=== PATIENT | male | born 1940 | race Caucasian/White ===

== ENCOUNTER 2018-07-02 09:31 | Day surgery (SDC) | payer OTHER ==
[2018-07-01 13:33] VITALS: BMI 25.0
[2018-07-02] MEDS: TROPICAMIDE 1% OPHTH SOLN 15 ML BOTTLE ONE ×3 (10:35→10:45)
[2018-07-02] MEDS: CIPROFLOXACIN 0.3% EYE DROPS 5 ML BOTTLE ONE ×3 (10:35→10:45)
[2018-07-02] MEDS: PHENYLEPHRINE 2.5% OPHTH SOLN 15 ML BOTTLE ONE ×3 (10:35→10:45)
[2018-07-02] MEDS: CYCLOPENTOLATE 2% OPHTH SOLN 2 ML BOTTLE ONE ×3 (10:35→10:45)
[2018-07-02] MEDS ORDERED: MIDAZOLAM HCL 2 MG/2 ML SINGLE DOSE VIAL ONE (10:49)
[2018-07-02] MEDS ORDERED: BSS (NA/CA/MG/K) BALANCED SALT SOLUTION OPHTH SOLN 15 ML BOTTLE ONE (10:58)
[2018-07-02 13:58] VITALS: BP 118/65; PULSE 66; TEMP 97.9
--- NOTE | 2018-07-03 07:33 | OP ---
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 ANESTHESIA: MAC PROCEDURE: The patient was brought to the operating room and placed under monitored anesthesia care by Anesthesia. A drop of Tetracaine was then placed over the right eye. The patient was then prepped and draped in the usual sterile manner. A speculum was then placed over the right eye. The eye was then well irrigated with copious amounts of BSS (balanced salt solution). The operating microscope was then moved into position. A paracentesis was performed using a 15 degree blade. At this point 0.5 mL of 1% preservative-free lidocaine was injected into the anterior chamber. Amvisc plus was then injected into the anterior chamber. A clear corneal incision was then formed using a 2.2 mm keratome. A cyclodialysis spatula was then used to break the posterior synechia. Two [place]en iris hooks were then used to stretch the iris. More Amvisc plus was then injected into the anterior chamber. A capsulorrhexis was then performed in a continuous circular fashion beginning with a cystotome and completed with an Utratas forceps. Hydrodissection was then performed using BSS on a cannula. The phaco probe was then introduced through the corneal wound and the cataract was removed using the phaco chop technique. Approximately 3 seconds of absolute phaco time was used. The remaining cortex was then removed using irrigation and aspiration with an I/A probe. The capsule was then filled with regular Amvisc and the capsule was noted to be intact. A previously selected foldable posterior chamber intraocular lens was then injected into the capsule through the corneal wound using a lens injector. It was then dialed into position using a Sinskey hook. The Amvisc was then removed using irrigation and aspiration. Miostat was then injected through the paracentesis to constrict the pupil. The paracentesis and corneal wound were then hydrated and noted to be water tight. A drop of Maxitrol was then placed over the eye. T he speculum was removed and clear shield was taped over the eye. The patient tolerated the procedure well and there were no surgical complications. The patient was asked to follow up in my office the next day. ABDULKADIR GARCIA M.D. [id number]
== END 2018-07-02 16:00 | disposition home or self-care (01) ==
LOC: FASU 09:31
PROVIDERS: ATTEND Ophthalmology
PROC: 08RJ3JZ Replacement of Right Lens with Synthetic Substitute, Percutaneous Approach (ICD-10-PCS; principal; 2018-07-02 11:21)
DX: H26.8 Other specified cataract (principal)

== ENCOUNTER 2018-12-15 11:33 | Emergency (ER) | payer BC, OTHER ==
[2018-12-15 11:37] VITALS: TEMP 98.2; BMI 22.7
[2018-12-15 12:24] LABS: EPI CELLS 1.3 /HPF (0-5/HPF); HYALINE CASTS 2 /lpf (0-8); PH,URINE 5.5 (5.0-8.0); URINE APPEARANCE CLOUDY; URINE BACTERIA 38.5 /hpf (NEGATIVE); URINE BILIRUBIN NEGATIVE (NEGATIVE); URINE COLOR DK YELLOW; URINE GLUCOSE (UA) NEGATIVE (NEGATIVE); URINE KETONE NEGATIVE (NEGATIVE); URINE LEUK ESTERASE 2+ (NEGATIVE); URINE NITRITE NEGATIVE (NEGATIVE); URINE PROTEIN 2+ (NEGATIVE); URINE RBC 269 /hpf (0-4); URINE WBC 207 /hpf (0-5)
[2018-12-15 13:03] LABS: BASO % 0.5 % (0-2.0); EOS % 2.6 % (0-4.5); HEMATOCRIT 34.7 % (35.4-49); HEMOGLOBIN 11.5 GM/dL (11.7-16.9); LYMPH % 12.4 % (8-40); MCH 29.9 pg (25.7-33.7); MCHC 33.1 g/dl (32.0-35.9); MEAN CELL VOLUME 90.3 fl (80-96); MEAN PLT VOLUME 7.5 fl (7.5-11.1); MONO % 7.5 % (3.8-10.2); PLATELET COUNT 191 K/MM3 (134-434); RBC 3.84 M/mm3 (4.00-5.60); RDW 15.7 % (11.9-15.9)
[2018-12-15 13:29] LABS: ALBUMIN 2.9 g/dl (3.4-5.0); BILIRUBIN,TOTAL 0.6 mg/dL (0.2-1); BLOOD UREA NITROGEN 12.6 mg/dL (7-18); CALCIUM 8.4 mg/dL (8.5-10.1); TOT PROT 5.9 g/dl (6.4-8.2)
--- NOTE | 2018-12-15 13:34 | PDOC ---
History of Present Illness - General Chief Complaint: Urinary Problem Stated Complaint: DIFF URINATING Time Seen by Provider: 12/15/18 11:56 - History of Present Illness Initial Comments: Mr. Dos Santos is a 78 y/o male with PMH significant for COPD on home O2 (2L) presenting today with back pain and pain on urination. Reports that this has been going on for the past couple of months. He was diagnosed with a UTI back in May and treated with antibiotics. Denies hematuria. Denies bloody or purulent penile discharge. Denies fever, denies chills. SocHx: not sexually active, no hx of STIs Past History - Past Medical History Allergies/Adverse Reactions: Allergies Allergy/AdvReac Type Severity Reaction Status Date / Time No Known Drug Allergies Allergy Unknown Verified 12/15/18 11:34 Home Medications: Ambulatory Orders Albuterol 2.5/Ipratropium 0.5 [Duoneb -] 1 neb NEB Q4H PRN #0 vial 03/09/12 Amlodipine Besylate [Norvasc -] 10 mg PO DAILY #0 tablet 03/09/12 Salmeterol/Fluticasone [Advair 250Mcg/50Mcg -] 1 inh IH BID #0 inh 03/09/12 Enalapril Maleate [Vasotec] 20 mg PO DAILY 07/01/18 Methadone [Dolophine -] 110 mg PO DAILY 07/01/18 Tamsulosin HCl [Flomax] 0.4 mg PO DAILY 07/01/18 Sulfamethoxazole/Trimethoprim [Bactrim Ds Tablet] 1 each PO BID 10 Days #20 tablet 12/15/18 Anemia: No Asthma: No Cancer: No Cardiac Disorders: Yes (angioplasty 1997) CVA: No COPD: Yes (diagnosed 2009) CHF: No Dementia: No Diabetes: No Dialysis: No GI Disorders: No Disorders: Yes (BPH) HTN: Yes Hypercholesterolemia: No Kidney Stones: No Liver Disease: No Seizures: No Thyroid Disease: No - Surgical History Abdominal Surgery: Yes (RIGHT INQUINAL HERNIA REPAIR 25 YRS AGO) Appendectomy: No Cardiac Surgery: Yes (ANGIOPLASTY 1997) Cholecystectomy: No Lung Surgery: No Neurologic Surgery: No Orthopedic Surgery: No - Immunization History Immunization Up to Date: Yes - Psycho Social/Smoking Cessation Hx Smoking Status: Yes Smoking History: Current every day smoker Years of Tobacco Use: 20 Have you smoked in the past 12 months: Yes Number of Cigarettes Smoked Daily: 20 Information on smoking cessation initiated: No 'Breaking Loose' booklet given: 03/01/12 Hx Alcohol Use: No Drug/Substance Use Hx: No Substance Use Type: Alcohol, Heroin, Prescribed Hx Substance Use Treatment: Yes Review of Systems - Review of Systems Comments:: GENERAL/CONSTITUTIONAL: No fever or chills. No weakness._ HEAD, EYES, EARS, NOSE AND THROAT: No change in vision. No change in hearing. No sore throat._ CARDIOVASCULAR: No chest pain or shortness of breath_ RESPIRATORY: Denies cough, hemoptysis_ GASTROINTESTINAL: No nausea, vomiting, diarrhea or constipation._ GENITOURINARY: Reports dysuria. MUSCULOSKELETAL: No joint or muscle swelling or pain. Reports bilateral back pain. SKIN: No rash_ NEUROLOGIC: No headache, vertigo, loss of consciousness, or change in strength/ sensation._ ENDOCRINE: No increased thirst. No abnormal weight change_ HEMATOLOGIC/LYMPHATIC: No anemia, easy bleeding, or history of blood clots._ ALLERGIC/IMMUNOLOGIC: No hives or skin allergy._ *Physical Exam - Vital Signs Last Vital Signs Temp Pulse Resp BP Pulse Ox 98.2 F 78 18 98/60 92 L 12/15/18 11:34 12/15/18 11:34 12/15/18 11:34 12/15/18 11:34 12/15/18 11:34 - Physical Exam Comments: GENERAL: Awake, alert, and oriented to person/place/time, in no acute distress_ HEAD: No signs of trauma, normocephalic, atraumatic _ EYES: PERRLA, EOMI, sclera anicteric, conjunctiva clear_ ENT: Hearing grossly normal, nares patent, oropharynx clear without exudates. No uvular deviation. Moist mucosa_ NECK: Normal ROM, supple, no lymphadenopathy, JVD, or masses_ LUNGS: No distress, speaks in full sentences, clear to auscultation bilaterally _ HEART: Regular rate and rhythm, normal S1 and S2, no murmurs appreciated, peripheral pulses normal and equal bilaterally._ ABDOMEN: Soft, nontender, normoactive bowel sounds. No guarding, no rebound. No masses_ BACK: Mild TTP mid back bilaterally. : No rashes, lesions, ulcers on external inspection. No penile discharge or bleeding appreciated. No erythema or scrotal skin changes. EXTREMITIES: Normal inspection, Normal range of motion, no edema. No clubbing or cyanosis_ NEUROLOGICAL: Cranial nerves II through XII grossly intact. Normal speech, no focal sensorimotor deficits _ SKIN: Warm, Dry, normal turgor, no rashes or lesions noted_ ED Treatment Course - LABORATORY CBC & Chemistry Diagram: 12/15/18 12:50 12/15/18 12:50 - ADDITIONAL ORDERS Additional order review: Laboratory Results 12/15/18 12/15/18 12:50 12:00 Sodium 140 Potassium 4.0 Chloride 106 Carbon Dioxide 30 Anion Gap 4 L BUN 12.6 Creatinine 1.0 Est GFR (CKD-EPI)AfAm 82.60 Est GFR (CKD-EPI)NonAf 71.27 Random Glucose 85 Calcium 8.4 L Total Bilirubin 0.6 AST 13 L ALT 11 L Alkaline Phosphatase 58 Total Protein 5.9 L Albumin 2.9 L Urine Color Dk yellow Urine Appearance Cloudy Urine pH 5.5 Ur Specific Mcdermitt 1.021 Urine Protein 2+ H Urine Glucose (UA) Negative Urine Ketones Negative Urine Blood 3+ H Urine Nitrite Negative Urine Bilirubin Negative Urine Urobilinogen 1.0 Ur Leukocyte Esterase 2+ H Urine WBC (Auto) 207 Urine RBC (Auto) 269 Urine Casts (Auto) 2 U Epithel Cells (Auto) 1.3 Urine Bacteria (Auto) 38.5 12/15/18 12:50 RBC 3.84 L MCV 90.3 MCHC 33.1 RDW 15.7 MPV 7.5 Neutrophils % 77.0 Lymphocytes % 12.4 Monocytes % 7.5 D Eosinophils % 2.6 Basophils % 0.5 Medical Decision Making - Medical Decision Making 78M presenting with dysuria and mid back pain on both sides for the past two months. DDx includes UTI vs musculoskeletal back pain vs less likely pyelo given bilateral in nature. -UA, UC -CBC, CMP 12/15/18 1500 Labs reviewed. WBC elevated. UA shows possible signs of UTI. Plan to d/c home, f/u PCP and urology, Bactrim BID 10 days for UTI. Discharge - Discharge Information Problems reviewed: Yes Clinical Impression/Diagnosis: Dysuria Condition: Stable Disposition: HOME - Admission No - Additional Discharge Information Prescriptions: Sulfamethoxazole/Trimethoprim [Bactrim Ds Tablet] 1 each PO BID 10 Days #20 tablet - Follow up/Referral Referrals: Cam Moran MD [Staff Physician] - Haris Stinson MD [Staff Physician] - - Patient Discharge Instructions Additional Instructions: Please take Bactrim (antibiotic) 1 tab twice per day for 10 days. Please make a follow up appointment with a primary care physician (referral to Dr. Moran included here) and with a urologist (Dr. Stinson). If you experience any new, worsening, or concerning symptoms, including severe back pain, repeated falls, head injury, blood in the urine, or any other concerns, please return to the emergency department. - Post Discharge Activity
--- NOTE | 2018-12-15 14:08 | PDOC ---
Documentation entered by Jet Coleman SCRIBE, acting as scribe for José Miguel Cruz MD. José Miguel Cruz MD: This documentation has been prepared by the Jared basilio Daniel, SCRIBE, under my direction and personally reviewed by me in its entirety. I confirm that the documentation accurately reflects all work, treatment, procedures, and medical decision making performed by me. Attending Attestation - Resident Resident Name: Evelio Pelletier - ED Attending Attestation I have performed the following: I have examined & evaluated the patient, The case was reviewed & discussed with the resident, I agree w/resident's findings & plan, Exceptions are as noted - HPI HPI: 12/15/18 12:18 The patient is a 78 year old male with a past medical history of COPD (2 liters home O2) here today for evaluation of back pain and dysuria. The patient reports that he has had bilateral back pain and burning with urination for the past 2 months. He notes having a similar episode in May this year and reports that he was diagnosed with a UTI and that it was resolved with antibiotics. He denies any testicular pain, penile discharge, or foul smelling urine. Patient denies headache, lightheadedness. Denies fever, chills. Denies chest pain, shortness of breath. Denies nausea, vomiting, diarrhea, abdominal pain. Allergies: NKDA - Physicial Exam PE: 12/15/18 14:06 GENERAL: The patient is awake, alert, and fully oriented, Nontoxic - in no acute distress. HEAD: Normocephalic, atraumatic. EYES: extraocular movements intact, sclera anicteric, conjunctiva clear. ENT: Normal voice, Moist mucous membranes. NECK: Normal range of motion, supple LUNGS: Breath sounds equal, clear to auscultation bilaterally. No wheezes, no rhonchi, no rales. HEART: Regular rate and rhythm, normal S1 and S2 without murmur, rub or gallop. ABDOMEN: Soft, nontender, No guarding, no rebound. Mild tenderness to bilateral flank EXTREMITIES: Normal range of motion, no edema. NEUROLOGICAL: No facial assymetry, Normal speech, PSYCH: Normal mood, normal affect. SKIN: Warm, Dry, normal turgor, - Medical Decision Making 12/15/18 12:16 78y M hx of copd, presents with dysuria and b/l atraumatic back pain for the past 2 months. pt notes hte pain is chronic and moderate. suzette esany fever/ chills, n/v, abd pain, cp, sob, foul smelling urine. Patient is not sexually active pts sat here is 92, but this is baseline for him as he is off O2 here (o2 dependnt at home) geovanni btin UA to r/o uti no clinical signs suggestive of pyelonephronosis beside back pain 12/15/18 14:06 ua is dirty will treat for uti, but as he has back pain, will treat for pyelo geovanni stephany dorado fu with urology a thi is th 2nd UTI he has had in the past year returnprecautions were discussed
[2018-12-15 14:22] VITALS: BP 97/58; PULSE 77
== END 2018-12-15 14:25 | disposition home or self-care (01) ==
LOC: JER 11:33
DX: N39.0 Urinary tract infection, site not specified (principal); J44.9 Chronic obstructive pulmonary disease, unspecified; Z99.81 Dependence on supplemental oxygen; F17.210 Nicotine dependence, cigarettes, uncomplicated; I10 Essential (primary) hypertension; N40.0 Benign prostatic hyperplasia without lower urinary tract symptoms; Z98.61 Coronary angioplasty status
CPT/HCPCS: 36415; 80053; 81003; 85025; 87086; 99282-25

== ENCOUNTER 2018-12-18 09:04 | Inpatient (IN) | payer BC, OTHER ==
[2018-12-18] MEDS ORDERED: ALBUTEROL SO4 2.5/IPRATROPIUM 0.5 INH SOL 3 ML VIAL.NEB. NEB ONE ×2 (10:09→10:51)
--- NOTE | 2018-12-18 10:16 | PDOC ---
History of Present Illness - General Chief Complaint: Urinary Problem Stated Complaint: URINARY PROBLEMS Time Seen by Provider: 12/18/18 10:03 - History of Present Illness Initial Comments: 12/18/18 10:11 78 yo M PMH COPD on home O2 (2L), notably seen 4 days ago, diagnosed with UTI, dc'd home on Bactrim, presenting with dysuria. Reports that he has been taking the Bactrim as prescribed but continues to have burning with urination. Further complains of incomplete voiding and SOB, similar to his prior COPD exacerbations. Specifically denies CP, N/V, fevers/chills, constipation/ diarrhea. Past History - Past Medical History Allergies/Adverse Reactions: Allergies Allergy/AdvReac Type Severity Reaction Status Date / Time No Known Drug Allergies Allergy Unknown Verified 12/18/18 09:24 Home Medications: Ambulatory Orders Albuterol 2.5/Ipratropium 0.5 [Duoneb -] 1 neb NEB Q4H PRN #0 vial 03/09/12 Amlodipine Besylate [Norvasc -] 10 mg PO DAILY #0 tablet 03/09/12 Salmeterol/Fluticasone [Advair 250Mcg/50Mcg -] 1 inh IH BID #0 inh 03/09/12 Enalapril Maleate [Vasotec] 20 mg PO DAILY 07/01/18 Methadone [Dolophine -] 110 mg PO DAILY 07/01/18 Tamsulosin HCl [Flomax] 0.4 mg PO DAILY 07/01/18 Sulfamethoxazole/Trimethoprim [Bactrim Ds Tablet] 1 each PO BID 10 Days #20 tablet 12/15/18 Anemia: No Asthma: No Cancer: No Cardiac Disorders: Yes (angioplasty 1997) CVA: No COPD: Yes (diagnosed 2009) CHF: No Dementia: No Diabetes: No Dialysis: No GI Disorders: No Disorders: Yes (BPH) HTN: Yes Hypercholesterolemia: No Kidney Stones: No Liver Disease: No Seizures: No Thyroid Disease: No - Surgical History Abdominal Surgery: Yes (RIGHT INQUINAL HERNIA REPAIR 25 YRS AGO) Appendectomy: No Cardiac Surgery: Yes (ANGIOPLASTY 1997) Cholecystectomy: No Lung Surgery: No Neurologic Surgery: No Orthopedic Surgery: No - Immunization History Immunization Up to Date: Yes - Psycho Social/Smoking Cessation Hx Smoking Status: Yes Smoking History: Never smoked Years of Tobacco Use: 20 Have you smoked in the past 12 months: Yes Number of Cigarettes Smoked Daily: 20 'Breaking Loose' booklet given: 03/01/12 Hx Alcohol Use: No Drug/Substance Use Hx: No Substance Use Type: Alcohol, Heroin, Prescribed Hx Substance Use Treatment: Yes Review of Systems - Review of Systems Able to Perform ROS?: Yes Constitutional: No: Chills, Diaphoresis, Fever HEENTM: No: Recent change in vision, Double Vision, Tinnitus, Hearing Loss, Mouth Pain, Difficulty Swallowing Respiratory: Yes: Shortness of Breath. No: Cough, Orthopnea Cardiac (ROS): No: Chest Pain, Edema, Irregular Heart Rate, Lightheadedness, Palpitations, Syncope, Chest Tightness ABD/GI: No: Constipated, Diarrhea, Nausea, Vomiting : Yes: Burning, Dysuria, Other (incomplete voiding). No: Discharge, Frequency , Flank Pain Musculoskeletal: No: Back Pain, Muscle Pain Neurological: No: Headache, Numbness, Tingling, Weakness *Physical Exam - Vital Signs Last Vital Signs Temp Pulse Resp BP Pulse Ox 98.6 F 88 16 100/65 95 12/18/18 09:21 12/18/18 09:21 12/18/18 09:21 12/18/18 09:21 12/18/18 09:21 - Physical Exam Comments: 12/18/18 10:13 Gen: well-developed, well-nourished, NAD Neuro: AAOX4, CN II-XII intact, FTN intact, EOMI, PERRLA, 5/5 strength, SILT HEENT: atraumatic, normocephalic, dry mucous membranes Neck: trachea midline, supple CV: regular rate, regular rhythm, no murmurs, rubs, or gallops Pulm: diffuse b/l expiratory wheezing Abd: soft, non-distended, non-tender MSK: full ROM, intact pulses Extr: no edema, no deformities Skin: warm, dry ED Treatment Course - LABORATORY CBC & Chemistry Diagram: 12/18/18 10:15 12/18/18 10:15 - RADIOLOGY Radiology Studies Ordered: Category Date Time Status CXRPORT [CHEST X-RAY PORTABLE*] [RAD] Stat Radiology 12/18/18 10:11 Ordered Medical Decision Making - Medical Decision Making 12/18/18 10:14 Concern for UTI vs incomplete voiding vs COPD exacerbation. - CBC, CMP - EKG, trop - CXR port - UA/UC - sating 93% on RA, put patient back on home 2L - Duoneb X2 - reassess 12/18/18 10:41 POCUS 29 ccs. Patient states confusion about his medications, does not have primary care doctor. Appears that he would benefit from psych social worker. Called, they will come down. 12/18/18 10:57 CXR without acute pathology. 12/18/18 11:45 Cr 1.4 from 1. 12/18/18 14:[address] abd/pelvis, dry, admit for hematuria and LUCIE. 12/18/18 15:27 CT abdomen/pelvis: Irregular edge liver is suggesting cirrhosis. Increased density in the lateral wall of the fundus of the gallbladder which could represent sludge , underlying mass not excluded. Correlate with ultrasound imaging. There is mild dilatation of the extrahepatic bile ducts which could be age-related. No distal CBD stones identified. Ampullary lesion not excluded. Consider MRCP as clinically warranted. Low-density lesion in the spleen indeterminate. Dilatation of the right collecting system and ureter up to the level of the sacral promontory with a hyperdense lesion is noted. Findings could represent a mass or blood. Sludge is another possibility. Correlate with retrograde urogram. Hyperdensity on the dependent portion of the bladder which could represent sludge or blood. Correlate with ultrasound imaging. Diverticulosis with no evidence to suggest diverticulitis. Infrarenal abdominal aortic aneurysm as discussed above. Paraumbilical ventral hernia with no stranding. Will admit. Discharge - Discharge Information Problems reviewed: Yes Clinical Impression/Diagnosis: Dysuria, SOB (shortness of breath) - Follow up/Referral - Patient Discharge Instructions - Post Discharge Activity
--- NOTE | 2018-12-18 10:21 | PDOC ---
Attending Attestation - Resident Resident Name: Jann Celeste - ED Attending Attestation I have performed the following: I have examined & evaluated the patient, The case was reviewed & discussed with the resident, I agree w/resident's findings & plan, Exceptions are as noted - HPI HPI: 12/18/18 10:19 Mr. fam is a 78 yo M PMH COPD on home O2 (2L) presenting to the emergency department with a complaint of persistent dysuria, suprapubic tenderness. Patient was seen in the emergency department 4 days ago and was diagnosed with UTI He was d/bea on Bactrim (urine cultures negative) Patient presents today reporting persistent dysuria, inability to void Secondarily, patient reports SOB, similar to his prior COPD exacerbations. Specifically denies CP, N/V, fevers/chills, constipation/diarrhea. - Physicial Exam PE: 12/18/18 10:20 GENERAL: The patient is in no acute distress. ENT: Ears normal, nares patent, oropharynx clear without exudates. Moist mucous membranes. NECK: Normal range of motion, supple LUNGS: Breath sounds equal, clear to auscultation bilaterally. No wheezes, and no crackles. HEART:Regular rate and rhythm, normal S1 and S2 without murmur, rub or gallop. ABDOMEN: Soft, nontender, no suprapubic distention, abdominal wall hernia which is reducible/soft : circumcised penis, no lesions, no drainage EXTREMITIES: Normal range of motion, no edema. NEUROLOGICAL: Cranial nerves II through XII grossly intact. Normal speech. No focal neurological deficits. SKIN: Warm, Dry, normal turgor, no rashes or lesions noted. 12/18/18 10:42 12/18/18 10:57 - Medical Decision Making 12/18/18 10:41 EKG: Normal sinus rhythm, rate of 69 bpm, axis is normal, intervals are normal-MA: 148 ms, QRS: 88 ms, QTC [address] elevation or depression, T waves upright 12/18/18 10:54 Bedside ultrasound performed patient's bladder Patient's urinary bladder is not distended We will not need to be straight cath 12/18/18 10:56 rate manager will see this patient 12/18/18 11:00 12/18/18 12:12 Laboratory Tests 12/15/18 12/15/1819 12:50 12:50 10:15 WBC Hgb 11.5 L Hct 34.7 L BUN 12.6 Creatinine 1.0 Creatine Kinase 63 Troponin I < 0.02 12/18/18 12/18/18 10:15 10:15 WBC 10.0 Hgb 11.1 L Hct 33.7 L BUN 14.2 Creatinine 1.4 H Creatine Kinase Troponin I CT demonstrates 2 cm calcification in the right ureter with hydro As well as blood in the bladder Pt will be admitted
[2018-12-18 11:01] LABS: ALBUMIN 3.2 g/dl (3.4-5.0); BILIRUBIN,TOTAL 0.4 mg/dL (0.2-1); BLOOD UREA NITROGEN 14.2 mg/dL (7-18); CALCIUM 9.1 mg/dL (8.5-10.1); CREATININE 1.4 mg/dL (0.55-1.3); POTASSIUM 4.5 mmol/L (3.5-5.1); TOT PROT 6.2 g/dl (6.4-8.2)
--- NOTE | 2018-12-18 11:59 | EKG ---
Test Reason : Blood Pressure : / mmHG Vent. Rate : 069 BPM Atrial Rate : 069 BPM P-R Int : 148 ms QRS Dur : 088 ms QT Int : 434 ms P-R-T Axes : 077 021 069 degrees QTc Int : 465 ms NORMAL SINUS RHYTHM SEPTAL INFARCT (CITED ON OR BEFORE 05-MAR-2012) ABNORMAL ECG WHEN COMPARED WITH ECG OF 05-MAR-2012 19:58, NO SIGNIFICANT CHANGE WAS FOUND Confirmed by PER SHIPLEY, MICHELLE ([id number]) on 12/18/2018 11:59:22 AM Referred By: Confirmed By:MICHELLE ALBARADO MD
[2018-12-18 12:01] LABS: BASO % 0.6 % (0-2.0); EOS % 1.5 % (0-4.5); HEMATOCRIT 33.7 % (35.4-49); HEMOGLOBIN 11.1 GM/dL (11.7-16.9); LYMPH % 8.3 % (8-40); MCH 29.5 pg (25.7-33.7); MCHC 33.1 g/dl (32.0-35.9); MEAN CELL VOLUME 89.3 fl (80-96); MEAN PLT VOLUME 7.9 fl (7.5-11.1); MONO % 4.4 % (3.8-10.2); NEUT % 85.2 % (42.8-82.8); PLATELET COUNT 209 K/MM3 (134-434); RBC 3.77 M/mm3 (4.00-5.60); RDW 15.5 % (11.9-15.9)
[2018-12-18 13:08] LABS: EPI CELLS 1.7 /HPF (0-5/HPF); HYALINE CASTS 23 /lpf (0-8); PH,URINE 5.5 (5.0-8.0); URINE APPEARANCE TURBID; URINE BACTERIA 16.8 /hpf (NEGATIVE); URINE BILIRUBIN 1+ (NEGATIVE); URINE COLOR DK YELLOW; URINE GLUCOSE (UA) NEGATIVE (NEGATIVE); URINE KETONE NEGATIVE (NEGATIVE); URINE LEUK ESTERASE 2+ (NEGATIVE); URINE NITRITE NEGATIVE (NEGATIVE); URINE PROTEIN 2+ (NEGATIVE); URINE WBC 167 /hpf (0-5)
[2018-12-18 13:51] LABS: YEAST NO YEAST SEEN (NEGATIVE)
--- NOTE | 2018-12-18 16:36 | HP ---
Admitting History and Physical - Admission Chief Complaint: hematuria and left flank pain History of Present Illness: 78 yo M PMH COPD on home O2 (2L), notably seen 4 days ago, diagnosed with UTI, dc'd home on Bactrim. Presented today with dysuria, hematuria & feeling of incomplete voiding. Mild RING. Denies CP, N/V, fevers/chills. States he has not seen his PCP in years and should be taking "several medications" but only consistently takes his methadone. [facility] ([facility]) Subst Abuse Treatment Program Unit [facility] is a Substance Abuse Rehab Services History Source: Patient - Past Medical History Cardiovascular: Yes: HTN Pulmonary: Yes: COPD, Other (home O2) Renal/: Yes: BPH, Hematuria, UTI - Past Surgical History Past Surgical History: Yes: Hernia Repair (RIH repair 25 yrs ago) Additional Past Surgical History: Angioplasty 1997 - Smoking History Smoking history: Never smoked Have you smoked in the past 12 months: Yes Aproximately how many cigarettes per day: 20 - Alcohol/Substance Use Hx Alcohol Use: No History of Substance Use: reports: Heroin - Social History Usual Living Arrangement: Yes: Alone ADL: Independent History of Recent Travel: No Home Medications - Allergies Allergies/Adverse Reactions: Allergies Allergy/AdvReac Type Severity Reaction Status Date / Time No Known Drug Allergies Allergy Unknown Verified 12/18/18 09:24 - Home Medications Home Medications: Ambulatory Orders Albuterol 2.5/Ipratropium 0.5 [Duoneb -] 1 neb NEB Q4H PRN #0 vial 03/09/12 Amlodipine Besylate [Norvasc -] 10 mg PO DAILY #0 tablet 03/09/12 Salmeterol/Fluticasone [Advair 250Mcg/50Mcg -] 1 inh IH BID #0 inh 03/09/12 Enalapril Maleate [Vasotec] 20 mg PO DAILY 07/01/18 Methadone [Dolophine -] 110 mg PO DAILY 07/01/18 Tamsulosin HCl [Flomax] 0.4 mg PO DAILY 07/01/18 Sulfamethoxazole/Trimethoprim [Bactrim Ds Tablet] 1 each PO BID 10 Days #20 tablet 12/15/18 Family Medical History Family History: Denies Review of Systems - Review of Systems Constitutional: reports: No Symptoms Eyes: reports: No Symptoms HENT: reports: No Symptoms Neck: reports: No Symptoms Cardiovascular: reports: Shortness of Breath Respiratory: reports: SOB on Exertion, Other (2L home O2) Gastrointestinal: reports: Nausea, Vomiting (non bloody) Genitourinary: reports: Burning, Dysuria, Flank Pain (left) Musculoskeletal: reports: Back Pain Integumentary: reports: No Symptoms Neurological: reports: No Symptoms Endocrine: reports: No Symptoms Hematology/Lymphatic: reports: No Symptoms Psychiatric: reports: No Symptoms Physical Examination Vital Signs: Vital Signs Temperature 98.6 F 12/18/18 09:21 Pulse Rate 72 12/18/18 15:54 Respiratory Rate 19 12/18/18 15:54 Blood Pressure 140/62 12/18/18 15:54 O2 Sat by Pulse Oximetry (%) 94 L 12/18/18 15:54 Constitutional: Yes: No Distress, Calm, Poor Hygeine, Thin Eyes: Yes: WNL, Conjunctiva Clear, EOM Intact HENT: Yes: WNL, Atraumatic, Normocephalic Neck: Yes: WNL, Supple, Trachea Midline Cardiovascular: Yes: WNL, Regular Rate and Rhythm Respiratory: Yes: Wheezes (scattered wheeking BL) Gastrointestinal: Yes: WNL, Normal Bowel Sounds ...Rectal Exam: Yes: Deferred Renal/: Yes: CVA Tenderness - Left Breast(s): Yes: WNL Musculoskeletal: Yes: Back Pain Extremities: Yes: WNL Edema: No Peripheral Pulses WNL: Yes Peripheral Pulses: Left Radial: 2+, Right Radial: 2+, Left Doralis Pedis: 2+, Right Dorsalis Pedis: 2+, Left Femoral: 2+, Right Femoral: 2+ Integumentary: Yes: WNL Neurological: Yes: WNL, Alert, Oriented ...Motor Strength: WNL Psychiatric: Yes: WNL Labs: CBC, BMP 12/18/18 10:15 12/18/18 10:15 Imaging - Results Cat Scan: Report Reviewed (CT abdomen/pelvis: Irregular edge liver is suggesting cirrhosis. Increased density in the lateral wall of the fundus of the gallbladder which could represent sludge , underlying mass not excluded. Correlate with ultrasound imaging. There is mild dilatation of the extrahepatic bile ducts which could be age-related. No distal CBD stones identified. Ampullary lesion not excluded. Consider MRCP as clinically warranted. Low- density lesion in the spleen indeterminate. Dilatation of the right collecting system and ureter up to the level of the sacral promontory with a hyperdense lesion is noted. Findings could represent a mass or blood. Sludge is another possibility. Correlate with retrograde urogram. Hyperdensity on the dependent portion of the bladder which could represent sludge or blood. Correlate with ultrasound imaging. Diverticulosis with no evidence to suggest diverticulitis. Infrarenal abdominal aortic aneurysm as discussed above. Paraumbilical ventral hernia with no stranding.) Problem List - Problems (1) HTN (hypertension) Assessment/Plan: previously on amlodopine and enalpril-has not consistency taken Cr 1.5-baseline <1.0 will hold enalapril and restart amlodopine Code(s): I10 - ESSENTIAL (PRIMARY) HYPERTENSION (2) Methadone maintenance therapy patient Assessment/Plan: attempted to call [facility] ([facility]) Subst Abuse Treatment Program Unit I is a Substance Abuse Rehab Services with no response will order one x dose of methadone and verify maintenance dose in morning (pt dose have card but no dose is stated on card) Code(s): F11.20 - OPIOID DEPENDENCE, UNCOMPLICATED (3) Prophylactic measure Assessment/Plan: FEN IVF @ 100cc/hr low sodium diet NPO after MN for potential intervention in am monitor electrolytes DVT heparin sq Dispo admit to med surg floor full code discharge planning to home-will have SW see in morning Code(s): Z29.9 - ENCOUNTER FOR PROPHYLACTIC MEASURES, UNSPECIFIED (4) Hematuria Assessment/Plan: hematuria since yesterdal bladder scan to assess PVR conitnue IVF Dr Jameson to see patient renal/abd US pending c/w IVF start ceftriaxone pending Ucx Code(s): R31.9 - HEMATURIA, UNSPECIFIED (5) Dysuria Code(s): R30.0 - DYSURIA (6) SOB (shortness of breath) Assessment/Plan: duonebs q6h prn supplemental O2 to maintain SPO2 >90 Code(s): R06.02 - SHORTNESS OF BREATH (7) Cirrhosis Assessment/Plan: seen on CT will send hepatatis serologies avoid hepatoxic agents abd US pending Code(s): K74.60 - UNSPECIFIED CIRRHOSIS OF LIVER Visit type - Emergency Visit Emergency Visit: Yes ED Registration Date: 12/18/18 Care time: The patient presented to the Emergency Department on the above date and was hospitalized for further evaluation of their emergent condition. - New Patient This patient is new to me today: Yes Date on this admission: 12/18/18 - Critical Care Critical Care patient: No
[2018-12-18] MEDS ORDERED: ALBUTEROL SO4 2.5/IPRATROPIUM 0.5 INH SOL 3 ML VIAL.NEB. NEB PRN ×2 (16:44→17:35)
[2018-12-18] MEDS ORDERED: CEFTRIAXONE 0 GM/0 ML BAG ONE (18:58)
[2018-12-18] MEDS: CEFTRIAXONE 1 GM in DEXTROSE 5%-WATER - 50 ML IVPB SCH (18:59)
[2018-12-18] MEDS: SODIUM CHLORIDE 1,000 ML IV SCH (18:59)
[2018-12-18] MEDS ORDERED: CEFTRIAXONE 1 GM/50 ML BAG ONE (19:06)
--- NOTE | 2018-12-18 20:44 | CONS ---
DATE OF CONSULTATION: 12/18/2018 REASON FOR CONSULTATION: Hematuria, abnormal CT, and dysuria. Patient is a 78-year-old who presented earlier this week to the emergency room with dysuria, was also reported to have intermittent hematuria, although at the time he was seen, there was no hematuria. A urine culture was sent out at that time, and the patient was given antibiotics and discharged from the emergency room, but came back in today with the hematuria and reporting that the dysuria had not resolved. Patient is an extremely poor historian, but does note that he has had on-and-off hematuria for approximately 4-5 months at least. He has also had difficulty voiding, and the dysuria developed over the course of the past few weeks. It has gotten progressively worse. Significantly, the urine culture sent off earlier this week from the emergency room did not show an infection. PHYSICAL EXAMINATION: General: The patient was wearing nasal O2, not in any obvious pain, but uncomfortable. Abdomen: There was no acute tenderness elicited nor was any flank pain elicited. The bladder was not palpably distended. Patient's CT revealed marked dilatation of the right renal pelvis with cortical thinning and dilatation of the proximal ureter. It appears that the patient might have a stone chronically lodged in the ureter as the findings seem to be quite chronic with the cortex significantly thinned out. I did not see any images of the bladder. His urine culture at this point is pending. Patient should have urine cytology sent and will require a cystoscopy, right retrograde, possible ureteroscopy, which will be scheduled sometime next week. MD SIA LIMON/[id number]
[2018-12-18] MEDS: BUDESONIDE/FORMETEROL FUMARATE 80/4.5 mcg INHALER IH SCH (23:09)
[2018-12-19] MEDS ORDERED: METHADONE HCL 10 MG TABLET PO SCH (06:00)
[2018-12-19 08:15] LABS: BASO % 0.8 % (0-2.0); HEMATOCRIT 32.9 % (35.4-49); HEMOGLOBIN 11.1 GM/dL (11.7-16.9); LYMPH % 13.4 % (8-40); MCH 30.2 pg (25.7-33.7); MCHC 33.7 g/dl (32.0-35.9); MEAN CELL VOLUME 89.6 fl (80-96); MEAN PLT VOLUME 7.2 fl (7.5-11.1); MONO % 5.9 % (3.8-10.2); NEUT % 76.9 % (42.8-82.8); PLATELET COUNT 185 K/MM3 (134-434); RBC 3.67 M/mm3 (4.00-5.60); RDW 15.6 % (11.9-15.9); WHITE BLOOD COUNT 8.4 K/mm3 (4.0-10.0)
[2018-12-19 08:20] LABS: INR 1.13 (0.83-1.09); PROTHROMBIN TIME (PATIENT) 13.3 SEC (9.7-13.0)
--- NOTE | 2018-12-19 08:21 | PN ---
Progress Note, Physician Chief Complaint: Still complaining of dysuria, no further hematuria - Current Medication List Current Medications: Active Medications Albuterol/Ipratropium (Duoneb -) 1 amp NEB Q6H PRN PRN Reason: SHORTNESS OF BREATH Albuterol/Ipratropium (Duoneb -) 1 amp NEB Q4H PRN PRN Reason: ASTHMA Amlodipine Besylate (Norvasc -) 10 mg PO DAILY [facility] Budesonide/Formoterol Fumarate (Symbicort 80/4.5mcg -) 2 puff IH BID [facility] Last Admin: 12/18/18 23:09 Dose: 2 pfu Sodium Chloride (Normal Saline -) 1,000 mls @ 100 mls/hr IV ASDIR [facility] Last Admin: 12/18/18 18:59 Dose: 100 mls/hr Ceftriaxone Sodium 1 gm/ (Dextrose) 50 mls @ 100 mls/hr IVPB DAILY [facility]; Protocol Last Admin: 12/18/18 18:59 Dose: 100 mls/hr Methadone HCl (Dolophine -) 100 mg PO DAILY@0600 [facility] Stop: 12/19/18 06:01 Tamsulosin HCl (Flomax -) 0.4 mg PO DAILY@0830 [facility] - Objective Vital Signs: Vital Signs Temperature 98.3 F 12/19/18 06:00 Pulse Rate 71 12/19/18 06:00 Respiratory Rate 20 12/19/18 06:00 Blood Pressure 146/76 12/19/18 06:00 O2 Sat by Pulse Oximetry (%) 100 12/18/18 21:00 Additional Findings/Remarks: Constitutional: Yes: No Distress, Calm, Poor Hygeine, Thin Eyes: Yes: WNL, Conjunctiva Clear, EOM Intact HENT: Yes: WNL, Atraumatic, Normocephalic Neck: Yes: WNL, Supple, Trachea Midline Cardiovascular: Yes: WNL, Regular Rate and Rhythm Respiratory: Yes: Wheezes (scattered wheeking BL) Gastrointestinal: Yes: WNL, Normal Bowel Sounds ...Rectal Exam: Yes: Deferred Renal/: Yes: CVA Tenderness - Left Breast(s): Yes: WNL Musculoskeletal: Yes: Back Pain Extremities: Yes: WNL Edema: No Peripheral Pulses WNL: Yes Peripheral Pulses: Left Radial: 2+, Right Radial: 2+, Left Doralis Pedis: 2+, Right Dorsalis Pedis: 2+, Left Femoral: 2+, Right Femoral: 2+ Integumentary: Yes: WNL Neurological: Yes: WNL, Alert, Oriented ...Motor Strength: WNL Psychiatric: Yes: WNL Labs: INR, PTT INR 1.13 (0.83-1.09) H 12/19/18 07:35 - ....Imaging Ultrasound: Report Reviewed (Hepatic cirrhosis.No-specefic echogenic focus along GB fundus.) Problem List - Problems (1) HTN (hypertension) Assessment/Plan: previously on amlodopine and enalpril-has not consistency taken Cr 1.5-baseline <1.0 will hold enalapril and restart amlodopine Code(s): I10 - ESSENTIAL (PRIMARY) HYPERTENSION (2) Methadone maintenance therapy patient Assessment/Plan: dose verified [facility] ([facility]) Subst Abuse Treatment Program Unit I is a Substance Abuse Rehab Services with no response c/w 100mg qd Code(s): F11.20 - OPIOID DEPENDENCE, UNCOMPLICATED (3) Prophylactic measure Assessment/Plan: FEN IVF @ 100cc/hr low sodium diet with supplements monitor electrolytes DVT heparin sq Dispo admit to med surg floor full code discharge planning to home-will have SW see in morning Code(s): Z29.9 - ENCOUNTER FOR PROPHYLACTIC MEASURES, UNSPECIFIED (4) Hematuria Assessment/Plan: hematuria resolved bladder scan to assess PVR c/w IVF Dr Jameson saw overnight and plan for cystoscopy and possible lipotriapsy c/w ceftriaxone pending Ucx Code(s): R31.9 - HEMATURIA, UNSPECIFIED (5) Dysuria Assessment/Plan: plan for cyctoscopy with Dr Jameson on sat prydirium 100mg TID x 2 days c/w abx Code(s): R30.0 - DYSURIA (6) SOB (shortness of breath) Assessment/Plan: duonebs q6h prn supplemental O2 to maintain SPO2 >90 Code(s): R06.02 - SHORTNESS OF BREATH (7) Cirrhosis Assessment/Plan: seen on CT hepatatis serologies pending AST/ALT nml avoid hepatoxic agents abd US to be repeat in 2 weeks as outpatient Code(s): K74.60 - UNSPECIFIED CIRRHOSIS OF LIVER (8) Abnormal gallbladder ultrasound Assessment/Plan: Non-specefic echogenic focus along GB fundus. Correlation with 2 week f/u of US recommended if remains then surgical consultation is recommended Code(s): R93.2 - ABNORMAL FINDINGS ON DX IMAGING OF LIVER AND BILIARY TRACT (9) Malnutrition of moderate degree Assessment/Plan: BMI 21 temporal wasting and loss of muscle mass nutrition supplement MVI/thiamine/folate Code(s): E44.0 - MODERATE PROTEIN-CALORIE MALNUTRITION Visit type - Emergency Visit Emergency Visit: Yes ED Registration Date: 12/18/18 Care time: The patient presented to the Emergency Department on the above date and was hospitalized for further evaluation of their emergent condition. - New Patient This patient is new to me today: No - Critical Care Critical Care patient: No - Discharge Referral Referred to [facility] Med P.C.: No
[2018-12-19 08:34] LABS: BILIRUBIN,TOTAL 0.5 mg/dL (0.2-1); BLOOD UREA NITROGEN 12.3 mg/dL (7-18); CALCIUM 8.8 mg/dL (8.5-10.1); CREATININE 1.3 mg/dL (0.55-1.3); MAGNESIUM 2.1 mg/dL (1.8-2.4); PHOSPHOROUS 3.7 mg/dL (2.5-4.9); POTASSIUM 4.7 mmol/L (3.5-5.1)
[2018-12-19] MEDS ORDERED: PATIENT'S OWN MEDICATION (NON-FORMULARY) (Enalapril Maleate [Vasotec] 20 MG) PO SCH (10:00)
[2018-12-19] MEDS ORDERED: METHADONE HCL 40 MG DISPERSABLE TABLET ONE (10:41)
[2018-12-19] MEDS ORDERED: METHADONE HCL 10 MG TABLET ONE (10:41)
[2018-12-19] MEDS ORDERED: cefTRIAXone SODIUM 1 GM VIAL ONE (10:42)
[2018-12-19] MEDS ORDERED: DEXTROSE 5%-WATER - 50 ML IVPB ONE (10:42)
[2018-12-19] MEDS: CEFTRIAXONE 1 GM in DEXTROSE 5%-WATER - 50 ML IVPB SCH (10:44)
[2018-12-19] MEDS: amLODIPine BESYLATE 10 MG TABLET (FP) PO SCH (10:44)
[2018-12-19] MEDS: METHADONE 80 MG, METHADONE 20 MG PO SCH (10:44)
[2018-12-19] MEDS: TAMSULOSIN HCL 0.4 MG CAP PO SCH (10:44)
[2018-12-19] MEDS: BUDESONIDE/FORMETEROL FUMARATE 80/4.5 mcg INHALER IH SCH ×2 (12:28→21:00)
[2018-12-19] MEDS: SODIUM CHLORIDE 1,000 ML IV SCH ×2 (16:51→19:13)
[2018-12-19] MEDS ORDERED: PHENAZOPYRIDINE HCL 100 MG TABLET (FP) PO ONE (20:37)
[2018-12-19] MEDS ORDERED: PT OWN MED DRAWER 7, Y5N ONE (20:50)
[2018-12-19] MEDS: PHENAZOPYRIDINE HCL 100 MG TABLET (FP) PO SCH (21:01)
[2018-12-20] MEDS ORDERED: METHADONE HCL 10 MG TABLET ONE (05:40)
[2018-12-20] MEDS ORDERED: METHADONE HCL 40 MG DISPERSABLE TABLET ONE (05:40)
[2018-12-20] MEDS ORDERED: PT OWN MED DRAWER 7, Y5N ONE ×3 (05:41→21:04)
[2018-12-20] MEDS: METHADONE 80 MG, METHADONE 20 MG PO SCH (06:09)
[2018-12-20] MEDS: PHENAZOPYRIDINE HCL 100 MG TABLET (FP) PO SCH ×3 (06:13→21:18)
[2018-12-20] MEDS: SODIUM CHLORIDE 1,000 ML IV SCH ×2 (06:16→14:13)
--- NOTE | 2018-12-20 08:18 | PN ---
Progress Note, Physician Chief Complaint: dysuria less today with start of phenazopydirine, no further hematuria - Current Medication List Current Medications: Active Medications Albuterol/Ipratropium (Duoneb -) 1 amp NEB Q6H PRN PRN Reason: SHORTNESS OF BREATH Albuterol/Ipratropium (Duoneb -) 1 amp NEB Q4H PRN PRN Reason: ASTHMA Amlodipine Besylate (Norvasc -) 10 mg PO DAILY [facility] Last Admin: 12/19/18 10:44 Dose: 10 mg Budesonide/Formoterol Fumarate (Symbicort 80/4.5mcg -) 2 puff IH BID [facility] Last Admin: 12/19/18 21:00 Dose: 2 puff Folic Acid (Folic Acid -) 1 mg PO DAILY [facility] Sodium Chloride (Normal Saline -) 1,000 mls @ 100 mls/hr IV ASDIR [facility] Last Admin: 12/20/18 06:16 Dose: 100 mls/hr Ceftriaxone Sodium 1 gm/ (Dextrose) 50 mls @ 100 mls/hr IVPB DAILY [facility]; Protocol Last Admin: 12/19/18 10:44 Dose: 100 mls/hr Methadone HCl 80 mg/ Methadone (HCl 20 mg) 100 mg PO DAILY@0600 [facility] Last Admin: 12/20/18 06:09 Dose: 100 mg Multivitamins/Minerals/Vitamin C (Tab-A-Vit -) 1 tab PO DAILY [facility] Phenazopyridine HCl (Pyridium -) 100 mg PO TID [facility] Stop: 12/21/18 21:59 Last Admin: 12/20/18 06:13 Dose: 100 mg Tamsulosin HCl (Flomax -) 0.4 mg PO DAILY@0830 [facility] Last Admin: 12/19/18 10:44 Dose: 0.4 mg Thiamine HCl (Vitamin B1 -) 100 mg PO DAILY [facility] - Objective Vital Signs: Vital Signs Temperature 99.0 F 12/20/18 06:00 Pulse Rate 76 12/20/18 06:00 Respiratory Rate 18 12/20/18 06:00 Blood Pressure 137/71 12/20/18 06:00 O2 Sat by Pulse Oximetry (%) 96 12/19/18 21:00 Additional Findings/Remarks: Constitutional: Yes: No Distress, Calm, Poor Hygeine, Thin Eyes: Yes: WNL, Conjunctiva Clear, EOM Intact HENT: Yes: WNL, Atraumatic, Normocephalic Neck: Yes: WNL, Supple, Trachea Midline Cardiovascular: Yes: WNL, Regular Rate and Rhythm Respiratory: Yes: clear Gastrointestinal: Yes: WNL, Normal Bowel Sounds ...Rectal Exam: Yes: Deferred Renal/: Yes: CVA Tenderness - Left Breast(s): Yes: WNL Musculoskeletal: Yes: Back Pain Extremities: Yes: WNL Edema: No Peripheral Pulses WNL: Yes Peripheral Pulses: Left Radial: 2+, Right Radial: 2+, Left Doralis Pedis: 2+, Right Dorsalis Pedis: 2+, Left Femoral: 2+, Right Femoral: 2+ Integumentary: Yes: WNL Neurological: Yes: WNL, Alert, Oriented ...Motor Strength: WNL Psychiatric: Yes: WNL Labs: CBC, BMP 12/19/18 07:35 12/19/18 07:35 INR, PTT INR 1.13 (0.83-1.09) H 12/19/18 07:35 Problem List - Problems (1) HTN (hypertension) Assessment/Plan: previously on amlodopine and enalpril-has not consistency taken Cr 1.5-baseline <1.0 will hold enalapril-given recurrent issues if BP is wwell controlled on amlodipine will stop enalapril on DC c/w amlodopine Code(s): I10 - ESSENTIAL (PRIMARY) HYPERTENSION (2) Methadone maintenance therapy patient Assessment/Plan: dose verified [facility] ([facility]) Subst Abuse Treatment Program Unit I is a Substance Abuse Rehab Services with no response c/w 100mg qd Code(s): F11.20 - OPIOID DEPENDENCE, UNCOMPLICATED (3) Prophylactic measure Assessment/Plan: FEN Ican decreased IVF to 42cc/hr low sodium diet with supplements monitor electrolytes DVT heparin sq Dispo mainatinon med surg floor full code discharge planning to home-after procedure with Dr Jameson Code(s): Z29.9 - ENCOUNTER FOR PROPHYLACTIC MEASURES, UNSPECIFIED (4) Hematuria Assessment/Plan: hematuria resolved bladder scan to assess PVR c/w IVF Dr Jameson saw overnight and plan for cystoscopy and possible lipotriapsy urine for cytology pending c/w ceftriaxone pending Ucx Code(s): R31.9 - HEMATURIA, UNSPECIFIED (5) Dysuria Assessment/Plan: plan for cyctoscopy with Dr Jameson on sat prydirium 200mg TID x 2 days c/w abx Code(s): R30.0 - DYSURIA (6) SOB (shortness of breath) Assessment/Plan: resolved duonebs q6h prn supplemental O2 to maintain SPO2 >90 Code(s): R06.02 - SHORTNESS OF BREATH (7) Cirrhosis Assessment/Plan: seen on CT hepatatis serologies pending AST/ALT nml avoid hepatoxic agents abd US to be repeat in 2 weeks as outpatient Code(s): K74.60 - UNSPECIFIED CIRRHOSIS OF LIVER (8) Abnormal gallbladder ultrasound Assessment/Plan: Non-specefic echogenic focus along GB fundus. Correlation with 2 week f/u of US recommended if remains then surgical consultation is recommended Code(s): R93.2 - ABNORMAL FINDINGS ON DX IMAGING OF LIVER AND BILIARY TRACT (9) Malnutrition of moderate degree Assessment/Plan: BMI 21 temporal wasting and loss of muscle mass nutrition supplement MVI/thiamine/folate Code(s): E44.0 - MODERATE PROTEIN-CALORIE MALNUTRITION Visit type - Emergency Visit Emergency Visit: Yes ED Registration Date: 12/18/18 Care time: The patient presented to the Emergency Department on the above date and was hospitalized for further evaluation of their emergent condition. - New Patient This patient is new to me today: No - Critical Care Critical Care patient: No - Discharge Referral Referred to [facility] Med P.C.: No
[2018-12-20] MEDS: TAMSULOSIN HCL 0.4 MG CAP PO SCH ×2 (08:28→20:09)
[2018-12-20 08:44] LABS: BASO % 0.5 % (0-2.0); EOS % 4.2 % (0-4.5); HEMATOCRIT 32.2 % (35.4-49); HEMOGLOBIN 10.8 GM/dL (11.7-16.9); LYMPH % 15.1 % (8-40); MCH 30.2 pg (25.7-33.7); MCHC 33.6 g/dl (32.0-35.9); MEAN CELL VOLUME 89.9 fl (80-96); MEAN PLT VOLUME 7.3 fl (7.5-11.1); MONO % 7.7 % (3.8-10.2); NEUT % 72.5 % (42.8-82.8); PLATELET COUNT 191 K/MM3 (134-434); RBC 3.58 M/mm3 (4.00-5.60); RDW 15.3 % (11.9-15.9); WHITE BLOOD COUNT 8.5 K/mm3 (4.0-10.0)
[2018-12-20] MEDS ORDERED: cefTRIAXone SODIUM 1 GM VIAL ONE (09:01)
[2018-12-20] MEDS ORDERED: DEXTROSE 5%-WATER - 50 ML IVPB ONE (09:01)
[2018-12-20 09:10] LABS: BILIRUBIN,TOTAL 0.4 mg/dL (0.2-1); BLOOD UREA NITROGEN 10.5 mg/dL (7-18); CALCIUM 8.5 mg/dL (8.5-10.1); CREATININE 1.1 mg/dL (0.55-1.3)
[2018-12-20] MEDS: CEFTRIAXONE 1 GM in DEXTROSE 5%-WATER - 50 ML IVPB SCH (09:11)
[2018-12-20] MEDS: MULTIVITAMINS (DAILY MVI) TABLET (FP) PO SCH (10:36)
[2018-12-20] MEDS: BUDESONIDE/FORMETEROL FUMARATE 80/4.5 mcg INHALER IH SCH ×2 (10:36→21:18)
[2018-12-20] MEDS: amLODIPine BESYLATE 10 MG TABLET (FP) PO SCH (10:36)
[2018-12-20] MEDS: FOLIC ACID 1 MG TABLET (FP) PO SCH (10:36)
[2018-12-20] MEDS: THIAMINE HCL 100 MG TABLET (FP) PO SCH (10:36)
[2018-12-20 12:20] VITALS: BMI 21.7
[2018-12-21] MEDS ORDERED: METHADONE HCL 40 MG DISPERSABLE TABLET ONE (06:05)
[2018-12-21] MEDS ORDERED: METHADONE HCL 10 MG TABLET ONE (06:06)
[2018-12-21] MEDS: METHADONE 80 MG, METHADONE 20 MG PO SCH (06:14)
[2018-12-21] MEDS: PHENAZOPYRIDINE HCL 100 MG TABLET (FP) PO SCH ×2 (06:15→13:50)
--- NOTE | 2018-12-21 07:40 | PN ---
Progress Note, Physician Chief Complaint: dysuria persists, no further hematuria. Awaiting further testing History of Present Illness: 78 yo M PMH COPD on home O2 (2L), notably seen 4 days ago, diagnosed with UTI, dc'd home on Bactrim. Presented today with dysuria, hematuria & feeling of incomplete voiding. Mild RING. Denies CP, N/V, fevers/chills. States he has not seen his PCP in years and should be taking "several medications" but only consistently takes his methadone. [facility] ([facility]) Subst Abuse Treatment Program Unit I is a Substance Abuse Rehab Services - Current Medication List Current Medications: Active Medications Acetaminophen (Ofirmev Injection -) 1,000 mg IVPB Q6H PRN PRN Reason: PAIN LEVEL 6-10 Albuterol/Ipratropium (Duoneb -) 1 amp NEB Q6H PRN PRN Reason: SHORTNESS OF BREATH Amlodipine Besylate (Norvasc -) 10 mg PO DAILY [facility] Last Admin: 12/20/18 10:36 Dose: 10 mg Budesonide/Formoterol Fumarate (Symbicort 80/4.5mcg -) 2 puff IH BID [facility] Last Admin: 12/20/18 21:18 Dose: 2 puff Folic Acid (Folic Acid -) 1 mg PO DAILY [facility] Last Admin: 12/20/18 10:36 Dose: 1 mg Ceftriaxone Sodium 1 gm/ (Dextrose) 50 mls @ 100 mls/hr IVPB DAILY [facility]; Protocol Last Admin: 12/20/18 09:11 Dose: 100 mls/hr Sodium Chloride (Normal Saline -) 1,000 mls @ 42 mls/hr IV ASDIR [facility] Last Admin: 12/20/18 14:13 Dose: 42 mls/hr Methadone HCl 80 mg/ Methadone (HCl 20 mg) 100 mg PO DAILY@0600 [facility] Last Admin: 12/21/18 06:14 Dose: 100 mg Multivitamins/Minerals/Vitamin C (Tab-A-Vit -) 1 tab PO DAILY [facility] Last Admin: 12/20/18 10:36 Dose: 1 tab Phenazopyridine HCl (Pyridium -) 200 mg PO TID [facility] Stop: 12/21/18 21:59 Last Admin: 12/21/18 06:15 Dose: 200 mg Tamsulosin HCl (Flomax -) 0.4 mg PO Q12H [facility] Last Admin: 12/20/18 20:09 Dose: 0.4 mg Thiamine HCl (Vitamin B1 -) 100 mg PO DAILY [facility] Last Admin: 12/20/18 10:36 Dose: 100 mg - Objective Vital Signs: Vital Signs Temperature 98.2 F 12/21/18 02:00 Pulse Rate 79 12/21/18 02:00 Respiratory Rate 20 12/21/18 02:00 Blood Pressure 129/65 12/21/18 02:00 O2 Sat by Pulse Oximetry (%) 95 12/20/18 21:00 Additional Findings/Remarks: Constitutional: Yes: No Distress, Calm, Poor Hygeine, Thin Eyes: Yes: WNL, Conjunctiva Clear, EOM Intact HENT: Yes: WNL, Atraumatic, Normocephalic Neck: Yes: WNL, Supple, Trachea Midline Cardiovascular: Yes: WNL, Regular Rate and Rhythm Respiratory: Yes: clear Gastrointestinal: Yes: WNL, Normal Bowel Sounds ...Rectal Exam: Yes: Deferred Renal/: Yes: CVA Tenderness - Left Breast(s): Yes: WNL Musculoskeletal: Yes: Back Pain Extremities: Yes: WNL Edema: No Peripheral Pulses WNL: Yes Peripheral Pulses: Left Radial: 2+, Right Radial: 2+, Left Doralis Pedis: 2+, Right Dorsalis Pedis: 2+, Left Femoral: 2+, Right Femoral: 2+ Integumentary: Yes: WNL Neurological: Yes: WNL, Alert, Oriented ...Motor Strength: WNL Psychiatric: Yes: WNL Labs: CBC, BMP 12/20/18 07:55 12/20/18 07:55 INR, PTT INR 1.13 (0.83-1.09) H 12/19/18 07:35 Problem List - Problems (1) HTN (hypertension) Assessment/Plan: previously on amlodopine and enalpril-has not consistency taken Cr 1.1-baseline <1.0 cont to hold enalapril-given recurrent issues if BP is wwell controlled on amlodipine will stop enalapril on DC c/w amlodopine, BP well controlled Code(s): I10 - ESSENTIAL (PRIMARY) HYPERTENSION (2) Methadone maintenance therapy patient Assessment/Plan: dose verified [facility] ([facility]) Subst Abuse Treatment Program Unit I is a Substance Abuse Rehab Services with no response c/w 100mg qd Code(s): F11.20 - OPIOID DEPENDENCE, UNCOMPLICATED (3) Prophylactic measure Assessment/Plan: FEN IVF decreased IVF to 42cc/hr low sodium diet with supplements monitor electrolytes DVT heparin sq Dispo maintain as in patient full code discharge planning to home-after procedure with Dr Jameson Code(s): Z29.9 - ENCOUNTER FOR PROPHYLACTIC MEASURES, UNSPECIFIED (4) Hematuria Assessment/Plan: hematuria resolved bladder scan to assess PVR c/w IVF Dr Jameson following and plan for cystoscopy and possible lipotriapsy urine for cytology pending c/w ceftriaxone, UCx negative, will continue with upcomming procedure Code(s): R31.9 - HEMATURIA, UNSPECIFIED (5) Dysuria Assessment/Plan: plan for cyctoscopy with Dr Jameson on sat prydirium 200mg TID x 2 days c/w abx Code(s): R30.0 - DYSURIA (6) SOB (shortness of breath) Assessment/Plan: resolved duonebs q6h prn supplemental O2 to maintain SPO2 >90 Code(s): R06.02 - SHORTNESS OF BREATH (7) Cirrhosis Assessment/Plan: seen on CT hepatatis serologies pending AST/ALT nml avoid hepatoxic agents abd US to be repeat in 2 weeks as outpatient Code(s): K74.60 - UNSPECIFIED CIRRHOSIS OF LIVER (8) Abnormal gallbladder ultrasound Assessment/Plan: Non-specefic echogenic focus along GB fundus. Correlation with 2 week f/u of US recommended if remains then surgical consultation is recommended Code(s): R93.2 - ABNORMAL FINDINGS ON DX IMAGING OF LIVER AND BILIARY TRACT (9) Malnutrition of moderate degree Assessment/Plan: BMI 21 temporal wasting and loss of muscle mass nutrition supplement MVI/thiamine/folate Code(s): E44.0 - MODERATE PROTEIN-CALORIE MALNUTRITION Visit type - Emergency Visit Emergency Visit: Yes ED Registration Date: 12/18/18 Care time: The patient presented to the Emergency Department on the above date and was hospitalized for further evaluation of their emergent condition. - New Patient This patient is new to me today: No - Critical Care Critical Care patient: No - Discharge Referral Referred to [facility] Med P.C.: No
[2018-12-21 07:57] LABS: BASO % 0.6 % (0-2.0); EOS % 4.3 % (0-4.5); HEMATOCRIT 32.3 % (35.4-49); HEMOGLOBIN 10.9 GM/dL (11.7-16.9); LYMPH % 15.2 % (8-40); MCH 30.1 pg (25.7-33.7); MCHC 33.8 g/dl (32.0-35.9); MEAN CELL VOLUME 89.1 fl (80-96); MEAN PLT VOLUME 7.3 fl (7.5-11.1); MONO % 6.3 % (3.8-10.2); NEUT % 73.6 % (42.8-82.8); PLATELET COUNT 203 K/MM3 (134-434); RBC 3.63 M/mm3 (4.00-5.60); RDW 15.6 % (11.9-15.9); WHITE BLOOD COUNT 9.7 K/mm3 (4.0-10.0)
[2018-12-21 08:29] LABS: ALBUMIN 3.1 g/dl (3.4-5.0); BILIRUBIN,TOTAL 0.6 mg/dL (0.2-1); BLOOD UREA NITROGEN 11.2 mg/dL (7-18); CALCIUM 8.8 mg/dL (8.5-10.1); CREATININE 1.1 mg/dL (0.55-1.3); POTASSIUM 4.8 mmol/L (3.5-5.1); TOT PROT 6.2 g/dl (6.4-8.2)
[2018-12-21] MEDS: TAMSULOSIN HCL 0.4 MG CAP PO SCH ×2 (09:02→21:13)
[2018-12-21] MEDS ORDERED: cefTRIAXone SODIUM 1 GM VIAL ONE (09:21)
[2018-12-21] MEDS ORDERED: DEXTROSE 5%-WATER - 50 ML IVPB ONE (09:21)
[2018-12-21] MEDS: CEFTRIAXONE 1 GM in DEXTROSE 5%-WATER - 50 ML IVPB SCH (09:32)
[2018-12-21] MEDS: amLODIPine BESYLATE 10 MG TABLET (FP) PO SCH (09:32)
[2018-12-21] MEDS: FOLIC ACID 1 MG TABLET (FP) PO SCH (09:33)
[2018-12-21] MEDS: THIAMINE HCL 100 MG TABLET (FP) PO SCH (09:34)
[2018-12-21] MEDS: BUDESONIDE/FORMETEROL FUMARATE 80/4.5 mcg INHALER IH SCH ×2 (09:34→21:13)
[2018-12-21] MEDS: MULTIVITAMINS (DAILY MVI) TABLET (FP) PO SCH (09:34)
[2018-12-21] MEDS: SODIUM CHLORIDE 1,000 ML IV SCH (13:49)
--- NOTE | 2018-12-21 15:46 | PN ---
Progress Note (short form) - Note Progress Note: Patient with slight improvement in dysyria but still has blood in urine I spoke to him about plans for ureteroscopy which likely will require a ureteral stent afterwards. I wanted to make sure he will come in to remove which in fact he agreed to I will try to move case from Saturday to Saturday if possible and let you know.
[2018-12-21] MEDS ORDERED: PT OWN MED DRAWER 7, Y5N ONE (19:35)
[2018-12-21] MEDS ORDERED: PHENAZOPYRIDINE HCL 100 MG TABLET (FP) PO ONE (21:27)
[2018-12-22] MEDS ORDERED: METHADONE HCL 40 MG DISPERSABLE TABLET ONE ×2 (06:02→08:48)
[2018-12-22] MEDS ORDERED: METHADONE HCL 10 MG TABLET ONE ×2 (06:03→08:49)
[2018-12-22] MEDS ORDERED: PT OWN MED DRAWER 7, Y5N ONE (06:43)
--- NOTE | 2018-12-22 07:43 | PN ---
Progress Note, Physician Chief Complaint: dysuria persists. Cyctospocy planned for tmrw @ 3pm with Dr Stinson History of Present Illness: 78 yo M PMH COPD on home O2 (2L), notably seen 4 days ago, diagnosed with UTI, dc'd home on Bactrim. Presented today with dysuria, hematuria & feeling of incomplete voiding. Mild RING. Denies CP, N/V, fevers/chills. States he has not seen his PCP in years and should be taking "several medications" but only consistently takes his methadone. [facility] ([facility]) Subst Abuse Treatment Program Unit I is a Substance Abuse Rehab Services - Current Medication List Current Medications: Active Medications Acetaminophen (Ofirmev Injection -) 1,000 mg IVPB Q6H PRN PRN Reason: PAIN LEVEL 6-10 Albuterol/Ipratropium (Duoneb -) 1 amp NEB Q6H PRN PRN Reason: SHORTNESS OF BREATH Amlodipine Besylate (Norvasc -) 10 mg PO DAILY [facility] Last Admin: 12/21/18 09:32 Dose: 10 mg Budesonide/Formoterol Fumarate (Symbicort 80/4.5mcg -) 2 puff IH BID [facility] Last Admin: 12/21/18 21:13 Dose: 2 puff Folic Acid (Folic Acid -) 1 mg PO DAILY [facility] Last Admin: 12/21/18 09:33 Dose: 1 mg Ceftriaxone Sodium 1 gm/ (Dextrose) 50 mls @ 100 mls/hr IVPB DAILY [facility]; Protocol Last Admin: 12/21/18 09:32 Dose: 100 mls/hr Sodium Chloride (Normal Saline -) 1,000 mls @ 42 mls/hr IV ASDIR GILBERTO Last Admin: 12/21/18 13:49 Dose: 42 mls/hr Methadone HCl 80 mg/ Methadone (HCl 20 mg) 100 mg PO DAILY@0600 [facility] Last Admin: 12/21/18 06:14 Dose: 100 mg Multivitamins/Minerals/Vitamin C (Tab-A-Vit -) 1 tab PO DAILY [facility] Last Admin: 12/21/18 09:34 Dose: 1 tab Tamsulosin HCl (Flomax -) 0.4 mg PO Q12H [facility] Last Admin: 12/21/18 21:13 Dose: 0.4 mg Thiamine HCl (Vitamin B1 -) 100 mg PO DAILY GILBERTO Last Admin: 12/21/18 09:34 Dose: 100 mg - Objective Vital Signs: Vital Signs Temperature 98.3 F 12/22/18 06:00 Pulse Rate 75 12/22/18 06:00 Respiratory Rate 20 12/22/18 06:00 Blood Pressure 140/77 12/22/18 06:00 O2 Sat by Pulse Oximetry (%) 92 L 12/21/18 21:00 Additional Findings/Remarks: Constitutional: Yes: No Distress, Calm, Poor Hygeine, Thin Eyes: Yes: WNL, Conjunctiva Clear, EOM Intact HENT: Yes: WNL, Atraumatic, Normocephalic Neck: Yes: WNL, Supple, Trachea Midline Cardiovascular: Yes: WNL, Regular Rate and Rhythm Respiratory: Yes: clear Gastrointestinal: Yes: WNL, Normal Bowel Sounds ...Rectal Exam: Yes: Deferred Renal/: Yes: CVA Tenderness - Left Breast(s): Yes: WNL Musculoskeletal: Yes: Back Pain Extremities: Yes: WNL Edema: No Peripheral Pulses WNL: Yes Peripheral Pulses: Left Radial: 2+, Right Radial: 2+, Left Doralis Pedis: 2+, Right Dorsalis Pedis: 2+, Left Femoral: 2+, Right Femoral: 2+ Integumentary: Yes: WNL Neurological: Yes: WNL, Alert, Oriented ...Motor Strength: WNL Psychiatric: Yes: WNL Labs: CBC, BMP 12/21/18 07:28 12/21/18 07:28 INR, PTT INR 1.13 (0.83-1.09) H 12/19/18 07:35 Problem List - Problems (1) HTN (hypertension) Assessment/Plan: previously on amlodopine and enalpril-has not consistency taken Cr 1.1-baseline <1.0 cont to hold enalapril-given recurrent issues if BP is well controlled on amlodipine will consider stopping enalapril on DC c/w amlodopine, BP well controlled Code(s): I10 - ESSENTIAL (PRIMARY) HYPERTENSION (2) Methadone maintenance therapy patient Assessment/Plan: dose verified [facility] ([facility]) Subst Abuse Treatment Program Unit I is a Substance Abuse Rehab Services with no response c/w 100mg qd Code(s): F11.20 - OPIOID DEPENDENCE, UNCOMPLICATED (3) Prophylactic measure Assessment/Plan: FEN IVF stopped . low sodium diet with supplements monitor electrolytes DVT heparin sq Dispo maintain as in patient full code discharge planning to home-after procedure with Dr Jameson Code(s): Z29.9 - ENCOUNTER FOR PROPHYLACTIC MEASURES, UNSPECIFIED (4) Hematuria Assessment/Plan: hematuria resolved bladder scan to assess PVR c/w IVF Dr Jameson following and plan for cystoscopy and possible lipotriapsy on . Plan to return 1 week for removal of stent urine for cytology pending c/w ceftriaxone, UCx negative, will continue with upcomming procedure Code(s): R31.9 - HEMATURIA, UNSPECIFIED (5) Dysuria Assessment/Plan: plan for cyctoscopy with Dr Jameson on sat prydirium 200mg TID x 2 days c/w abx Code(s): R30.0 - DYSURIA (6) SOB (shortness of breath) Assessment/Plan: resolved duonebs q6h prn supplemental O2 to maintain SPO2 >90 Code(s): R06.02 - SHORTNESS OF BREATH (7) Cirrhosis Assessment/Plan: seen on CT hepatatis serologies pending AST/ALT nml avoid hepatoxic agents abd US to be repeat in 2 weeks as outpatient Code(s): K74.60 - UNSPECIFIED CIRRHOSIS OF LIVER (8) Abnormal gallbladder ultrasound Assessment/Plan: Non-specific echogenic focus along GB fundus. Correlation with 2 week f/u of US recommended-can have US when he comes in to have sent taken out-will speak with Dr Jameson if remains then surgical consultation is recommended as outpatient Code(s): R93.2 - ABNORMAL FINDINGS ON DX IMAGING OF LIVER AND BILIARY TRACT (9) Malnutrition of moderate degree Assessment/Plan: BMI 21 temporal wasting and loss of muscle mass nutrition supplement MVI/thiamine/folate Code(s): E44.0 - MODERATE PROTEIN-CALORIE MALNUTRITION Visit type - Emergency Visit Emergency Visit: Yes ED Registration Date: 12/18/18 Care time: The patient presented to the Emergency Department on the above date and was hospitalized for further evaluation of their emergent condition. - New Patient This patient is new to me today: No - Critical Care Critical Care patient: No - Discharge Referral Referred to [facility] Med P.C.: No
[2018-12-22 08:11] LABS: BASO % 0.6 % (0-2.0); EOS % 4.9 % (0-4.5); HEMATOCRIT 31.1 % (35.4-49); HEMOGLOBIN 10.5 GM/dL (11.7-16.9); LYMPH % 16.3 % (8-40); MCH 30.1 pg (25.7-33.7); MCHC 33.6 g/dl (32.0-35.9); MEAN CELL VOLUME 89.6 fl (80-96); MEAN PLT VOLUME 7.5 fl (7.5-11.1); MONO % 6.7 % (3.8-10.2); NEUT % 71.5 % (42.8-82.8); PLATELET COUNT 190 K/MM3 (134-434); RBC 3.47 M/mm3 (4.00-5.60); RDW 15.6 % (11.9-15.9); WHITE BLOOD COUNT 8.2 K/mm3 (4.0-10.0)
[2018-12-22 08:31] LABS: BILIRUBIN,TOTAL 0.6 mg/dL (0.2-1); BLOOD UREA NITROGEN 13.3 mg/dL (7-18); CALCIUM 8.7 mg/dL (8.5-10.1); POTASSIUM 4.4 mmol/L (3.5-5.1); TOT PROT 5.9 g/dl (6.4-8.2)
[2018-12-22] MEDS: METHADONE 80 MG, METHADONE 20 MG PO SCH (09:17)
[2018-12-22] MEDS: TAMSULOSIN HCL 0.4 MG CAP PO SCH ×2 (09:18→22:17)
[2018-12-22] MEDS ORDERED: DEXTROSE 5%-WATER - 50 ML IVPB ONE (10:20)
[2018-12-22] MEDS ORDERED: cefTRIAXone SODIUM 1 GM VIAL ONE (10:20)
[2018-12-22] MEDS: THIAMINE HCL 100 MG TABLET (FP) PO SCH (10:55)
[2018-12-22] MEDS: MULTIVITAMINS (DAILY MVI) TABLET (FP) PO SCH (10:55)
[2018-12-22] MEDS: FOLIC ACID 1 MG TABLET (FP) PO SCH (10:55)
[2018-12-22] MEDS: amLODIPine BESYLATE 10 MG TABLET (FP) PO SCH (10:55)
[2018-12-22] MEDS: CEFTRIAXONE 1 GM in DEXTROSE 5%-WATER - 50 ML IVPB SCH (10:56)
[2018-12-22] MEDS: BUDESONIDE/FORMETEROL FUMARATE 80/4.5 mcg INHALER IH SCH ×2 (11:22→22:17)
[2018-12-22] MEDS: SODIUM CHLORIDE 1,000 ML IV SCH (21:41)
[2018-12-23] MEDS ORDERED: METHADONE HCL 10 MG TABLET ONE (05:55)
[2018-12-23] MEDS ORDERED: METHADONE HCL 40 MG DISPERSABLE TABLET ONE (05:55)
[2018-12-23] MEDS: METHADONE 80 MG, METHADONE 20 MG PO SCH (05:59)
[2018-12-23] MEDS: TAMSULOSIN HCL 0.4 MG CAP PO SCH ×2 (08:45→21:45)
[2018-12-23 08:53] LABS: BASO % 0.7 % (0-2.0); EOS % 4.7 % (0-4.5); HEMATOCRIT 31.4 % (35.4-49); HEMOGLOBIN 10.4 GM/dL (11.7-16.9); LYMPH % 15.7 % (8-40); MCH 29.9 pg (25.7-33.7); MCHC 33.1 g/dl (32.0-35.9); MEAN CELL VOLUME 90.5 fl (80-96); MEAN PLT VOLUME 7.6 fl (7.5-11.1); MONO % 7.6 % (3.8-10.2); NEUT % 71.3 % (42.8-82.8); PLATELET COUNT 221 K/MM3 (134-434); RBC 3.47 M/mm3 (4.00-5.60); WHITE BLOOD COUNT 9.7 K/mm3 (4.0-10.0)
[2018-12-23] MEDS ORDERED: DEXTROSE 5%-WATER - 50 ML IVPB ONE (08:53)
[2018-12-23] MEDS ORDERED: cefTRIAXone SODIUM 1 GM VIAL ONE (08:53)
[2018-12-23 09:24] LABS: ALBUMIN 2.9 g/dl (3.4-5.0); BILIRUBIN,TOTAL 0.4 mg/dL (0.2-1); CALCIUM 9.1 mg/dL (8.5-10.1); MAGNESIUM 2.2 mg/dL (1.8-2.4); POTASSIUM 4.9 mmol/L (3.5-5.1); TOT PROT 5.8 g/dl (6.4-8.2)
[2018-12-23] MEDS: CEFTRIAXONE 1 GM in DEXTROSE 5%-WATER - 50 ML IVPB SCH (10:03)
[2018-12-23] MEDS: amLODIPine BESYLATE 10 MG TABLET (FP) PO SCH (10:04)
[2018-12-23] MEDS: FOLIC ACID 1 MG TABLET (FP) PO SCH (10:04)
[2018-12-23] MEDS: MULTIVITAMINS (DAILY MVI) TABLET (FP) PO SCH (10:05)
--- NOTE | 2018-12-23 10:29 | PN ---
Physical Exam: SUBJECTIVE: Patient seen and examined at the bedside. denies any discomfort OBJECTIVE: for cystoscopy today Vital Signs Period Temp Pulse Resp BP Sys/Flor Pulse Ox Last 24 Hr 98.8 F-99.1 F 73-103 18-20 100-140/60-72 96 GENERAL: The patient is awake, alert, and fully oriented, in no acute distress. HEAD: Normal with no signs of trauma. EYES: PERRL, extraocular movements intact, sclera anicteric, conjunctiva clear. No ptosis. ENT: Ears normal, nares patent, oropharynx clear without exudates, moist mucous membranes. NECK: Trachea midline, full range of motion, supple. LUNGS: Breath sounds equal, clear to auscultation bilaterally HEART: Regular rate and rhythm ABDOMEN: Soft, nontender, nondistended EXTREMITIES: no edema. NEUROLOGICAL: Normal speech, gait not observed. PSYCH: Normal mood, normal affect. SKIN: Warm, dry, normal turgor, no rashes or lesions noted Laboratory Results - last 24 hr 12/23/18 12/23/18 07:55 07:55 WBC 9.7 RBC 3.47 L Hgb 10.4 L Hct 31.4 L MCV 90.5 MCH 29.9 MCHC 33.1 RDW 16.0 H Plt Count 221 MPV 7.6 Absolute Neuts (auto) 6.9 Neutrophils % 71.3 Lymphocytes % 15.7 Monocytes % 7.6 Eosinophils % 4.7 H Basophils % 0.7 Nucleated RBC % 0 Sodium 135 L Potassium 4.9 Chloride 100 Carbon Dioxide 30 Anion Gap 5 L BUN 18.0 Creatinine 1.0 Est GFR (CKD-EPI)AfAm 82.60 Est GFR (CKD-EPI)NonAf 71.27 Random Glucose 73 L Calcium 9.1 Magnesium 2.2 Total Bilirubin 0.4 AST 17 ALT 10 L Alkaline Phosphatase 65 Total Protein 5.8 L Albumin 2.9 L Active Medications Generic Name Dose Route Start Last Admin Trade Name Freq PRN Reason Stop Dose Admin Acetaminophen 1,000 mg 12/20/18 17:13 Ofirmev Injection - IVPB Q6H PRN PAIN LEVEL 6-10 Albuterol/Ipratropium 1 amp 12/18/18 16:44 Duoneb - NEB Q6H PRN SHORTNESS OF BREATH Amlodipine Besylate 10 mg 12/19/18 10:00 12/23/18 10:04 Norvasc - PO 10 mg DAILY GILBERTO Administration Budesonide/Formoterol Fumarate 2 puff 12/18/18 22:00 12/22/18 22:17 Symbicort 80/4.5mcg - IH 2 puff BID GILBERTO Administration Folic Acid 1 mg 12/20/18 10:00 12/23/18 10:04 Folic Acid - PO 1 mg DAILY GILBERTO Administration Ceftriaxone Sodium 1 gm/ 50 mls @ 100 mls/hr 12/18/18 18:30 12/23/18 10:03 Dextrose IVPB 100 mls/hr DAILY GILBERTO Administration Protocol Sodium Chloride 1,000 mls @ 42 mls/hr 12/20/18 13:56 12/22/18 21:41 Normal Saline - IV Not Given ASDIR GILBERTO Methadone HCl 80 mg/ Methadone 100 mg 12/19/18 08:30 12/23/18 05:59 HCl 20 mg PO 100 mg DAILY@0600 GILBERTO Administration Multivitamins/Minerals/Vitamin C 1 tab 12/20/18 10:00 12/23/18 10:05 Tab-A-Vit - PO 1 tab DAILY GILBERTO Administration Tamsulosin HCl 0.4 mg 12/20/18 20:30 12/23/18 08:45 Flomax - PO 0.4 mg Q12H GILBERTO Administration Thiamine HCl 100 mg 12/20/18 10:00 12/22/18 10:55 Vitamin B1 - PO 100 mg DAILY GILBERTO Administration ASSESSMENT/PLAN: Problem List - Problems (1) Abnormal gallbladder ultrasound Assessment/Plan: Non-specefic echogenic focus along GB fundus. Correlation with 2 week f/u of US recommended if remains then surgical consultation is recommended Code(s): R93.2 - ABNORMAL FINDINGS ON DX IMAGING OF LIVER AND BILIARY TRACT (2) Cirrhosis Assessment/Plan: seen on CT hepatatis serologies pending AST/ALT nml avoid hepatoxic agents abd US to be repeat in 2 weeks as outpatient Code(s): K74.60 - UNSPECIFIED CIRRHOSIS OF LIVER (3) Dysuria Assessment/Plan: for cystoscopy today Code(s): R30.0 - DYSURIA (4) HTN (hypertension) Assessment/Plan: previously on amlodopine and enalpril-has not consistency taken Cr 1.1-baseline <1.0 cont to hold enalapril-given recurrent issues if BP is wwell controlled on amlodipine will stop enalapril on DC c/w amlodopine, BP well controlled Code(s): I10 - ESSENTIAL (PRIMARY) HYPERTENSION (5) Hematuria Assessment/Plan: for cystoscopy today hematuria resolved bladder scan to assess PVR c/w IVF Dr Jameson following and plan for cystoscopy and possible lipotriapsy on Tues. Plan to return 1 week for removal of stent urine for cytology pending c/w ceftriaxone, UCx negative, will continue with upcomming procedure Code(s): R31.9 - HEMATURIA, UNSPECIFIED (6) Malnutrition of moderate degree Assessment/Plan: dietary consult Code(s): E44.0 - MODERATE PROTEIN-CALORIE MALNUTRITION (7) Methadone maintenance therapy patient Assessment/Plan: dose verified [facility] ([facility]) Subst Abuse Treatment Program Unit I is a Substance Abuse Rehab Services with no response c/w 100mg qd Code(s): F11.20 - OPIOID DEPENDENCE, UNCOMPLICATED (8) Prophylactic measure Assessment/Plan: FEN IVF decreased IVF to 42cc/hr low sodium diet with supplements monitor electrolytes DVT heparin sq Dispo maintain as in patient full code discharge planning to home-after procedure with Dr Jameson Code(s): Z29.9 - ENCOUNTER FOR PROPHYLACTIC MEASURES, UNSPECIFIED Visit type - Emergency Visit Emergency Visit: Yes ED Registration Date: 12/18/18 Care time: The patient presented to the Emergency Department on the above date and was hospitalized for further evaluation of their emergent condition. - New Patient This patient is new to me today: Yes Date on this admission: 12/23/18 - Critical Care Critical Care patient: No - Discharge Referral Referred to [facility] Med P.C.: No
[2018-12-23] MEDS: THIAMINE HCL 100 MG TABLET (FP) PO SCH (10:58)
[2018-12-23] MEDS: BUDESONIDE/FORMETEROL FUMARATE 80/4.5 mcg INHALER IH SCH ×2 (10:58→21:45)
[2018-12-23] MEDS ORDERED: PROPOFOL 20 ML ONE ×2 (14:23→17:06)
[2018-12-23] MEDS ORDERED: MIDAZOLAM HCL 2 MG/2 ML SINGLE DOSE VIAL ONE ×2 (14:24→15:29)
[2018-12-23] MEDS ORDERED: ceFAZolin SODIUM 1 GM VIAL IVPB ONE (15:44)
[2018-12-23] MEDS ORDERED: DEXAMETHASONE SOD PHOSPHATE 4 MG/1 ML VIAL ONE (16:00)
[2018-12-23] MEDS ORDERED: IOHEXOL 300 MG/ML INFUS..BTL IV ONE (16:00)
[2018-12-23] MEDS ORDERED: SUCCINYLCHOLINE CHLORIDE 200 MG/10 ML SYRINGE ONE (16:00)
[2018-12-23] MEDS ORDERED: ceFAZolin SODIUM 1 GM VIAL ONE ×2 (16:00)
[2018-12-23] MEDS ORDERED: ONDANSETRON 4 MG/2 ML VIAL IVPUSH PRN (18:06)
[2018-12-23] MEDS ORDERED: ACETAMINOPHEN 1000 MG/100 ML VIAL (NON FORMULARY) IVPB ONE ×2 (18:06→19:35)
--- NOTE | 2018-12-23 18:17 | OP ---
Operative Note - Note: Pre-Operative Diagnosis: Hematuria/Right Hydronephrosis Operation: Cysto/TURBT/Right Retrograde and Ureteroscopy Findings: Extensive tumor involving entire floor of bladder and extending on to RLW Ureteroscopy revealed narrowing but no lesions or masses in ureter Post-Operative Diagnosis: Same as Pre-op (Solitario) Surgeon: Haris Stinson Anesthesia: General Specimens Removed: Bladder Mass Estimated Blood Loss (mls): 100 Drains & Tubes with Location: 22 fr jacobson Operative Report Dictated: Yes
--- NOTE | 2018-12-23 18:54 | OP ---
DATE OF OPERATION: 12/23/2018 PREOPERATIVE DIAGNOSIS: Hematuria, right hydronephrosis. POSTOPERATIVE DIAGNOSIS: Right hydronephrosis and bladder cancer. SURGEON: Haris Stinson M.D. ANESTHESIA: General. DESCRIPTION OF PROCEDURE: Patient was brought to the operating room. After a timeout was performed, he was carefully placed in lithotomy, prepped and draped in the usual sterile fashion. SCDs were placed on his lower extremities. The Ancef was administered. A 23 Jamaican cystoscope was passed under vision and immediately upon entering the bladder neck area a large tumor was noted to be present occluding the entire bladder neck, sitting on the floor of the bladder, extending up on over to the right lateral wall. Attempt to find the right orifice was unsuccessful due to the presence of this tumor. The scope was then removed, and the bipolar resectoscope passed, and a tumor then resected down to what appeared to be fibers. While the upper part of the tumor was papillary, the base on the tumor was solid and multiple areas of the floor extending over to the right lateral wall were present. It was not a single tumor. Once hemostasis was obtained, the resectoscope was removed. The cystoscope was reintroduced, and it was possible at this point to identify the right orifice which was intubated with the Sensor wire. Sensor wire was passed under fluoroscopy. A retrograde was subsequently performed and did not show the extensive dilatation seen on the CT. A dual-lumen catheter was placed over the Sensor wire. A 2nd wire was then inserted, and the rigid ureteroscope was then brought into the field and then passed over the 2nd wire. Ureteroscopy was performed through the proximal portion of the right ureter and the other UPJ. Up to this point, although the lower ureter in the region of the sacral promontory was noted to be narrow, there were no lesions noted to be present, no stones noted to be present. The ureteroscope was then carefully removed, and given that there was no biopsy done and that the kidney was already noted to be quite thinned out in terms of its cortex, no stent was left. A 2nd wire was therefore removed as well, and a 22 Juan inserted and left to straight drainage. Estimated blood loss for the procedure approximately 100 mL. There were no complications. Specimens of the tumor were sent to pathology. Patient left the OR awake and in stable satisfactory condition. MD SIA LIMON/[id number]
[2018-12-23 19:08] LABS: HEMATOCRIT 32.8 % (35.4-49); HEMOGLOBIN 10.8 GM/dL (11.7-16.9); MCH 29.7 pg (25.7-33.7); MCHC 32.9 g/dl (32.0-35.9); MEAN CELL VOLUME 90.3 fl (80-96); MEAN PLT VOLUME 7.4 fl (7.5-11.1); PLATELET COUNT 215 K/MM3 (134-434); RBC 3.63 M/mm3 (4.00-5.60); RDW 15.9 % (11.9-15.9); WHITE BLOOD COUNT 9.6 K/mm3 (4.0-10.0)
[2018-12-23] MEDS ORDERED: ACETAMINOPHEN INJECTION 100 ML IVPB ONE (19:31)
[2018-12-23 19:36] LABS: ALBUMIN 3.1 g/dl (3.4-5.0); ALK PHOS 66 U/L (45-117); ANION GAP 3 MMOL/L (8-16); BILIRUBIN,TOTAL 0.3 mg/dL (0.2-1); BLOOD UREA NITROGEN 16.6 mg/dL (7-18); CHLORIDE 100 mmol/L (98-107); CO2 31 mmol/L (21-32); CREATININE 1.1 mg/dL (0.55-1.3); GLUCOSE,RANDOM 91 mg/dL (74-106); POTASSIUM 4.7 mmol/L (3.5-5.1); SGOT/AST 16 U/L (15-37); SGPT/ALT 11 U/L (13-61); SODIUM 135 mmol/L (136-145); TOT PROT 6.1 g/dl (6.4-8.2)
[2018-12-23] MEDS: ACETAMINOPHEN 1000 MG/100 ML VIAL (NON FORMULARY) IVPB PRN (22:11)
[2018-12-23] MEDS: LACTATED RINGERS SOLUTION 1,000 ML IV SCH (22:11)
[2018-12-23] MEDS: SODIUM CHLORIDE 1,000 ML IV SCH (22:12)
[2018-12-24] MEDS ORDERED: traMADol HCL 50 MG TABLET PO ONE (02:24)
[2018-12-24] MEDS ORDERED: METHADONE HCL 40 MG DISPERSABLE TABLET ONE (05:16)
[2018-12-24] MEDS ORDERED: METHADONE HCL 10 MG TABLET ONE (05:17)
[2018-12-24] MEDS: METHADONE 80 MG, METHADONE 20 MG PO SCH (06:26)
[2018-12-24 07:13] LABS: BASO % 0.1 % (0-2.0); HEMATOCRIT 31.5 % (35.4-49); HEMOGLOBIN 10.5 GM/dL (11.7-16.9); MCH 29.8 pg (25.7-33.7); MCHC 33.3 g/dl (32.0-35.9); MEAN CELL VOLUME 89.6 fl (80-96); MEAN PLT VOLUME 7.4 fl (7.5-11.1); NEUT % 86.9 % (42.8-82.8); PLATELET COUNT 235 K/MM3 (134-434); RBC 3.51 M/mm3 (4.00-5.60); RDW 15.3 % (11.9-15.9); WHITE BLOOD COUNT 7.7 K/mm3 (4.0-10.0)
[2018-12-24 07:38] LABS: ALBUMIN 2.9 g/dl (3.4-5.0); BILIRUBIN,TOTAL 0.4 mg/dL (0.2-1); BLOOD UREA NITROGEN 17.2 mg/dL (7-18); CALCIUM 8.9 mg/dL (8.5-10.1); TOT PROT 6.1 g/dl (6.4-8.2)
[2018-12-24] MEDS ORDERED: cefTRIAXone SODIUM 1 GM VIAL ONE (09:01)
[2018-12-24] MEDS ORDERED: DEXTROSE 5%-WATER - 50 ML IVPB ONE (09:02)
[2018-12-24] MEDS: CEFTRIAXONE 1 GM in DEXTROSE 5%-WATER - 50 ML IVPB SCH (09:05)
[2018-12-24] MEDS: THIAMINE HCL 100 MG TABLET (FP) PO SCH (09:06)
[2018-12-24] MEDS: amLODIPine BESYLATE 10 MG TABLET (FP) PO SCH (09:06)
[2018-12-24] MEDS: MULTIVITAMINS (DAILY MVI) TABLET (FP) PO SCH (09:06)
[2018-12-24] MEDS: FOLIC ACID 1 MG TABLET (FP) PO SCH (09:06)
[2018-12-24] MEDS: TAMSULOSIN HCL 0.4 MG CAP PO SCH ×2 (09:06→21:51)
[2018-12-24] MEDS: BUDESONIDE/FORMETEROL FUMARATE 80/4.5 mcg INHALER IH SCH ×2 (09:09→21:50)
[2018-12-24] MEDS ORDERED: LIDOCAINE HCL 2% JELLY (5 ML/TUBE) TP PRN (10:14)
--- NOTE | 2018-12-24 11:09 | PN ---
Physical Exam: SUBJECTIVE: Patient seen and examined, refusing to go home with leg bag. OBJECTIVE: oxycodone 5mg x 1 for pain 11/20 informed of bladder cancer by urologist, he will follow up outpatient. 78 yo M PMH COPD on home O2 (2L). Presents to the ED with dysuria, hematuria & feeling of incomplete voiding. Mild RING. Denies CP, N/V, fevers/chills. States he has not seen his PCP in years and should be taking "several medications" but only consistently takes his methadone. patient is s/p cystoscopy and found to have bladder cancer. his urine is bloody currently post procedure. will monitor hmg/hct and d/c tomorrow if stable. he will need a pcp referral post hospital stay. Vital Signs Period Temp Pulse Resp BP Sys/Flor Pulse Ox Last 24 Hr 97.6 F-98.2 F 69-86 10-20 96-139/53-91 88-96 GENERAL: The patient is awake, alert, and fully oriented, in no acute distress. HEAD: Normal with no signs of trauma. EYES: PERRL, extraocular movements intact, sclera anicteric, conjunctiva clear. No ptosis. ENT: Ears normal, nares patent, oropharynx clear without exudates, moist mucous membranes. NECK: Trachea midline, full range of motion, supple. LUNGS: Breath sounds equal, clear to auscultation bilaterally HEART: Regular rate and rhythm ABDOMEN: Soft, nontender, nondistended EXTREMITIES: no edema. NEUROLOGICAL: Normal speech, gait not observed. PSYCH: Normal mood, normal affect. SKIN: Warm, dry, normal turgor, no rashes or lesions noted Laboratory Results - last 24 hr 12/19/18 12/23/18 12/23/18 07:35 18:30 18:30 WBC 9.6 RBC 3.63 L Hgb 10.8 L Hct 32.8 L MCV 90.3 MCH 29.7 MCHC 32.9 RDW 15.9 Plt Count 215 MPV 7.4 L Absolute Neuts (auto) Neutrophils % Lymphocytes % Monocytes % Eosinophils % Basophils % Nucleated RBC % Sodium 135 L Potassium 4.7 Chloride 100 Carbon Dioxide 31 Anion Gap 3 L BUN 16.6 Creatinine 1.1 Est GFR (CKD-EPI)AfAm 73.61 Est GFR (CKD-EPI)NonAf 63.51 Random Glucose 91 Calcium 9.0 Magnesium Total Bilirubin 0.3 AST 16 ALT 11 L Alkaline Phosphatase 66 Creatine Kinase 58 Troponin I < 0.02 Total Protein 6.1 L Albumin 3.1 L Hep C Ab Diagnostic >11.0 H HCV RNA PCR w/Genot Rflx Hcv not detected Liver Fibrosis Interp 12/24/18 12/24/18 05:30 05:30 WBC 7.7 RBC 3.51 L Hgb 10.5 L Hct 31.5 L MCV 89.6 MCH 29.8 MCHC 33.3 RDW 15.3 Plt Count 235 MPV 7.4 L Absolute Neuts (auto) 6.7 Neutrophils % 86.9 H D Lymphocytes % 10.0 D Monocytes % 3.0 L Eosinophils % 0.0 D Basophils % 0.1 Nucleated RBC % 0 Sodium 132 L Potassium 5.0 Chloride 97 L Carbon Dioxide 30 Anion Gap 4 L BUN 17.2 Creatinine 1.0 Est GFR (CKD-EPI)AfAm 82.60 Est GFR (CKD-EPI)NonAf 71.27 Random Glucose 142 H Calcium 8.9 Magnesium 2.0 Total Bilirubin 0.4 AST 16 ALT 9 L Alkaline Phosphatase 65 Creatine Kinase Troponin I Total Protein 6.1 L Albumin 2.9 L Hep C Ab Diagnostic HCV RNA PCR w/Genot Rflx Liver Fibrosis Interp Active Medications Generic Name Dose Route Start Last Admin Trade Name Freflavio PRN Reason Stop Dose Admin Acetaminophen 1,000 mg 12/20/18 17:13 12/23/18 22:11 Ofirmev Injection - IVPB 1,000 mg Q6H PRN Administration PAIN LEVEL 6-10 Albuterol/Ipratropium 1 amp 12/18/18 16:44 Duoneb - NEB Q6H PRN SHORTNESS OF BREATH Amlodipine Besylate 10 mg 12/19/18 10:00 12/24/18 09:06 Norvasc - PO 10 mg DAILY GILBERTO Administration Budesonide/Formoterol Fumarate 2 puff 12/18/18 22:00 12/24/18 09:09 Symbicort 80/4.5mcg - IH 2 puff BID GILBERTO Administration Fentanyl 25 mcg 12/23/18 18:06 Sublimaze Injection - IVPUSH [id number] PRN PAIN-PACU ORDER X 4 DOSES ONLY Folic Acid 1 mg 12/20/18 10:00 12/24/18 09:06 Folic Acid - PO 1 mg DAILY GILBERTO Administration Ceftriaxone Sodium 1 gm/ 50 mls @ 100 mls/hr 12/18/18 18:30 12/24/18 09:05 Dextrose IVPB 100 mls/hr DAILY GILBERTO Administration Protocol Sodium Chloride 1,000 mls @ 42 mls/hr 12/20/18 13:56 12/23/18 22:12 Normal Saline - IV Not Given ASDIR GILBERTO Lactated Ringer's 1,000 mls @ 75 mls/hr 12/23/18 18:15 12/23/18 22:11 Lactated Ringers Solution IV 75 mls/hr ASDIR GILBERTO Administration Lidocaine HCl 1 applic 12/24/18 10:14 Xylocaine 2% Jelly TP PRN PRN PAIN Methadone HCl 80 mg/ Methadone 100 mg 12/19/18 08:30 12/24/18 06:26 HCl 20 mg PO 100 mg DAILY@0600 GILBERTO Administration Multivitamins/Minerals/Vitamin C 1 tab 12/20/18 10:00 12/24/18 09:06 Tab-A-Vit - PO 1 tab DAILY GILBERTO Administration Ondansetron HCl 4 mg 12/23/18 18:06 Zofran Injection IVPUSH Q6H PRN NAUSEA AND/OR VOMITING Tamsulosin HCl 0.4 mg 12/20/18 20:30 12/24/18 09:06 Flomax - PO 0.4 mg Q12H GILBERTO Administration Thiamine HCl 100 mg 12/20/18 10:00 12/24/18 09:06 Vitamin B1 - PO 100 mg DAILY GILBERTO Administration ASSESSMENT/PLAN: Problem List - Problems (1) Bladder malignancy Assessment/Plan: Extensive tumor involving entire floor of bladder and extending on to RLW Ureteroscopy revealed narrowing but no lesions or masses in ureter patient to follow up with urologist as outpt to discuss treatment options. Code(s): C67.9 - MALIGNANT NEOPLASM OF BLADDER, UNSPECIFIED (2) Abnormal gallbladder ultrasound Assessment/Plan: Non-specefic echogenic focus along GB fundus. Correlation with 2 week f/u of US recommended if remains then surgical consultation is recommended Code(s): R93.2 - ABNORMAL FINDINGS ON DX IMAGING OF LIVER AND BILIARY TRACT (3) Cirrhosis Assessment/Plan: seen on CT hepatatis serologies pending AST/ALT nml avoid hepatoxic agents abd US to be repeat in 2 weeks as outpatient Code(s): K74.60 - UNSPECIFIED CIRRHOSIS OF LIVER (4) Dysuria Assessment/Plan: s/p cystoscopy, see above Code(s): R30.0 - DYSURIA (5) HTN (hypertension) Assessment/Plan: previously on amlodopine and enalpril-has not consistency taken Cr 1.1-baseline <1.0 cont to hold enalapril-given recurrent issues if BP is wwell controlled on amlodipine will stop enalapril on DC c/w amlodopine, BP well controlled Code(s): I10 - ESSENTIAL (PRIMARY) HYPERTENSION (6) Hematuria Assessment/Plan: see above Code(s): R31.9 - HEMATURIA, UNSPECIFIED (7) Malnutrition of moderate degree Assessment/Plan: dietary consult Code(s): E44.0 - MODERATE PROTEIN-CALORIE MALNUTRITION (8) Methadone maintenance therapy patient Assessment/Plan: dose verified [facility] ([facility]) Subst Abuse Treatment Program Unit I is a Substance Abuse Rehab Services with no response c/w 100mg qd Code(s): F11.20 - OPIOID DEPENDENCE, UNCOMPLICATED (9) Prophylactic measure Assessment/Plan: FEN IVF decreased IVF to 42cc/hr low sodium diet with supplements monitor electrolytes DVT heparin sq Dispo maintain as in patient full code discharge planning to home-after procedure with Dr Jameson Code(s): Z29.9 - ENCOUNTER FOR PROPHYLACTIC MEASURES, UNSPECIFIED Visit type - Emergency Visit Emergency Visit: Yes ED Registration Date: 12/18/18 Care time: The patient presented to the Emergency Department on the above date and was hospitalized for further evaluation of their emergent condition. - New Patient This patient is new to me today: No - Critical Care Critical Care patient: No - Discharge Referral Referred to [facility] Med P.C[facility] No
[2018-12-24] MEDS ORDERED: oxyCODONE HCL 5 MG TABLET PO ONE (11:12)
[2018-12-24 13:23] LABS: BASO % 0.4 % (0-2.0); EOS % 0.4 % (0-4.5); HEMATOCRIT 31.4 % (35.4-49); HEMOGLOBIN 10.3 GM/dL (11.7-16.9); LYMPH % 11.6 % (8-40); MCH 29.7 pg (25.7-33.7); MCHC 32.7 g/dl (32.0-35.9); MEAN CELL VOLUME 90.7 fl (80-96); MEAN PLT VOLUME 7.4 fl (7.5-11.1); MONO % 5.2 % (3.8-10.2); NEUT % 82.4 % (42.8-82.8); PLATELET COUNT 234 K/MM3 (134-434); RBC 3.46 M/mm3 (4.00-5.60); RDW 15.5 % (11.9-15.9)
--- NOTE | 2018-12-24 14:22 | EKG ---
Test Reason : Blood Pressure : / mmHG Vent. Rate : 073 BPM Atrial Rate : 073 BPM P-R Int : 160 ms QRS Dur : 096 ms QT Int : 432 ms P-R-T Axes : 049 -08 065 degrees QTc Int : 475 ms NORMAL SINUS RHYTHM CANNOT RULE OUT ANTERIOR INFARCT (CITED ON OR BEFORE 05-MAR-2012) ABNORMAL ECG WHEN COMPARED WITH ECG OF 18-DEC-2018 10:26, QUESTIONABLE CHANGE IN INITIAL FORCES OF SEPTAL LEADS Confirmed by JENNIFER HAY MD ([id number]) on 12/24/2018 2:22:27 PM Referred By: Confirmed By:JENNIFER HAY MD
--- NOTE | 2018-12-24 14:29 | PN ---
Progress Note (short form) - Note Progress Note: Events noted Patient resting Jacobson draining moderately bloody urine, as expected Abdomen soft Complaing of bladder spasms. If patient is medically stable he can be discharged with jacobson to leg bag I will see him next Saturday 12/30 at 845 to remove jacobson and further discuss treatment. I informed him of his bladder cancer
[2018-12-24] MEDS: LACTATED RINGERS SOLUTION 1,000 ML IV SCH (18:00)
[2018-12-24] MEDS: ACETAMINOPHEN 1000 MG/100 ML VIAL (NON FORMULARY) IVPB PRN (18:14)
[2018-12-24] MEDS ORDERED: PT OWN MED DRAWER 7, Y5N ONE (21:55)
[2018-12-25] MEDS ORDERED: METHADONE HCL 10 MG TABLET ONE (05:18)
[2018-12-25] MEDS ORDERED: METHADONE HCL 40 MG DISPERSABLE TABLET ONE (05:18)
[2018-12-25] MEDS: METHADONE 80 MG, METHADONE 20 MG PO SCH (06:20)
[2018-12-25 06:58] LABS: BASO % 0.7 % (0-2.0); EOS % 4.1 % (0-4.5); HEMATOCRIT 29.7 % (35.4-49); HEMOGLOBIN 9.8 GM/dL (11.7-16.9); LYMPH % 24.1 % (8-40); MCH 29.7 pg (25.7-33.7); MEAN PLT VOLUME 7.6 fl (7.5-11.1); MONO % 8.5 % (3.8-10.2); NEUT % 62.6 % (42.8-82.8); PLATELET COUNT 209 K/MM3 (134-434); RDW 15.7 % (11.9-15.9); WHITE BLOOD COUNT 5.9 K/mm3 (4.0-10.0)
[2018-12-25 07:50] LABS: ALBUMIN 2.8 g/dl (3.4-5.0); BILIRUBIN,TOTAL 0.3 mg/dL (0.2-1); BLOOD UREA NITROGEN 20.1 mg/dL (7-18); CALCIUM 8.5 mg/dL (8.5-10.1); CREATININE 0.9 mg/dL (0.55-1.3); POTASSIUM 4.1 mmol/L (3.5-5.1); TOT PROT 5.6 g/dl (6.4-8.2)
[2018-12-25] MEDS ORDERED: DEXTROSE 5%-WATER - 50 ML IVPB ONE (09:52)
[2018-12-25] MEDS ORDERED: cefTRIAXone SODIUM 1 GM VIAL ONE (09:52)
[2018-12-25] MEDS: FOLIC ACID 1 MG TABLET (FP) PO SCH (10:49)
[2018-12-25] MEDS: CEFTRIAXONE 1 GM in DEXTROSE 5%-WATER - 50 ML IVPB SCH (10:49)
[2018-12-25] MEDS: MULTIVITAMINS (DAILY MVI) TABLET (FP) PO SCH (10:49)
[2018-12-25] MEDS: TAMSULOSIN HCL 0.4 MG CAP PO SCH ×2 (10:49→20:04)
[2018-12-25] MEDS: THIAMINE HCL 100 MG TABLET (FP) PO SCH (10:49)
[2018-12-25] MEDS: amLODIPine BESYLATE 10 MG TABLET (FP) PO SCH (10:49)
[2018-12-25] MEDS: BUDESONIDE/FORMETEROL FUMARATE 80/4.5 mcg INHALER IH SCH ×2 (10:50→21:48)
[2018-12-25] MEDS ORDERED: oxyCODONE HCL 5 MG TABLET PO ONE (14:09)
--- NOTE | 2018-12-25 14:53 | DS ---
Physical Exam: SUBJECTIVE: Patient seen and examined at the bedside. he allowed me to call his step son and inform him of discharge and diagnosis. 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 son asked me not to inform patient he is leaving today until arrives because patient will get very anxious. OBJECTIVE: oxycodone 5mg x 1 for pain 10/10 informed of bladder cancer by urologist, he will follow up outpatient and has a standing appointment to start treatment for bladder cancer with the urologist. 78 yo M PMH COPD on home O2 (2L). Presents to the ED with dysuria, hematuria & feeling of incomplete voiding. Mild RING. Denies CP, N/V, fevers/chills. States he has not seen his PCP in years and should be taking "several medications" but only consistently takes his methadone. patient is s/p cystoscopy and found to have bladder cancer. hmg/hct stable and will be discharged home with VNS services to help manage jacobson. 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 His urine is mostly yellow with small areas of pink tinged urine. He has no primary care doctor: therefore, made appt for him to see one as follows: you have a follow up appointment with Dr. Gaviria - new primary care - arrive 15 minutes before appointment, BRING picture ID and all your medications (bottles) date/time: Saturday, December 29. @ 1pm. location: [address] [place] [address], 1st floor bring: your insurance card and discharge paper work Vital Signs Period Temp Pulse Resp BP Sys/Flor Pulse Ox Last 24 Hr 98 F-98.3 F 70-92 18-20 110-140/57-76 88-92 PHYSICAL EXAM GENERAL: The patient is awake, alert, and fully oriented, in no acute distress. HEAD: Normal with no signs of trauma. EYES: PERRL, extraocular movements intact, sclera anicteric, conjunctiva clear. ENT: Ears normal, nares patent, oropharynx clear without exudates, moist mucous membranes. NECK: Trachea midline, full range of motion, supple. LUNGS: Breath sounds equal, clear to auscultation bilaterally, no wheezes, no crackles, no accessory muscle use. HEART: Regular rate and rhythm, S1, S2 without murmur, rub or gallop. ABDOMEN: Soft, nontender, nondistended, normoactive bowel sounds, no guarding, no rebound, no hepatosplenomegaly, no masses. EXTREMITIES: 2+ pulses, warm, well-perfused, no edema. NEUROLOGICAL: Cranial nerves II through XII grossly intact. Normal speech, gait not observed. PSYCH: Normal mood, normal affect. SKIN: Warm, dry, normal turgor, no rashes or lesions noted. LABS Laboratory Results - last 24 hr 12/25/18 12/25/18 05:15 05:15 WBC 5.9 RBC 3.30 L Hgb 9.8 L Hct 29.7 L MCV 90.0 MCH 29.7 MCHC 33.0 RDW 15.7 Plt Count 209 MPV 7.6 Absolute Neuts (auto) 3.7 Neutrophils % 62.6 D Lymphocytes % 24.1 D Monocytes % 8.5 Eosinophils % 4.1 D Basophils % 0.7 Nucleated RBC % 0 Sodium 136 Potassium 4.1 Chloride 100 Carbon Dioxide 31 Anion Gap 5 L BUN 20.1 H Creatinine 0.9 Est GFR (CKD-EPI)AfAm 93.82 Est GFR (CKD-EPI)NonAf 80.95 Random Glucose 90 Calcium 8.5 Magnesium 2.0 Total Bilirubin 0.3 AST 14 L ALT 9 L Alkaline Phosphatase 73 Total Protein 5.6 L Albumin 2.8 L HOSPITAL COURSE: Date of Admission:12/18/18 Date of Discharge: 12/25/18 Minutes to complete discharge: 60 Discharge Summary Problems reviewed: Yes Reason For Visit: ACUTE KIDNEY INJURY, HEMATURIA Current Active Problems Abnormal gallbladder ultrasound (Acute) Bladder malignancy (Acute) Cirrhosis (Acute) Dysuria (Acute) HTN (hypertension) (Acute) Hematuria (Acute) Malnutrition of moderate degree (Acute) Methadone maintenance therapy patient (Acute) Prophylactic measure (Acute) SOB (shortness of breath) (Acute) Condition: Improved - Instructions Diet, Activity, Other Instructions: Mr. Tangsco: You had a cystoscopy done during your hospital stay and will be sent home with a leg jacobson bag. Please be aware that you should NOT remove the jacobson until you are seen by the urologist. You have a bladder tumor and you will need treatment options with the urologist. Your appointment with the urologist is: Please follow up with Dr Carballo on Saturday 12/30 at at 8:45AM [phone] We will be sending you home with a visiting nurse to help manage your jacobson. Please do not pull on the jacobson. You urine may remain pink tinged, but if you have difficulty urinating or have blood clots, please seek immediate medical attention. ALSO WE MADE AN APPOINTMENT FOR YOU TO SEE A NEW PRIMARY CARE DOCTOR. you have a follow up appointment with Dr. Gaviria - new primary care - arrive 15 minutes before appointment, BRING picture ID and all your medications (bottles) date/time: Saturday, December 29. @ 1pm. location: [address] [place] [address], 1st floor bring: your insurance card and discharge paper work IT IS IMPORTANT THAT YOU KEEP BOTH APPOINTMENTS. FURTHER, YOU HAD A Non- specefic echogenic focus ON THE GALLBLADDER. HAVE THE ULTRASOUND REPEATED IN 2 WEEKS. THIS CAN BE COORDINATED WITH YOUR NEW PCP. For hypertension, we have stopped your enalapril and started you on amlodopine 10mg ONCE per day for blood pressure control. Thank you. Referrals: Cam Moran MD [Staff Physician] - (you have a follow up appointment with Dr. Gaviria date/time: Saturday, December 29. @ 1pm. location: [address] [place] [address], 1st floor bring: your insurance card and discharge paper work) Haris Stinson MD [Staff Physician] - (Please follow up with Dr Carballo on Saturday 12/30 at at 845AM [phone]) Disposition: VNS/HOME HEALTH CARE - Home Medications Comprehensive Discharge Medication List: Ambulatory Orders Albuterol 2.5/Ipratropium 0.5 [Duoneb -] 1 neb NEB Q4H PRN #0 vial 03/09/12 Amlodipine Besylate [Norvasc -] 10 mg PO DAILY #0 tablet 03/09/12 Salmeterol/Fluticasone [Advair 250Mcg/50Mcg -] 1 inh IH BID #0 inh 03/09/12 Methadone [Dolophine -] 110 mg PO DAILY 07/01/18 Tamsulosin HCl [Flomax] 0.4 mg PO DAILY 07/01/18 Albuterol 2.5/Ipratropium 0.5 [Duoneb -] 1 amp NEB Q6H PRN amp 12/25/18 Amlodipine Besylate [Norvasc -] 10 mg PO DAILY #90 tablet 12/25/18 Folic Acid - 1 mg PO DAILY tablet 12/25/18 Problem List - Problems (1) Bladder malignancy Assessment/Plan: Extensive tumor involving entire floor of bladder and extending on to RLW Ureteroscopy revealed narrowing but no lesions or masses in ureter patient to follow up with urologist as outpt to discuss treatment options and has an appointment next week (see discharge instructions) Also will need repeat blood work to monitor hmg/hct and a new PCP has been assigned to him. Code(s): C67.9 - MALIGNANT NEOPLASM OF BLADDER, UNSPECIFIED (2) Abnormal gallbladder ultrasound Assessment/Plan: Non-specefic echogenic focus along GB fundus. Correlation with 2 week f/u of US recommended Code(s): R93.2 - ABNORMAL FINDINGS ON DX IMAGING OF LIVER AND BILIARY TRACT (3) Cirrhosis Assessment/Plan: AST/ALT nml avoid hepatoxic agents abd US to be repeat in 2 weeks as outpatient Code(s): K74.60 - UNSPECIFIED CIRRHOSIS OF LIVER (4) Dysuria Assessment/Plan: s/p cystoscopy, see above Code(s): R30.0 - DYSURIA (5) HTN (hypertension) Assessment/Plan: previously on amlodopine and enalpril-has not consistency taken Cr 1.1-baseline <1.0 cont to hold enalapril-given recurrent issues if BP is well controlled on amlodipine will stop enalapril on DC c/w amlodopine, BP well controlled Code(s): I10 - ESSENTIAL (PRIMARY) HYPERTENSION (6) Hematuria Assessment/Plan: see above Code(s): R31.9 - HEMATURIA, UNSPECIFIED (7) Malnutrition of moderate degree Assessment/Plan: dietary consult Code(s): E44.0 - MODERATE PROTEIN-CALORIE MALNUTRITION (8) Methadone maintenance therapy patient Assessment/Plan: c/w 100mg qd Code(s): 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
[2018-12-25] MEDS: LACTATED RINGERS SOLUTION 1,000 ML IV SCH (15:13)
[2018-12-25] MEDS: ACETAMINOPHEN 1000 MG/100 ML VIAL (NON FORMULARY) IVPB PRN (15:13)
--- NOTE | 2018-12-25 17:16 | PATH ---
Surgical Pathology Report Patient Name: CORIN KEATING [facility]. Rec. 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 TUMOR INVADES INTO MUSCULARIS PROPRIA. This case was discussed with Dr. Stinson on December 25, 2018. Electronically Signed Miah Paulson M.D. Gross Description Received in formalin labeled "bladder mass," is a 6.5 x 5.0 x 0.5 cm aggregate of almeida soft tissue fragments admixed with blood clot. The formalin is filtered and the specimen is entirely submitted in 14 cassettes. /12/24/2018 saudi12/24/2018
--- NOTE | 2018-12-25 17:22 | PATH ---
Cytology Non-Gynecological Report Patient Name: CORIN KEATING Med. Rec. #: [id number] /Age/Gender: 1940 (Age: 78) / M Account: [id number] Location: 4 W TELEMETRY U Taken: 12/22/2018 Received: 12/22/2018 Reported: 12/25/2018 Physicians: Marcie Bianchi MD Specimen(s) Received URINE Clinical History Bladder mass Final Diagnosis URINE FOR CYTOLOGY: SATISFACTORY FOR EVALUATION. POSITIVE FOR MALIGNANT CELLS. HIGH GRADE UROTHELIAL CARCINOMA. ATYPICAL UROTHELIAL CELLS WITH COARSE CHROMATIN, HYPERCHROMASIA, INCREASED NUCLEUS TO CYTOPLASMIC RATIO, DISPERSED SINGLE CELLS AND RARE CLUSTERS. NUMEROUS RED BLOOD CELLS AND NEUTROPHILS PRESENT. DEGENERATIVE CHANGES PRESENT. Comment: See concurrent material ([id number]). Electronically Signed Nicole Huntley M.D. Gross Description Approximately 15 cc of yellow fluid received fresh. Two cytofunnels prepared and Pap stained. One cell block prepared.
[2018-12-26 01:08] LABS: HEP B CORE AB, TOT Positive (Negative)
[2018-12-26] MEDS ORDERED: METHADONE HCL 40 MG DISPERSABLE TABLET ONE (05:40)
[2018-12-26] MEDS ORDERED: METHADONE HCL 10 MG TABLET ONE (05:41)
[2018-12-26] MEDS: METHADONE 80 MG, METHADONE 20 MG PO SCH (05:46)
[2018-12-26] MEDS: TAMSULOSIN HCL 0.4 MG CAP PO SCH (08:08)
[2018-12-26] MEDS ORDERED: cefTRIAXone SODIUM 1 GM VIAL ONE (09:14)
[2018-12-26] MEDS ORDERED: DEXTROSE 5%-WATER - 50 ML IVPB ONE (09:14)
[2018-12-26] MEDS: MULTIVITAMINS (DAILY MVI) TABLET (FP) PO SCH (09:18)
[2018-12-26] MEDS: FOLIC ACID 1 MG TABLET (FP) PO SCH (09:18)
[2018-12-26] MEDS: amLODIPine BESYLATE 10 MG TABLET (FP) PO SCH (09:18)
[2018-12-26] MEDS: CEFTRIAXONE 1 GM in DEXTROSE 5%-WATER - 50 ML IVPB SCH (09:18)
[2018-12-26] MEDS: BUDESONIDE/FORMETEROL FUMARATE 80/4.5 mcg INHALER IH SCH (09:19)
[2018-12-26] MEDS: THIAMINE HCL 100 MG TABLET (FP) PO SCH (09:19)
--- NOTE | 2018-12-26 09:47 | HOSP ---
Subjective - Review of Symptoms Other Systems: denies any malaise, wants to stay in the hospital appears anxious about discharge Physical Examination Vital Signs: Vital Signs Temperature 98.8 F 12/26/18 05:43 Pulse Rate 79 12/26/18 05:43 Respiratory Rate 20 12/26/18 05:43 Blood Pressure 134/77 12/26/18 05:43 O2 Sat by Pulse Oximetry (%) 90 L 12/26/18 09:30 Constitutional: Yes: Anxious Eyes: Yes: WNL HENT: Yes: Atraumatic Neck: Yes: Supple Cardiovascular: Yes: Regular Rate and Rhythm Respiratory: Yes: On Nasal O2 Gastrointestinal: Yes: Normal Bowel Sounds, Soft ...Rectal Exam: Yes: Deferred Labs: CBC, BMP 12/25/18 05:15 12/25/18 05:15 Hospitalist Encounter Assessment: patient for discharge home today, reassured reviewed with him importance of outpatient follow up with new PCP and urologist patient verbalized understanding SW set up for patient for continued teaching on jacobson leg bag.
[2018-12-26 10:07] VITALS: BP 122/64; PULSE 93; TEMP 98.7
== END 2018-12-26 12:30 | disposition home health service (06) | DRG 669 ==
LOC: JER 09:04 → JERBED 13:58 → J5S 20:01 → JSAMEDAYSX 12-23 19:14 → J4W 12-23 20:26
PROVIDERS: ADMIT Hospitalist; ATTEND Nurse Practitioner Family
PROC: 0TBC8ZZ Excision of Bladder Neck, Via Natural or Artificial Opening Endoscopic (ICD-10-PCS; principal; 2018-12-23 14:30)
DX: C67.9 Malignant neoplasm of bladder, unspecified (principal); N13.6 Pyonephrosis; E44.0 Moderate protein-calorie malnutrition; F11.20 Opioid dependence, uncomplicated; J44.9 Chronic obstructive pulmonary disease, unspecified; I10 Essential (primary) hypertension; R93.2 Abnormal findings on diagnostic imaging of liver and biliary tract; R30.0 Dysuria; K74.60 Unspecified cirrhosis of liver; N40.0 Benign prostatic hyperplasia without lower urinary tract symptoms; R06.02 Shortness of breath; Z99.81 Dependence on supplemental oxygen; Z68.22 Body mass index [BMI] 22.0-22.9, adult
CPT/HCPCS: 36415; 71045-TC-FY; 74176-TC; 76000-TC-FY; 76700-TC; 80053; 81003; 82150; 82550; 83690; 83735; 84100; 84153; 84484; 85025; 85027; 85610; 86704; 86706; 86707; 86708; 86709; 86803; 87086; 87340; 93005; 93010; 94760; 97116-GP; 97161-GP; 99285-25; J0131; J7030

== ENCOUNTER 2019-01-02 15:20 | Inpatient (IN) | payer BC, OTHER ==
--- NOTE | 2019-01-02 16:18 | PDOC ---
History of Present Illness - History of Present Illness Initial Comments: 01/02/19 17:04 The patient is a 78 year old male with a history of HTN, Bladder CA, BPH who presents for evaluation of possible AMS. Per the patient's clinic, the patient was sitting in the clinic waiting room for 4 hours and had forgotten where his next appointment was supposed to be. They reported that the patient appeared confused at that time and referred him to the ED for further evaluation. The patient reports that he was waiting in clinic for his stepson to pick him up and that he was supposed to go to his urologist appointment today to remove an indwelling jacobson catheter that has been in place for 2 weeks. The patient reports pain to his urethra as well but otherwise has no other complaints. He otherwise denies fevers, chills, SOB, chest pain, nausea, vomiting, abdominal pain, or changes with bowel movements. He is alert and oriented x3. <Jet Mackenzie - Last Filed: 01/02/19 17:58> <Geovanna Felipe - Last Filed: 01/02/19 23:16> - General Chief Complaint: Altered Mental Status Stated Complaint: Altered Mental Status Time Seen by Provider: 01/02/19 15:45 Past History - Past Medical History Anemia: No Asthma: No Cancer: Yes (bladder tumor s/p cystoscopy) Cardiac Disorders: Yes (angioplasty 1997) CVA: No COPD: Yes (diagnosed 2009) CHF: No Dementia: No Diabetes: No Dialysis: No GI Disorders: No Disorders: Yes (BPH) HTN: Yes Hypercholesterolemia: No Kidney Stones: No Liver Disease: No Seizures: No Thyroid Disease: No - Surgical History Abdominal Surgery: Yes (RIGHT INQUINAL HERNIA REPAIR 25 YRS AGO) Appendectomy: No Cardiac Surgery: Yes (ANGIOPLASTY 1997) Cholecystectomy: No Lung Surgery: No Neurologic Surgery: No Orthopedic Surgery: No - Immunization History Immunization Up to Date: Yes - Psycho Social/Smoking Cessation Hx Smoking Status: Yes Smoking History: Current every day smoker Years of Tobacco Use: 20 Have you smoked in the past 12 months: Yes Number of Cigarettes Smoked Daily: 10 Information on smoking cessation initiated: No 'Breaking Loose' booklet given: 03/01/12 Hx Alcohol Use: No (denies) Drug/Substance Use Hx: No (denies) Substance Use Type: Opiates Hx Substance Use Treatment: Yes <Jet Mackenzie - Last Filed: 01/02/19 17:58> <Geovanna Felipe - Last Filed: 01/02/19 23:16> - Past Medical History Allergies/Adverse Reactions: Allergies Allergy/AdvReac Type Severity Reaction Status Date / Time No Known Drug Allergies Allergy Unknown Verified 01/02/19 16:03 Home Medications: Ambulatory Orders Salmeterol/Fluticasone [Advair 250Mcg/50Mcg -] 1 inh IH BID #0 inh 03/09/12 Methadone [Dolophine -] 110 mg PO DAILY 07/01/18 Tamsulosin HCl [Flomax] 0.4 mg PO DAILY 07/01/18 Amlodipine Besylate [Norvasc -] 10 mg PO DAILY #90 tablet 12/26/18 Review of Systems - Review of Systems Comments:: 01/02/19 17:42 Constitutional: No fevers, chills, fatigue, malaise HEENT: No Rhinorrhea, nasal congestion, visual changes Cardiovascular: No chest pain, syncope, palpitations, lightheadedness Respiratory: No Cough, SOB, Hemoptysis, Gastrointestinal: No Abdominal pain, Nausea, Vomiting, Constipation, Diarrhea, Melena Genitourinary: Penile pain. No Dysuria, Frequency, Urgency, Hesitancy, Hematuria, Flank pain Musculoskeletal: No Myalgia, arthralgia Skin: No rashes, itching, bruising, pallor Neurologic: No Headache, Dizziness, Numbness, Weakness, or Tingling Psychiatric: No Hallucinations. No SI or HI <Jet Mackenzie - Last Filed: 01/02/19 17:58> *Physical Exam - Vital Signs Last Vital Signs Temp Pulse Resp BP Pulse Ox 98.4 F 82 18 126/82 92 L 01/02/19 15:40 01/02/19 15:40 01/02/19 15:40 01/02/19 15:40 01/02/19 15:40 - Physical Exam Comments: 01/02/19 17:42 General Appearance: Nourished. No Apparent Distress HEENT: EOMI, MARIUSZ. No Pharyngeal Erythema, Tonsillar Exudate, Tonsillar Erythema Neck: No Cervical Lymphadenopathy Respiratory/Chest: Lungs Clear, Normal Breath Sounds. No Crackles, Rales, Rhonchi, Wheezing Cardiovascular: Regular Rhythm, Regular Rate. No Murmur, Gallops, Rubs Gastrointestinal/Abdominal: Normal Bowel Sounds, Soft. 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 NML intact, Fully Oriented, Alert, Normal Mood/Affect, Normal Response, <Jet Mackenzie - Last Filed: 01/02/19 17:58> - Vital Signs Last Vital Signs Temp Pulse Resp BP Pulse Ox 98.4 F 82 18 126/82 92 L 01/02/19 15:40 01/02/19 15:40 01/02/19 15:40 01/02/19 15:40 01/02/19 15:40 <Geovanna Felipe - Last Filed: 01/02/19 23:16> ED Treatment Course - LABORATORY CBC & Chemistry Diagram: 01/02/19 16:50 01/02/19 16:50 - ADDITIONAL ORDERS Additional order review: Laboratory Results 01/02/19 15:45 POC Glucometer 92 01/02/19 15:45 POC Glucometer 92 <Jet Mackenzie - Last Filed: 01/02/19 17:58> - LABORATORY CBC & Chemistry Diagram: 01/02/19 16:50 01/02/19 16:50 - ADDITIONAL ORDERS Additional order review: Laboratory Results 01/02/19 01/02/19 01/02/19 16:50 16:50 15:45 Sodium 138 Potassium 4.1 Chloride 102 Carbon Dioxide 30 Anion Gap 6 L BUN 14.1 Creatinine 1.4 H Est GFR (CKD-EPI)AfAm 54.99 Est GFR (CKD-EPI)NonAf 47.45 POC Glucometer 92 Random Glucose 150 H Calcium 9.2 Total Bilirubin 0.4 AST 20 ALT 15 Alkaline Phosphatase 78 Creatine Kinase 62 Troponin I < 0.02 Total Protein 7.3 Albumin 3.6 Urine Color Dk yellow Urine Appearance Turbid Urine pH 5.0 Ur Specific [place] 1.024 Urine Protein 3+ H Urine Glucose (UA) Negative Urine Ketones Trace H Urine Blood 3+ H Urine Nitrite Negative Urine Bilirubin 1+ H Urine Urobilinogen 1.0 Ur Leukocyte Esterase 3+ H Urine WBC (Auto) 492 Urine Casts (Auto) 13 U Pathogenic Cast Auto 0 U Epithel Cells (Auto) 2.1 01/02/19 01/02/19 16:50 15:45 RBC 4.10 MCV 90.6 MCHC 32.2 RDW 15.7 MPV 7.2 L Neutrophils % 68.9 Lymphocytes % 21.2 Monocytes % 7.1 Eosinophils % 1.7 Basophils % 1.1 POC Glucometer 92 - Medications Given in the ED: ED Medications Discontinued Medications Generic Name Dose Route Start Last Admin Trade Name Azeb PRN Reason Stop Dose Admin Ceftriaxone Sodium 1 gm/ 100 mls @ 200 mls/hr 01/02/19 17:51 01/02/19 18:12 Dextrose IVPB 01/02/19 18:20 200 mls/hr ONCE ONE Administration Piperacillin Sod/Tazobactam 50 mls @ 100 mls/hr 01/02/19 18:12 01/02/19 18:42 Sod 3.375 gm/ Dextrose IVPB 01/02/19 18:41 100 mls/hr ONCE ONE Administration Protocol <Geovanna Felipe - Last Filed: 01/02/19 23:16> Medical Decision Making - Medical Decision Making 01/02/19 17:43 The patient is a 78 year old male with a history of HTN, Bladder CA, BPH who presents for evaluation of possible AMS. The patient is alert and oriented x3 here in the ED. Given the patient's history and physical exam, we will obtain a cbc, cmp, troponin, ua, to evaluate further. We will continue to monitor and reassess while here in the ED. 01/02/19 17:51 CBC demonstrates an elevated wbc to 12. CMP demonstrates an elevated creatinine to 1.4. UA demonstrates positive leuk esterase with elevated wbc. We will treat the patient with ceftriaxone and he will require admission for further management and urology consultation. <Jet Mackenzie - Last Filed: 01/02/19 17:58> - Medical Decision Making 01/02/19 23:16 abx zosyn. see attg note <Geovanna Felipe - Last Filed: 01/02/19 23:16> Discharge - Discharge Information Problems reviewed: Yes - Admission Yes <Jet Mackenzie - Last Filed: 01/02/19 17:58> <Geovanna Felipe - Last Filed: 01/02/19 23:16> - Discharge Information Clinical Impression/Diagnosis: LUCIE (acute kidney injury) Bladder malignancy Qualifiers: Bladder location: unspecified site Qualified Code(s): C67.9 - Malignant neoplasm of bladder, unspecified UTI (urinary tract infection) Qualifiers: Urinary tract infection type: site unspecified Hematuria presence: without hematuria Qualified Code(s): N39.0 - Urinary tract infection, site not specified Condition: Stable
--- NOTE | 2019-01-02 16:53 | PDOC ---
Attending Attestation - Resident Resident Name: Jet Mackenzie - ED Attending Attestation I have performed the following: I have examined & evaluated the patient, The case was reviewed & discussed with the resident, I agree w/resident's findings & plan - HPI HPI: 01/02/19 16:54 78 YOM with h/o COPD, bladder ca, BPH, HTN presenting with AMS from the clinic, with some confusion with his appointments and followup with urology, pending to take out his jacobson today, but did not go. on admission in December 2018, found to have Extensive tumor involving entire floor of bladder and extending on to RLW Ureteroscopy revealed narrowing but no lesions or masses in ureter jacobson 22 fr placed at that time, which he has had x 2 weeks Per the patient's clinic, the patient was sitting in the clinic waiting room for 4 hours and had forgotten where his next appointment was supposed to be. They reported that the patient appeared confused at that time and referred him to the ED for further evaluation. The patient reports that he was waiting in clinic for his stepson to pick him up and that he was supposed to go to his urologist appointment today to remove an indwelling jacobson catheter that has been in place for 2 weeks. The patient reports pain to his urethra as well but otherwise has no other complaints. He otherwise denies fevers, chills, SOB, chest pain, nausea, vomiting, abdominal pain, or changes with bowel movements. He is now alert and oriented appropriately, though cranky 01/02/19 17:34 01/02/19 18:13 - Physicial Exam PE: 01/02/19 17:35 Agree with the resident's HPI and PE as documented in the electronic medical record. NAD, well appearing, awake and alert, cranky, oriented to person time and place (also stating they were stupid questions), NCAT, EOMI, PERRL, nl conjunctiva, anicteric; neck supple. lungs clear, RRR, abdomen soft nontender. no rebound, guarding. jacobson in place with leg bag. Back nontender. MCKEE x4, no focal neuro deficits. No peripheral edema. normal color for ethnicity, WWP. - Medical Decision Making 01/02/19 16:55 Vital Signs Temp Pulse Resp BP Pulse Ox 98.4 F 82 18 126/82 92 L 01/02/19 15:40 01/02/19 15:40 01/02/19 15:40 01/02/19 15:40 01/02/19 15:40 VS reviewed, wnl. baseline spo2 92% - on RA but with no respiratory distress, COPD. allows room for mild hypoxia which is his baseline. DDx. syncope: considered interval abnormalities including short QTC or long QT syndrome, WPW, conduction abnormality, [place], ACS, PE, electrolyte disturbances, metabolic derangement. no mental status change, neuro intact, no sz, no ct imaging at this time. Laboratory results with mild leukocytosis, 12 point 3K, without shift. Creatinine doubled up to 1.4, baseline is normal. UA is grossly positive for infection this could be colonization but in light of his altered mental status, leukocytosis and elevated creatinine and recent instrumentation this could be infection so we will cover with antibiotics, follow-up on urine cultures IV Zosyn given recent procedure and Jacobson catheter placement, jacobson to be removed by urology preferentially, medical admission for UTI/LUCIE/altered mental status - related to infection/metabolic etiology, IV hydration, antibiotics and supportive care, urology consultation in the hospital. Attempted to call his urologist, Dr Stinson, left message. 01/02/19 19:00 Heart Score/ECG Review #1 ECG reviewed & interpreted by me at: 17:00 General ECG Interpretation: Sinus Rhythm, Normal Rate, Normal Intervals 01/02/19 17:37 EKG normal sinus rhythm at 77 bpm, no interval abnormalities, narrow QRS, ST and T wave segments and morphology normal. Nonspecific T wave abnormalities
[2019-01-02 17:03] LABS: BASO % 1.1 % (0-2.0); EOS % 1.7 % (0-4.5); HEMATOCRIT 37.2 % (35.4-49); LYMPH % 21.2 % (8-40); MCH 29.2 pg (25.7-33.7); MCHC 32.2 g/dl (32.0-35.9); MEAN CELL VOLUME 90.6 fl (80-96); MEAN PLT VOLUME 7.2 fl (7.5-11.1); MONO % 7.1 % (3.8-10.2); NEUT % 68.9 % (42.8-82.8); PLATELET COUNT 312 K/MM3 (134-434); RDW 15.7 % (11.9-15.9); WHITE BLOOD COUNT 12.3 K/mm3 (4.0-10.0)
[2019-01-02 17:06] LABS: EPI CELLS 2.1 /HPF (0-5/HPF); HYALINE CASTS 13 /lpf (0-8); URINE APPEARANCE TURBID; URINE BILIRUBIN 1+ (NEGATIVE); URINE COLOR DK YELLOW; URINE GLUCOSE (UA) NEGATIVE (NEGATIVE); URINE KETONE TRACE (NEGATIVE); URINE LEUK ESTERASE 3+ (NEGATIVE); URINE NITRITE NEGATIVE (NEGATIVE); URINE PROTEIN 3+ (NEGATIVE); URINE WBC 492 /hpf (0-5)
[2019-01-02 17:36] LABS: ALBUMIN 3.6 g/dl (3.4-5.0); ALK PHOS 78 U/L (45-117); ANION GAP 6 MMOL/L (8-16); BILIRUBIN,TOTAL 0.4 mg/dL (0.2-1); BLOOD UREA NITROGEN 14.1 mg/dL (7-18); CALCIUM 9.2 mg/dL (8.5-10.1); CHLORIDE 102 mmol/L (98-107); CO2 30 mmol/L (21-32); CREATININE 1.4 mg/dL (0.55-1.3); GLUCOSE,RANDOM 150 mg/dL (74-106); POTASSIUM 4.1 mmol/L (3.5-5.1); SGOT/AST 20 U/L (15-37); SGPT/ALT 15 U/L (13-61); SODIUM 138 mmol/L (136-145); TOT PROT 7.3 g/dl (6.4-8.2)
[2019-01-02] MEDS ORDERED: CEFTRIAXONE 1 GM in DEXTROSE 5%-WATER - 100 ML IVPB ONE (17:51)
[2019-01-02] MEDS ORDERED: CEFTRIAXONE 1 GM/50 ML BAG ONE (18:04)
[2019-01-02] MEDS ORDERED: PIPERACILLIN/TAZOB 3.375 GM 3.375 GM in DEXTROSE 5%-WATER - 50 ML IVPB ONE (18:12)
[2019-01-02] MEDS ORDERED: PIPERACILLIN/TAZOB 3.375 GM 3.375 GM/50 ML BAG IVPB ONE (18:29)
--- NOTE | 2019-01-02 19:15 | PN ---
Teaching Attending Note Name of Resident: Arnie Montoya ATTENDING PHYSICIAN STATEMENT I saw and evaluated the patient. I reviewed the resident's note and discussed the case with the resident. I agree with the resident's findings and plan as documented. SUBJECTIVE: Patient is a 78 year old man with a PMH of COPD (on home O2), CAD (angioplasty 1997), ?Opiate abuse, Tobacco use, HTN, Bladder cancer and BPH who presents for evaluation of AMS. Per the patient's clinic, the patient was sitting in the clinic waiting room for 4 hours and had forgotten where his next appointment was supposed to be. They reported that the patient appeared confused at that time and referred him to the ER for further evaluation. The patient reports that he was waiting in clinic for his stepson to pick him up and that he was supposed to go to his urologist appointment today to remove an indwelling jacobson catheter that has been in place for 2 weeks. The patient reports pain to his urethra as well but otherwise has no other complaints. He otherwise denies fevers, chills, SOB, chest pain, nausea, vomiting, abdominal pain, or changes with bowel movements. Patient has been in the ER twice within the past 3 weeks for UTI and was admitted once and got antibiotics. Urine cultures from the last 2 ER visits have been negative. In the ER today, he was noted to be alert and oriented x3. OBJECTIVE: Alert Vital Signs Period Temp Pulse Resp BP Sys/Flor Pulse Ox Last 24 Hr 98.3 F-98.4 F 71-82 18 126-128/62-82 90-92 HEENT: No Jaundice, eye redness or discharge, PERRLA, EOMI. Normocephalic, atraumatic. External ears are normal and hearing is grossly intact. No nasal discharge. Neck: Supple, nontender. No palpable adenopathy or thyromegaly. No JVD Chest: Good effort. Clear to auscultation and percussion. Heart: Regular. No S3, rub or murmur Abdomen: Not distended, soft, nontender and no HSM. No rebound or guarding. Normal bowel sounds. Ext: Peripheral pulses intact. No leg edema. Jacobson in place. Skin: Warm and dry. No petechiae, rash or ecchymosis. Neuro: Alert. Oriented to person. Poor memory. Does not remember things that happened earlier today. CN 2-12 grossly intact. Sensation grossly intact in all four extremities and DTR are symmetric. Psych: Appropriate mood and affect. Good insight. Home Medications Medication Instructions Recorded Salmeterol/Fluticasone [Advair 1 inh IH BID #0 inh 03/09/12 250Mcg/50Mcg -] Methadone [Dolophine -] 110 mg PO DAILY 07/01/18 Tamsulosin HCl [Flomax] 0.4 mg PO DAILY 07/01/18 Amlodipine Besylate [Norvasc -] 10 mg PO DAILY #90 tablet 12/26/18 Abnormal Lab Results 01/02/19 01/02/19 01/02/19 16:50 16:50 16:50 WBC 12.3 H MPV 7.2 L Absolute Neuts (auto) 8.5 H Anion Gap 6 L Creatinine 1.4 H Random Glucose 150 H Urine Protein 3+ H Urine Ketones Trace H Urine Blood 3+ H Urine Bilirubin 1+ H Ur Leukocyte Esterase 3+ H ASSESSMENT AND PLAN: 1. UTI - In view recent hospital stay and antibiotics use, will treat with IV Zosyn pending urine and blood culture results. Change in mentation may be due to toxic metabolic encephalopathy caused by UTI. Will do neurochecks and implement fall precautions. EKG pending. Will consult urology to change jacobson and craft a plan care for his bladder cancer. Get HbA1c and monitor glucose. Will continue comprehensive care for all of patients comorbid conditions including methadone maintenance, O2 support and Duoneb PRN for COPD. 2. Tobacco Use Counseled on risks associated with tobacco use. We will provide patient all the necessary assistance to facilitate smoking cessation and prescribe Nicotine patch. 3. LUCIE - May be partly due to urinary outlet obstruction. He also has risk factors for CKD and has proteinuria. Sonogram from 12/18/18 showed marked right hydronephrosis. Hydrate gently and monitor urine output. Will consult nephrology and avoid nephrotoxic agents such as NSAIDS, aminoglycosides, contrast dyes and certain Alternative medicine products. 4. Hypertension - Restart suitable outpatient antihypertensive drugs when clinically appropriate. 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 Nonpharmacologic measures to control hypertension like weight loss , salt restriction and exercise discussed. Importance of adherence to treatment regimen and attainment of normotension emphasized. 5. DVT prophylaxis - Heparin 5000u sq tid. 6. Advance directives - Full code
--- NOTE | 2019-01-02 20:09 | HP ---
CHIEF COMPLAINT: AMS PCP: Dr. Jacobs HISTORY OF PRESENT ILLNESS: 78 y/o M, pmh of copd on HOMO 2L, cirrhosis, HTN, hx of UTI, recent admission at [facility] for a cystoscopy 2/ to hydronephrosis, is BIBA from the [facility] for altered mental status. Pt was admitted 2 weeks ago for hematuria and was found to have bladder cancer w/ a right renal nephrosis requiring cystoscopy. Pt was sent home with an attached indwelling catheter. He was supposed to have the catheter removed today but he did not return to his urologist office. Instead he arrived at the [facility] mildly confused. He was redirected to his Urologists office but he remained at the office for > 4hrs. In the ED, he was started on zosyn and ceftriaxone. He denies f/c/n/v/d/ sob/chest pain/abdominal pain. ER course was notable for: (1)Zosyn and ceftriaxone (2)EKG (3) Recent Travel: denies PAST MEDICAL HISTORY: copd on HOMO 2L, cirrhosis, HTN, hx of UTI, Bladder cancer PAST SURGICAL HISTORY: inguinal hernia repair, angioplasty, cystoscopy Social History: Smokin/2ppd x6yrs Alcohol: refuse to answer Drugs: denies Allergies No Known Drug Allergies Allergy (Unknown, Verified 01/02/19 16:03) HOME MEDICATIONS: Home Medications Medication Instructions Recorded Salmeterol/Fluticasone [Advair 1 inh IH BID #0 inh 03/09/12 250Mcg/50Mcg -] Methadone [Dolophine -] 110 mg PO DAILY 07/01/18 Tamsulosin HCl [Flomax] 0.4 mg PO DAILY 07/01/18 Amlodipine Besylate [Norvasc -] 10 mg PO DAILY #90 tablet 12/26/18 Current Medications Sodium Chloride (Normal Saline -) 1,000 mls @ 50 mls/hr IV ASDIR GILBERTO Stop: 01/03/19 19:47 Piperacillin Sod/Tazobactam (Sod 3.375 gm/ Dextrose) 50 mls @ 100 mls/hr IVPB Q8H-IV GILBERTO; Protocol Piperacillin Sod/Tazobactam (Sod 3.375 gm/ Dextrose) 50 mls @ 100 mls/hr IVPB Q8H-IV GILBERTO; Protocol Stop: 01/03/19 02:01 REVIEW OF SYSTEMS CONSTITUTIONAL: Absent: fever, chills, diaphoresis, generalized weakness, HEENT: Absent: visual changes CARDIOVASCULAR: Absent: chest pain, syncope, palpitations, lightheadedness, RESPIRATORY: Absent: cough, shortness of breath, dyspnea with exertion, GASTROINTESTINAL: Absent: abdominal pain, abdominal distension, nausea, vomiting, diarrhea, GENITOURINARY: Admits: dysuria, Absent: frequency, urgency, hesitancy, hematuria, flank pain, genital pain NEUROLOGIC: Absent: headache, PSYCHIATRIC: Absent: anxiety, depression PHYSICAL EXAMINATION Vital Signs - 24 hr 01/02/19 01/02/19 15:40 19:05 Temperature 98.4 F 98.3 F Pulse Rate 82 Pulse Rate [ 71 Right Radial] Respiratory 18 Rate Blood Pressure 126/82 Blood Pressure 128/62 [Left Arm] O2 Sat by Pulse 92 L 90 L Oximetry (%) GENERAL: pt is only AOx1 EYES: Pupils equal, round and reactive to light, extraocular movements intact, sclera anicteric, conjunctiva clear. EARS, NOSE, THROAT: oropharynx clear without exudates. Moist mucous membranes. NECK:supple without lymphadenopathy, JVD, or masses. LUNGS: Breath sounds equal, clear to auscultation bilaterally. No wheezes, and no crackles. HEART: Regular rate and rhythm, normal S1 and S2 without murmur, rub or gallop. ABDOMEN: Soft, nontender, not distended, normoactive bowel sounds, no guarding, no rebound, no masses. MUSCULOSKELETAL: No CVA tenderness. UPPER EXTREMITIES: 2+ pulses, warm, well-perfused. LOWER EXTREMITIES: 2+ pulses, warm, well-perfused. NEUROLOGICAL: Cranial nerves II-XII intact. SKIN: Warm, dry, normal turgor Laboratory Results - last 24 hr CBC,CMP WBC 12.3 K/mm3 (4.0-10.0) H 01/02/19 16:50 RBC 4.10 M/mm3 (4.00-5.60) 01/02/19 16:50 Hgb 12.0 GM/dL (11.7-16.9) 01/02/19 16:50 Hct 37.2 % (35.4-49) D 01/02/19 16:50 MCV 90.6 fl (80-96) 01/02/19 16:50 MCH 29.2 pg (25.7-33.7) 01/02/19 16:50 MCHC 32.2 g/dl (32.0-35.9) 01/02/19 16:50 RDW 15.7 % (11.9-15.9) 01/02/19 16:50 Plt Count 312 K/MM3 (134-434) D 01/02/19 16:50 MPV 7.2 fl (7.5-11.1) L 01/02/19 16:50 Absolute Neuts (auto) 8.5 K/mm3 (1.5-8.0) H 01/02/19 16:50 Neutrophils % 68.9 % (42.8-82.8) 01/02/19 16:50 Lymphocytes % 21.2 % (8-40) 01/02/19 16:50 Monocytes % 7.1 % (3.8-10.2) 01/02/19 16:50 Eosinophils % 1.7 % (0-4.5) 01/02/19 16:50 Basophils % 1.1 % (0-2.0) 01/02/19 16:50 Nucleated RBC % 0 % (0-0) 01/02/19 16:50 Sodium 138 mmol/L (136-145) 01/02/19 16:50 Potassium 4.1 mmol/L (3.5-5.1) 01/02/19 16:50 Chloride 102 mmol/L (98-107) 01/02/19 16:50 Carbon Dioxide 30 mmol/L (21-32) 01/02/19 16:50 Anion Gap 6 MMOL/L (8-16) L 01/02/19 16:50 BUN 14.1 mg/dL (7-18) 01/02/19 16:50 Creatinine 1.4 mg/dL (0.55-1.3) H 01/02/19 16:50 Est GFR (CKD-EPI)AfAm 54.99 01/02/19 16:50 Est GFR (CKD-EPI)NonAf 47.45 01/02/19 16:50 POC Glucometer 92 UNITS (80-120) 01/02/19 15:45 Random Glucose 150 mg/dL (74-106) H 01/02/19 16:50 Calcium 9.2 mg/dL (8.5-10.1) 01/02/19 16:50 Total Bilirubin 0.4 mg/dL (0.2-1) 01/02/19 16:50 AST 20 U/L (15-37) 01/02/19 16:50 ALT 15 U/L (13-61) 01/02/19 16:50 Alkaline Phosphatase 78 U/L (45-117) 01/02/19 16:50 Creatine Kinase 62 U/L (26-308) 01/02/19 16:50 Troponin I < 0.02 ng/ml (0.00-0.05) 01/02/19 16:50 Total Protein 7.3 g/dl (6.4-8.2) 01/02/19 16:50 Albumin 3.6 g/dl (3.4-5.0) 01/02/19 16:50 ASSESSMENT/PLAN: 78 y/o M, pmh of copd on HOMO 2L, cirrhosis, HTN, hx of UTI, recent admission at [facility] for a cystoscopy 2/2 to hydronephrosis, is BIBA from the [facility] for altered mental status likely 2/2 to complicated UTI #AMS 2/2 to complicated UTI cont Zosyn 3.[address] Matthews/Urologist consulted- will f/u in the am F/u up with Uro to have the jacobson removed Regular Neuro checks F/u UCx #LUCIE likely 2/2 to malignant obstruction vs stones Renal consulted- will f/u in the am IVF NS at 50 monitor Cre, baseline is 1 #HTN cont home med- Norvasc 10 #Cirrhosis f/u CMP in the am #COPD cont dounebs, advair #BPH Flomax DVTppx SCDs FEN: NS at 50, monitor lytes, sodium controlled diet Dispo: confirm methadone in the am, f/u with uro and renal Visit type - Emergency Visit Emergency Visit: Yes ED Registration Date: 01/02/19 Care time: The patient presented to the Emergency Department on the above date and was hospitalized for further evaluation of their emergent condition. - New Patient This patient is new to me today: Yes Date on this admission: 01/02/19 - Critical Care Critical Care patient: No ATTENDING PHYSICIAN STATEMENT I saw and evaluated the patient. I reviewed the resident's note and discussed the case with the resident. I agree with the resident's findings and plan as documented. SUBJECTIVE: OBJECTIVE: ASSESSMENT AND PLAN:
[2019-01-02 23:39] VITALS: BMI 21.2
[2019-01-03] MEDS ORDERED: PIPERACILLIN/TAZOBACTAM 3.375 GM VIAL IVPB ONE ×3 (00:49→17:05)
[2019-01-03] MEDS ORDERED: DEXTROSE 5%-WATER - 50 ML IVPB ONE ×3 (00:50→17:05)
[2019-01-03] MEDS: SODIUM CHLORIDE 1,000 ML IV SCH ×2 (01:20→21:12)
[2019-01-03] MEDS ORDERED: PIPERACILLIN/TAZOB 3.375 GM 3.375 GM in DEXTROSE 5%-WATER - 50 ML IVPB SCH (02:00)
[2019-01-03] MEDS ORDERED: METHADONE HCL 10 MG TABLET PO ONE (09:24)
[2019-01-03] MEDS ORDERED: METHADONE HCL 40 MG DISPERSABLE TABLET ONE (09:36)
[2019-01-03] MEDS ORDERED: METHADONE HCL 10 MG TABLET ONE (09:37)
[2019-01-03] MEDS: TAMSULOSIN HCL 0.4 MG CAP PO SCH (09:40)
[2019-01-03] MEDS: amLODIPine BESYLATE 10 MG TABLET (FP) PO SCH (09:40)
[2019-01-03] MEDS ORDERED: METHADONE 20 MG, METHADONE 80 MG PO ONE (09:45)
[2019-01-03 09:53] LABS: HEMATOCRIT 31.3 % (35.4-49); HEMOGLOBIN 10.3 GM/dL (11.7-16.9); MCH 29.3 pg (25.7-33.7); MEAN CELL VOLUME 88.9 fl (80-96); MEAN PLT VOLUME 7.4 fl (7.5-11.1); PLATELET COUNT 239 K/MM3 (134-434); RBC 3.52 M/mm3 (4.00-5.60); RDW 15.5 % (11.9-15.9); WHITE BLOOD COUNT 8.7 K/mm3 (4.0-10.0)
[2019-01-03] MEDS ORDERED: METHADONE HCL 40 MG DISPERSABLE TABLET PO SCH (10:00)
[2019-01-03] MEDS ORDERED: PATIENT'S OWN MEDICATION (NON-FORMULARY) (Salmeterol/Fluticasone [Advair 250mcg/50mcg -] 1 IH SCH (10:00)
[2019-01-03] MEDS ORDERED: PIPERACILLIN/TAZOB 3.375 GM 3.375 GM in DEXTROSE 5%-WATER - 50 ML IVPB ONE (10:00)
--- NOTE | 2019-01-03 10:06 | PN ---
Physical Exam: SUBJECTIVE: Patient seen and examined. He is confused and has no complaints but wants the Juan removed. OBJECTIVE: Vital Signs Period Temp Pulse Resp BP Sys/Flor Pulse Ox Last 24 Hr 98.3 F-98.6 F 70-82 16-18 122-133/62-82 90-92 GENERAL: The patient is awake, alert, confused, in no acute distress. LUNGS: Breath sounds equal, clear to auscultation bilaterally, no wheezes, no crackles, no accessory muscle use. HEART: Regular rate and rhythm, S1, S2 without murmur, rub or gallop. ABDOMEN: Soft, nontender, nondistended, normoactive bowel sounds, no guarding, no rebound, no hepatosplenomegaly, no masses. EXTREMITIES: 2+ pulses, warm, well-perfused, no edema. Laboratory Results - last 24 hr 01/02/19 01/02/19 01/02/19 15:45 16:50 16:50 WBC 12.3 H RBC 4.10 Hgb 12.0 Hct 37.2 D MCV 90.6 MCH 29.2 MCHC 32.2 RDW 15.7 Plt Count 312 D MPV 7.2 L Absolute Neuts (auto) 8.5 H Neutrophils % 68.9 Lymphocytes % 21.2 Monocytes % 7.1 Eosinophils % 1.7 Basophils % 1.1 Nucleated RBC % 0 Sodium 138 Potassium 4.1 Chloride 102 Carbon Dioxide 30 Anion Gap 6 L BUN 14.1 Creatinine 1.4 H Est GFR (CKD-EPI)AfAm 54.99 Est GFR (CKD-EPI)NonAf 47.45 POC Glucometer 92 Random Glucose 150 H Calcium 9.2 Total Bilirubin 0.4 AST 20 ALT 15 Alkaline Phosphatase 78 Creatine Kinase 62 Troponin I < 0.02 Total Protein 7.3 Albumin 3.6 Urine Color Urine Appearance Urine pH Ur Specific [place] Urine Protein Urine Glucose (UA) Urine Ketones Urine Blood Urine Nitrite Urine Bilirubin Urine Urobilinogen Ur Leukocyte Esterase Urine WBC (Auto) Urine Casts (Auto) U Pathogenic Cast Auto U Epithel Cells (Auto) 01/02/19 01/03/19 16:50 08:46 WBC 8.7 RBC 3.52 L Hgb 10.3 L Hct 31.3 L D MCV 88.9 MCH 29.3 MCHC 33.0 RDW 15.5 Plt Count 239 D MPV 7.4 L Absolute Neuts (auto) Neutrophils % Lymphocytes % Monocytes % Eosinophils % Basophils % Nucleated RBC % Sodium Potassium Chloride Carbon Dioxide Anion Gap BUN Creatinine Est GFR (CKD-EPI)AfAm Est GFR (CKD-EPI)NonAf POC Glucometer Random Glucose Calcium Total Bilirubin AST ALT Alkaline Phosphatase Creatine Kinase Troponin I Total Protein Albumin Urine Color Dk yellow Urine Appearance Turbid Urine pH 5.0 Ur Specific [place] 1.024 Urine Protein 3+ H Urine Glucose (UA) Negative Urine Ketones Trace H Urine Blood 3+ H Urine Nitrite Negative Urine Bilirubin 1+ H Urine Urobilinogen 1.0 Ur Leukocyte Esterase 3+ H Urine WBC (Auto) 492 Urine Casts (Auto) 13 U Pathogenic Cast Auto 0 U Epithel Cells (Auto) 2.1 Active Medications Generic Name Dose Route Start Last Admin Trade Name Freq PRN Reason Stop Dose Admin Amlodipine Besylate 10 mg 01/03/19 10:00 01/03/19 09:40 Norvasc - PO 10 mg DAILY GILBERTO Administration Budesonide/Formoterol Fumarate 2 puff 01/03/19 10:00 Symbicort 80/4.5mcg - IH BID [facility] Sodium Chloride 1,000 mls @ 50 mls/hr 01/02/19 19:45 01/03/19 01:20 Normal Saline - IV 01/03/19 19:47 50 mls/hr ASDIR GILBERTO Administration Piperacillin Sod/Tazobactam 50 mls @ 100 mls/hr 01/03/19 02:00 Sod 3.375 gm/ Dextrose IVPB Q8H-IV GILBERTO Protocol Piperacillin Sod/Tazobactam 50 mls @ 100 mls/hr 01/03/19 10:00 01/03/19 09:39 Sod 3.375 gm/ Dextrose IVPB 01/03/19 10:29 100 mls/hr ONCE ONE Administration Protocol Methadone HCl 80 mg/ Methadone 100 mg 01/04/19 06:00 HCl 20 mg PO DAILY@0600 [facility] Tamsulosin HCl 0.4 mg 01/03/19 08:30 01/03/19 09:40 Flomax - PO 0.4 mg DAILY@0830 [facility] Administration ASSESSMENT/PLAN: This is a 78 year old man with a history of chronic hypoxic respiratory failure , COPD, cirrhosis, HTN, opioid dependence, BPH, recent cystoscopy, urothelial bladder cancer who presented to the ED with altered mental status. 1. Acute metabolic encephalopathy secondary to complicated UTI - Underwent cystoscopy and TURBT on 12/23 - Patient did not follow up for Juan removal on 12/30 - Continue Zosyn - ID consult - Follow up urine culture 2. Urothelial cancer of the bladder - s/p TURBT 12/23 - Juan remains in place as patient did not follow up on 12/30 - Urology follow up 3. HTN - Continue Norvasc 4. Chronic hypoxic respiratorry secondary to COPD - Stable - Continue Symbicort - Continue oxygen to maintain saturation >90% 5. Cirrhosis 6. BPH - Continue Flomax 7. Opioid dependence - Continue Methadone 8. Anemia - Likely secondary to chronic illness, chronic blood loss (hematuria) - Check iron studies Visit type - Emergency Visit Emergency Visit: Yes ED Registration Date: 01/02/19 Care time: The patient presented to the Emergency Department on the above date and was hospitalized for further evaluation of their emergent condition. - New Patient This patient is new to me today: Yes Date on this admission: 01/03/19 - Critical Care Critical Care patient: No - Discharge Referral Referred to [facility] Med P.C.: No
[2019-01-03 10:20] LABS: ALBUMIN 2.8 g/dl (3.4-5.0); BILIRUBIN,TOTAL 0.5 mg/dL (0.2-1); BLOOD UREA NITROGEN 12.6 mg/dL (7-18); CALCIUM 8.6 mg/dL (8.5-10.1); CREATININE 1.1 mg/dL (0.55-1.3); MAGNESIUM 2.1 mg/dL (1.8-2.4); PHOSPHOROUS 4.1 mg/dL (2.5-4.9); POTASSIUM 4.1 mmol/L (3.5-5.1); TOT PROT 6.2 g/dl (6.4-8.2)
--- NOTE | 2019-01-03 15:18 | CON.ID ---
Consult - History of Present Illness History of Present Illness: 78 y.o. male with PMH of Bladder CA, BPH, HTN, cirrhosis, anemia, COPD, CAD s/p angioplasty, opiod dependence on Methadone admitted for confusion noted in the clinic waiting room. Pt underwent TURBT on 12/23/18 for hydronephrosis and hematuria on 12/23/18 and was to return to Urology for removal of the indwelling jacobson on 12/30/18 but did not follow up. He was in the clinic waiting room yesterday and reported to have been confused while waiting and sent to the ER. There he was alert, without distress but was noted to have a wbc of 12.3K and mild creatinine elevation and U/A indicative of a UTI. He states he has urethral discomfort since the insertion of the jacobson 2 wks ago. Otherwise denies being confused at home, denies fever/chills/SOB/cough/CP/ abdominal pain/n/v/d. Currently he is alert but states the year is 1900 (? baseline mental status). He remains afebrile, without distress. - History Source History Provided By: Patient Limitations to Obtaining History: No Limitations - Past Medical History Cardio/Vascular: Yes: HTN Pulmonary: Yes: COPD, Other (home O2) Renal/: Yes: BPH, Hematuria, UTI, Other (Bladder CA) - Past Surgical History Past Surgical History: Yes: Hernia Repair (RIH repair 25 yrs ago), TURP - Alcohol/Substance Use Hx Alcohol Use: No (denies) History of Substance Use: reports: Heroin - Smoking History Smoking history: Current every day smoker Have you smoked in the past 12 months: Yes Aproximately how many cigarettes per day: 10 - Social History ADL: Independent History of Recent Travel: No Home Medications - Allergies Allergies/Adverse Reactions: Allergies Allergy/AdvReac Type Severity Reaction Status Date / Time No Known Drug Allergies Allergy Unknown Verified 01/02/19 16:03 - Home Medications Home Medications: Ambulatory Orders Salmeterol/Fluticasone [Advair 250Mcg/50Mcg -] 1 inh IH BID #0 inh 03/09/12 Tamsulosin HCl [Flomax] 0.4 mg PO DAILY 07/01/18 Amlodipine Besylate [Norvasc -] 10 mg PO DAILY #90 tablet 12/26/18 Methadone HCl 100 mg PO DAILY 01/03/19 Review of Systems - Review of Systems Constitutional: reports: No Symptoms. denies: Chills, Diaphoresis, Fever, Lethargy, Loss of Appetite, Malaise, Night Sweats, Unintentional Wgt. Loss, Weakness, Other Eyes: reports: No Symptoms. denies: Blind Spots, Blurred Vision, Double Vision , Eye Pain, Floaters, Photophobia, Recent Change in Vision, Other HENT: reports: No Symptoms. denies: Difficult Swallowing, Ear Discharge, Ear Pain, Epistaxis, Gingival Bleeding, Hearing Loss, Mouth Swelling, Nasal Congestion, Ocular Prosthesis, Throat Pain, Toothache, Ringing in Ears, Other Neck: reports: No Symptoms. denies: Decreased ROM, Lumps, Pain on Movement, Stiffness, Swollen Glands, Tenderness, Other Cardiovascular: reports: No Symptoms. denies: Chest Pain, Edema, Palpitations, Shortness of Breath, Other Respiratory: reports: No Symptoms. denies: Cough, Exercise Intolerance, Hemoptysis, Orthopnea, PND, Snoring, SOB, SOB on Exertion, Wheezing, Other Gastrointestinal: reports: No Symptoms. denies: Abdominal Pain, Bloating, Constipation, Diarrhea, Dysphagia, Indigestion, Melena, Nausea, Rectal Bleeding , Vomiting, Vomiting Blood, Other Genitourinary: reports: No Symptoms, Other (urethral discomfort). denies: Burning, Discharge, Dysuria, Flank Pain, Frequency, Hematuria, Incontinence, Lesions, Menses, Pain, Testicular Mass, Testicular Pain, Testicular Swelling, Urgency, Vaginal Bleeding Musculoskeletal: reports: No Symptoms. denies: Back Pain, Crepitus, Decreased ROM, Extremity Pain, Joint Pain, Joint Swelling, Muscle Pain, Muscle Cramps, Muscle Weakness, Other Integumentary: reports: No Symptoms. denies: Blister, Bruising, Change in Color , Eczema, Erythema, Incision, Lesions, Lump, Pallor, Pruritis, Rash, Wound, Other Neurological: reports: Confusion Endocrine: reports: No Symptoms. denies: Excessive Sweating, Flushing, Increased Hunger, Increased Thirst, Intolerance to Cold, Intolerance to Heat, Unexplained Weight Gain, Unexplained Weight Loss, Other Hematology/Lymphatic: reports: No Symptoms. denies: Easily Bruised, Excessive Bleeding, Swollen Glands, Other Psychiatric: reports: No Symptoms. denies: Altered Sleep Pattern, Anxiety, Depression, Hallucinations, Panic, Paranoia, Suicidal, Other Physical Exam Vital Signs: Vital Signs Temperature 98.3 F 01/03/19 06:00 Pulse Rate 76 01/03/19 10:00 Respiratory Rate 18 01/03/19 10:00 Blood Pressure 146/64 01/03/19 10:00 O2 Sat by Pulse Oximetry (%) 91 L 01/03/19 09:00 Constitutional: Yes: No Distress, Calm Eyes: Yes: Conjunctiva Clear, EOM Intact HENT: Yes: Atraumatic Neck: Yes: Supple Cardiovascular: Yes: Regular Rate and Rhythm Respiratory: Yes: CTA Bilaterally Gastrointestinal: Yes: Normal Bowel Sounds, Soft Renal/: Yes: Jacobson Present Musculoskeletal: Yes: WNL Extremities: Yes: WNL Edema: No Integumentary: Yes: WNL Neurological: Yes: Alert, Oriented (oriented x 2) Psychiatric: Yes: Alert Labs: CBC, BMP 01/03/19 08:46 01/03/19 08:46 Laboratory Tests 01/02/19 01/02/19 01/02/19 15:45 16:50 16:50 WBC 12.3 H RBC 4.10 Hgb 12.0 Hct 37.2 D MCV 90.6 MCH 29.2 MCHC 32.2 RDW 15.7 Plt Count 312 D MPV 7.2 L Absolute Neuts (auto) 8.5 H Neutrophils % 68.9 Lymphocytes % 21.2 Monocytes % 7.1 Eosinophils % 1.7 Basophils % 1.1 Nucleated RBC % 0 Sodium 138 Potassium 4.1 Chloride 102 Carbon Dioxide 30 Anion Gap 6 L BUN 14.1 Creatinine 1.4 H Est GFR (CKD-EPI)AfAm 54.99 Est GFR (CKD-EPI)NonAf 47.45 POC Glucometer 92 Random Glucose 150 H Calcium 9.2 Phosphorus Magnesium Total Bilirubin 0.4 AST 20 ALT 15 Alkaline Phosphatase 78 Creatine Kinase 62 Troponin I < 0.02 Total Protein 7.3 Albumin 3.6 Urine Color Urine Appearance Urine pH Ur Specific White Urine Protein Urine Glucose (UA) Urine Ketones Urine Blood Urine Nitrite Urine Bilirubin Urine Urobilinogen Ur Leukocyte Esterase Urine WBC (Auto) Urine Casts (Auto) U Pathogenic Cast Auto U Epithel Cells (Auto) 01/02/19 01/03/19 01/03/19 16:50 08:46 08:46 WBC 8.7 RBC 3.52 L Hgb 10.3 L Hct 31.3 L D MCV 88.9 MCH 29.3 MCHC 33.0 RDW 15.5 Plt Count 239 D MPV 7.4 L Absolute Neuts (auto) Neutrophils % Lymphocytes % Monocytes % Eosinophils % Basophils % Nucleated RBC % Sodium 140 Potassium 4.1 Chloride 106 Carbon Dioxide 29 Anion Gap 5 L BUN 12.6 Creatinine 1.1 Est GFR (CKD-EPI)AfAm 73.61 Est GFR (CKD-EPI)NonAf 63.51 POC Glucometer Random Glucose 71 L Calcium 8.6 Phosphorus 4.1 Magnesium 2.1 Total Bilirubin 0.5 AST 16 ALT 11 L Alkaline Phosphatase 66 Creatine Kinase Troponin I Total Protein 6.2 L Albumin 2.8 L Urine Color Dk yellow Urine Appearance Turbid Urine pH 5.0 Ur Specific White 1.024 Urine Protein 3+ H Urine Glucose (UA) Negative Urine Ketones Trace H Urine Blood 3+ H Urine Nitrite Negative Urine Bilirubin 1+ H Urine Urobilinogen 1.0 Ur Leukocyte Esterase 3+ H Urine WBC (Auto) 492 Urine Casts (Auto) 13 U Pathogenic Cast Auto 0 U Epithel Cells (Auto) 2.1 Problem List - Problems (1) LUCIE (acute kidney injury) Code(s): N17.9 - ACUTE KIDNEY FAILURE, UNSPECIFIED (2) Bladder malignancy Code(s): C67.9 - MALIGNANT NEOPLASM OF BLADDER, UNSPECIFIED Qualifiers: Bladder location: unspecified site Qualified Code(s): C67.9 - Malignant neoplasm of bladder, unspecified (3) UTI (urinary tract infection) Code(s): N39.0 - URINARY TRACT INFECTION, SITE NOT SPECIFIED Qualifiers: Urinary tract infection type: site unspecified Hematuria presence: without hematuria Qualified Code(s): N39.0 - Urinary tract infection, site not specified (4) Cirrhosis Code(s): K74.60 - UNSPECIFIED CIRRHOSIS OF LIVER (5) HTN (hypertension) Code(s): I10 - ESSENTIAL (PRIMARY) HYPERTENSION (6) Methadone maintenance therapy patient Code(s): F11.20 - OPIOID DEPENDENCE, UNCOMPLICATED Assessment/Plan 78 y.o. male with PMH of Bladder CA, BPH, HTN, cirrhosis, anemia, COPD, CAD s/p angioplasty, opiod dependence on Methadone, s/p TURBT and indwelling jacobson placement on 12/23/18 admitted for confusion noted in the clinic waiting room AMS Complicated UTI/indwelling jacobson Bladder CA LUCIE Anemia Cirrhosis Opiod dependence on Methadone Anemia COPD CAD -- continue Zosyn empirically -- Urine/Blood cultures -- Urology follow up -- Creatinine improving, pt alert/afebrile, leukocytosis resolved monitor vitals closely
[2019-01-03] MEDS ORDERED: PT OWN MED DRAWER 7, Y5N ONE (15:29)
[2019-01-03] MEDS: BUDESONIDE/FORMETEROL FUMARATE 80/4.5 mcg INHALER IH SCH ×2 (15:46→21:14)
--- NOTE | 2019-01-03 17:36 | CON.NEP ---
Consult Consult Specialty:: nephrology Referred by:: herman mcbride Reason for Consultation:: skip - History of Present Illness History of Present Illness: s/p admission after brief altered mental status he has h/o bladder ca, BPH he has indwelling jacobson catheter became confused in clinic waiting room labs show evidence of uti and azotemia today on eval renal function is better PMHx HTN, Bladder CA, BPH - Past Medical History Cardio/Vascular: Yes: HTN Pulmonary: Yes: COPD, Other (home O2) Renal/: Yes: BPH, Hematuria, UTI, Other (Bladder CA) - Past Surgical History Past Surgical History: Yes: Hernia Repair (RIH repair 25 yrs ago), TURP - Alcohol/Substance Use Hx Alcohol Use: No (denies) History of Substance Use: reports: Heroin - Smoking History Smoking history: Current every day smoker Have you smoked in the past 12 months: Yes Aproximately how many cigarettes per day: 10 - Social History ADL: Independent History of Recent Travel: No Home Medications - Allergies Allergies/Adverse Reactions: Allergies Allergy/AdvReac Type Severity Reaction Status Date / Time No Known Drug Allergies Allergy Unknown Verified 01/02/19 16:03 - Home Medications Home Medications: Ambulatory Orders Salmeterol/Fluticasone [Advair 250Mcg/50Mcg -] 1 inh IH BID #0 inh 03/09/12 Tamsulosin HCl [Flomax] 0.4 mg PO DAILY 07/01/18 Amlodipine Besylate [Norvasc -] 10 mg PO DAILY #90 tablet 12/26/18 Methadone HCl 100 mg PO DAILY 01/03/19 Nephrology Consult - Height Height: 5 ft 6 in - Weight Weight: 131 lb 12.8 oz - BMI Body Mass Index (BMI): 21.2 - Lab Results CBC,BMP: CBC, BMP 01/03/19 08:46 01/03/19 08:46 Anion Gap: Anion Gap Anion Gap 5 MMOL/L (8-16) L 01/03/19 08:46 - Physical Examination Vital Signs: Vital Signs Temperature 97.7 F 01/03/19 16:04 Pulse Rate 82 01/03/19 16:04 Respiratory Rate 18 01/03/19 16:04 Blood Pressure 137/65 01/03/19 16:04 O2 Sat by Pulse Oximetry (%) 91 L 01/03/19 09:00 Constitutional: Yes: Well Nourished, No Distress, Calm Eyes: Yes: WNL, Conjunctiva Clear, EOM Intact HENT: Yes: WNL, Atraumatic, Normocephalic Neck: Yes: WNL, Supple, Trachea Midline Cardiovascular: Yes: WNL, Regular Rate and Rhythm Respiratory: Yes: WNL, Regular, CTA Bilaterally Gastrointestinal: Yes: WNL, Normal Bowel Sounds Renal/: Yes: WNL Musculoskeletal: Yes: WNL Extremities: Yes: WNL Edema: No Integumentary: Yes: WNL Neurological: Yes: WNL, Alert, Oriented Psychiatric: Yes: WNL, Alert, Oriented Assessment/Plan acute azotemia uti ams renal function is better probably prerenal from acute malaise medical issues Plan- continue to monitor renal profile
--- NOTE | 2019-01-03 17:57 | EKG ---
Test Reason : Blood Pressure : / mmHG Vent. Rate : 072 BPM Atrial Rate : 072 BPM P-R Int : 154 ms QRS Dur : 088 ms QT Int : 388 ms P-R-T Axes : 062 040 083 degrees QTc Int : 424 ms POOR DATA QUALITY, INTERPRETATION MAY BE ADVERSELY AFFECTED SINUS RHYTHM WITH PREMATURE ATRIAL COMPLEXES ANTERIOR INFARCT (CITED ON OR BEFORE 05-MAR-2012) ABNORMAL ECG WHEN COMPARED WITH ECG OF 23-DEC-2018 18:31, PREMATURE ATRIAL COMPLEXES ARE NOW PRESENT NONSPECIFIC T WAVE ABNORMALITY, WORSE IN LATERAL LEADS Confirmed by MD Adia, Ishan ([id number]) on 01/03/2019 5:57:17 PM Referred By: Confirmed By:Ishan Cheek MD
[2019-01-03] MEDS: PIPERACILLIN/TAZOB 3.375 GM 3.375 GM in DEXTROSE 5%-WATER - 50 ML IVPB SCH (17:59)
[2019-01-04] MEDS ORDERED: DEXTROSE 5%-WATER - 50 ML IVPB ONE ×3 (01:48→15:50)
[2019-01-04] MEDS ORDERED: PIPERACILLIN/TAZOBACTAM 3.375 GM VIAL IVPB ONE ×3 (01:48→15:50)
[2019-01-04] MEDS: PIPERACILLIN/TAZOB 3.375 GM 3.375 GM in DEXTROSE 5%-WATER - 50 ML IVPB SCH ×3 (02:00→17:38)
[2019-01-04] MEDS ORDERED: METHADONE HCL 40 MG DISPERSABLE TABLET ONE (05:05)
[2019-01-04] MEDS ORDERED: METHADONE HCL 10 MG TABLET ONE (05:06)
[2019-01-04] MEDS ORDERED: METHADONE HCL 40 MG DISPERSABLE TABLET PO SCH (06:00)
[2019-01-04] MEDS: METHADONE 80 MG, METHADONE 20 MG PO SCH (06:58)
[2019-01-04] MEDS: amLODIPine BESYLATE 10 MG TABLET (FP) PO SCH (09:44)
[2019-01-04] MEDS: TAMSULOSIN HCL 0.4 MG CAP PO SCH (09:44)
[2019-01-04] MEDS: BUDESONIDE/FORMETEROL FUMARATE 80/4.5 mcg INHALER IH SCH ×2 (09:48→21:18)
[2019-01-04 10:32] LABS: BASO % 0.8 % (0-2.0); EOS % 2.1 % (0-4.5); HEMATOCRIT 30.8 % (35.4-49); HEMOGLOBIN 10.1 GM/dL (11.7-16.9); LYMPH % 22.5 % (8-40); MCH 29.4 pg (25.7-33.7); MCHC 32.7 g/dl (32.0-35.9); MEAN CELL VOLUME 89.9 fl (80-96); MEAN PLT VOLUME 7.6 fl (7.5-11.1); NEUT % 67.6 % (42.8-82.8); PLATELET COUNT 212 K/MM3 (134-434); RBC 3.43 M/mm3 (4.00-5.60); RDW 15.2 % (11.9-15.9); WHITE BLOOD COUNT 7.9 K/mm3 (4.0-10.0)
--- NOTE | 2019-01-04 10:33 | PN ---
Physical Exam: SUBJECTIVE: Patient seen and examined. He has no complaints. OBJECTIVE: Vital Signs Period Temp Pulse Resp BP Sys/Flor Pulse Ox Last 24 Hr 97.7 F-98.8 F 69-82 18-18 112-138/56-78 94 GENERAL: The patient is awake, alert, confused, in no acute distress. LUNGS: Breath sounds equal, clear to auscultation bilaterally, no wheezes, no crackles, no accessory muscle use. HEART: Regular rate and rhythm, S1, S2 without murmur, rub or gallop. ABDOMEN: Soft, nontender, nondistended, normoactive bowel sounds, no guarding, no rebound, no hepatosplenomegaly, no masses. EXTREMITIES: 2+ pulses, warm, well-perfused, no edema. Active Medications Generic Name Dose Route Start Last Admin Trade Name Freq PRN Reason Stop Dose Admin Amlodipine Besylate 10 mg 01/03/19 10:00 01/04/19 09:44 Norvasc - PO 10 mg DAILY GILBERTO Administration Budesonide/Formoterol Fumarate 2 puff 01/03/19 10:00 01/04/19 09:48 Symbicort 80/4.5mcg - IH 2 puff BID GILBERTO Administration Piperacillin Sod/Tazobactam 50 mls @ 100 mls/hr 01/03/19 18:00 01/04/19 09:44 Sod 3.375 gm/ Dextrose IVPB 100 mls/hr Q8H-IV GILEBRTO Administration Protocol Methadone HCl 80 mg/ Methadone 100 mg 01/04/19 06:00 01/04/19 06:58 HCl 20 mg PO 100 mg DAILY@0600 GILBERTO Administration Tamsulosin HCl 0.4 mg 01/03/19 08:30 01/04/19 09:44 Flomax - PO 0.4 mg DAILY@0830 GILBERTO Administration ASSESSMENT/PLAN: This is a 78 year old man with a history of chronic hypoxic respiratory failure , COPD, cirrhosis, HTN, opioid dependence, BPH, recent cystoscopy, urothelial bladder cancer who presented to the ED with altered mental status. 1. Acute metabolic encephalopathy possibly secondary to complicated UTI - Resolved - Underwent cystoscopy and TURBT on 12/23 - Patient did not follow up for Juan removal on 12/30 - Urine culture negative - On Zosyn - abx as per ID 2. Urothelial cancer of the bladder - s/p TURBT 12/23 - Discussed with Dr. Stinson - Juan can be removed and patient can follow up in his office this week to discuss cystectomy 3. HTN - Continue Norvasc 4. Chronic hypoxic respiratory failure secondary to COPD - Stable - Continue Symbicort - Continue oxygen to maintain saturation >90% 5. Cirrhosis 6. BPH - Continue Flomax 7. Opioid dependence - Continue Methadone 8. Anemia - Likely secondary to chronic illness, iron deficiency from chronic blood loss (hematuria) - Iron, iron saturation, TIBC low; ferritin normal - Start oral iron supplementation - Monitor hgb Visit type - Emergency Visit Emergency Visit: Yes ED Registration Date: 01/02/19 Care time: The patient presented to the Emergency Department on the above date and was hospitalized for further evaluation of their emergent condition. - New Patient This patient is new to me today: No - Critical Care Critical Care patient: No - Discharge Referral Referred to [facility] No
[2019-01-04 11:14] LABS: BLOOD UREA NITROGEN 15.2 mg/dL (7-18); CALCIUM 8.2 mg/dL (8.5-10.1); CREATININE 1.1 mg/dL (0.55-1.3); POTASSIUM 4.4 mmol/L (3.5-5.1)
--- NOTE | 2019-01-04 16:24 | PN ---
Progress Note, Physician History of Present Illness: Pt is alert, afebrile. Jacobson removed. - Current Medication List Current Medications: Active Medications Amlodipine Besylate (Norvasc -) 10 mg PO DAILY [facility] Last Admin: 01/04/19 09:44 Dose: 10 mg Budesonide/Formoterol Fumarate (Symbicort 80/4.5mcg -) 2 puff IH BID [facility] Last Admin: 01/04/19 09:48 Dose: 2 puff Ferrous Sulfate (Feosol -) 325 mg PO DAILY [facility] Piperacillin Sod/Tazobactam (Sod 3.375 gm/ Dextrose) 50 mls @ 100 mls/hr IVPB Q8H-IV GILBERTO; Protocol Last Admin: 01/04/19 09:44 Dose: 100 mls/hr Methadone HCl 80 mg/ Methadone (HCl 20 mg) 100 mg PO DAILY@0600 [facility] Last Admin: 01/04/19 06:58 Dose: 100 mg Tamsulosin HCl (Flomax -) 0.4 mg PO DAILY@0830 [facility] Last Admin: 01/04/19 09:44 Dose: 0.4 mg - Objective Vital Signs: Vital Signs Temperature 97.7 F 01/04/19 07:07 Pulse Rate 76 01/04/19 10:00 Respiratory Rate 20 01/04/19 10:00 Blood Pressure 124/62 01/04/19 10:00 O2 Sat by Pulse Oximetry (%) 93 L 01/04/19 09:00 Constitutional: Yes: No Distress, Calm Cardiovascular: Yes: Regular Rate and Rhythm Respiratory: Yes: Regular Gastrointestinal: Yes: Normal Bowel Sounds, Soft Genitourinary: Yes: WNL Extremities: Yes: WNL Integumentary: Yes: WNL Neurological: Yes: Alert Labs: CBC, BMP 01/04/19 09:05 01/04/19 09:05 Microbiology 01/02/19 16:50 Urine - Urine Clean Catch Urine Culture - Final NO GROWTH OBTAINED Blood cultures pending Problem List - Problems (1) LUCIE (acute kidney injury) Code(s): N17.9 - ACUTE KIDNEY FAILURE, UNSPECIFIED (2) Bladder malignancy Code(s): C67.9 - MALIGNANT NEOPLASM OF BLADDER, UNSPECIFIED Qualifiers: Bladder location: unspecified site Qualified Code(s): C67.9 - Malignant neoplasm of bladder, unspecified (3) UTI (urinary tract infection) Code(s): N39.0 - URINARY TRACT INFECTION, SITE NOT SPECIFIED Qualifiers: Urinary tract infection type: site unspecified Hematuria presence: without hematuria Qualified Code(s): N39.0 - Urinary tract infection, site not specified (4) Cirrhosis Code(s): K74.60 - UNSPECIFIED CIRRHOSIS OF LIVER (5) HTN (hypertension) Code(s): I10 - ESSENTIAL (PRIMARY) HYPERTENSION (6) Methadone maintenance therapy patient Code(s): F11.20 - OPIOID DEPENDENCE, UNCOMPLICATED Assessment/Plan 78 y.o. male with PMH of Bladder CA, BPH, HTN, cirrhosis, anemia, COPD, CAD s/p angioplasty, opiod dependence on Methadone, s/p TURBT and indwelling jacobson placement on 12/23/18 admitted for confusion noted in the clinic waiting room AMS Leukocytosis Complicated UTI/indwelling jacobson Bladder CA LUCIE Anemia Cirrhosis Opiod dependence on Methadone Anemia COPD CAD -- Pt is alert, afebrile -- Jacobson removed, monitor for urinary retention -- Blood cultures pending, if neg will switch to short course of oral antibiotics -- Urology follow up -- Creatinine improving pt alert/afebrile, leukocytosis resolved continue monitor
--- NOTE | 2019-01-04 21:39 | PN ---
Progress Note (short form) - Note Progress Note: acute azotemia uti ams Current Medications Amlodipine Besylate (Norvasc -) 10 mg PO DAILY [facility] Last Admin: 01/04/19 09:44 Dose: 10 mg Budesonide/Formoterol Fumarate (Symbicort 80/4.5mcg -) 2 puff IH BID [facility] Last Admin: 01/04/19 21:18 Dose: 2 puff Ferrous Sulfate (Feosol -) 325 mg PO DAILY [facility] Piperacillin Sod/Tazobactam (Sod 3.375 gm/ Dextrose) 50 mls @ 100 mls/hr IVPB Q8H-IV GILBERTO; Protocol Last Admin: 01/04/19 17:38 Dose: 100 mls/hr Methadone HCl 80 mg/ Methadone (HCl 20 mg) 100 mg PO DAILY@0600 [facility] Last Admin: 01/04/19 06:58 Dose: 100 mg Tamsulosin HCl (Flomax -) 0.4 mg PO DAILY@0830 [facility] Last Admin: 01/04/19 09:44 Dose: 0.4 mg Last Vital Signs Temp Pulse Resp BP Pulse Ox 98.7 F 82 20 127/72 93 L 01/04/19 18:17 01/04/19 18:17 01/04/19 18:17 01/04/19 18:17 01/04/19 09:00 lungs clear heart reg abd soft nontender ext no edema CBC, BMP 01/04/19 09:05 01/04/19 09:05 renal function is better probably prerenal from acute malaise medical issues Plan- continue to monitor renal profile
[2019-01-05] MEDS ORDERED: PIPERACILLIN/TAZOBACTAM 3.375 GM VIAL IVPB ONE ×3 (01:11→18:25)
[2019-01-05] MEDS ORDERED: DEXTROSE 5%-WATER - 50 ML IVPB ONE ×3 (01:11→18:25)
[2019-01-05] MEDS: PIPERACILLIN/TAZOB 3.375 GM 3.375 GM in DEXTROSE 5%-WATER - 50 ML IVPB SCH ×3 (01:54→18:27)
[2019-01-05] MEDS ORDERED: METHADONE HCL 40 MG DISPERSABLE TABLET ONE ×2 (06:26→10:06)
[2019-01-05] MEDS ORDERED: METHADONE HCL 10 MG TABLET ONE ×2 (06:26→10:06)
[2019-01-05] MEDS: TAMSULOSIN HCL 0.4 MG CAP PO SCH (08:44)
[2019-01-05] MEDS: FERROUS SO4 325 MG TABLET (FP) PO SCH (09:18)
[2019-01-05] MEDS: amLODIPine BESYLATE 10 MG TABLET (FP) PO SCH (09:18)
[2019-01-05] MEDS: BUDESONIDE/FORMETEROL FUMARATE 80/4.5 mcg INHALER IH SCH ×2 (09:19→21:43)
--- NOTE | 2019-01-05 09:54 | PN ---
Progress Note, Physician History of Present Illness: Pt seen and examined at bedside. He is awake and appears comfortable. - Current Medication List Current Medications: Active Medications Amlodipine Besylate (Norvasc -) 10 mg PO DAILY [facility] Last Admin: 01/05/19 09:18 Dose: 10 mg Budesonide/Formoterol Fumarate (Symbicort 80/4.5mcg -) 2 puff IH BID [facility] Last Admin: 01/05/19 09:19 Dose: 2 puff Ferrous Sulfate (Feosol -) 325 mg PO DAILY [facility] Last Admin: 01/05/19 09:18 Dose: 325 mg Piperacillin Sod/Tazobactam (Sod 3.375 gm/ Dextrose) 50 mls @ 100 mls/hr IVPB Q8H-IV GILBERTO; Protocol Last Admin: 01/05/19 09:18 Dose: 100 mls/hr Methadone HCl 80 mg/ Methadone (HCl 20 mg) 100 mg PO DAILY@0600 [facility] Last Admin: 01/04/19 06:58 Dose: 100 mg Tamsulosin HCl (Flomax -) 0.4 mg PO DAILY@0830 [facility] Last Admin: 01/05/19 08:44 Dose: 0.4 mg - Objective Vital Signs: Vital Signs Temperature 98.1 F 01/05/19 08:44 Pulse Rate 68 01/05/19 08:44 Respiratory Rate 20 01/05/19 08:44 Blood Pressure 140/74 01/05/19 08:44 O2 Sat by Pulse Oximetry (%) 93 L 01/04/19 21:00 Constitutional: Yes: Calm Eyes: Yes: Conjunctiva Clear HENT: Yes: Atraumatic Neck: Yes: Supple Cardiovascular: Yes: S1, S2 Respiratory: Yes: On Nasal O2 Gastrointestinal: Yes: Soft Genitourinary: Yes: WNL Musculoskeletal: Yes: WNL Edema: No Neurological: Yes: Oriented Labs: CBC, BMP 01/04/19 09:05 01/04/19 09:05 Assessment/Plan Current Medications Generic Name Dose Route Start Last Admin Trade Name Freq PRN Reason Stop Dose Admin Amlodipine Besylate 10 mg 01/03/19 10:00 01/05/19 09:18 Norvasc - PO 10 mg DAILY [facility] Administration Budesonide/Formoterol Fumarate 2 puff 01/03/19 10:00 01/05/19 09:19 Symbicort 80/4.5mcg - IH 2 puff BID GILBERTO Administration Ferrous Sulfate 325 mg 01/05/19 10:00 01/05/19 09:18 Feosol - PO 325 mg DAILY GILBERTO Administration Piperacillin Sod/Tazobactam 50 mls @ 100 mls/hr 01/03/19 18:00 01/05/19 09:18 Sod 3.375 gm/ Dextrose IVPB 100 mls/hr Q8H-IV GILBERTO Administration Protocol Methadone HCl 80 mg/ Methadone 100 mg 01/04/19 06:00 01/04/19 06:58 HCl 20 mg PO 100 mg DAILY@0600 GILBERTO Administration Tamsulosin HCl 0.4 mg 01/03/19 08:30 01/05/19 08:44 Flomax - PO 0.4 mg DAILY@0830 GILBERTO Administration Impression 1. azotemia 2. UTI 3. bladder ca 4. htn 5. copd 6. corrhosis 7. BPH 8. Opioid dependence 9. anemia Plan - renal function improved - encourage po intake - no acute change in management - cont abx - follow cultures
--- NOTE | 2019-01-05 10:07 | PN ---
Physical Exam: SUBJECTIVE: Patient seen and examined. He has no complaints. He reports having a self-limited nosebleed this morning. Voiding without difficulty since Juan removed. OBJECTIVE: Vital Signs Period Temp Pulse Resp BP Sys/Flor Pulse Ox Last 24 Hr 98.1 F-99.4 F 68-85 20-20 120-141/60-74 93 GENERAL: The patient is awake, alert, confused, in no acute distress. LUNGS: Breath sounds equal, clear to auscultation bilaterally, no wheezes, no crackles, no accessory muscle use. HEART: Regular rate and rhythm, S1, S2 without murmur, rub or gallop. ABDOMEN: Soft, nontender, nondistended, normoactive bowel sounds, no guarding, no rebound, no hepatosplenomegaly, no masses. EXTREMITIES: 2+ pulses, warm, well-perfused, no edema. Laboratory Results - last 24 hr 01/04/19 01/04/19 09:05 09:05 WBC 7.9 RBC 3.43 L Hgb 10.1 L Hct 30.8 L MCV 89.9 MCH 29.4 MCHC 32.7 RDW 15.2 Plt Count 212 MPV 7.6 Absolute Neuts (auto) 5.3 Neutrophils % 67.6 Lymphocytes % 22.5 Monocytes % 7.0 Eosinophils % 2.1 Basophils % 0.8 Nucleated RBC % 0 Sodium 140 Potassium 4.4 Chloride 107 Carbon Dioxide 30 Anion Gap 4 L BUN 15.2 Creatinine 1.1 Est GFR (CKD-EPI)AfAm 73.61 Est GFR (CKD-EPI)NonAf 63.51 Random Glucose 146 H Calcium 8.2 L Iron 31 L TIBC 225 L Iron Saturation 13 L Unsaturated IBC 194 L Ferritin 100.6 Active Medications Generic Name Dose Route Start Last Admin Trade Name Freq PRN Reason Stop Dose Admin Amlodipine Besylate 10 mg 01/03/19 10:00 01/05/19 09:18 Norvasc - PO 10 mg DAILY GILBERTO Administration Budesonide/Formoterol Fumarate 2 puff 01/03/19 10:00 01/05/19 09:19 Symbicort 80/4.5mcg - IH 2 puff BID GILBERTO Administration Ferrous Sulfate 325 mg 01/05/19 10:00 01/05/19 09:18 Feosol - PO 325 mg DAILY GILBERTO Administration Piperacillin Sod/Tazobactam 50 mls @ 100 mls/hr 01/03/19 18:00 01/05/19 09:18 Sod 3.375 gm/ Dextrose IVPB 100 mls/hr Q8H-IV GILBERTO Administration Protocol Methadone HCl 80 mg/ Methadone 100 mg 01/04/19 06:00 01/04/19 06:58 HCl 20 mg PO 100 mg DAILY@0600 GILBERTO Administration Tamsulosin HCl 0.4 mg 01/03/19 08:30 01/05/19 08:44 Flomax - PO 0.4 mg DAILY@0830 GILBERTO Administration ASSESSMENT/PLAN: This is a 78 year old man with a history of chronic hypoxic respiratory failure , COPD, cirrhosis, HTN, opioid dependence, BPH, recent cystoscopy, urothelial bladder cancer who presented to the ED with altered mental status. 1. Acute metabolic encephalopathy possibly secondary to complicated UTI - Resolved - Underwent cystoscopy and TURBT on 12/23 - Patient did not follow up for Juan removal on 12/30 - Urine culture, blood culture negative - On Zosyn - abx as per ID 2. Urothelial cancer of the bladder - s/p TURBT 12/23 - Juan removed yesterday - Follow up as outpatient with Dr. Stinson this week to discuss cystectomy 3. HTN - Continue Norvasc 4. Chronic hypoxic respiratory failure secondary to COPD - Stable - Continue Symbicort - Continue oxygen to maintain saturation >90% 5. Cirrhosis 6. BPH - Continue Flomax 7. Opioid dependence - Continue Methadone 8. Anemia - Likely secondary to chronic illness, iron deficiency from chronic blood loss (hematuria) - Iron, iron saturation, TIBC low; ferritin normal - Continue ferrous sulfate - Continue to monitor hgb 9. Epistaxis - Likely secondary to oxygen use - start saline nasal spray Visit type - Emergency Visit Emergency Visit: Yes ED Registration Date: 01/02/19 Care time: The patient presented to the Emergency Department on the above date and was hospitalized for further evaluation of their emergent condition. - New Patient This patient is new to me today: No - Critical Care Critical Care patient: No - Discharge Referral Referred to [facility] Med P.C.: No
[2019-01-05] MEDS ORDERED: METHADONE HCL 10 MG TABLET PO ONE (10:08)
[2019-01-05] MEDS: METHADONE 80 MG, METHADONE 20 MG PO SCH (10:08)
[2019-01-05 10:30] LABS: HEMATOCRIT 35.5 % (35.4-49); HEMOGLOBIN 11.6 GM/dL (11.7-16.9); MCH 29.2 pg (25.7-33.7); MCHC 32.6 g/dl (32.0-35.9); MEAN CELL VOLUME 89.5 fl (80-96); MEAN PLT VOLUME 7.3 fl (7.5-11.1); PLATELET COUNT 240 K/MM3 (134-434); RBC 3.97 M/mm3 (4.00-5.60); RDW 15.2 % (11.9-15.9); WHITE BLOOD COUNT 9.7 K/mm3 (4.0-10.0)
[2019-01-05 11:00] LABS: ALBUMIN 3.2 g/dl (3.4-5.0); BILIRUBIN,TOTAL 0.4 mg/dL (0.2-1); BLOOD UREA NITROGEN 13.5 mg/dL (7-18); CALCIUM 9.4 mg/dL (8.5-10.1); CREATININE 1.1 mg/dL (0.55-1.3); POTASSIUM 4.6 mmol/L (3.5-5.1)
[2019-01-05] MEDS ORDERED: PT OWN MED DRAWER 7, Y5N ONE (14:33)
--- NOTE | 2019-01-05 14:34 | PN ---
Progress Note, Physician History of Present Illness: stable feels better - Current Medication List Current Medications: Active Medications Amlodipine Besylate (Norvasc -) 10 mg PO DAILY [facility] Last Admin: 01/05/19 09:18 Dose: 10 mg Budesonide/Formoterol Fumarate (Symbicort 80/4.5mcg -) 2 puff IH BID [facility] Last Admin: 01/05/19 09:19 Dose: 2 puff Ferrous Sulfate (Feosol -) 325 mg PO DAILY [facility] Last Admin: 01/05/19 09:18 Dose: 325 mg Piperacillin Sod/Tazobactam (Sod 3.375 gm/ Dextrose) 50 mls @ 100 mls/hr IVPB Q8H-IV GILBERTO; Protocol Last Admin: 01/05/19 09:18 Dose: 100 mls/hr Methadone HCl 80 mg/ Methadone (HCl 20 mg) 100 mg PO DAILY@0900 [facility] Sodium Chloride ([place] Nasal [place] -) 2 spray NS QID [facility] Tamsulosin HCl (Flomax -) 0.4 mg PO DAILY@0830 [facility] Last Admin: 01/05/19 08:44 Dose: 0.4 mg - Objective Vital Signs: Vital Signs Temperature 98.1 F 01/05/19 08:44 Pulse Rate 68 01/05/19 08:44 Respiratory Rate 20 01/05/19 08:44 Blood Pressure 140/74 01/05/19 08:44 O2 Sat by Pulse Oximetry (%) 91 L 01/05/19 10:00 Constitutional: Yes: No Distress, Calm Cardiovascular: Yes: S1, S2 Respiratory: Yes: Regular, CTA Bilaterally Gastrointestinal: Yes: Normal Bowel Sounds, Soft Musculoskeletal: Yes: WNL Extremities: Yes: WNL Neurological: Yes: Alert, Oriented Psychiatric: Yes: Alert, Oriented Labs: CBC, BMP 01/05/19 09:42 01/05/19 09:42 Assessment/Plan Problem List - Problems (1) LUCIE (acute kidney injury) Code(s): N17.9 - ACUTE KIDNEY FAILURE, UNSPECIFIED (2) Bladder malignancy Code(s): C67.9 - MALIGNANT NEOPLASM OF BLADDER, UNSPECIFIED Qualifiers: Bladder location: unspecified site Qualified Code(s): C67.9 - Malignant neoplasm of bladder, unspecified (3) UTI (urinary tract infection) Code(s): N39.0 - URINARY TRACT INFECTION, SITE NOT SPECIFIED Qualifiers: Urinary tract infection type: site unspecified Hematuria presence: without hematuria Qualified Code(s): N39.0 - Urinary tract infection, site not specified (4) Cirrhosis Code(s): K74.60 - UNSPECIFIED CIRRHOSIS OF LIVER (5) HTN (hypertension) Code(s): I10 - ESSENTIAL (PRIMARY) HYPERTENSION (6) Methadone maintenance therapy patient Code(s): F11.20 - OPIOID DEPENDENCE, UNCOMPLICATED Assessment/Plan 78 y.o. male with PMH of Bladder CA, BPH, HTN, cirrhosis, anemia, COPD, CAD s/p angioplasty, opiod dependence on Methadone, s/p TURBT and indwelling jacobson placement on 12/23/18 admitted for confusion noted in the clinic waiting room AMS Leukocytosis Complicated UTI/indwelling jacobson Bladder CA LUCIE Anemia Cirrhosis Opiod dependence on Methadone Anemia COPD CAD plan continue current mgmt will d/w the team
[2019-01-05] MEDS: SODIUM CHLORIDE NASAL SPRAY 44 ML BOTTLE NS SCH ×3 (14:42→21:43)
[2019-01-06] MEDS ORDERED: DEXTROSE 5%-WATER - 50 ML IVPB ONE ×2 (02:15→10:00)
[2019-01-06] MEDS ORDERED: PIPERACILLIN/TAZOBACTAM 3.375 GM VIAL IVPB ONE ×2 (02:15→10:00)
[2019-01-06] MEDS: PIPERACILLIN/TAZOB 3.375 GM 3.375 GM in DEXTROSE 5%-WATER - 50 ML IVPB SCH ×3 (03:00→12:00)
[2019-01-06] MEDS: TAMSULOSIN HCL 0.4 MG CAP PO SCH (08:50)
[2019-01-06] MEDS ORDERED: METHADONE 80 MG, METHADONE 20 MG PO SCH (09:00)
[2019-01-06] MEDS ORDERED: METHADONE HCL 40 MG DISPERSABLE TABLET ONE (09:59)
[2019-01-06] MEDS ORDERED: METHADONE HCL 10 MG TABLET ONE (09:59)
[2019-01-06 10:25] VITALS: BP 124/66; PULSE 74; TEMP 98.6
[2019-01-06] MEDS: FERROUS SO4 325 MG TABLET (FP) PO SCH (10:25)
[2019-01-06] MEDS: amLODIPine BESYLATE 10 MG TABLET (FP) PO SCH (10:25)
[2019-01-06] MEDS: BUDESONIDE/FORMETEROL FUMARATE 80/4.5 mcg INHALER IH SCH (10:26)
[2019-01-06] MEDS: SODIUM CHLORIDE NASAL SPRAY 44 ML BOTTLE NS SCH ×2 (10:26→14:27)
--- NOTE | 2019-01-06 12:31 | PN ---
Progress Note, Physician History of Present Illness: stable no new issues - Current Medication List Current Medications: Active Medications Amlodipine Besylate (Norvasc -) 10 mg PO DAILY [facility] Last Admin: 01/06/19 10:25 Dose: 10 mg Budesonide/Formoterol Fumarate (Symbicort 80/4.5mcg -) 2 puff IH BID [facility] Last Admin: 01/06/19 10:26 Dose: 2 puff Ferrous Sulfate (Feosol -) 325 mg PO DAILY [facility] Last Admin: 01/06/19 10:25 Dose: 325 mg Piperacillin Sod/Tazobactam (Sod 3.375 gm/ Dextrose) 50 mls @ 100 mls/hr IVPB Q8H-IV GILBERTO; Protocol Last Admin: 01/06/19 12:00 Dose: 100 mls/hr Methadone HCl 80 mg/ Methadone (HCl 20 mg) 100 mg PO DAILY@0900 [facility] Last Admin: 01/06/19 10:01 Dose: 100 mg Sodium Chloride ([place] Nasal [place] -) 2 spray NS QID [facility] Last Admin: 01/06/19 10:26 Dose: 2 spray Tamsulosin HCl (Flomax -) 0.4 mg PO DAILY@0830 [facility] Last Admin: 01/06/19 08:50 Dose: 0.4 mg - Objective Vital Signs: Vital Signs Temperature 98.6 F 01/06/19 10:24 Pulse Rate 74 01/06/19 10:24 Respiratory Rate 20 01/06/19 10:24 Blood Pressure 124/66 01/06/19 10:24 O2 Sat by Pulse Oximetry (%) 96 01/05/19 21:00 Constitutional: Yes: No Distress, Calm Cardiovascular: Yes: S1, S2 Respiratory: Yes: Regular, CTA Bilaterally Gastrointestinal: Yes: Normal Bowel Sounds, Soft Musculoskeletal: Yes: WNL Extremities: Yes: WNL Neurological: Yes: Alert Psychiatric: Yes: Alert Labs: CBC, BMP 01/05/19 09:42 01/05/19 09:42 Assessment/Plan Problem List - Problems (1) LUCIE (acute kidney injury) Code(s): N17.9 - ACUTE KIDNEY FAILURE, UNSPECIFIED (2) Bladder malignancy Code(s): C67.9 - MALIGNANT NEOPLASM OF BLADDER, UNSPECIFIED Qualifiers: Bladder location: unspecified site Qualified Code(s): C67.9 - Malignant neoplasm of bladder, unspecified (3) UTI (urinary tract infection) Code(s): N39.0 - URINARY TRACT INFECTION, SITE NOT SPECIFIED Qualifiers: Urinary tract infection type: site unspecified Hematuria presence: without hematuria Qualified Code(s): N39.0 - Urinary tract infection, site not specified (4) Cirrhosis Code(s): K74.60 - UNSPECIFIED CIRRHOSIS OF LIVER (5) HTN (hypertension) Code(s): I10 - ESSENTIAL (PRIMARY) HYPERTENSION (6) Methadone maintenance therapy patient Code(s): F11.20 - OPIOID DEPENDENCE, UNCOMPLICATED Assessment/Plan 78 y.o. male with PMH of Bladder CA, BPH, HTN, cirrhosis, anemia, COPD, CAD s/p angioplasty, opiod dependence on Methadone, s/p TURBT and indwelling jacobson placement on 12/23/18 admitted for confusion noted in the clinic waiting room AMS Leukocytosis Complicated UTI/indwelling jacobson Bladder CA LUCIE Anemia Cirrhosis Opiod dependence on Methadone Anemia COPD CAD plan continue current mgmt will d/w the team
--- NOTE | 2019-01-06 12:40 | DS ---
Physical Exam: SUBJECTIVE: Patient seen and examined at the bedside. denies pain, denies shortness of breath. reports passing urine without difficulty. OBJECTIVE: Patient is a 78 year old male with a significant past medical history of COPD on home O2 (2L). He had a recent admission at [facility] for a cystoscopy secondary to hydronephrosis. He was brought in via ambulance from the [facility] for altered mental status. Pt was admitted 2 weeks ago for hematuria and was found to have bladder cancer w/ a right renal nephrosis requiring cystoscopy. Pt was sent home with an attached indwelling catheter. He was supposed to have the catheter removed but he did not return to his urologist office. Presents to the ED on 01/02/2019 after he was found mildly confused at his PCP office. He was been treated with Ceftriaxone and Zosyn since admission and will be sent home without any further antibiotics per Dr. James. FOLLOW UP APPT WITH UROLOGIST. Doctor: Dr Haris Stinson, UROLOGIST Location: [address] [place] [address] 2nd floor. Please bring insurance card and PHOTO ID AND insurance paperwork. DATE/TIME: Jan 16Saturday @ 11:45 a.m. Vital Signs Period Temp Pulse Resp BP Sys/Flor Pulse Ox Last 24 Hr 98.1 F-99.0 F 69-81 18-20 120-144/56-80 96 PHYSICAL EXAM GENERAL: The patient is awake, alert, and fully oriented, in no acute distress. HEAD: Normal with no signs of trauma. EYES: PERRL, extraocular movements intact, sclera anicteric, conjunctiva clear. No ptosis. ENT: Ears normal, nares patent, oropharynx clear without exudates, moist mucous membranes. NECK: Trachea midline, full range of motion, supple. LUNGS: Breath sounds equal, clear to auscultation bilaterally HEART: Regular rate and rhythm ABDOMEN: Soft, nontender, nondistended EXTREMITIES: no edema. NEUROLOGICAL: Normal speech, gait not observed. PSYCH: Normal mood, normal affect. SKIN: Warm, dry, normal turgor, no rashes or lesions noted LABS HOSPITAL COURSE: Date of Admission:01/02/19 Date of Discharge: 01/06/19 Minutes to complete discharge: 60 Discharge Summary Problems reviewed: Yes Reason For Visit: UTI MALIGNANT NEOPLASM OF URINARY BLADDER Current Active Problems LUCIE (acute kidney injury) (Acute) Bladder malignancy (Acute) UTI (urinary tract infection) (Acute) Condition: Stable - Instructions Diet, Activity, Other Instructions: Mr. Dos Santos: You will be discharged today. Your jacobson was removed and your are urinating without difficulty. If you have problems with urination or pain with urination , please seek immediate medical attention. Please see Dr. Stinson. YOU CANNOT MISS THIS APPOINTMENT: Doctor: Dr Haris Stinson, UROLOGIST Location: [address] [place] [address]. Please bring insurance card and PHOTO ID AND insurance paperwork. DATE/TIME: Jan 16Saturday @ 11:45 a.m. YOU HAVE COMPLETED ALL THE ANTIBIOTICS. Visiting Nurse will contact you and will see you at home this week. Referrals: Cam Moran MD [Primary Care Provider] - Haris Stinson MD [Staff Physician] - (please see dr. Stinson: Jan 16Saturday @ 11:45 a.m. ) Disposition: HOME - Home Medications Comprehensive Discharge Medication List: Ambulatory Orders Salmeterol/Fluticasone [Advair 250Mcg/50Mcg -] 1 inh IH BID #0 inh 03/09/12 Methadone HCl 100 mg PO DAILY 01/03/19 Amlodipine Besylate [Norvasc -] 10 mg PO DAILY #90 tablet 01/06/19 Budesonide/Formeterol Fumarate [SYMBICORT 80/4.5mcg -] 2 puff IH BID #7 inhaler 01/06/19 Ferrous Sulfate [Feosol] 325 mg PO DAILY #90 ud 01/06/19 Tamsulosin HCl [Flomax] 0.4 mg PO DAILY #90 capsule 01/06/19 Problem List - Problems (1) LUCIE (acute kidney injury) Assessment/Plan: resolved with ivf Code(s): N17.9 - ACUTE KIDNEY FAILURE, UNSPECIFIED (2) Bladder malignancy Assessment/Plan: has follow up appt with urologist january 16 2019 for treatment options Code(s): C67.9 - MALIGNANT NEOPLASM OF BLADDER, UNSPECIFIED Qualifiers: Bladder location: unspecified site Qualified Code(s): C67.9 - Malignant neoplasm of bladder, unspecified (3) UTI (urinary tract infection) Assessment/Plan: treated with ceftriaxone and zosyn Code(s): N39.0 - URINARY TRACT INFECTION, SITE NOT SPECIFIED Qualifiers: Urinary tract infection type: site unspecified Hematuria presence: without hematuria Qualified Code(s): N39.0 - Urinary tract infection, site not specified (4) Abnormal gallbladder ultrasound Assessment/Plan: needs outpatient follow up Code(s): R93.2 - ABNORMAL FINDINGS ON DX IMAGING OF LIVER AND BILIARY TRACT (5) HTN (hypertension) Assessment/Plan: on norvasc 10 Code(s): I10 - ESSENTIAL (PRIMARY) HYPERTENSION (6) Hematuria Assessment/Plan: resolved hmg/hct stable. Code(s): R31.9 - HEMATURIA, UNSPECIFIED (7) Methadone maintenance therapy patient Assessment/Plan: on metathone Code(s): F11.20 - OPIOID DEPENDENCE, UNCOMPLICATED (8) SOB (shortness of breath) Assessment/Plan: home oxygen dependent 2 liters. Code(s): R06.02 - SHORTNESS OF BREATH (9) Prophylactic measure Assessment/Plan: discharge home Code(s): Z29.9 - ENCOUNTER FOR PROPHYLACTIC MEASURES, UNSPECIFIED This patient is new to me today: Yes Date on this admission: 01/06/19 Emergency Visit: Yes ED Registration Date: 01/02/19 Care time: The patient presented to the Emergency Department on the above date and was hospitalized for further evaluation of their emergent condition. Critical Care patient: No - Discharge Referral Referred to [facility] Med P.C.: No
== END 2019-01-06 15:34 | disposition home or self-care (01) | DRG 689 ==
LOC: JER 15:20 → JERBED 18:00 → J5S 20:22
PROVIDERS: ADMIT Internal Medicine; ATTEND Nurse Practitioner Family
DX: N39.0 Urinary tract infection, site not specified (principal); G93.41 Metabolic encephalopathy; N17.9 Acute kidney failure, unspecified; F11.20 Opioid dependence, uncomplicated; J96.11 Chronic respiratory failure with hypoxia; R41.82 Altered mental status, unspecified; N40.0 Benign prostatic hyperplasia without lower urinary tract symptoms; C67.9 Malignant neoplasm of bladder, unspecified; J44.9 Chronic obstructive pulmonary disease, unspecified; I10 Essential (primary) hypertension; I25.10 Atherosclerotic heart disease of native coronary artery without angina pectoris; K74.60 Unspecified cirrhosis of liver; D63.8 Anemia in other chronic diseases classified elsewhere; D72.829 Elevated white blood cell count, unspecified; R04.0 Epistaxis; D50.9 Iron deficiency anemia, unspecified; Z99.81 Dependence on supplemental oxygen; Z95.5 Presence of coronary angioplasty implant and graft
CPT/HCPCS: 36415; 80048; 80053; 81003; 82550; 82728; 82962; 83540; 83550; 83735; 84100; 84484; 85025; 85027; 87040; 87086; 93005; 93010; 97116-GP; 97161-GP; 99284-25; J7030

== ENCOUNTER 2019-02-09 12:28 | Inpatient (IN) | payer BC, OTHER ==
--- NOTE | 2019-02-09 12:30 | PDOC ---
Rapid Medical Evaluation Time Seen by Provider: 02/09/19 12:30 Medical Evaluation: Allergies Allergy/AdvReac Type Severity Reaction Status Date / Time No Known Drug Allergies Allergy Unknown Verified 01/02/19 16:03 02/09/19 12:30 CC: Productive cough x3 weeks PE: +smoker (3-4 cigs daily) Coarse breath sounds b/l worse on left. SpO2-90% Orders: labs, CXR, EKG Patient will proceed to ED for further evaluation. 02/09/19 12:31 Discharge Disposition - Diagnosis Cough - Referrals - Patient Instructions - Post Discharge Activity
[2019-02-09 12:34] VITALS: BMI 19.3
[2019-02-09] MEDS ORDERED: SODIUM CHLORIDE 1,633 ML IV ONE (12:37)
[2019-02-09] MEDS ORDERED: LACTATED RINGERS SOLUTION 1000 ML INFUS.BAG IV ONE ×2 (12:59→15:55)
[2019-02-09] MEDS ORDERED: methylPREDNISolone NA SUCC 125 MG/2 ML VIAL IVPUSH ONE (13:00)
[2019-02-09] MEDS ORDERED: ALBUTEROL SO4 2.5/IPRATROPIUM 0.5 INH SOL 3 ML VIAL.NEB. NEB ONE ×3 (13:00→16:50)
--- NOTE | 2019-02-09 13:15 | PDOC ---
History of Present Illness - General Chief Complaint: Respiratory Stated Complaint: PUEUMONIA Time Seen by Provider: 02/09/19 12:30 History Source: Patient, Old Records Exam Limitations: No Limitations - History of Present Illness Initial Comments: HPI: 78 y/o male presenting to [facility] ER complaining of cough productive of green sputum and occasional blood streaks for the past several days. Denies shortness of breath, chest pain, fever, or chills. Taking an unknown cough medication - which he used in the department but refused to allow me to review the bottle. Further reports he was evaluated in another hospital last week, but cannot tell me which one or what was done for him. Pt has a h/o COPD and tobacco use disorder. On 2L home oxygen continuously. Medical Hx: - CAD s/p [place] (several years ago with PCI) - HLD - COPD / Emphysema with chronic home oxygen (2L) - Hep C w/ liver cirrhosis - Bladder CA, recently diagnosed in Dec 2018 - H/o opiate use disorder, on Methadone. --Follows at [facility]. Number [phone], ID#[id number] - Diverticulosis Review of Systems: In addition to that documented in the HPI above, the additional ROS was obtained : Constitutional- Denies fevers or chills Head- Denies vision changes ENMT- Denies sore throat CV- Denies chest pain Resp- Denies SOB GI- Denies vomiting or diarrhea - Denies painful urination MSK- Denies recent trauma Skin- Denies new rashes Neuro- Denies new numbness or tingling or weakness Endocrine- Denies polyuria Heme- Denies bruising Physical Examination: Vital signs and nursing notes reviewed. Constitutional- Thin, cacetic elderly adult male in no acute distress or obvious discomfort. Found semi-fowlers on hospital stretcher. Head- Normocephalic. No obvious external signs of trauma. Neck- Supple, trachea is midline. Cardiovascular / Chest- Regular rate and regular rhythm. No murmur, rubs, clicks , or gallops. Peripheral pulses- radial pulses full. Trace pretibial edema bilaterally. Respiratory- Frequent cough productive of copious amounts of clear white sputum. Breathing unlabored. Equal chest rise and fall. Diffuse rhonchi with expiratory wheezing. No rales or focal consolidation. Gastrointestinal- abdomen is soft, non-tender, non-distended. Neuro- Alert and oriented x4. Moving all four extremities spontaneously. Skin- Warm, dry, and intact. Psych- Affect- appropriate. Mood- normal. Speech was non-labored, non- pressured. MDM: 78 y/o male presenting with worsening cough productive of clear sputum. Afebrile. Vitals remarkable for hypotension without tachycardia. Hypoxic on room air on arrival to ED room. Improved with supplemental oxygen. BP trended upward with IVFB. Physical exam as described above. CXR unremarkable for consolidation or effusion. EKG unremarkable for ischemic changes. Troponin not elevated. Noted leukocytosis, elevated lactic acid, and elevated Cr. Suspect likely acute COPD exacerbation with LUCIE. Low suspicion for PNA, PE, ACS. Suspect elevated A-a gradient secondary to emphysema. Ordered Azithromycin and Ceftriazone for abx coverage. Also given DuoNeb and Solu-medrol. Will admit pt to hospital for acute COPD exacerbation complicated by LUCIE and hypotensive episode. Also have concern that pt is not following up with urology clinic for his high grade invasive bladder CA. Telephone discussion with resident Dr. Arellano. Verbally appraised of the pts HPI, ED course, and current plan of management. Will admit pt to med/surg for attending Dr. Hatch. Homar Delacruz M.D., PGY2 Emergency Medicine Resident Past History - Past Medical History Allergies/Adverse Reactions: Allergies Allergy/AdvReac Type Severity Reaction Status Date / Time No Known Drug Allergies Allergy Unknown Verified 02/09/19 12:34 Home Medications: Ambulatory Orders Salmeterol/Fluticasone [Advair 250Mcg/50Mcg -] 1 inh IH BID #0 inh 03/09/12 Methadone HCl 100 mg PO DAILY 01/03/19 Amlodipine Besylate [Norvasc -] 10 mg PO DAILY #90 tablet 01/06/19 Budesonide/Formeterol Fumarate [SYMBICORT 80/4.5mcg -] 2 puff IH BID #7 inhaler 01/06/19 Ferrous Sulfate [Feosol] 325 mg PO DAILY #90 ud 01/06/19 Tamsulosin HCl [Flomax] 0.4 mg PO DAILY #90 capsule 01/06/19 Anemia: No Asthma: No Cancer: Yes (bladder tumor s/p cystoscopy) Cardiac Disorders: Yes (angioplasty 1997) CVA: No COPD: Yes (diagnosed 2009) CHF: No Dementia: No Diabetes: No Dialysis: No GI Disorders: No Disorders: Yes (BPH) HTN: Yes Hypercholesterolemia: No Kidney Stones: No Liver Disease: No Seizures: No Thyroid Disease: No - Surgical History Abdominal Surgery: Yes (RIGHT INQUINAL HERNIA REPAIR 25 YRS AGO) Appendectomy: No Cardiac Surgery: Yes (ANGIOPLASTY 1997) Cholecystectomy: No Lung Surgery: No Neurologic Surgery: No Orthopedic Surgery: No - Immunization History Immunization Up to Date: Yes - Psycho Social/Smoking Cessation Hx Smoking Status: Yes Smoking History: Current every day smoker Years of Tobacco Use: 20 Have you smoked in the past 12 months: Yes Number of Cigarettes Smoked Daily: 5 Information on smoking cessation initiated: No 'Breaking Loose' booklet given: 03/01/12 Hx Alcohol Use: No (denies) Drug/Substance Use Hx: No (denies) Substance Use Type: Opiates Hx Substance Use Treatment: Yes *Physical Exam - Vital Signs Last Vital Signs Temp Pulse Resp BP Pulse Ox 97.9 F 93 H 18 88/50 L 90 L 02/09/19 12:30 02/09/19 12:30 02/09/19 12:30 02/09/19 12:30 02/09/19 12:30 Vital Signs - Vital Signs #1 Time: 13:14 Blood Pressure: 103/68 (MAP 79) BP Location: Right Arm Blood Pressure Position: Sitting Pulse Rate: 84 Respiratory Rate: 12 O2 Sat by Pulse Oximetry (%): 90 (EtCO2 of 17, w/ restrictive waveform) Oxygen Delivery Method: Nasal Cannula Oxygen Flow Rate: 3 #2 Time: 14:15 Blood Pressure: 117/79 BP Location: Right Arm Blood Pressure Position: Left Lateral Pulse Rate: 85 Respiratory Rate: 14 O2 Sat by Pulse Oximetry (%): 94 Oxygen Delivery Method: Nasal Cannula Oxygen Flow Rate: 3 #3 Time: 13:08 Blood Pressure Position: Sitting Respiratory Rate: 16 O2 Sat by Pulse Oximetry (%): 82 Oxygen Delivery Method: Room Air ED Treatment Course - LABORATORY CBC & Chemistry Diagram: 02/09/19 13:25 02/09/19 13:25 Discharge - Discharge Information Problems reviewed: Yes Clinical Impression/Diagnosis: Cough, COPD exacerbation, LUCIE (acute kidney injury) Hypotension Qualifiers: Hypotension type: unspecified hypotension type Qualified Code(s): I95.9 - Hypotension, unspecified Condition: Stable - Admission Yes - Follow up/Referral - Patient Discharge Instructions - Post Discharge Activity
[2019-02-09] MEDS ORDERED: AZITHROMYCIN IVPB 500 MG in DEXTROSE 5%-WATER - 250 ML IVPB ONE (13:38)
[2019-02-09] MEDS ORDERED: CEFTRIAXONE 1,000 MG in DEXTROSE 5%-WATER - 50 ML IVPB ONE (13:38)
[2019-02-09 13:42] LABS: BASO % 0.3 % (0-2.0); EOS % 0.3 % (0-4.5); HEMATOCRIT 34.3 % (35.4-49); HEMOGLOBIN 10.7 GM/dL (11.7-16.9); LYMPH % 4.2 % (8-40); MCH 27.3 pg (25.7-33.7); MCHC 31.3 g/dl (32.0-35.9); MEAN CELL VOLUME 87.2 fl (80-96); MEAN PLT VOLUME 7.6 fl (7.5-11.1); MONO % 5.2 % (3.8-10.2); PLATELET COUNT 278 K/MM3 (134-434); RBC 3.93 M/mm3 (4.00-5.60); RDW 15.3 % (11.9-15.9); WHITE BLOOD COUNT 15.9 K/mm3 (4.0-10.0)
[2019-02-09 13:43] LABS: ALLENS TEST POSITIVE
[2019-02-09 13:48] LABS: ARTERIAL BLD GAS O2 SATURATION 89.6 % (95-98); ARTERIAL BLOOD GAS BASE EXCESS 0.2 meq/l (-2-2); ARTERIAL BLOOD GAS PCO2 40.2 mmHg (35-45); ARTERIAL BLOOD GAS PO2 60.1 mmHg (80-100)
[2019-02-09 13:55] LABS: INR 1.15 (0.83-1.09); PROTHROMBIN TIME (PATIENT) 13.6 SEC (9.7-13.0)
[2019-02-09] MEDS ORDERED: methylPREDNISolone NA SUCC 125 MG/2 ML VIAL ONE (13:57)
[2019-02-09 13:58] LABS: ACTIVATED PTT 33.2 SECONDS (25.2-36.5)
[2019-02-09] MEDS ORDERED: CEFTRIAXONE 1 GM/50 ML BAG ONE ×2 (14:07)
[2019-02-09] MEDS ORDERED: AZITHROMYCIN IVPB 500 MG/250 ML BAG IVPB ONE (14:07)
[2019-02-09 14:27] LABS: ALBUMIN 3.3 g/dl (3.4-5.0); ALK PHOS 72 U/L (45-117); ANION GAP 6 MMOL/L (8-16); BILIRUBIN,TOTAL 0.6 mg/dL (0.2-1); BLOOD UREA NITROGEN 19.9 mg/dL (7-18); CALCIUM 9.1 mg/dL (8.5-10.1); CHLORIDE 103 mmol/L (98-107); CO2 29 mmol/L (21-32); CREATININE 1.5 mg/dL (0.55-1.3); GLUCOSE,RANDOM 138 mg/dL (74-106); POTASSIUM 4.3 mmol/L (3.5-5.1); SGOT/AST 20 U/L (15-37); SGPT/ALT 13 U/L (13-61); SODIUM 137 mmol/L (136-145); TOT PROT 7.1 g/dl (6.4-8.2)
--- NOTE | 2019-02-09 15:06 | PDOC ---
Attending Attestation - Resident Resident Name: Homar Delacruz - ED Attending Attestation I have performed the following: I have examined & evaluated the patient, The case was reviewed & discussed with the resident, I agree w/resident's findings & plan, Exceptions are as noted - HPI HPI: 02/09/19 15:02 78 years old with past medical history significant for CAD status post CO, hyperlipidemia, COPD hep C with liver cirrhosis bladder cancer opiate use disorder on methadone presents with cough productive of green sputum for the last several days with worsening shortness of breath symptoms are moderate persistent constant no exacerbating or alleviating factors. - Physicial Exam PE: 02/09/19 15:04 Vitals: Triage Vital signs reviewed General Appearance: No acute distress, well nourished well developed, Head: Atraumatic, Chest Wall: Nontender Cardiac: Regular rate and rhythym, no murmurs, no rubs, no gallops, Lungs: Coarse breath sounds bilaterally Abdomen: Soft, non distended, normal bowel sounds, non tender to palpation Extremities: Full range of motion to all extremities, no cyanosis, clubbing, or edema Skin: Warm and dry, no rashes or lesions, no rash, no petechiae Psych: Normal mood, normal affect - Medical Decision Making 02/09/19 15:05 Patient presented with transient hypoxia hypotension hypotension resolved with recheck of blood pressure hypoxic improving on supplemental oxygen history and examination consistent with community-acquired pneumonia with COPD exacerbation status post nebs and steroids patient sats are improving feeling better given age and comorbidities and need for increased supplemental oxygen and antibiotics will admit to medicine for further management. Heart Score/ECG Review - ECG Impressions Comment:: 02/09/19 15:05 EKG performed at 1334 demonstrates sinus rhythm anterior septal infarct age indeterminate no ST elevations no T wave inversions Interpreted by me.
[2019-02-09] MEDS ORDERED: DOCUSATE SODIUM 100 MG CAPSULE (FP) PO PRN (16:14)
[2019-02-09] MEDS ORDERED: SODIUM CHLORIDE 1,000 ML IV SCH (16:15)
[2019-02-09] MEDS ORDERED: ALBUTEROL SO4 0.083% IH SOL 2.5 MG/3 ML VIAL.NEB. NEB PRN (16:24)
[2019-02-09] MEDS ORDERED: MAGNESIUM SULF 50% (8.12 MEQ/2 ML-1 GM VIAL) IVPB ONE (16:30)
--- NOTE | 2019-02-09 16:30 | HP ---
CHIEF COMPLAINT: SOB, productive cough PCP: Dr. Moran HISTORY OF PRESENT ILLNESS: 78 y/o male PMH HTN, COPD, chronic hypoxic resp failure, cirrhosis (Hep C), opioid dependence, CAD s/p [place] in 1997, and urothelial CA c/o SOB and cough. He states that he has had long-standing SOB but within the last month it has worsened. He denies recent illness, sick contacts, and new meds/herbal/foods. He is an active smoker. He says he is able to use his regular 2 pillows at night w/out change and does not awaken to catch his breath; no orhopnea, no PND. There is an associated cough which has acutely worsened in the last 3 days. The cough is productive of thick green+white sputum and was visible in an emesis tray at the bedside. He endorses that sometimes there is blood in the sputum. He denies fevers, nausea, vomiting, diarrhea. He endorses chills and constipation (he relates it to methadone treatment). The pt reports a 30 lb weight loss over 3 months. He denies night sweats. He denies CP and has not gone an any recent travel/immobilization/ h/o DVT. An additional complaint is midstream hematuria. 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 The pt did not f/u with urologist. The investigation was prompted by c/o hematuria. He also describes blood on the tissue with bowel movements. He has never had a colonoscopy. ER course was notable for: (1) 88/50 BP, given 1L IVF (2) Ceftriaxone/azithromyzin given (3) On 3 L NC (home dose 2L) (4) CXR - COPD. NO infiltrates, congestive changes, pneumothorax. Recent Travel: no Family History: non-contributory at this time PAST MEDICAL HISTORY: HTN, COPD, chronic hypoxic resp failure, cirrhosis (Hep C ), opioid dependence, CAD s/p [place] in 1997, and urothelial CA PAST SURGICAL HISTORY: Angioplasty 1997, Hernia repair (RIH repair 25 yrs ago) Social History: Smoking: Active smokers 3-4 cig per day over last 6 years Alcohol:denies Drugs: Past heroin use, now attending methadone clinic Lives in a private home with son-in-law Allergies No Known Drug Allergies Allergy (Unknown, Verified 12/30/19 12:34) HOME MEDICATIONS: Home Medications Medication Instructions Recorded Salmeterol/Fluticasone [Advair 1 inh IH BID #0 inh 03/09/12 250Mcg/50Mcg -] Methadone HCl 100 mg PO DAILY 01/03/19 Amlodipine Besylate [Norvasc -] 10 mg PO DAILY #90 tablet 01/06/19 Budesonide/Formeterol Fumarate 2 puff IH BID #7 inhaler 01/06/19 [SYMBICORT 80/4.5mcg -] Ferrous Sulfate [Feosol] 325 mg PO DAILY #90 ud 01/06/19 Tamsulosin HCl [Flomax] 0.4 mg PO DAILY #90 capsule 01/06/19 PER [employer] STAGING: - Methadone 40 mg - Albuterol-Ipratropium 2.5/o.5 mg - Flomax 0.4 mg - Fluticasone-salmeterol 500/50 mcg - Amlodepine 10 mg REVIEW OF SYSTEMS CONSTITUTIONAL: Absent: fever, chills, diaphoresis, generalized weakness, malaise, loss of appetite, weight change HEENT: Absent: rhinorrhea, nasal congestion, throat pain, throat swelling, difficulty swallowing, mouth swelling, ear pain, eye pain, visual changes CARDIOVASCULAR: Absent: chest pain, syncope, palpitations, irregular heart rate, lightheadedness , peripheral edema RESPIRATORY: Absent: cough, shortness of breath, dyspnea with exertion, orthopnea, wheezing, stridor, hemoptysis GASTROINTESTINAL: Absent: abdominal pain, abdominal distension, nausea, vomiting, diarrhea, constipation, melena, hematochezia GENITOURINARY: Absent: dysuria, frequency, urgency, hesitancy, hematuria, flank pain, genital pain MUSCULOSKELETAL: Absent: myalgia, arthralgia, joint swelling, back pain, neck pain SKIN: Absent: rash, itching, pallor HEMATOLOGIC/IMMUNOLOGIC: Absent: easy bleeding, easy bruising, lymphadenopathy, frequent infections ENDOCRINE: Absent: unexplained weight gain, unexplained weight loss, heat intolerance, cold intolerance NEUROLOGIC: Absent: headache, focal weakness or paresthesias, dizziness, unsteady gait, seizure, mental status changes, bladder or bowel incontinence PSYCHIATRIC: Absent: anxiety, depression, suicidal or homicidal ideation, hallucinations. PHYSICAL EXAMINATION Vital Signs - 24 hr 02/09/19 02/09/19 12:30 15:06 Temperature 97.9 F Pulse Rate 93 H Pulse Rate [#1] 84 Pulse Rate [#2] 85 Respiratory 18 Rate Respiratory 12 Rate [#1] Respiratory 14 Rate [#2] Respiratory 16 Rate [#3] Blood Pressure 88/50 L Blood Pressure 103/68 [#1] Blood Pressure 117/79 [#2] O2 Sat by Pulse 90 L Oximetry (%) O2 Sat by Pulse 90 L Oximetry (%) [ #1] O2 Sat by Pulse 94 L Oximetry (%) [ #2] O2 Sat by Pulse 82 L Oximetry (%) [ #3] GENERAL: AOx3, cachectic, in no acute distress, on 3L NC HEAD: NCAT EYES: ADAL, EOMI, conjunctiva clear. ENT: Ears normal, nares patent, oropharynx clear without exudates. Dry mucous membranes. NECK: +hepatojugular reflex, normal range of motion, supple without lymphadenopathy, JVD, or masses. LUNGS: Coarse crackles in all lung thomas. No accessory muscle use. HEART: RRR s1 s2 ABDOMEN: Soft, BS present in all 4 quadrants, non-distended. Dilated tortuous abdominal veins, + Hepatomegally. THIEN: Appropriate sphincter tone, Soft prostate , No francis blood. Skin tag at anal verge. MUSCULOSKELETAL: No bony deformities or tenderness. No CVA tenderness. UPPER EXTREMITIES: 2+ pulses, warm, well-perfused. No cyanosis. No clubbing. No peripheral edema. LOWER EXTREMITIES: 2+ pulses, warm, well-perfused. No calf tenderness. No peripheral edema. NEUROLOGICAL: No focal deficits. Cranial nerves II-XII intact. Normal speech. Normal gait. PSYCHIATRIC: Cooperative. Good eye contact. Appropriate mood and affect. SKIN: Warm, dry, normal turgor, no rashes or lesions noted, normal capillary refill. Laboratory Results - last 24 hr 02/09/19 02/09/19 02/09/19 13:25 13:25 13:25 WBC 15.9 H RBC 3.93 L Hgb 10.7 L Hct 34.3 L MCV 87.2 MCH 27.3 MCHC 31.3 L RDW 15.3 Plt Count 278 MPV 7.6 Absolute Neuts (auto) 14.3 H Neutrophils % 90.0 H D Lymphocytes % 4.2 L D Monocytes % 5.2 Eosinophils % 0.3 D Basophils % 0.3 Nucleated RBC % 0 PT with INR 13.60 H INR 1.15 H PTT (Actin FS) 33.2 Anticoagulation Therapy Puncture Site ABG pH ABG pCO2 at Pt Temp ABG pO2 at Pt Temp ABG HCO3 ABG O2 Sat (Measured) ABG O2 Content ABG Base Excess Johnathon Test O2 Delivery Device Oxygen Flow Rate Vent Mode Vent Rate Mechanical Rate Pressure Support Vent Sodium 137 Potassium 4.3 Chloride 103 Carbon Dioxide 29 Anion Gap 6 L BUN 19.9 H Creatinine 1.5 H Est GFR (CKD-EPI)AfAm 50.59 Est GFR (CKD-EPI)NonAf 43.65 Random Glucose 138 H Lactic Acid Calcium 9.1 Total Bilirubin 0.6 AST 20 ALT 13 Alkaline Phosphatase 72 Troponin I < 0.02 Total Protein 7.1 Albumin 3.3 L Influenza A (Rapid) Influenza B (Rapid) 02/09/19 02/09/19 02/09/19 13:25 13:25 13:30 WBC RBC Hgb Hct MCV MCH MCHC RDW Plt Count MPV Absolute Neuts (auto) Neutrophils % Lymphocytes % Monocytes % Eosinophils % Basophils % Nucleated RBC % PT with INR INR PTT (Actin FS) Anticoagulation Therapy No Result Required. Puncture Site Left brachial ABG pH 7.40 ABG pCO2 at Pt Temp 40.2 ABG pO2 at Pt Temp 60.1 L ABG HCO3 24.5 ABG O2 Sat (Measured) 89.6 L ABG O2 Content 12.4 ABG Base Excess 0.2 Johnathon Test Positive O2 Delivery Device N/c Oxygen Flow Rate 3l Vent Mode No Result Required. Vent Rate No Result Required. Mechanical Rate No Result Required. Pressure Support Vent No Result Required. Sodium Potassium Chloride Carbon Dioxide Anion Gap BUN Creatinine Est GFR (CKD-EPI)AfAm Est GFR (CKD-EPI)NonAf Random Glucose Lactic Acid 2.5 H* Calcium Total Bilirubin AST ALT Alkaline Phosphatase Troponin I Total Protein Albumin Influenza A (Rapid) Negative Influenza B (Rapid) Negative EKG demonstrates regular rate, sinus rhythm anterior septal infarct age indeterminate no ST elevations no T wave inversions IMAGING: CXR - COPD. NO infiltrates, congestive changes, pneumothorax. ASSESSMENT/PLAN: 78 y/o male PMH HTN, COPD, chronic hypoxic resp failure, cirrhosis (Hep C), opioid dependence, [place] in , and urothelial CA c/o SOB and cough. # Sepsis 2/2 CAP vs URI vs malignancy - 1 month acute worsening - Green productive cough - 30 lb/3 mo weight loss - F/u UA, urine legionella/RSV - Blood and urine cx - F/u Chest CT # COPD - Duonebs huey - Solu-medrol - Albuterol PRN - Educated on smoking cessation. # Hematuria - Urothelial Ca - Consult urologist # LUCIE - IVF gently - Consider renal US # Normocytic anemia - H/H at baseline # Opioid dependence - f/u methodone dosing # CAD - Continue BB and Statin # HTN - Hold as BP has been low - Home regimen: Amlodepine 10 mg PO QD and # F/E/N - NS - Cont. to monitor - Low sodium diet # DVT prophylaxis - SCD # Disposition - Admit to med/surg Valerio Peralta MD Visit type - Emergency Visit Emergency Visit: Yes ED Registration Date: 02/09/19 Care time: The patient presented to the Emergency Department on the above date and was hospitalized for further evaluation of their emergent condition. - New Patient This patient is new to me today: Yes Date on this admission: 02/09/19 - Critical Care Critical Care patient: No ATTENDING PHYSICIAN STATEMENT I saw and evaluated the patient. I reviewed the resident's note and discussed the case with the resident. I agree with the resident's findings and plan as documented. SUBJECTIVE: OBJECTIVE: ASSESSMENT AND PLAN:
[2019-02-09] MEDS ORDERED: CEFEPIME 2 GM/100 ML BAG IVPB ONE (16:51)
[2019-02-09] MEDS: ALBUTEROL SO4 2.5/IPRATROPIUM 0.5 INH SOL 3 ML VIAL.NEB. NEB SCH ×2 (16:53→20:40)
[2019-02-09] MEDS ORDERED: CEFTRIAXONE 2 GM in DEXTROSE 5%-WATER 100 ML IVPB ONE (17:41)
[2019-02-09] MEDS ORDERED: CEFEPIME HCL/D5W 2 GM/50 ML BAG IVPB SCH (18:00)
[2019-02-09] MEDS ORDERED: DEXTROSE 5%-WATER 100 ML IVPB ONE ×2 (18:15→21:55)
[2019-02-09] MEDS: methylPREDNISolone NA SUCC 40 MG/1 ML VIAL IVPB SCH (18:27)
--- NOTE | 2019-02-09 19:08 | PN ---
Teaching Attending Note Name of Resident: Valerio Peralta ATTENDING PHYSICIAN STATEMENT I saw and evaluated the patient. I reviewed the resident's note and discussed the case with the resident. I agree with the resident's findings and plan as documented. 78 y.o. M PSA on Methadone, Hep C s/p treatment, CAD, COPD presents with cough with thick green mucus and SOB for the past 1 week. Patient endorses chronic cough but more recently noticed productive cough w/ thick mucus. Denies fevers/N /V/D but has some chills. On Methadone 90mg daily, last dose received this morning. Endorses recent diagnosis of ?bladder ca, underwent cystoscopy unsure of degree, last episode of hematuria was a few days ago he mentioned a brief episode of gross hematuria now resolved. Still smoking 3-4 cigs/day, denies alcohol and hard drugs. Was hypotensive on ED presentation but responded to fluids. PE VSS GA comfortable, cachectic, AAox3, speaks in full sentences, tired appearing HEENT NC/AT, EOMI, no JVD, neck supple Chest b/l rhonchi, faint wheezing b/l CVS S1, S2+, RRR Abd Soft, NT, ND, dilated tortuous abdominal veins, liver edge palpable and enlarged Ext No LE edema Rectal exam: no gross blood, dried hard stool in rectal vault Vital Signs - 24 hr 02/09/19 02/09/19 02/09/19 12:30 15:30 16:00 Temperature 97.9 F Pulse Rate 93 H Pulse Rate [#1] Pulse Rate [#2] Pulse Rate [ 74 87 Apical] Respiratory 18 16 16 Rate Respiratory Rate [#1] Respiratory Rate [#2] Respiratory Rate [#3] Blood Pressure 88/50 L Blood Pressure [#1] Blood Pressure [#2] Blood Pressure 103/68 108/62 [Right Arm] O2 Sat by Pulse 90 L 94 L 94 L Oximetry (%) O2 Sat by Pulse Oximetry (%) [ #1] O2 Sat by Pulse Oximetry (%) [ #2] O2 Sat by Pulse Oximetry (%) [ #3] 02/09/19 02/09/19 02/09/19 17:25 18:19 18:34 Temperature 98.1 F Pulse Rate 93 H Pulse Rate [#1] 84 Pulse Rate [#2] 85 Pulse Rate [ 85 Apical] Respiratory 16 16 Rate Respiratory 12 Rate [#1] Respiratory 14 Rate [#2] Respiratory 16 Rate [#3] Blood Pressure 111/52 L Blood Pressure 103/68 [#1] Blood Pressure 117/79 [#2] Blood Pressure 120/70 [Right Arm] O2 Sat by Pulse 99 92 L Oximetry (%) O2 Sat by Pulse 90 L Oximetry (%) [ #1] O2 Sat by Pulse 94 L Oximetry (%) [ #2] O2 Sat by Pulse 82 L Oximetry (%) [ #3] Current Medications Generic Name Dose Route Start Last Admin Trade Name Freq PRN Reason Stop Dose Admin Albuterol Sulfate 1 amp 02/09/19 16:24 Ventolin 0.083% Nebulizer Soln - NEB Q4H PRN SHORT OF BREATH/WHEEZING Albuterol/Ipratropium 1 amp 02/09/19 16:00 02/09/19 16:53 Duoneb - NEB 1 amp RQID GILBERTO Administration Docusate Sodium 100 mg 02/09/19 16:14 Colace - PO BID PRN CONSTIPATION Sodium Chloride 1,000 mls @ 100 mls/hr 02/09/19 16:15 02/09/19 17:20 Normal Saline - IV 100 mls/hr ASDIR GILBERTO Administration Doxycycline Hyclate 100 mg/ 100 mls @ 50 mls/hr 02/09/19 22:00 Dextrose IVPB BID GILBERTO Methylprednisolone Sodium Succinate 40 mg 02/09/19 18:00 02/09/19 18:27 Solu-Medrol - IVPB 40 mg Q8H-IV GILBERTO Administration Senna 2 tab 02/09/19 22:00 Senna - PO HS GILBERTO A/P: 78 M PSA on Methadone, recently diagnosed w/ urothelial ca, CAD, COPD presents with symptoms suggesting PNA but no clear evidence of PNA on chest x-ray except for ?R CP angle blunting, will obtain Chest CT w/o contrast for better visualization of lung thomas. URI possibly 2/2 bronchial PNA, in view of SOB, copious secretions w/ green frothy mucus will empirically treat for CAP while Chest CT pending, if no infiltrates are appreciated on CT imaging, de-escalate abx to Doxycycline for COPDE URI and DC Ceftriaxone Send RSV/Flu, Strep/Legionella LUCIE likely pre-renal, denies obstructive symptoms, monitor urine output if patient is not urinating obtain Bladder SONO and place jacobson PRN follow chem after fluid challenge Urothelial ca obtain collateral from urologist at [facility] watch for hematuria if no signs of bleeding resume DVT ppx with Heparin SQ TID Obtain CBC BID to monitor trend PSA Resume verified dose of Methadone Obtain repeat EKG for baseline QTc, avoid other QTc prolonging agents (macrolides, antipsychotics, antiemetics etc.) COPD Mild exacerbation, cont. duonebs, IV steroids, chest physiotherapy/incentive spirometer Obtain chest CT w/o contrast Cont. NC O2 to achieve >90% O2 Educated on smoking cessation, give nicotine patch/gum PRN CAD Cont. BB, statin, DVT ppx: SCD for now FEN: NS, BID chem, general diet
[2019-02-09] MEDS ORDERED: DOXYCYCLINE HYCLATE 100 MG VIAL ONE (21:55)
[2019-02-09] MEDS: DOXYCYCLINE INJECTION 100 MG in DEXTROSE 5%-WATER 100 ML IVPB SCH (21:58)
[2019-02-09] MEDS: SENNOSIDES 8.6MG TABLET (FP) PO SCH (22:00)
[2019-02-10] MEDS: methylPREDNISolone NA SUCC 40 MG/1 ML VIAL IVPB SCH ×3 (02:29→17:33)
[2019-02-10] MEDS: ALBUTEROL SO4 2.5/IPRATROPIUM 0.5 INH SOL 3 ML VIAL.NEB. NEB SCH ×4 (07:25→20:00)
[2019-02-10 07:46] LABS: HEMATOCRIT 30.5 % (35.4-49); MCH 28.1 pg (25.7-33.7); MCHC 32.7 g/dl (32.0-35.9); MEAN PLT VOLUME 7.8 fl (7.5-11.1); PLATELET COUNT 209 K/MM3 (134-434); RBC 3.55 M/mm3 (4.00-5.60); RDW 15.2 % (11.9-15.9); WHITE BLOOD COUNT 11.7 K/mm3 (4.0-10.0)
[2019-02-10] MEDS ORDERED: SODIUM CHLORIDE 1,000 ML IV SCH (07:46)
[2019-02-10 08:15] LABS: ALBUMIN 2.7 g/dl (3.4-5.0); BILIRUBIN,TOTAL 0.4 mg/dL (0.2-1); BLOOD UREA NITROGEN 15.9 mg/dL (7-18); CALCIUM 8.5 mg/dL (8.5-10.1); CREATININE 0.9 mg/dL (0.55-1.3); MAGNESIUM 2.2 mg/dL (1.8-2.4); PHOSPHOROUS 3.3 mg/dL (2.5-4.9); POTASSIUM 4.3 mmol/L (3.5-5.1); TOT PROT 6.2 g/dl (6.4-8.2)
[2019-02-10] MEDS ORDERED: PT OWN MED DRAWER 7, Y5N ONE (08:34)
[2019-02-10] MEDS ORDERED: METHADONE HCL 10 MG TABLET ONE (08:50)
[2019-02-10] MEDS ORDERED: METHADONE HCL 40 MG DISPERSABLE TABLET ONE (08:51)
[2019-02-10] MEDS: TAMSULOSIN HCL 0.4 MG CAP PO SCH (09:05)
[2019-02-10] MEDS: amLODIPine BESYLATE 10 MG TABLET (FP) PO SCH (09:05)
[2019-02-10] MEDS: FERROUS SO4 325 MG TABLET (FP) PO SCH (09:05)
[2019-02-10] MEDS: METHADONE 80 MG, METHADONE 20 MG PO SCH (09:05)
[2019-02-10] MEDS ORDERED: METHADONE HCL 40 MG DISPERSABLE TABLET PO SCH (10:00)
[2019-02-10] MEDS ORDERED: DEXTROSE 5%-WATER 100 ML IVPB ONE ×2 (10:18→21:20)
[2019-02-10] MEDS ORDERED: DOXYCYCLINE HYCLATE 100 MG VIAL ONE ×2 (10:18→21:19)
--- NOTE | 2019-02-10 10:21 | EKG ---
Test Reason : Blood Pressure : / mmHG Vent. Rate : 085 BPM Atrial Rate : 085 BPM P-R Int : 148 ms QRS Dur : 078 ms QT Int : 424 ms P-R-T Axes : 050 012 055 degrees QTc Int : 504 ms POOR DATA QUALITY, INTERPRETATION MAY BE ADVERSELY AFFECTED SINUS RHYTHM WITH PREMATURE SUPRAVENTRICULAR COMPLEXES ANTEROSEPTAL INFARCT (CITED ON OR BEFORE 05-MAR-2012) ABNORMAL ECG Confirmed by MD Adia, Ishan ([id number]) on 02/10/2019 10:20:57 AM Referred By: Confirmed By:Ishan Cheek MD
[2019-02-10] MEDS: DOXYCYCLINE INJECTION 100 MG in DEXTROSE 5%-WATER 100 ML IVPB SCH ×2 (10:22→21:27)
[2019-02-10] MEDS: BUDESONIDE/FORMETEROL FUMARATE 80/4.5 mcg INHALER IH SCH ×2 (10:22→21:27)
[2019-02-10] MEDS ORDERED: CEFTRIAXONE 1 GM in DEXTROSE 5%-WATER - 50 ML IVPB SCH (11:15)
[2019-02-10] MEDS: SODIUM CHLORIDE 1,000 ML IV SCH (11:29)
[2019-02-10] MEDS ORDERED: DEXTROSE 5%-WATER - 50 ML IVPB ONE ×2 (11:44→15:44)
[2019-02-10] MEDS ORDERED: cefTRIAXone SODIUM 1 GM VIAL ONE (11:44)
--- NOTE | 2019-02-10 13:34 | PN ---
Teaching Attending Note Name of Resident: Alli Hsu ATTENDING PHYSICIAN STATEMENT I saw and evaluated the patient. I reviewed the resident's note and discussed the case with the resident. I agree with the resident's findings and plan as documented. SUBJECTIVE: No fever or chills. he still feels SOB. has cough. has no CP . He denies abd pain. reports hematuria and does not know why OBJECTIVE: NAD awake, alert, cooperative . termporal wasting . NC on Cv: RRR. No MRG Lungs: CTAB Abd: distended, + shifting dullness. reducible supra umbilical hernia. NT, NL BS . Liver is percussable in epigastric area, but not palpable. No splenomegaly Ext : No edema or erythema on upper or lower extrenmities - EKG, sinus rhythm, prolonged QTC 504, PAcs ASSESSMENT AND PLAN: 78 y/o man with h/o Hep C cirrhosis, CAD, s/p [place], COPD, polysubstance abuse on methadone, recent diagnosis of bladder cancer, who presented with SOB and productive cough. He was diagnosed with acute COPD exacerbation 1- Acute COPD exacerbation: slightly improved from before. - cont nebs and steroids. - flu neg - cont Symbicort. - cxray reviewed. possible opacity in RLL, above the diaphragm. CT of chest is pending. for now, cont Abx ( doxy and add ceftriaxone) .If CT is negative will dc Abx. 2- Hypotension on admission: likely due to volume depletion. now resolved . Lactate normalized. - decrease and cont IVF. will stop tomorrow 3- Hematuria: due to bladder cancer. patient is still in denial. - Uro consult pending - Monitor Hb 4- HTN: ;cont norvasc 5- LUCIE: due to volume deplesion and hypotension : improved with IVF. cont as above 6- Hep C cirrhosis: not on any diuretics. has + shifting dullness on exam. - f/u with GI for further management 7- H/o PSA: cont methadone 8- DVT px: start heparin sq
--- NOTE | 2019-02-10 14:03 | PN ---
<Valerio Peralta Taiwo - Last Filed: 02/10/19 16:54> Physical Exam: SUBJECTIVE: Patient seen and examined at the bedside. He states he still has SOB but it has improved since admission. He has not observed blood in his urine and he is passing stool w/o complaint. He denies NGO, CP, and abdominal pain. OBJECTIVE: Vital Signs Period Temp Pulse Resp BP Sys/Flor Pulse Ox Last 24 Hr 97.9 F-98.1 F 74-97 12-18 103-146/52-79 82-99 GENERAL: AOx3, cachectic, in no acute distress, on 3L NC HEAD: NCAT EYES: ADAL, EOMI, conjunctiva clear. ENT: Ears normal, nares patent, oropharynx clear without exudates. Dry mucous membranes. NECK: +hepatojugular reflex, normal range of motion, supple without lymphadenopathy, JVD, or masses. LUNGS: Coarse crackles in all lung thomas. No accessory muscle use. HEART: RRR s1 s2 ABDOMEN: Soft, BS present in all 4 quadrants, non-distended. Dilated tortuous abdominal veins, + Hepatomegally. + shifting dullness MUSCULOSKELETAL: No bony deformities or tenderness. No CVA tenderness. UPPER EXTREMITIES: 2+ pulses, warm, well-perfused. No cyanosis. No clubbing. No peripheral edema. LOWER EXTREMITIES: 2+ pulses, warm, well-perfused. No calf tenderness. No peripheral edema. NEUROLOGICAL: No focal deficits. Cranial nerves II-XII intact. Normal speech. Normal gait. PSYCHIATRIC: Cooperative. Good eye contact. Appropriate mood and affect. SKIN: Warm, dry, normal turgor, no rashes or lesions noted, normal capillary refill. Laboratory Results - last 24 hr 02/09/19 02/09/19 02/09/19 13:25 13:25 17:20 WBC RBC Hgb Hct MCV MCH MCHC RDW Plt Count MPV Sodium 137 Potassium 4.3 Chloride 103 Carbon Dioxide 29 Anion Gap 6 L BUN 19.9 H Creatinine 1.5 H Est GFR (CKD-EPI)AfAm 50.59 Est GFR (CKD-EPI)NonAf 43.65 Random Glucose 138 H Lactic Acid 2.5 H* Calcium 9.1 Phosphorus Magnesium Total Bilirubin 0.6 AST 20 ALT 13 Alkaline Phosphatase 72 Troponin I < 0.02 Total Protein 7.1 Albumin 3.3 L Group A Strep Rapid Negative 02/09/19 02/10/19 02/10/19 19:00 06:30 06:30 WBC 11.7 H RBC 3.55 L Hgb 10.0 L Hct 30.5 L MCV 86.0 MCH 28.1 MCHC 32.7 RDW 15.2 Plt Count 209 D MPV 7.8 Sodium 140 Potassium 4.3 Chloride 106 Carbon Dioxide 25 Anion Gap 9 BUN 15.9 Creatinine 0.9 Est GFR (CKD-EPI)AfAm 93.82 Est GFR (CKD-EPI)NonAf 80.95 Random Glucose 119 H Lactic Acid 3.7 H* Calcium 8.5 Phosphorus 3.3 Magnesium 2.2 Total Bilirubin 0.4 AST 16 ALT 10 L Alkaline Phosphatase 57 Troponin I Total Protein 6.2 L Albumin 2.7 L Group A Strep Rapid 02/10/19 08:10 WBC RBC Hgb Hct MCV MCH MCHC RDW Plt Count MPV Sodium Potassium Chloride Carbon Dioxide Anion Gap BUN Creatinine Est GFR (CKD-EPI)AfAm Est GFR (CKD-EPI)NonAf Random Glucose Lactic Acid 1.1 Calcium Phosphorus Magnesium Total Bilirubin AST ALT Alkaline Phosphatase Troponin I Total Protein Albumin Group A Strep Rapid Active Medications Generic Name Dose Route Start Last Admin Trade Name Freq PRN Reason Stop Dose Admin Albuterol Sulfate 1 amp 02/09/19 16:24 Ventolin 0.083% Nebulizer Soln - NEB Q4H PRN SHORT OF BREATH/WHEEZING Albuterol/Ipratropium 1 amp 02/09/19 16:00 02/10/19 11:25 Duoneb - NEB 1 amp RQID HUEY Administration Amlodipine Besylate 10 mg 02/10/19 10:00 02/10/19 09:05 Norvasc - PO 10 mg DAILY HUEY Administration Budesonide/Formoterol Fumarate 2 puff 02/10/19 10:00 02/10/19 10:22 Symbicort 80/4.5mcg - IH 2 puff BID HUEY Administration Docusate Sodium 100 mg 02/09/19 16:14 Colace - PO BID PRN CONSTIPATION Ferrous Sulfate 325 mg 02/10/19 10:00 02/10/19 09:05 Feosol - PO 325 mg DAILY HUEY Administration Heparin Sodium (Porcine) 5,000 unit 02/10/19 14:00 Heparin - SQ TID HUEY Doxycycline Hyclate 100 mg/ 100 mls @ 50 mls/hr 02/09/19 22:00 02/10/19 10:22 Dextrose IVPB 50 mls/hr BID HUEY Administration Ceftriaxone Sodium 1 gm/ 50 mls @ 100 mls/hr 02/10/19 11:15 02/10/19 11:55 Dextrose IVPB 100 mls/hr DAILY HUEY Administration Sodium Chloride 1,000 mls @ 75 mls/hr 02/10/19 11:03 02/10/19 11:29 Normal Saline - IV 75 mls/hr ASDIR HUEY Administration Methadone HCl 80 mg/ Methadone 100 mg 02/10/19 10:00 02/10/19 09:05 HCl 20 mg PO 100 mg DAILY@0600 HUEY Administration Methylprednisolone Sodium Succinate 40 mg 02/09/19 18:00 02/10/19 09:05 Solu-Medrol - IVPB 40 mg Q8H-IV HUEY Administration Senna 2 tab 02/09/19 22:00 02/09/19 22:00 Senna - PO 2 tab HS HUEY Administration Tamsulosin HCl 0.4 mg 02/10/19 10:00 02/10/19 09:05 Flomax - PO 0.4 mg DAILY@0830 HUEY Administration EKG demonstrates regular rate, sinus rhythm anterior septal infarct age indeterminate no ST elevations no T wave inversions IMAGING: CXR - COPD. NO infiltrates, congestive changes, pneumothorax. CT to be performed. ASSESSMENT/PLAN: 78 y/o male PMH HTN, COPD, chronic hypoxic resp failure, cirrhosis (Hep C), opioid dependence, [place] in , and urothelial CA c/o SOB and cough. # Sepsis 2/2 CAP vs URI vs malignancy, resolved - No longer in sepsis - 1 month acute worsening - Green productive cough still present today - 30 lb/3 mo weight loss - F/u UA, - strep and flu NEGATIVE - F/u blood and urine cx - F/u Chest CT - Ceftriaxone 1 gm IV qd - Doxycycline 100 mg IV BID # Urothelial Ca, hematuria - Seen by urology; describes non-compliance - Recommended to refer to oncology # COPD - Duonebs huey 1 amp rqid - Solu-medrol 40 mg IV q8h - Albuterol PRN - CXR: Possible opacity in RLL, above the diaphragm. CT of chest is pending. If CT is negative will dc above abx - Educated on smoking cessation. # LUCIE, resolved - IVF raised to 125 in AM and then brought down to 75 cc/hour # Normocytic anemia - H/H at baseline # Opioid dependence - Methodone 100 mg QD # CAD - No current regimen upon med rec # HTN - Hold as BP has been low - Home regimen: Amlodepine 10 mg PO QD and # Hypotension - Likely 2/2 vol depletion - Lactate 1.1 now # F/E/N - NS at 75 cc/hour - Cont. to monitor - Low sodium diet # DVT prophylaxis - Heparin now given malignancy # Disposition - Admit to med/surg Valerio Peralta MD Visit type - Emergency Visit Emergency Visit: No - New Patient This patient is new to me today: No - Critical Care Critical Care patient: No ATTENDING PHYSICIAN STATEMENT I saw and evaluated the patient. I reviewed the resident's note and discussed the case with the resident. I agree with the resident's findings and plan as documented. SUBJECTIVE: OBJECTIVE: ASSESSMENT AND PLAN: <Dana Carson - Last Filed: 02/14/19 12:17> ATTENDING PHYSICIAN STATEMENT I saw and evaluated the patient. I reviewed the resident's note and discussed the case with the resident. I agree with the resident's findings and plan as documented. SUBJECTIVE: OBJECTIVE: ASSESSMENT AND PLAN:
--- NOTE | 2019-02-10 14:19 | CON.ID ---
Consult Consult Specialty:: infectious diseases Referred by:: hospitalist Reason for Consultation:: leukocytosis - History of Present Illness Chief Complaint: throat pain,weakness,cough History of Present Illness: 78 years old with past medical history significant for CAD status post [place], hyperlipidemia, COPD hep C with liver cirrhosis bladder cancer opiate use disorder on methadone presents with cough productive of green sputum for the last several days with worsening shortness of breath symptoms are moderate persistent constant no exacerbating or alleviating factors. patient with some throat pain there - History Source History Provided By: Patient - Past Medical History Cardio/Vascular: Yes: HTN Pulmonary: Yes: COPD, Other (home O2) Renal/: Yes: BPH, Hematuria, UTI, Other (Bladder CA) - Past Surgical History Past Surgical History: Yes: Hernia Repair (RIH repair 25 yrs ago), TURP - Alcohol/Substance Use Hx Alcohol Use: No (denies) History of Substance Use: reports: Heroin - Smoking History Smoking history: Current every day smoker Have you smoked in the past 12 months: Yes Aproximately how many cigarettes per day: 5 - Social History ADL: Independent History of Recent Travel: No Home Medications - Allergies Allergies/Adverse Reactions: Allergies Allergy/AdvReac Type Severity Reaction Status Date / Time No Known Drug Allergies Allergy Unknown Verified 02/09/19 12:34 - Home Medications Home Medications: Ambulatory Orders Salmeterol/Fluticasone [Advair 250Mcg/50Mcg -] 1 inh IH BID #0 inh 03/09/12 Methadone HCl 100 mg PO DAILY 01/03/19 Amlodipine Besylate [Norvasc -] 10 mg PO DAILY #90 tablet 01/06/19 Ferrous Sulfate [Feosol] 325 mg PO DAILY #90 ud 01/06/19 Tamsulosin HCl [Flomax] 0.4 mg PO DAILY #90 capsule 01/06/19 Review of Systems - Review of Systems Constitutional: reports: No Symptoms Eyes: reports: No Symptoms HENT: reports: No Symptoms Neck: reports: No Symptoms Respiratory: reports: Cough Musculoskeletal: reports: No Symptoms Integumentary: reports: Wound Neurological: reports: No Symptoms Hematology/Lymphatic: reports: No Symptoms Psychiatric: reports: No Symptoms Physical Exam Vital Signs: Vital Signs Temperature 97.9 F 02/10/19 09:13 Pulse Rate 97 H 02/10/19 09:13 Respiratory Rate 18 02/10/19 09:13 Blood Pressure 146/79 02/10/19 09:13 O2 Sat by Pulse Oximetry (%) 90 L 02/10/19 09:00 Constitutional: Yes: Well Nourished, No Distress, Calm Cardiovascular: Yes: S1, S2 Respiratory: Yes: Regular, Rhonchi, Other Gastrointestinal: Yes: Normal Bowel Sounds, Soft Musculoskeletal: Yes: WNL Extremities: Yes: WNL Neurological: Yes: Alert, Oriented Psychiatric: Yes: Alert, Oriented Labs: CBC, BMP 02/10/19 06:30 02/10/19 06:30 Imaging - Results Chest X-ray: Report Reviewed, Image Reviewed Assessment/Plan 78 y/o male PMH HTN, COPD, chronic hypoxic resp failure, cirrhosis (Hep C), opioid dependence, [place] in , and urothelial [place] c/o SOB and cough. Sepsis COPD Hematuria LUCIE Normocytic anemia plan will keep patient on zosyn monitor
[2019-02-10] MEDS: HEPARIN NA (PORCINE) 5,000 UNITS/ML 1ML VIAL SQ SCH ×3 (15:26→21:34)
--- NOTE | 2019-02-10 15:31 | CONS ---
DATE OF CONSULTATION: 02/10/2019 The patient is a 78-year-old gentleman, who I have seen in the past. Patient has a history of high-grade invasive bladder cancer with obstruction of the right ureter in addition to multiple other medical problems. The patient was first seen by me approximately 6 weeks ago after a history of hematuria that had gone on for approximately 5 to 6 months. Patient was not seen by any physician, as he refused to see any physician. He was admitted at that time complaining of discomfort in addition to hematuria. He had pain and discomfort voiding. In the operating room, he was found to have an extensive tumor involving much of his bladder. Postoperatively, the patient had a Juan for a period of time, which was removed and after which he was able to void. Patient was seen postoperatively and advised that he needs to have a cystectomy to address the extent of the bladder cancer that was found. The patient refused. The patient has had at least 4 office visits, none of which he kept. I would, at this point, suggest that oncology be called to see whether they would consider offering the patient a combination of chemotherapy and radiotherapy. When I spoke to the patient this afternoon, he said he would consider that. I have nothing more to offer this patient at this present time. Please feel free to be in touch with me. MD SIA LIMON/[id number]
[2019-02-10] MEDS ORDERED: PIPERACILLIN/TAZOBACTAM 3.375 GM VIAL IVPB ONE (15:43)
[2019-02-10] MEDS: PIPERACILLIN/TAZOB 3.375 GM 3.375 GM in DEXTROSE 5%-WATER - 50 ML IVPB SCH ×2 (16:25→17:04)
[2019-02-10] MEDS: SENNOSIDES 8.6MG TABLET (FP) PO SCH (21:27)
[2019-02-10] MEDS ORDERED: POLYETHYLENE GLYCOL 3350 119 GM BTL PO ONE (22:41)
[2019-02-11] MEDS ORDERED: PIPERACILLIN/TAZOBACTAM 3.375 GM VIAL IVPB ONE ×3 (01:19→17:55)
[2019-02-11] MEDS ORDERED: DEXTROSE 5%-WATER - 50 ML IVPB ONE ×3 (01:20→17:55)
[2019-02-11] MEDS: methylPREDNISolone NA SUCC 40 MG/1 ML VIAL IVPB SCH ×3 (01:22→17:59)
[2019-02-11] MEDS: PIPERACILLIN/TAZOB 3.375 GM 3.375 GM in DEXTROSE 5%-WATER - 50 ML IVPB SCH ×3 (01:23→17:59)
[2019-02-11] MEDS ORDERED: METHADONE HCL 40 MG DISPERSABLE TABLET ONE (05:38)
[2019-02-11] MEDS ORDERED: METHADONE HCL 10 MG TABLET ONE (05:38)
[2019-02-11] MEDS: HEPARIN NA (PORCINE) 5,000 UNITS/ML 1ML VIAL SQ SCH ×3 (05:43→22:19)
[2019-02-11] MEDS: METHADONE 80 MG, METHADONE 20 MG PO SCH (05:44)
[2019-02-11] MEDS: ALBUTEROL SO4 2.5/IPRATROPIUM 0.5 INH SOL 3 ML VIAL.NEB. NEB SCH ×4 (07:35→20:41)
[2019-02-11 08:29] LABS: HEMATOCRIT 28.7 % (35.4-49); HEMOGLOBIN 9.3 GM/dL (11.7-16.9); MCH 27.8 pg (25.7-33.7); MCHC 32.3 g/dl (32.0-35.9); MEAN CELL VOLUME 85.9 fl (80-96); MEAN PLT VOLUME 7.9 fl (7.5-11.1); PLATELET COUNT 208 K/MM3 (134-434); RBC 3.34 M/mm3 (4.00-5.60); RDW 15.6 % (11.9-15.9); WHITE BLOOD COUNT 13.6 K/mm3 (4.0-10.0)
[2019-02-11] MEDS: TAMSULOSIN HCL 0.4 MG CAP PO SCH (08:50)
[2019-02-11 08:59] LABS: ALBUMIN 2.6 g/dl (3.4-5.0); BILIRUBIN,TOTAL 0.3 mg/dL (0.2-1); BLOOD UREA NITROGEN 22.1 mg/dL (7-18); CALCIUM 8.5 mg/dL (8.5-10.1); MAGNESIUM 2.1 mg/dL (1.8-2.4); POTASSIUM 4.4 mmol/L (3.5-5.1); TOT PROT 5.9 g/dl (6.4-8.2)
[2019-02-11] MEDS ORDERED: DEXTROSE 5%-WATER 100 ML IVPB ONE (09:13)
[2019-02-11] MEDS ORDERED: DOXYCYCLINE HYCLATE 100 MG VIAL ONE (09:13)
--- NOTE | 2019-02-11 09:13 | PN ---
Teaching Attending Note Name of Resident: Valerio Peralta ATTENDING PHYSICIAN STATEMENT I saw and evaluated the patient. I reviewed the resident's note and discussed the case with the resident. I agree with the resident's findings and plan as documented. SUBJECTIVE: Patient is comfortable with no acute distress Vital Signs Temperature 97.7 F 02/11/19 05:45 Pulse Rate 100 H 02/11/19 05:45 Respiratory Rate 20 02/11/19 05:45 Blood Pressure 128/65 02/11/19 05:45 O2 Sat by Pulse Oximetry (%) 90 L 02/10/19 21:00 GENERAL: The patient is awake, alert, and fully oriented, in no acute distress. HEAD: Normal with no signs of trauma. EYES: PERRL, extraocular movements intact, sclera anicteric, conjunctiva clear. ENT: Ears normal, oropharynx clear without exudates, moist mucous membranes. NECK: Trachea midline, full range of motion, supple. LUNGS: Breath sounds equal, clear to auscultation bilaterally, no wheezes, no crackles, no accessory muscle use. HEART: Regular rate and rhythm, S1, S2 without murmur, rub or gallop. ABDOMEN: distended, + shifting dullness. reducible supra umbilical hernia. NT, NL BS . No splenomegaly EXTREMITIES: 2+ pulses, warm, well-perfused, no edema. NEUROLOGICAL: Cranial nerves II through XII grossly intact. Normal speech, gait not observed. PSYCH: Normal mood, normal affect. SKIN: Warm, dry, normal turgor, no rashes or lesions noted CBCD WBC 13.6 K/mm3 (4.0-10.0) H 02/11/19 07:16 RBC 3.34 M/mm3 (4.00-5.60) L 02/11/19 07:16 Hgb 9.3 GM/dL (11.7-16.9) L 02/11/19 07:16 Hct 28.7 % (35.4-49) L 02/11/19 07:16 MCV 85.9 fl (80-96) 02/11/19 07:16 MCHC 32.3 g/dl (32.0-35.9) 02/11/19 07:16 RDW 15.6 % (11.9-15.9) 02/11/19 07:16 Plt Count 208 K/MM3 (134-434) 02/11/19 07:16 MPV 7.9 fl (7.5-11.1) 02/11/19 07:16 CMP Sodium 139 mmol/L (136-145) 02/11/19 07:16 Potassium 4.4 mmol/L (3.5-5.1) 02/11/19 07:16 Chloride 107 mmol/L (98-107) 02/11/19 07:16 Carbon Dioxide 26 mmol/L (21-32) 02/11/19 07:16 Anion Gap 6 MMOL/L (8-16) L 02/11/19 07:16 BUN 22.1 mg/dL (7-18) H 02/11/19 07:16 Creatinine 1.0 mg/dL (0.55-1.3) 02/11/19 07:16 Random Glucose 151 mg/dL (74-106) H 02/11/19 07:16 Calcium 8.5 mg/dL (8.5-10.1) 02/11/19 07:16 Total Bilirubin 0.3 mg/dL (0.2-1) 02/11/19 07:16 AST 14 U/L (15-37) L 02/11/19 07:16 ALT 11 U/L (13-61) L 02/11/19 07:16 Alkaline Phosphatase 57 U/L (45-117) 02/11/19 07:16 Total Protein 5.9 g/dl (6.4-8.2) L 02/11/19 07:16 Albumin 2.6 g/dl (3.4-5.0) L 02/11/19 07:16 CARDIAC ENZYMES Troponin I 0.02 ng/ml (0.00-0.05) 02/10/19 19:35 Home Medications Medication Instructions Recorded Salmeterol/Fluticasone [Advair 1 inh IH BID #0 inh 03/09/12 250Mcg/50Mcg -] Methadone HCl 100 mg PO DAILY 01/03/19 Amlodipine Besylate [Norvasc -] 10 mg PO DAILY #90 tablet 01/06/19 Ferrous Sulfate [Feosol] 325 mg PO DAILY #90 ud 01/06/19 Tamsulosin HCl [Flomax] 0.4 mg PO DAILY #90 capsule 01/06/19 Current Medications Generic Name Dose Route Start Last Admin Trade Name Freq PRN Reason Stop Dose Admin Albuterol Sulfate 1 amp 02/09/19 16:24 Ventolin 0.083% Nebulizer Soln - NEB Q4H PRN SHORT OF BREATH/WHEEZING Albuterol/Ipratropium 1 amp 02/09/19 16:00 02/11/19 15:53 Duoneb - NEB 1 amp RQID GILBERTO Administration Amlodipine Besylate 10 mg 02/10/19 10:00 02/11/19 09:17 Norvasc - PO 10 mg DAILY GILBERTO Administration Budesonide/Formoterol Fumarate 2 puff 02/10/19 10:00 02/11/19 09:18 Symbicort 80/4.5mcg - IH 2 puff BID GILBERTO Administration Docusate Sodium 100 mg 02/09/19 16:14 02/11/19 09:17 Colace - PO 100 mg BID PRN Administration CONSTIPATION Ferrous Sulfate 325 mg 02/10/19 10:00 02/11/19 09:16 Feosol - PO 325 mg DAILY GILBERTO Administration Heparin Sodium (Porcine) 5,000 unit 02/10/19 14:00 02/11/19 14:00 Heparin - SQ Not Given TID GILBERTO Doxycycline Hyclate 100 mg/ 100 mls @ 50 mls/hr 02/09/19 22:00 02/11/19 10:28 Dextrose IVPB 50 mls/hr BID GILBERTO Administration Piperacillin Sod/Tazobactam 50 mls @ 100 mls/hr 02/10/19 14:45 02/11/19 09:17 Sod 3.375 gm/ Dextrose IVPB 100 mls/hr Q8H-IV GILBERTO Administration Protocol Methadone HCl 80 mg/ Methadone 100 mg 02/10/19 10:00 02/11/19 05:44 HCl 20 mg PO 100 mg DAILY@0600 GILBERTO Administration Methylprednisolone Sodium Succinate 40 mg 02/09/19 18:00 02/11/19 09:17 Solu-Medrol - IVPB 40 mg Q8H-IV GILBERTO Administration Senna 2 tab 02/09/19 22:00 02/10/19 21:27 Senna - PO 2 tab HS GILBERTO Administration Tamsulosin HCl 0.4 mg 02/10/19 10:00 02/11/19 08:50 Flomax - PO 0.4 mg DAILY@0830 GILBERTO Administration Microbiology 02/09/19 18:33 Throat Throat Culture - Final NO BETA HEMOLYTIC STREPTOCOCCI ISOLATED 02/09/19 13:25 Blood - Peripheral Venous Blood Culture - Preliminary NO GROWTH OBTAINED AFTER 24 HOURS, INCUBATION TO CONTINUE FOR 4 DAYS. 02/09/19 13:25 Blood - Peripheral Venous Blood Culture - Preliminary NO GROWTH OBTAINED AFTER 24 HOURS, INCUBATION TO CONTINUE FOR 4 DAYS. EKG, sinus rhythm, prolonged QTC 504, PAcs ASSESSMENT AND PLAN: Patient is a 78yo m, with Pmhx of Hep C cirrhosis, CAD, s/p CT, COPD, polysubstance abuse on methadone, recent diagnosis of bladder cancer, who presented with SOB and productive cough. He was diagnosed with acute COPD exacerbation #Acute COPD exacerbation: continue nebs, steroids, flu neg, continue Symbicort. # Persistant right basilar opacity on Zosyn as per ID, as per iD to dc doxy #Non calcified left upper lobe opacity 0.4x0.2cm follow up in 3 months # Hematuria: due to bladder cancer. #HTN: ;cont norvasc #LUCIE: due to volume deplesion and hypotension : improved with IVF. cont as above #Hep C cirrhosis: not on any diuretics. has + shifting dullness on exam. f/u with GI for further management #H/o PSA: cont methadone DVT px: start heparin sq
[2019-02-11] MEDS ORDERED: PT OWN MED DRAWER 7, Y5N ONE ×4 (09:14→18:11)
[2019-02-11] MEDS: FERROUS SO4 325 MG TABLET (FP) PO SCH (09:16)
[2019-02-11] MEDS: amLODIPine BESYLATE 10 MG TABLET (FP) PO SCH (09:17)
[2019-02-11] MEDS: SODIUM CHLORIDE 1,000 ML IV SCH ×2 (09:18→16:13)
[2019-02-11] MEDS: BUDESONIDE/FORMETEROL FUMARATE 80/4.5 mcg INHALER IH SCH ×2 (09:18→22:24)
[2019-02-11] MEDS: DOXYCYCLINE INJECTION 100 MG in DEXTROSE 5%-WATER 100 ML IVPB SCH (10:28)
[2019-02-11] MEDS ORDERED: GLYCERIN 1 RECTAL SUPPOSITORY, ADULT PR ONE (12:50)
--- NOTE | 2019-02-11 14:33 | PN ---
Progress Note, Physician History of Present Illness: patient stbale still with breathing effort on nasal canula - Current Medication List Current Medications: Active Medications Albuterol Sulfate (Ventolin 0.083% Nebulizer Soln -) 1 amp NEB Q4H PRN PRN Reason: SHORT OF BREATH/WHEEZING Albuterol/Ipratropium (Duoneb -) 1 amp NEB RQID [facility] Last Admin: 02/11/19 11:01 Dose: 1 amp Amlodipine Besylate (Norvasc -) 10 mg PO DAILY [facility] Last Admin: 02/11/19 09:17 Dose: 10 mg Budesonide/Formoterol Fumarate (Symbicort 80/4.5mcg -) 2 puff IH BID [facility] Last Admin: 02/11/19 09:18 Dose: 2 puff Docusate Sodium (Colace -) 100 mg PO BID PRN PRN Reason: CONSTIPATION Last Admin: 02/11/19 09:17 Dose: 100 mg Ferrous Sulfate (Feosol -) 325 mg PO DAILY [facility] Last Admin: 02/11/19 09:16 Dose: 325 mg Heparin Sodium (Porcine) (Heparin -) 5,000 unit SQ TID [facility] Last Admin: 02/11/19 14:00 Dose: Not Given Doxycycline Hyclate 100 mg/ (Dextrose) 100 mls @ 50 mls/hr IVPB BID [facility] Last Admin: 02/11/19 10:28 Dose: 50 mls/hr Piperacillin Sod/Tazobactam (Sod 3.375 gm/ Dextrose) 50 mls @ 100 mls/hr IVPB Q8H-IV [facility]; Protocol Last Admin: 02/11/19 09:17 Dose: 100 mls/hr Methadone HCl 80 mg/ Methadone (HCl 20 mg) 100 mg PO DAILY@0600 [facility] Last Admin: 02/11/19 05:44 Dose: 100 mg Methylprednisolone Sodium Succinate (Solu-Medrol -) 40 mg IVPB Q8H-IV [facility] Last Admin: 02/11/19 09:17 Dose: 40 mg Senna (Senna -) 2 tab PO HS [facility] Last Admin: 02/10/19 21:27 Dose: 2 tab Tamsulosin HCl (Flomax -) 0.4 mg PO DAILY@0830 [facility] Last Admin: 02/11/19 08:50 Dose: 0.4 mg - Objective Vital Signs: Vital Signs Temperature 98.1 F 02/11/19 14:10 Pulse Rate 93 H 02/11/19 14:10 Respiratory Rate 19 02/11/19 10:00 Blood Pressure 121/68 02/11/19 14:10 O2 Sat by Pulse Oximetry (%) 90 L 02/11/19 09:00 Constitutional: Yes: Calm, Mild Distress Cardiovascular: Yes: S1, S2 Respiratory: Yes: Regular, On Nasal O2, Poor Air Entry Gastrointestinal: Yes: Normal Bowel Sounds, Soft Musculoskeletal: Yes: WNL Extremities: Yes: WNL Neurological: Yes: Alert, Oriented Psychiatric: Yes: Alert, Oriented Labs: CBC, BMP 02/11/19 07:16 02/11/19 07:16 INR, PTT INR 1.15 (0.83-1.09) H 02/09/19 13:25 Assessment/Plan 78 y/o male PMH HTN, COPD, chronic hypoxic resp failure, cirrhosis (Hep C), opioid dependence, [place] in , and urothelial [place] c/o SOB and cough. Sepsis COPD Hematuria LUCIE Normocytic anemia plan geovanni stop doxy' continue zosyn consider getting a swallow study resp support rest as per the team
--- NOTE | 2019-02-11 19:07 | PN ---
Physical Exam: SUBJECTIVE: Patient seen and examined at the bedside. He states his SOB has improved. He has no passed stool yet. He denies NGO, CP, and abdominal pain. OBJECTIVE: Vital Signs Period Temp Pulse Resp BP Sys/Flor Pulse Ox Last 24 Hr 97.7 F-99.2 F 92-100 - 102-136/45-73 90-90 GENERAL: AOx3, cachectic, in no acute distress, on 3L NC HEAD: NCAT EYES: ADAL, EOMI, conjunctiva clear. ENT: Ears normal, nares patent, oropharynx clear without exudates. Dry mucous membranes. NECK: +hepatojugular reflex, normal range of motion, supple without lymphadenopathy, JVD, or masses. LUNGS: Coarse crackles in all lung thomas. No accessory muscle use. HEART: RRR s1 s2 ABDOMEN: Soft, BS present in all 4 quadrants, non-distended. Dilated tortuous abdominal veins, + Hepatomegally. + shifting dullness MUSCULOSKELETAL: No bony deformities or tenderness. No CVA tenderness. UPPER EXTREMITIES: 2+ pulses, warm, well-perfused. No cyanosis. No clubbing. No peripheral edema. LOWER EXTREMITIES: 2+ pulses, warm, well-perfused. No calf tenderness. No peripheral edema. NEUROLOGICAL: No focal deficits. Cranial nerves II-XII intact. Normal speech. Normal gait. PSYCHIATRIC: Cooperative. Good eye contact. Appropriate mood and affect. SKIN: Warm, dry, normal turgor, no rashes or lesions noted, normal capillary refill. Laboratory Results - last 24 hr 02/09/19 02/09/19 02/10/19 13:25 19:00 19:35 WBC RBC Hgb Hct MCV MCH MCHC RDW Plt Count MPV Sodium Potassium Chloride Carbon Dioxide Anion Gap BUN Creatinine Est GFR (CKD-EPI)AfAm Est GFR (CKD-EPI)NonAf Random Glucose Calcium Phosphorus Magnesium Total Bilirubin AST ALT Alkaline Phosphatase Troponin I 0.02 Total Protein Albumin HIV 1&2 Ag/Ab, 4th Gen Non reactive RSV Rapid Negative 02/11/19 02/11/19 07:16 07:16 WBC 13.6 H RBC 3.34 L Hgb 9.3 L Hct 28.7 L MCV 85.9 MCH 27.8 MCHC 32.3 RDW 15.6 Plt Count 208 MPV 7.9 Sodium 139 Potassium 4.4 Chloride 107 Carbon Dioxide 26 Anion Gap 6 L BUN 22.1 H Creatinine 1.0 Est GFR (CKD-EPI)AfAm 82.60 Est GFR (CKD-EPI)NonAf 71.27 Random Glucose 151 H Calcium 8.5 Phosphorus 3.0 Magnesium 2.1 Total Bilirubin 0.3 AST 14 L ALT 11 L Alkaline Phosphatase 57 Troponin I Total Protein 5.9 L Albumin 2.6 L HIV 1&2 Ag/Ab, 4th Gen RSV Rapid Active Medications Generic Name Dose Route Start Last Admin Trade Name Freq PRN Reason Stop Dose Admin Albuterol Sulfate 1 amp 02/09/19 16:24 Ventolin 0.083% Nebulizer Soln - NEB Q4H PRN SHORT OF BREATH/WHEEZING Albuterol/Ipratropium 1 amp 02/09/19 16:00 02/11/19 15:53 Duoneb - NEB 1 amp RQID HUEY Administration Amlodipine Besylate 10 mg 02/10/19 10:00 02/11/19 09:17 Norvasc - PO 10 mg DAILY HUEY Administration Budesonide/Formoterol Fumarate 2 puff 02/10/19 10:00 02/11/19 09:18 Symbicort 80/4.5mcg - IH 2 puff BID HUEY Administration Docusate Sodium 100 mg 02/09/19 16:14 02/11/19 09:17 Colace - PO 100 mg BID PRN Administration CONSTIPATION Ferrous Sulfate 325 mg 02/10/19 10:00 02/11/19 09:16 Feosol - PO 325 mg DAILY HUEY Administration Heparin Sodium (Porcine) 5,000 unit 02/10/19 14:00 02/11/19 14:00 Heparin - SQ Not Given TID HUEY Piperacillin Sod/Tazobactam 50 mls @ 100 mls/hr 02/10/19 14:45 02/11/19 17:59 Sod 3.375 gm/ Dextrose IVPB 100 mls/hr Q8H-IV H[facility]Y Administration Protocol Methadone HCl 80 mg/ Methadone 100 mg 02/10/19 10:00 02/11/19 05:44 HCl 20 mg PO 100 mg DAILY@0600 HUEY Administration Methylprednisolone Sodium Succinate 40 mg 02/09/19 18:00 02/11/19 17:59 Solu-Medrol - IVPB 40 mg Q8H-IV HUEY Administration Senna 2 tab 02/09/19 22:00 02/10/19 21:27 Senna - PO 2 tab HS HUEY Administration Tamsulosin HCl 0.4 mg 02/10/19 10:00 02/11/19 08:50 Flomax - PO 0.4 mg DAILY@0830 HUEY Administration EKG demonstrates regular rate, sinus rhythm anterior septal infarct age indeterminate no ST elevations no T wave inversions IMAGING: CXR - COPD. NO infiltrates, congestive changes, pneumothorax. CT to be performed. ASSESSMENT/PLAN: 78 y/o male PMH HTN, COPD, chronic hypoxic resp failure, cirrhosis (Hep C), opioid dependence, [place] in , and urothelial [place] c/o SOB and cough. Has no passed stool yet and will offer enema. # Sepsis 2/2 CAP vs URI vs malignancy, resolved - No longer in sepsis - 1 month acute worsening - Green productive cough still present today - 30 lb/3 mo weight loss - F/u UA, - strep and flu NEGATIVE - F/u blood and urine cx - F/u Chest CT - ID REC: Zosyn 3.375 gm IV q8h - Consult heme/onc - HOLD IVF today # Urothelial Ca, hematuria - Seen by urology; describes non-compliance - Recommended to refer to oncology # COPD - Duonebs huey 1 amp rqid - Solu-medrol 40 mg IV q8h - Albuterol PRN - CXR: Possible opacity in RLL, above the diaphragm. CT of chest is pending. If CT is negative will dc above abx - Educated on smoking cessation. # LUCIE, resolved - IVF raised to 125 in AM and then brought down to 75 cc/hour # Normocytic anemia - H/H at baseline # Opioid dependence - Methodone 100 mg QD # CAD - No current regimen upon med rec # HTN - Hold as BP has been low - Home regimen: Amlodepine 10 mg PO QD and # Hypotension - Likely 2/2 vol depletion - Lactate 1.1 now # F/E/N - NS at 75 cc/hour - Cont. to monitor - Low sodium diet # DVT prophylaxis - Heparin now given malignancy # Disposition - Admit to med/surg Valerio Peralta MD Visit type - Emergency Visit Emergency Visit: No - New Patient This patient is new to me today: No - Critical Care Critical Care patient: No ATTENDING PHYSICIAN STATEMENT I saw and evaluated the patient. I reviewed the resident's note and discussed the case with the resident. I agree with the resident's findings and plan as documented. SUBJECTIVE: OBJECTIVE: ASSESSMENT AND PLAN:
--- NOTE | 2019-02-11 21:25 | CONSULT ---
Consult - text type - Consultation Consultation Note: 78 y/o male PMH HTN, COPD, chronic hypoxic resp failure, cirrhosis (Hep C), opioid dependence, CAD s/p [place] in 1997, and urothelial [place] c/o SOB and cough. He states that he has had long-standing SOB but within the last month it has worsened. He denies recent illness, sick contacts, and new meds/herbal/foods. He is an active smoker. He denies fevers, nausea, vomiting, diarrhea. He endorses chills and constipation (he relates it to methadone treatment). The pt reports a 30 lb weight loss over 3 months. He also has h/o hematuria which has resolved currently Family History: non-contributory at this time PAST MEDICAL HISTORY: HTN, COPD, chronic hypoxic resp failure, cirrhosis (Hep C ), opioid dependence, CAD s/p [place] in 1997, and urothelial CA PAST SURGICAL HISTORY: Angioplasty 1997, Hernia repair (RIH repair 25 yrs ago) Social History: Smoking: Active smokers 3-4 cig per day over last 6 years Alcohol:denies Drugs: Past heroin use, now attending methadone clinic Lives in a private home with son-in-law Allergies No Known Drug Allergies Allergy (Unknown, Verified 02/09/19 12:34) HOME MEDICATIONS: Home Medications Medication Instructions Recorded Salmeterol/Fluticasone [Advair 1 inh IH BID #0 inh 03/09/12 250Mcg/50Mcg -] Methadone HCl 100 mg PO DAILY 01/03/19 Amlodipine Besylate [Norvasc -] 10 mg PO DAILY #90 tablet 01/06/19 Budesonide/Formeterol Fumarate 2 puff IH BID #7 inhaler 01/06/19 [SYMBICORT 80/4.5mcg -] Ferrous Sulfate [Feosol] 325 mg PO DAILY #90 ud 01/06/19 Tamsulosin HCl [Flomax] 0.4 mg PO DAILY #90 capsule 01/06/19 Last Vital Signs Temp Pulse Resp BP Pulse Ox 98.0 F 99 H 20 120/64 90 L 02/12/19 13:55 02/12/19 13:55 02/12/19 10:48 02/12/19 13:55 02/12/19 08:25 Cor: RSR, No murmurs, No gallops Lungs: decreased at bases Abd: Soft, Normal bowel sounds, No organomegaly Ext:No significant edema Labs/meds reviewed EKG demonstrates regular rate, sinus rhythm anterior septal infarct age indeterminate no ST elevations no T wave inversions IMAGING: CXR - COPD. NO infiltrates, congestive changes, pneumothorax. ASSESSMENT/PLAN: 78 y/o male PMH HTN, COPD, chronic hypoxic resp failure, cirrhosis (Hep C), opioid dependence, [place] in , and bladder cancer c/o SOB and cough. 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 + invasion of muscularis propria Refusing surgery and ? candidacy given his pulmonary function Outpatient PET-CT will request rad-onc consult ? chemo- RT Discussed plan with patient
[2019-02-11] MEDS: SENNOSIDES 8.6MG TABLET (FP) PO SCH (22:19)
[2019-02-12] MEDS ORDERED: PIPERACILLIN/TAZOBACTAM 3.375 GM VIAL IVPB ONE ×3 (01:52→17:03)
[2019-02-12] MEDS ORDERED: DEXTROSE 5%-WATER - 50 ML IVPB ONE ×3 (01:52→17:03)
[2019-02-12] MEDS: PIPERACILLIN/TAZOB 3.375 GM 3.375 GM in DEXTROSE 5%-WATER - 50 ML IVPB SCH ×3 (01:57→18:15)
[2019-02-12] MEDS: methylPREDNISolone NA SUCC 40 MG/1 ML VIAL IVPB SCH ×3 (01:57→18:15)
[2019-02-12] MEDS ORDERED: METHADONE HCL 10 MG TABLET ONE (05:38)
[2019-02-12] MEDS ORDERED: METHADONE HCL 40 MG DISPERSABLE TABLET ONE (05:38)
[2019-02-12] MEDS: METHADONE 80 MG, METHADONE 20 MG PO SCH (05:40)
[2019-02-12] MEDS: HEPARIN NA (PORCINE) 5,000 UNITS/ML 1ML VIAL SQ SCH ×3 (05:42→22:10)
[2019-02-12 07:49] LABS: HEMATOCRIT 29.3 % (35.4-49); HEMOGLOBIN 9.6 GM/dL (11.7-16.9); MCH 27.8 pg (25.7-33.7); MCHC 32.6 g/dl (32.0-35.9); MEAN CELL VOLUME 85.3 fl (80-96); MEAN PLT VOLUME 8.1 fl (7.5-11.1); PLATELET COUNT 219 K/MM3 (134-434); RBC 3.44 M/mm3 (4.00-5.60); RDW 15.4 % (11.9-15.9); WHITE BLOOD COUNT 11.5 K/mm3 (4.0-10.0)
[2019-02-12 08:31] LABS: ALBUMIN 2.8 g/dl (3.4-5.0); BILIRUBIN,TOTAL 0.3 mg/dL (0.2-1); BLOOD UREA NITROGEN 21.3 mg/dL (7-18); CALCIUM 8.7 mg/dL (8.5-10.1); MAGNESIUM 2.2 mg/dL (1.8-2.4); PHOSPHOROUS 2.6 mg/dL (2.5-4.9); POTASSIUM 4.4 mmol/L (3.5-5.1); TOT PROT 6.2 g/dl (6.4-8.2)
[2019-02-12] MEDS: TAMSULOSIN HCL 0.4 MG CAP PO SCH (08:45)
[2019-02-12] MEDS: ALBUTEROL SO4 2.5/IPRATROPIUM 0.5 INH SOL 3 ML VIAL.NEB. NEB SCH ×4 (08:48→20:15)
[2019-02-12] MEDS: FERROUS SO4 325 MG TABLET (FP) PO SCH (09:29)
[2019-02-12] MEDS: amLODIPine BESYLATE 10 MG TABLET (FP) PO SCH (09:29)
[2019-02-12] MEDS: BUDESONIDE/FORMETEROL FUMARATE 80/4.5 mcg INHALER IH SCH ×2 (09:30→22:11)
--- NOTE | 2019-02-12 10:01 | PN ---
Progress Note, Physician History of Present Illness: patient stable says he is starting to feel better - Current Medication List Current Medications: Active Medications Albuterol Sulfate (Ventolin 0.083% Nebulizer Soln -) 1 amp NEB Q4H PRN PRN Reason: SHORT OF BREATH/WHEEZING Albuterol/Ipratropium (Duoneb -) 1 amp NEB RQID [facility] Last Admin: 02/12/19 08:48 Dose: 1 amp Amlodipine Besylate (Norvasc -) 10 mg PO DAILY [facility] Last Admin: 02/12/19 09:29 Dose: 10 mg Budesonide/Formoterol Fumarate (Symbicort 80/4.5mcg -) 2 puff IH BID [facility] Last Admin: 02/12/19 09:30 Dose: 2 puff Docusate Sodium (Colace -) 100 mg PO BID PRN PRN Reason: CONSTIPATION Last Admin: 02/11/19 09:17 Dose: 100 mg Ferrous Sulfate (Feosol -) 325 mg PO DAILY [facility] Last Admin: 02/12/19 09:29 Dose: 325 mg Heparin Sodium (Porcine) (Heparin -) 5,000 unit SQ TID [facility] Last Admin: 02/12/19 05:42 Dose: 5,000 unit Piperacillin Sod/Tazobactam (Sod 3.375 gm/ Dextrose) 50 mls @ 100 mls/hr IVPB Q8H-IV [facility]; Protocol Last Admin: 02/12/19 09:30 Dose: 100 mls/hr Methadone HCl 80 mg/ Methadone (HCl 20 mg) 100 mg PO DAILY@0600 [facility] Last Admin: 02/12/19 05:40 Dose: 100 mg Methylprednisolone Sodium Succinate (Solu-Medrol -) 40 mg IVPB Q8H-IV [facility] Last Admin: 02/12/19 09:29 Dose: 40 mg Senna (Senna -) 2 tab PO HS [facility] Last Admin: 02/11/19 22:19 Dose: 2 tab Tamsulosin HCl (Flomax -) 0.4 mg PO DAILY@0830 [facility] Last Admin: 02/12/19 08:45 Dose: 0.4 mg - Objective Vital Signs: Vital Signs Temperature 98.3 F 02/12/19 05:50 Pulse Rate 92 H 02/12/19 05:50 Respiratory Rate 20 02/12/19 08:25 Blood Pressure 126/76 02/12/19 05:50 O2 Sat by Pulse Oximetry (%) 90 L 02/12/19 08:25 Constitutional: Yes: No Distress, Calm Cardiovascular: Yes: S1, S2 Respiratory: Yes: Regular, On Nasal O2, Poor Air Entry Gastrointestinal: Yes: Normal Bowel Sounds, Soft, Ascites, Other (distended) Musculoskeletal: Yes: WNL Extremities: Yes: WNL Neurological: Yes: Alert, Oriented Psychiatric: Yes: Alert, Oriented Labs: CBC, BMP 02/12/19 06:05 02/12/19 06:05 INR, PTT INR 1.15 (0.83-1.09) H 02/09/19 13:25 Assessment/Plan 78 y/o male PMH HTN, COPD, chronic hypoxic resp failure, cirrhosis (Hep C), opioid dependence, [place] , and urothelial [place] c/o SOB and cough. Sepsis COPD Hematuria LUCIE Normocytic anemia hep c infiltrates in lungs plan continue current mgmt abx resp support rest as per the team
--- NOTE | 2019-02-12 14:58 | CONSULT ---
Admitting History and Physical - Primary Care Physician PCP: Kevyn Burleson - Admission History of Present Illness: 78 y/o male PMH HTN, COPD, chronic hypoxic resp failure, cirrhosis (Hep C), opioid dependence, [place] in , and urothelial CA c/o SOB and cough. Sepsis COPD Hematuria LUCIE Normocytic anemia Selected Entries 02/11/19 02/11/19 02/11/19 05:45 09:36 10:00 Breakfast 75% Diet Tolerated Well Lunch Temperature 97.7 F 98.0 F 02/11/19 02/11/19 02/11/19 14:10 20:00 21:40 Breakfast Diet Tolerated Well Lunch 75% Temperature 98.1 F 98 F 98.1 F 02/12/19 02/12/19 02/12/19 05:50 09:21 10:48 Breakfast 75% Diet Tolerated Well Lunch Temperature 98.3 F 98.5 F 02/12/19 13:55 Breakfast Diet Tolerated Well Lunch 75% Temperature 98.0 F Laboratory Tests 02/09/19 02/10/19 02/11/19 13:25 06:30 07:16 WBC 15.9 H 11.7 H 13.6 H 02/12/19 06:05 WBC 11.5 H On Puree/thin liquids. Pt is edentulous. He reports tolerating soft foods but wants meat pureed This is my first consult with this pt History Source: Patient Limitations to Obtaining History: No Limitations - Past Medical History Cardiovascular: Yes: HTN Pulmonary: Yes: COPD, Other (home O2) Renal/: Yes: BPH, Hematuria, UTI, Other (Bladder CA) - Past Surgical History Past Surgical History: Yes: Hernia Repair (RIH repair 25 yrs ago), TURP - Smoking History Smoking history: Current every day smoker Have you smoked in the past 12 months: Yes Aproximately how many cigarettes per day: 5 - Alcohol/Substance Use Hx Alcohol Use: No (denies) History of Substance Use: reports: Heroin - Social History ADL: Independent History of Recent Travel: No History - Admission Reason For Visit: ACUTE KIDNEY INJURY ACUTE EXACERBATION OF COPD - Diagnostics X-ray: Report Reviewed CT Scan: Report Reviewed - General Mental Status: Alert and Oriented, Awake and Alert, Able to Follow Commands Attention: Intact Ability to Follow Directions: Excellent Head/Neck Control: WFL - Hearing Hearing: Normal Speech Evaluation - Communication Primary Language: VIET[place]ESE Communication: Yes: Within Normal Limits Oral Expression Ability: Yes: No Impairment - Speech Production Able to Make Needs Known: Yes: WNL Intelligibility: Yes: WNL - Speech Characteristics Voice Loudness: Normal Voice Pitch: Yes: Normal Voice Phonatory-based Quality: Yes: Normal Speech Pattern: Normal Nasal Resonance: Normal Articulation: Yes: Precise Rate of Speech: Intact - Language/Auditory Comprehension Follows: Yes: 2 Stage Simple Commands - Language/Verbal Expression Able to Respond to Simple Queries: Yes: WNL Able to Communicate Wants and Needs: Yes: WNL Functional Communication Status: Yes: WNL - Swallow Evaluation/Bedside Assessment Current Nutritional Intake: Dysphagia Pureed, Thin Liquids Oral Secretions: Yes: WFL Dentition: Yes: Edentulous Facial Symmetry at Rest: Symmetrical Facial Symmetry on Retraction: Symmetrical Sensation: Normal Against Resistance Opening: Normal Against Resistance Closing: Normal Pucker Lips: Normal Smile: Normal Lingual Movement: Normal, Symmetric Lingual Speed of Movement: Normal Lingual Movement Strgth Against Opposition: Normal Lingual Movement Characteristics: Normal Velopharyngeal Movement: Normal Laryngeal Elevation: WFL Laryngeal Movement: Able to Palpate Rate of Intake: WFL Bolus Size: WFL Labial Seal: WFL Chewing: Impaired (limited. No dentition) Oral Prep Time: WFL A-P Transit: WFL Pocketing: None Timing of Swallow: WFL Coughing/Throat Clear: No Change in Voice: No Recommendations - Speech Evaluation, Impression/Plan Impression: Pt is edentulous. He reports tolerating soft foods but wants meat pureed - Dysphagia Impressions/Plan Dysphagia Impressions: Ongoing Evaluation *Silent aspiration: cannot be R/O at bedside Dysphagia Treatment Plan: OOB for meals, OOB for 1 h. after meals - Recommendations Diet Consistency: Regular (soft, easy to chew, with pureed meat) Liquids: Thin Liquids Supplement: Ensure (vanilla ensure enlive), Magic Cup
--- NOTE | 2019-02-12 15:41 | PN ---
Physical Exam: SUBJECTIVE: Patient seen and examined at the bedside. He states his SOB has improved and he feel much better today. He has successfully passed stool s/p glycerin enema. He denies NGO, CP, and abdominal pain. OBJECTIVE: Vital Signs Period Temp Pulse Resp BP Sys/Flor Pulse Ox Last 24 Hr 98 F-98.5 F 91-100 20-20 114-135/58-81 90-90 GENERAL: AOx3, cachectic, in no acute distress, on 3L NC HEAD: NCAT EYES: ADAL, EOMI, conjunctiva clear. ENT: Ears normal, nares patent, oropharynx clear without exudates. Dry mucous membranes. NECK: +hepatojugular reflex, normal range of motion, supple without lymphadenopathy, JVD, or masses. LUNGS: CTAB with end expiratory wheeze at apex BL. Less crackles today. No accessory muscle use. HEART: RRR s1 s2 ABDOMEN: Soft, BS present in all 4 quadrants, non-distended. Dilated tortuous abdominal veins, + Hepatomegally. + shifting dullness MUSCULOSKELETAL: No bony deformities or tenderness. No CVA tenderness. UPPER EXTREMITIES: 2+ pulses, warm, well-perfused. No cyanosis. No clubbing. No peripheral edema. LOWER EXTREMITIES: 2+ pulses, warm, well-perfused. No calf tenderness. No peripheral edema. NEUROLOGICAL: No focal deficits. Cranial nerves II-XII intact. Normal speech. Normal gait. PSYCHIATRIC: Cooperative. Good eye contact. Appropriate mood and affect. SKIN: Warm, dry, normal turgor, no rashes or lesions noted, normal capillary refill. Laboratory Results - last 24 hr 02/12/19 02/12/19 06:05 06:05 WBC 11.5 H RBC 3.44 L Hgb 9.6 L Hct 29.3 L MCV 85.3 MCH 27.8 MCHC 32.6 RDW 15.4 Plt Count 219 MPV 8.1 Sodium 140 Potassium 4.4 Chloride 106 Carbon Dioxide 27 Anion Gap 7 L BUN 21.3 H Creatinine 1.0 Est GFR (CKD-EPI)AfAm 82.60 Est GFR (CKD-EPI)NonAf 71.27 Random Glucose 88 Calcium 8.7 Phosphorus 2.6 Magnesium 2.2 Total Bilirubin 0.3 AST 17 ALT 15 Alkaline Phosphatase 58 Total Protein 6.2 L Albumin 2.8 L Active Medications Albuterol Sulfate (Ventolin 0.083% Nebulizer Soln -) 1 amp NEB Q4H PRN PRN Reason: SHORT OF BREATH/WHEEZING Albuterol/Ipratropium (Duoneb -) 1 amp NEB RQID [facility] Last Admin: 02/12/19 11:51 Dose: 1 amp Amlodipine Besylate (Norvasc -) 10 mg PO DAILY [facility] Last Admin: 02/12/19 09:29 Dose: 10 mg Budesonide/Formoterol Fumarate (Symbicort 80/4.5mcg -) 2 puff IH BID [facility] Last Admin: 02/12/19 09:30 Dose: 2 puff Docusate Sodium (Colace -) 100 mg PO BID PRN PRN Reason: CONSTIPATION Last Admin: 02/11/19 09:17 Dose: 100 mg Ferrous Sulfate (Feosol -) 325 mg PO DAILY [facility] Last Admin: 02/12/19 09:29 Dose: 325 mg Heparin Sodium (Porcine) (Heparin -) 5,000 unit SQ TID [facility] Last Admin: 02/12/19 14:24 Dose: 5,000 unit Piperacillin Sod/Tazobactam (Sod 3.375 gm/ Dextrose) 50 mls @ 100 mls/hr IVPB Q8H-IV [facility]; Protocol Last Admin: 02/12/19 09:30 Dose: 100 mls/hr Methadone HCl 80 mg/ Methadone (HCl 20 mg) 100 mg PO DAILY@0600 [facility] Last Admin: 02/12/19 05:40 Dose: 100 mg Methylprednisolone Sodium Succinate (Solu-Medrol -) 40 mg IVPB Q8H-IV [facility] Last Admin: 02/12/19 09:29 Dose: 40 mg Senna (Senna -) 2 tab PO HS [facility] Last Admin: 02/11/19 22:19 Dose: 2 tab Tamsulosin HCl (Flomax -) 0.4 mg PO DAILY@0830 [facility] Last Admin: 02/12/19 08:45 Dose: 0.4 mg EKG demonstrates regular rate, sinus rhythm anterior septal infarct age indeterminate no ST elevations no T wave inversions IMAGING: CXR - COPD. NO infiltrates, congestive changes, pneumothorax. CT -trace BL pleural effusions. RIGHT basilar opacity most likely atelectasis. 0.4x0.2 cm nodule LEFT upper lobe ant segment. No obvious lymphadenopathy. Liver with diffuse surface irregularities indicative of cirrhosis. RIGHT hydronephrosis. CBD dilation (no measurement included). Subacute L2 compression fracture. ASSESSMENT/PLAN: 78 y/o male PMH HTN, COPD, chronic hypoxic resp failure, cirrhosis (Hep C), opioid dependence, [place] in , and urothelial CA c/o SOB and cough. Has now passed stool. Will f/u with oncology recommendations. # Sepsis 2/2 CAP vs URI vs malignancy, resolved - No longer in sepsis - 1 month acute worsening - Green productive cough NOT present today - 30 lb/3 mo weight loss - F/u UA - Strep and flu NEGATIVE - F/u blood and urine cx - Throat culture NEG - CT chest: Trace BL pleural effusions. RIGHT basilar opacity most likely atelectasis. 0.4x0.2 cm nodule LEFT upper lobe ant segment. No obvious lymphadenopathy. Liver with diffuse surface irregularities indicative of cirrhosis. RIGHT hydronephrosis. CBD dilation (no measurement included). Subacute L2 compression fracture. - F/u heme/onc rec - ID REC: Zosyn 3.375 gm IV q8h (day 3) - HOLD IVF today # Urothelial Ca, hematuria - Seen by urology; describes non-compliance - F/u heme/onc rec # COPD - Duonebs huey 1 amp rqid - Solu-medrol 40 mg IV q8h - Albuterol PRN - CXR: Possible opacity in RLL, above the diaphragm. CT of chest is pending. If CT is negative will dc above abx - Educated on smoking cessation. # LUCIE, resolved - Hold IVF # Normocytic anemia - H/H at baseline # Opioid dependence - Methadone 100 mg QD, confirmed # CAD - No current regimen upon med rec # HTN - Hold as BP has been low - Home regimen: Amlodepine 10 mg PO QD, HOLD # Hypotension - Likely 2/2 vol depletion - Lactate 1.1 now # Severe protein calorie malnutrition - 30 lb weight loss of 3 months - CA and difficulty chewing - Albumin 2.7 - Low sodium diet. Soft, easy to chew, with pureed meat. Thin Liquids. Supplement: Ensure (vanilla ensure enlive), Magic Cup. # F/E/N - PO - Cont. to monitor - Low sodium diet. Soft, easy to chew, with pureed meat. Thin Liquids. Supplement: Ensure (vanilla ensure enlive), Magic Cup. # DVT prophylaxis - Heparin # Disposition - Med/surg - Est GOC Valerio Peralta MD Visit type - Emergency Visit Emergency Visit: No - New Patient This patient is new to me today: No - Critical Care Critical Care patient: No - Discharge Referral Referred to [facility] Med P.C.: No ATTENDING PHYSICIAN STATEMENT I saw and evaluated the patient. I reviewed the resident's note and discussed the case with the resident. I agree with the resident's findings and plan as documented. SUBJECTIVE: OBJECTIVE: ASSESSMENT AND PLAN:
--- NOTE | 2019-02-12 16:56 | PN ---
Teaching Attending Note Name of Resident: Valerio Peralta ATTENDING PHYSICIAN STATEMENT I saw and evaluated the patient. I reviewed the resident's note and discussed the case with the resident. I agree with the resident's findings and plan as documented. SUBJECTIVE: Patient is comfortable with no acute distress. Vital Signs Temperature 98.0 F 02/12/19 13:55 Pulse Rate 99 H 02/12/19 13:55 Respiratory Rate 20 02/12/19 10:48 Blood Pressure 120/64 02/12/19 13:55 O2 Sat by Pulse Oximetry (%) 90 L 02/12/19 08:25 GENERAL: The patient is awake, alert, and fully oriented, in no acute distress. HEAD: Normal with no signs of trauma. EYES: PERRL, EOMI , sclera anicteric, conjunctiva clear. ENT: Ears normal, oropharynx clear without exudates, moist mucous membranes. NECK: Trachea midline, full range of motion, supple. LUNGS: Breath sounds equal, clear to auscultation bilaterally, no wheezes, no crackles, no accessory muscle use. HEART: Regular rate and rhythm, S1, S2 without murmur, rub or gallop. ABDOMEN: BS+, pulsating mass, + shifting dullness. reducible supra umbilical hernia. NT, NL BS . No splenomegaly EXTREMITIES: 2+ pulses, warm, well-perfused, no edema. NEUROLOGICAL: Cranial nerves II through XII grossly intact. Normal speech, gait not observed. PSYCH: Normal mood, normal affect. SKIN: Warm, dry, normal turgor, no rashes or lesions noted CBCD WBC 11.5 K/mm3 (4.0-10.0) H 02/12/19 06:05 RBC 3.44 M/mm3 (4.00-5.60) L 02/12/19 06:05 Hgb 9.6 GM/dL (11.7-16.9) L 02/12/19 06:05 Hct 29.3 % (35.4-49) L 02/12/19 06:05 MCV 85.3 fl (80-96) 02/12/19 06:05 MCHC 32.6 g/dl (32.0-35.9) 02/12/19 06:05 RDW 15.4 % (11.9-15.9) 01/02/20 06:05 Plt Count 219 K/MM3 (134-434) 02/12/19 06:05 MPV 8.1 fl (7.5-11.1) 02/12/19 06:05 CMP Sodium 140 mmol/L (136-145) 02/12/19 06:05 Potassium 4.4 mmol/L (3.5-5.1) 02/12/19 06:05 Chloride 106 mmol/L (98-107) 02/12/19 06:05 Carbon Dioxide 27 mmol/L (21-32) 02/12/19 06:05 Anion Gap 7 MMOL/L (8-16) L 02/12/19 06:05 BUN 21.3 mg/dL (7-18) H 02/12/19 06:05 Creatinine 1.0 mg/dL (0.55-1.3) 02/12/19 06:05 Random Glucose 88 mg/dL (74-106) 02/12/19 06:05 Calcium 8.7 mg/dL (8.5-10.1) 02/12/19 06:05 Total Bilirubin 0.3 mg/dL (0.2-1) 02/12/19 06:05 AST 17 U/L (15-37) 02/12/19 06:05 ALT 15 U/L (13-61) 02/12/19 06:05 Alkaline Phosphatase 58 U/L (45-117) 02/12/19 06:05 Total Protein 6.2 g/dl (6.4-8.2) L 02/12/19 06:05 Albumin 2.8 g/dl (3.4-5.0) L 02/12/19 06:05 CARDIAC ENZYMES Troponin I 0.02 ng/ml (0.00-0.05) 02/10/19 19:35 Current Medications Generic Name Dose Route Start Last Admin Trade Name Freq PRN Reason Stop Dose Admin Albuterol Sulfate 1 amp 02/09/19 16:24 Ventolin 0.083% Nebulizer Soln - NEB Q4H PRN SHORT OF BREATH/WHEEZING Albuterol/Ipratropium 1 amp 02/09/19 16:00 02/12/19 16:04 Duoneb - NEB 1 amp RQID GILBERTO Administration Amlodipine Besylate 10 mg 02/10/19 10:00 02/12/19 09:29 Norvasc - PO 10 mg DAILY GILBERTO Administration Budesonide/Formoterol Fumarate 2 puff 02/10/19 10:00 02/12/19 09:30 Symbicort 80/4.5mcg - IH 2 puff BID GILBERTO Administration Docusate Sodium 100 mg 02/09/19 16:14 02/11/19 09:17 Colace - PO 100 mg BID PRN Administration CONSTIPATION Ferrous Sulfate 325 mg 02/10/19 10:00 02/12/19 09:29 Feosol - PO 325 mg DAILY GILBERTO Administration Heparin Sodium (Porcine) 5,000 unit 02/10/19 14:00 02/12/19 14:24 Heparin - SQ 5,000 unit TID GILBERTO Administration Piperacillin Sod/Tazobactam 50 mls @ 100 mls/hr 02/10/19 14:45 02/12/19 09:30 Sod 3.375 gm/ Dextrose IVPB 100 mls/hr Q8H-IV GILBERTO Administration Protocol Methadone HCl 80 mg/ Methadone 100 mg 02/10/19 10:00 02/12/19 05:40 HCl 20 mg PO 100 mg DAILY@0600 GILBERTO Administration Methylprednisolone Sodium Succinate 40 mg 02/09/19 18:00 02/12/19 09:29 Solu-Medrol - IVPB 40 mg Q8H-IV GILBERTO Administration Senna 2 tab 02/09/19 22:00 02/11/19 22:19 Senna - PO 2 tab HS GILBERTO Administration Tamsulosin HCl 0.4 mg 02/10/19 10:00 02/12/19 08:45 Flomax - PO 0.4 mg DAILY@0830 GILBERTO Administration Home Medications Medication Instructions Recorded Salmeterol/Fluticasone [Advair 1 inh IH BID #0 inh 03/09/12 250Mcg/50Mcg -] Methadone HCl 100 mg PO DAILY 01/03/19 Amlodipine Besylate [Norvasc -] 10 mg PO DAILY #90 tablet 01/06/19 Ferrous Sulfate [Feosol] 325 mg PO DAILY #90 ud 01/06/19 Tamsulosin HCl [Flomax] 0.4 mg PO DAILY #90 capsule 01/06/19 Microbiology 02/09/19 18:33 Throat Throat Culture - Final NO BETA HEMOLYTIC STREPTOCOCCI ISOLATED 02/09/19 13:25 Blood - Peripheral Venous Blood Culture - Preliminary NO GROWTH OBTAINED AFTER 24 HOURS, INCUBATION TO CONTINUE FOR 4 DAYS. 02/09/19 13:25 Blood - Peripheral Venous Blood Culture - Preliminary NO GROWTH OBTAINED AFTER 24 HOURS, INCUBATION TO CONTINUE FOR 4 DAYS. EKG, sinus rhythm, prolonged QTC 504, PAcs ASSESSMENT AND PLAN: Patient is a 78yo m, with Pmhx of Hep C cirrhosis, CAD, s/p NH, COPD, polysubstance abuse on methadone, recent diagnosis of bladder cancer, who presented with SOB and productive cough. He was diagnosed with acute COPD exacerbation #Acute COPD exacerbation: continue nebs, steroids, flu neg, continue Symbicort. #Persistant right basilar opacity on Zosyn as per ID, as per iD to dc doxy #Non calcified left upper lobe opacity 0.4x0.2cm follow up in 3 months #Hematuria: due to bladder cancer. #HTN: ;cont norvasc #LUCIE: due to volume deplesion and hypotension : improved with IVF. cont as above #Hep C cirrhosis: not on any diuretics, f/u with GI for further management #H/o PSA: cont methadone #Infrarenal Aortic aneurysm 4.4cm: as per Vascular surgeon; nothing to do. #Right moderate hydronephrosis: DVT px: start heparin sq
--- NOTE | 2019-02-12 17:29 | CON.GI ---
Consult Consult Specialty:: GI Referred by:: Hospitalist Service Reason for Consultation:: hepatitis C and shifting dullness on physical exam - History of Present Illness Chief Complaint: Shortness of breath. Patient is a poor historian History of Present Illness: 78M admitted for evaluation of SOB/Cough. Also described 30 pound weight loss in last three months. has ? new diagnosis of bladder cancer. ID, Hematology, Speech and swallow evaluations called. Asked to comment of hepatitis C + and shifting dullness. Patient states that he has an enlarged liver. he has a history of heroin abuse and was hepatitis C antibody positive 12/30 with a negative HCV quantitative PCR. Mr. Dos Santos does recall being treated for hepatitis C several years ago. He describes chronic constipation. He denies abdominal pain. He cannot recall whom his his PMD is or if he has had EGD/ Colonoscopy in the past. There is no family history of colorectal cancer or other GI malignancy. - History Source History Provided By: Patient, Medical Record Limitations to Obtaining History: Poor Historian - Past Medical History Cardio/Vascular: Yes: HTN Pulmonary: Yes: COPD (on home O2) Hepatobiliary: Yes: Other (Question of cirrhosis) Renal/: Yes: BPH, Hematuria, UTI, Other (Bladder CA) - Past Surgical History Past Surgical History: Yes: Hernia Repair (RIH repair 25 yrs ago), TURP - Alcohol/Substance Use Hx Alcohol Use: No (denies) History of Substance Use: reports: Heroin - Smoking History Smoking history: Current every day smoker Have you smoked in the past 12 months: Yes Aproximately how many cigarettes per day: 5 - Social History ADL: Independent Place of : [facility] History of Recent Travel: No Home Medications - Allergies Allergies/Adverse Reactions: Allergies Allergy/AdvReac Type Severity Reaction Status Date / Time No Known Drug Allergies Allergy Unknown Verified 02/09/19 12:34 - Home Medications Home Medications: Ambulatory Orders Salmeterol/Fluticasone [Advair 250Mcg/50Mcg -] 1 inh IH BID #0 inh 03/09/12 Methadone HCl 100 mg PO DAILY 01/03/19 Amlodipine Besylate [Norvasc -] 10 mg PO DAILY #90 tablet 01/06/19 Ferrous Sulfate [Feosol] 325 mg PO DAILY #90 ud 01/06/19 Tamsulosin HCl [Flomax] 0.4 mg PO DAILY #90 capsule 01/06/19 Family Medical History Other Family History: Mother: : 80's: Old age. Father: : 59: alcoholism. 1 brother: : burned. 1 son, 1 daughter: both . He was unsure of the causes Review of Systems - Review of Systems Constitutional: reports: Unintentional Wgt. Loss. denies: Chills, Fever Gastrointestinal: reports: Constipation. denies: Abdominal Pain, Diarrhea, Dysphagia, Melena, Rectal Bleeding, Vomiting, Vomiting Blood Physical Exam-GI Vital Signs: Vital Signs Temperature 98.0 F 02/12/19 13:55 Pulse Rate 99 H 02/12/19 13:55 Respiratory Rate 02/12/19 10:48 Blood Pressure 120/64 02/12/19 13:55 O2 Sat by Pulse Oximetry (%) 90 L 02/12/19 08:25 Constitutional: Yes: Calm Eyes: No: Sclera Icterus Cardiovascular: Yes: Regular Rate and Rhythm. No: Murmur Respiratory: Yes: CTA Bilaterally Gastrointestinal Inspection: Yes: Hernia (redicible hernia cephalad to umbilicus ). No: Distention ...Auscultate: Yes: Normoactive Bowel Sounds ...Palpate: Yes: Soft. No: Hepatomegaly, Splenomegaly, Tenderness ...Rectal Exam: Yes: Other (No external lesions, no masses, hard stool balls in rectal vault (patient refused manual disimpaction)) Edema: No (No LE edema) Neurological: Yes: Alert. No: [facility] Labs: CBC, BMP 02/12/19 06:05 02/12/19 06:05 INR, PTT INR 1.15 (0.83-1.09) H 02/09/19 13:25 Problem List - Problems (1) Hepatitis C antibody positive in blood Assessment/Plan: quantitative PCR negative 12/30. Either cleared on its own or treated (patient recall being treated) Could not appreciate shifting dullness on my exam Agree with abdominal US to evaluate liver parenchyma and for ascites In terms of weight loss, he has a recent diagnosis of cancer. I also discussed with him when medically optimized, EGD/coolonoscopy to exclude GI tract pathology that can lead to weight loss such as cancers. He has refused these tests Await abdominal US. If unrevealing, obtain CT scan of the abdomen and pelvis with and without contrast (triple phase) Code(s): R76.8 - OTHER SPECIFIED ABNORMAL IMMUNOLOGICAL FINDINGS IN SERUM (2) Constipation Assessment/Plan: Likely chronic opioid use contributing Refused manual disimpaction Mineral oil enema 1 CT daily for 4 days MiraLAX 17g BID added to bowel regimen and I stopped colace Code(s): K59.00 - CONSTIPATION, UNSPECIFIED
[2019-02-12] MEDS ORDERED: INSULIN (LEVEMIR) 100 UNITS/ML UNITS SQ ONE (17:50)
[2019-02-12] MEDS: MINERAL OIL ENEMA 133 ML ENEMA PR SCH (18:51)
[2019-02-12] MEDS: SENNOSIDES 8.6MG TABLET (FP) PO SCH (22:10)
[2019-02-12] MEDS: POLYETHYLENE GLYCOL 3350 119 GM BTL PO SCH (22:12)
[2019-02-13] MEDS ORDERED: DEXTROSE 5%-WATER - 50 ML IVPB ONE ×3 (01:32→16:49)
[2019-02-13] MEDS ORDERED: PIPERACILLIN/TAZOBACTAM 3.375 GM VIAL IVPB ONE ×3 (01:32→16:49)
[2019-02-13] MEDS: PIPERACILLIN/TAZOB 3.375 GM 3.375 GM in DEXTROSE 5%-WATER - 50 ML IVPB SCH ×3 (01:38→17:03)
[2019-02-13] MEDS: methylPREDNISolone NA SUCC 40 MG/1 ML VIAL IVPB SCH ×3 (01:38→17:03)
[2019-02-13 02:29] LABS: EPI CELLS 0.6 /HPF (0-5/HPF); HYALINE CASTS 0 /lpf (0-8); URINE APPEARANCE CLEAR; URINE BACTERIA 0.8 /hpf (NEGATIVE); URINE BILIRUBIN NEGATIVE (NEGATIVE); URINE COLOR YELLOW; URINE GLUCOSE (UA) NEGATIVE (NEGATIVE); URINE KETONE NEGATIVE (NEGATIVE); URINE LEUK ESTERASE TRACE (NEGATIVE); URINE NITRITE NEGATIVE (NEGATIVE); URINE PROTEIN NEGATIVE (NEGATIVE); URINE RBC 1 /hpf (0-4); URINE UROBILINOGEN 0.2 mg/dL (0.2-1.0); URINE WBC 6 /hpf (0-5)
[2019-02-13] MEDS ORDERED: METHADONE HCL 10 MG TABLET ONE (05:12)
[2019-02-13] MEDS ORDERED: METHADONE HCL 40 MG DISPERSABLE TABLET ONE (05:13)
[2019-02-13] MEDS: METHADONE 80 MG, METHADONE 20 MG PO SCH (05:57)
[2019-02-13] MEDS: HEPARIN NA (PORCINE) 5,000 UNITS/ML 1ML VIAL SQ SCH ×3 (06:07→21:19)
[2019-02-13] MEDS: ALBUTEROL SO4 2.5/IPRATROPIUM 0.5 INH SOL 3 ML VIAL.NEB. NEB SCH ×4 (07:33→21:15)
[2019-02-13 08:10] LABS: HEMATOCRIT 30.4 % (35.4-49); MCH 28.1 pg (25.7-33.7); MCHC 32.9 g/dl (32.0-35.9); MEAN CELL VOLUME 85.4 fl (80-96); MEAN PLT VOLUME 7.9 fl (7.5-11.1); PLATELET COUNT 217 K/MM3 (134-434); RBC 3.55 M/mm3 (4.00-5.60); RDW 15.4 % (11.9-15.9); WHITE BLOOD COUNT 9.2 K/mm3 (4.0-10.0)
[2019-02-13 08:30] LABS: ALBUMIN 2.8 g/dl (3.4-5.0); BILIRUBIN,TOTAL 0.3 mg/dL (0.2-1); BLOOD UREA NITROGEN 26.8 mg/dL (7-18); CALCIUM 8.8 mg/dL (8.5-10.1); PHOSPHOROUS 2.8 mg/dL (2.5-4.9); POTASSIUM 4.4 mmol/L (3.5-5.1); TOT PROT 6.4 g/dl (6.4-8.2)
[2019-02-13] MEDS: TAMSULOSIN HCL 0.4 MG CAP PO SCH (09:00)
[2019-02-13] MEDS: POLYETHYLENE GLYCOL 3350 119 GM BTL PO SCH ×2 (09:15→21:19)
[2019-02-13] MEDS: BUDESONIDE/FORMETEROL FUMARATE 80/4.5 mcg INHALER IH SCH ×2 (09:20→21:19)
[2019-02-13] MEDS: amLODIPine BESYLATE 10 MG TABLET (FP) PO SCH (09:21)
--- NOTE | 2019-02-13 09:54 | PN ---
Physical Exam: SUBJECTIVE: Patient seen and examined at bedside. He is resting comfortably and feels well; he offers no complaints. He states that his initial concerns of hematuria, hematochezia, and hemoptysis have not recurred since prior to admission. He denies SOB, CP, and abdominal pain. OBJECTIVE: Vital Signs Period Temp Pulse Resp BP Sys/Flor Pulse Ox Last 24 Hr 98 F-98.5 F 88-99 20-20 120-146/64-85 90-91 GENERAL: AOx3, cachectic, in no acute distress, on 3L NC HEAD: NCAT EYES: ADAL, EOMI, conjunctiva clear. ENT: Ears normal, nares patent, oropharynx clear without exudates. Dry mucous membranes. NECK: +hepatojugular reflex, normal range of motion, supple without lymphadenopathy, JVD, or masses. LUNGS: CTAB with end expiratory wheeze at apex BL. Less crackles today. No accessory muscle use. HEART: RRR s1 s2 ABDOMEN: Soft, BS present in all 4 quadrants, non-distended. Dilated tortuous abdominal veins, +Hepatomegally. +shifting dullness MUSCULOSKELETAL: No bony deformities or tenderness. No CVA tenderness. UPPER EXTREMITIES: 2+ pulses, warm, well-perfused. No cyanosis. No clubbing. No peripheral edema. LOWER EXTREMITIES: 2+ pulses, warm, well-perfused. No calf tenderness. No peripheral edema. NEUROLOGICAL: No focal deficits. Cranial nerves II-XII intact. Normal speech. Normal gait. PSYCHIATRIC: Cooperative. Good eye contact. Appropriate mood and affect. SKIN: Warm, dry, normal turgor, no rashes or lesions noted, normal capillary refill. Laboratory Results - last 24 hr 02/13/19 02/13/19 02/13/19 02:00 07:20 07:20 WBC 9.2 RBC 3.55 L Hgb 10.0 L Hct 30.4 L MCV 85.4 MCH 28.1 MCHC 32.9 RDW 15.4 Plt Count 217 MPV 7.9 Sodium 137 Potassium 4.4 Chloride 102 Carbon Dioxide 30 Anion Gap 5 L BUN 26.8 H Creatinine 1.0 Est GFR (CKD-EPI)AfAm 82.60 Est GFR (CKD-EPI)NonAf 71.27 Random Glucose 125 H Calcium 8.8 Phosphorus 2.8 Total Bilirubin 0.3 AST 23 ALT 19 Alkaline Phosphatase 62 Total Protein 6.4 Albumin 2.8 L Urine Color Yellow Urine Appearance Clear Urine pH 7.0 D Ur Specific Sachse 1.012 Urine Protein Negative Urine Glucose (UA) Negative Urine Ketones Negative Urine Blood Negative Urine Nitrite Negative Urine Bilirubin Negative Urine Urobilinogen 0.2 Ur Leukocyte Esterase Trace Urine WBC (Auto) 6 Urine RBC (Auto) 1 Urine Casts (Auto) 0 U Epithel Cells (Auto) 0.6 Urine Bacteria (Auto) 0.8 Active Medications Generic Name Dose Route Start Last Admin Trade Name Freq PRN Reason Stop Dose Admin Albuterol Sulfate 1 amp 02/09/19 16:24 Ventolin 0.083% Nebulizer Soln - NEB Q4H PRN SHORT OF BREATH/WHEEZING Albuterol/Ipratropium 1 amp 02/09/19 16:00 02/13/19 07:33 Duoneb - NEB 1 amp RQID HUEY Administration Amlodipine Besylate 10 mg 02/10/19 10:00 02/13/19 09:21 Norvasc - PO 10 mg DAILY HUEY Administration Budesonide/Formoterol Fumarate 2 puff 02/10/19 10:00 02/13/19 09:20 Symbicort 80/4.5mcg - IH 2 puff BID HUEY Administration Heparin Sodium (Porcine) 5,000 unit 02/10/19 14:00 02/13/19 06:07 Heparin - SQ 5,000 unit TID HUEY Administration Piperacillin Sod/Tazobactam 50 mls @ 100 mls/hr 02/10/19 14:45 02/13/19 09:18 Sod 3.375 gm/ Dextrose IVPB 100 mls/hr Q8H-IV HUEY Administration Protocol Methadone HCl 80 mg/ Methadone 100 mg 02/10/19 10:00 02/13/19 05:57 HCl 20 mg PO 100 mg DAILY@0600 HUEY Administration Methylprednisolone Sodium Succinate 40 mg 02/09/19 18:00 02/13/19 09:20 Solu-Medrol - IVPB 40 mg Q8H-IV HUEY Administration Mineral Oil 133 ml 02/12/19 17:45 02/12/19 18:51 Fleet Mineral Oil Rectal Enema - NC 02/16/19 17:44 133 ml DAILY HUEY Administration Polyethylene Glycol 17 gm 02/12/19 22:00 02/13/19 09:15 Miralax (For Daily Use) - PO Not Given BID HUEY Senna 2 tab 02/09/19 22:00 02/12/19 22:10 Senna - PO 2 tab HS HUEY Administration Tamsulosin HCl 0.4 mg 02/10/19 10:00 02/13/19 09:00 Flomax - PO 0.4 mg DAILY@0830 HUEY Administration EKG demonstrates regular rate, sinus rhythm anterior septal infarct age indeterminate no ST elevations no T wave inversions IMAGING: >CXR - COPD. NO infiltrates, congestive changes, pneumothorax. > Chest CT -trace BL pleural effusions. RIGHT basilar opacity most likely atelectasis. 0.4x0.2 cm nodule LEFT upper lobe ant segment. No obvious lymphadenopathy. Liver with diffuse surface irregularities indicative of cirrhosis. RIGHT hydronephrosis. CBD dilation (no measurement included). Subacute L2 compression fracture. > Abd US to image ascites: Mildly enlarged spleen 13cm. Inspissated bile sludge , CBD 1.2 cm (same as prior exam) with no sonographic evidence of acute cholecystitis. Moderate to marked RIGHT hydronephrosis. Infrarenal aortic aneurysm 4.4 cm. ASSESSMENT/PLAN: 78 y/o male PMH HTN, COPD, chronic hypoxic resp failure, cirrhosis (Hep C), opioid dependence, TN in , and urothelial CA c/o SOB and cough. Has now passed stool. Oncology recommendations to f/u out-pt. Abd US NEG, per GI rec will CT abdomen. # Sepsis 2/2 CAP vs URI vs malignancy, resolved - No longer in sepsis - 1 month acute worsening - Green productive cough NOT present today - 30 lb/3 mo weight loss - F/u UA - Strep and flu NEGATIVE - Blood and urine cx NEGATIVE - Throat culture NEG - CT chest: Trace BL pleural effusions. RIGHT basilar opacity most likely atelectasis. 0.4x0.2 cm nodule LEFT upper lobe ant segment. No obvious lymphadenopathy. Liver with diffuse surface irregularities indicative of cirrhosis. RIGHT hydronephrosis. CBD dilation (no measurement included). Subacute L2 compression fracture. - F/u heme/onc rec - ID REC: Zosyn 3.375 gm IV q8h (day 4) - HOLD IVF today # Infra-renal AAA - Abdominal US prompted CT ab, which demonstrates infra-renal AAA found to be 4.4cm - Per vascular sx: No need for surgery unless greater than 5.5cm. - Can get repeat US in 6 months to see if the aneurysm is growing - Can follow in vascular clinic for surveillance. # Urothelial Ca, hematuria - Seen by urology; describes non-compliance - F/u heme/onc rec - Abd US to image ascites: Mildly enlarged spleen 13cm. Inspissated bile sludge , CBD 1.2 cm (same as prior exam) with no sonographic evidence of acute cholecystitis. Moderate to marked RIGHT hydronephrosis. Infrarenal aortic aneurysm 4.4 cm. - Since unrevealing, obtaining CT scan of the abdomen and pelvis with and without contrast (triple phase) per GI rec # COPD - Duonebs huey 1 amp rqid - Solu-medrol 40 mg IV q8h - Albuterol PRN - CXR: Possible opacity in RLL, above the diaphragm. CT of chest is pending. If CT is negative will dc above abx - Educated on smoking cessation. # H/o HCV - Quantitative PCR negative 12/30. Either cleared on its own or treated ( patient recall being treated) - Abd US: Mildly enlarged spleen 13cm. Inspissated bile sludge, CBD 1.2 cm ( same as prior exam) with no sonographic evidence of acute cholecystitis. Moderate to marked RIGHT hydronephrosis. Infrarenal aortic aneurysm 4.4 cm. - Since unrevealing, obtaining CT scan of the abdomen and pelvis with and without contrast (triple phase) per GI rec # LUCIE, resolved - Hold IVF # Normocytic anemia - H/H at baseline - Plan to dc supplemental iron so as not to contribute to constipation # Opioid dependence - Methadone 100 mg QD, confirmed # CAD - No current regimen upon med rec # HTN - Hold as BP has been low - Home regimen: Amlodepine 10 mg PO QD, HOLD # Hypotension - Likely 2/2 vol depletion - Lactate 1.1 now # Severe protein calorie malnutrition - 30 lb weight loss of 3 months - CA and difficulty chewing - Albumin 2.7 - Low sodium diet. Soft, easy to chew, with pureed meat. Thin Liquids. Supplement: Ensure (vanilla ensure enlive), Magic Cup. # F/E/N - PO - Cont. to monitor - Low sodium diet. Soft, easy to chew, with pureed meat. Thin Liquids. Supplement: Ensure (vanilla ensure enlive), Magic Cup. # DVT prophylaxis - Heparin # Disposition - Med/surg - Est C Valerio Peralta MD Visit type - Emergency Visit Emergency Visit: No - New Patient This patient is new to me today: No - Critical Care Critical Care patient: No ATTENDING PHYSICIAN STATEMENT I saw and evaluated the patient. I reviewed the resident's note and discussed the case with the resident. I agree with the resident's findings and plan as documented. SUBJECTIVE: OBJECTIVE: ASSESSMENT AND PLAN:
--- NOTE | 2019-02-13 11:15 | PN.GI ---
GI Progress Note Subjective: No acute events No abdominal pain Receiving breathing treatment Had [address] scan A/P No ascites on abdominal US. CBD 1.2cm and cirrhotic appearing liver noted. - Objective Vital Signs: Vital Signs Temperature 98 F 02/13/19 06:00 Pulse Rate 98 H 02/13/19 06:00 Respiratory Rate 20 02/13/19 09:00 Blood Pressure 146/85 02/13/19 06:00 O2 Sat by Pulse Oximetry (%) 90 L 02/13/19 09:00 Constitutional: Calm Eyes: No: Sclera Icterus Cardiovascular: Yes: Regular Rate and Rhythm Respiratory: Yes: Wheezes Gastrointestinal Inspection: Yes: Hernia (reducible hernia cephalad to umbilicus ). No: Scars ...Auscultate: Yes: Normoactive Bowel Sounds ...Palpate: Yes: Soft. No: Hepatomegaly, Tenderness ...Percussion: No: Tympanitic Edema: No (No LE edema) Neurological: Yes: Alert Labs: CBC, BMP 02/13/19 07:20 02/13/19 07:20 INR, PTT INR 1.15 (0.83-1.09) H 02/09/19 13:25 Hepatic Panel Total Bilirubin 0.3 mg/dL (0.2-1) 02/13/19 07:20 AST 23 U/L (15-37) 02/13/19 07:20 ALT 19 U/L (13-61) 02/13/19 07:20 Alkaline Phosphatase 62 U/L (45-117) 02/13/19 07:20 Albumin 2.8 g/dl (3.4-5.0) L 02/13/19 07:20 Problem List - Problems (1) Hepatitis C antibody positive in blood Assessment/Plan: Hep C Ab + PCR negative: cleared virus or prior treatment Looks like previously exposed top Hep B in past Cirrhosis on US: Needs Q 6 month hepatic US to screen for HCC Will need EGD to exclude varices when optimized from pulmonary standpoint but have refused endoscopic evaluations Code(s): R76.8 - OTHER SPECIFIED ABNORMAL IMMUNOLOGICAL FINDINGS IN SERUM (2) Constipation Assessment/Plan: Mineral oil enema daily for 4 days MiraLAX 17g BID Senna Refused colonoscopy Code(s): K59.00 - CONSTIPATION, UNSPECIFIED (3) Common bile duct dilatation Assessment/Plan: Obtain MRCP to evaluate further Patient going for CT scan of the abdomen and pelvis given history of weight loss. Await study Code(s): K83.8 - OTHER SPECIFIED DISEASES OF BILIARY TRACT
--- NOTE | 2019-02-13 11:44 | PN ---
Progress Note, Physician - Current Medication List Current Medications: Active Medications Albuterol Sulfate (Ventolin 0.083% Nebulizer Soln -) 1 amp NEB Q4H PRN PRN Reason: SHORT OF BREATH/WHEEZING Albuterol/Ipratropium (Duoneb -) 1 amp NEB RQID [facility] Last Admin: 02/13/19 11:20 Dose: 1 amp Amlodipine Besylate (Norvasc -) 10 mg PO DAILY [facility] Last Admin: 02/13/19 09:21 Dose: 10 mg Budesonide/Formoterol Fumarate (Symbicort 80/4.5mcg -) 2 puff IH BID [facility] Last Admin: 02/13/19 09:20 Dose: 2 puff Heparin Sodium (Porcine) (Heparin -) 5,000 unit SQ TID [facility] Last Admin: 02/13/19 06:07 Dose: 5,000 unit Piperacillin Sod/Tazobactam (Sod 3.375 gm/ Dextrose) 50 mls @ 100 mls/hr IVPB Q8H-IV [facility]; Protocol Last Admin: 02/13/19 09:18 Dose: 100 mls/hr Methadone HCl 80 mg/ Methadone (HCl 20 mg) 100 mg PO DAILY@0600 [facility] Last Admin: 02/13/19 05:57 Dose: 100 mg Methylprednisolone Sodium Succinate (Solu-Medrol -) 40 mg IVPB Q8H-IV [facility] Last Admin: 02/13/19 09:20 Dose: 40 mg Mineral Oil (Fleet Mineral Oil Rectal Enema -) 133 ml WI DAILY [facility] Stop: 02/16/19 17:44 Last Admin: 02/12/19 18:51 Dose: 133 ml Polyethylene Glycol (Miralax (For Daily Use) -) 17 gm PO BID [facility] Last Admin: 02/13/19 09:15 Dose: Not Given Senna (Senna -) 2 tab PO HS [facility] Last Admin: 02/12/19 22:10 Dose: 2 tab Tamsulosin HCl (Flomax -) 0.4 mg PO DAILY@0830 [facility] Last Admin: 02/13/19 09:00 Dose: 0.4 mg - Objective Vital Signs: Vital Signs Temperature 98 F 02/13/19 06:00 Pulse Rate 98 H 02/13/19 06:00 Respiratory Rate 20 02/13/19 09:00 Blood Pressure 146/85 02/13/19 06:00 O2 Sat by Pulse Oximetry (%) 90 L 02/13/19 09:00 Labs: CBC, BMP 02/13/19 07:20 02/13/19 07:20 INR, PTT INR 1.15 (0.83-1.09) H 02/09/19 13:25
--- NOTE | 2019-02-13 12:24 | PN ---
Progress Note (short form) - Note Progress Note: Vascular Surgery Abdominal US reviewed. infra-renal AAA found to be 4.4cm. No need for surgery unless greater than 5.5cm. Can get repeat US in 6 months to see if the aneurysm is growing. Can follow in vascular clinic for surveillance. [phone] Henry Koch DO
[2019-02-13] MEDS: MINERAL OIL ENEMA 133 ML ENEMA PR SCH (13:53)
--- NOTE | 2019-02-13 14:25 | PN ---
Progress Note, TRAVEL PT - Note Progress Note: Selected Entries 02/12/19 02/12/19 02/12/19 05:50 09:21 10:48 Breakfast 75% Lunch Supper Temperature 98.3 F 98.5 F 02/12/19 02/12/19 02/13/19 13:55 22:27 06:00 Breakfast Lunch 75% Supper 75% Temperature 98.0 F 98.2 F 98 F Laboratory Tests 02/11/19 02/12/19 02/13/19 07:16 06:05 07:20 WBC 13.6 H 11.5 H 9.2 Pt is edentulous. He reports tolerating soft foods but wants meat pureed Pt requesting soft, easy to chew, with pureed meat Thin Liquids Ensure (vanilla ensure enlive), Magic Cup
--- NOTE | 2019-02-13 20:14 | PN ---
Teaching Attending Note Name of Resident: Valerio Peralta ATTENDING PHYSICIAN STATEMENT I saw and evaluated the patient. I reviewed the resident's note and discussed the case with the resident. I agree with the resident's findings and plan as documented. SUBJECTIVE: Patient is comfortable with no acute distress, no shortness of breath. Vital Signs Temperature 98 F 02/13/19 06:00 Pulse Rate 84 02/13/19 18:00 Respiratory Rate 20 02/13/19 18:00 Blood Pressure 132/74 02/13/19 18:00 O2 Sat by Pulse Oximetry (%) 90 L 02/13/19 09:00 GENERAL: The patient is awake, alert, and fully oriented, in no acute distress. HEAD: Normal with no signs of trauma. EYES: PERRL, EOMI , sclera anicteric, conjunctiva clear. ENT: Ears normal, oropharynx clear without exudates, moist mucous membranes. NECK: Trachea midline, full range of motion, supple. LUNGS: Breath sounds equal, clear to auscultation bilaterally, no wheezes, no crackles, no accessory muscle use. HEART: Regular rate and rhythm, S1, S2 without murmur, rub or gallop. ABDOMEN: BS+, pulsating mass, reducible supra umbilical hernia. NT, NL BS . No splenomegaly EXTREMITIES: 2+ pulses, warm, well-perfused, no edema. NEUROLOGICAL: Cranial nerves II through XII grossly intact. Normal speech, gait not observed. PSYCH: Normal mood, normal affect. SKIN: Warm, dry, normal turgor, no rashes or lesions noted CBCD WBC 11.5 K/mm3 (4.0-10.0) H 02/12/19 06:05 RBC 3.44 M/mm3 (4.00-5.60) L 02/12/19 06:05 Hgb 9.6 GM/dL (11.7-16.9) L 02/12/19 06:05 Hct 29.3 % (35.4-49) L 02/12/19 06:05 MCV 85.3 fl (80-96) 02/12/19 06:05 MCHC 32.6 g/dl (32.0-35.9) 02/12/19 06:05 RDW 15.4 % (11.9-15.9) 02/12/19 06:05 Plt Count 219 K/MM3 (134-434) 02/12/19 06:05 MPV 8.1 fl (7.5-11.1) 02/12/19 06:05 CMP Sodium 140 mmol/L (136-145) 02/12/19 06:05 Potassium 4.4 mmol/L (3.5-5.1) 02/12/19 06:05 Chloride 106 mmol/L (98-107) 02/12/19 06:05 Carbon Dioxide 27 mmol/L (21-32) 02/12/19 06:05 Anion Gap 7 MMOL/L (8-16) L 02/12/19 06:05 BUN 21.3 mg/dL (7-18) H 02/12/19 06:05 Creatinine 1.0 mg/dL (0.55-1.3) 02/12/19 06:05 Random Glucose 88 mg/dL (74-106) 02/12/19 06:05 Calcium 8.7 mg/dL (8.5-10.1) 02/12/19 06:05 Total Bilirubin 0.3 mg/dL (0.2-1) 02/12/19 06:05 AST 17 U/L (15-37) 02/12/19 06:05 ALT 15 U/L (13-61) 02/12/19 06:05 Alkaline Phosphatase 58 U/L (45-117) 02/12/19 06:05 Total Protein 6.2 g/dl (6.4-8.2) L 02/12/19 06:05 Albumin 2.8 g/dl (3.4-5.0) L 02/12/19 06:05 CARDIAC ENZYMES Troponin I 0.02 ng/ml (0.00-0.05) 02/10/19 19:35 Current Medications Generic Name Dose Route Start Last Admin Trade Name Freq PRN Reason Stop Dose Admin Albuterol Sulfate 1 amp 02/09/19 16:24 Ventolin 0.083% Nebulizer Soln - NEB Q4H PRN SHORT OF BREATH/WHEEZING Albuterol/Ipratropium 1 amp 02/09/19 16:00 02/12/19 16:04 Duoneb - NEB 1 amp RQID GILBERTO Administration Amlodipine Besylate 10 mg 02/10/19 10:00 02/12/19 09:29 Norvasc - PO 10 mg DAILY GILBERTO Administration Budesonide/Formoterol Fumarate 2 puff 02/10/19 10:00 02/12/19 09:30 Symbicort 80/4.5mcg - IH 2 puff BID GILBERTO Administration Docusate Sodium 100 mg 02/09/19 16:14 02/11/19 09:17 Colace - PO 100 mg BID PRN Administration CONSTIPATION Ferrous Sulfate 325 mg 02/10/19 10:00 02/12/19 09:29 Feosol - PO 325 mg DAILY GILBERTO Administration Heparin Sodium (Porcine) 5,000 unit 02/10/19 14:00 02/12/19 14:24 Heparin - SQ 5,000 unit TID GILBERTO Administration Piperacillin Sod/Tazobactam 50 mls @ 100 mls/hr 02/10/19 14:45 02/12/19 09:30 Sod 3.375 gm/ Dextrose IVPB 100 mls/hr Q8H-IV [facility]BERTO Administration Protocol Methadone HCl 80 mg/ Methadone 100 mg 02/10/19 10:00 02/12/19 05:40 HCl 20 mg PO 100 mg DAILY@0600 GILBERTO Administration Methylprednisolone Sodium Succinate 40 mg 02/09/19 18:00 02/12/19 09:29 Solu-Medrol - IVPB 40 mg Q8H-IV [facility]ERTO Administration Senna 2 tab 02/09/19 22:00 02/11/19 22:19 Senna - PO 2 tab HS GILBERTO Administration Tamsulosin HCl 0.4 mg 02/10/19 10:00 02/12/19 08:45 Flomax - PO 0.4 mg DAILY@0830 G[facility]BERTO Administration Home Medications Medication Instructions Recorded Salmeterol/Fluticasone [Advair 1 inh IH BID #0 inh 03/09/12 250Mcg/50Mcg -] Methadone HCl 100 mg PO DAILY 01/03/19 Amlodipine Besylate [Norvasc -] 10 mg PO DAILY #90 tablet 01/06/19 Ferrous Sulfate [Feosol] 325 mg PO DAILY #90 ud 01/06/19 Tamsulosin HCl [Flomax] 0.4 mg PO DAILY #90 capsule 01/06/19 Microbiology 02/09/19 18:33 Throat Throat Culture - Final NO BETA HEMOLYTIC STREPTOCOCCI ISOLATED 02/09/19 13:25 Blood - Peripheral Venous Blood Culture - Preliminary NO GROWTH OBTAINED AFTER 24 HOURS, INCUBATION TO CONTINUE FOR 4 DAYS. 02/09/19 13:25 Blood - Peripheral Venous Blood Culture - Preliminary NO GROWTH OBTAINED AFTER 24 HOURS, INCUBATION TO CONTINUE FOR 4 DAYS. EKG, sinus rhythm, prolonged QTC 504, PAcs ASSESSMENT AND PLAN: Patient is a 78yo m, with Pmhx of Hep C cirrhosis, CAD, s/p NM, COPD, polysubstance abuse on methadone, recent diagnosis of bladder cancer, who presented with SOB and productive cough. He was diagnosed with acute COPD exacerbation #Acute COPD exacerbation: continue nebs, steroids, flu neg, continue Symbicort. #Persistant right basilar opacity on Zosyn as per ID to continue, as per iD, discontinued doxy #Non calcified left upper lobe opacity 0.4x0.2cm follow up in 3 months #Hematuria: due to bladder cancer. #HTN: ;cont norvasc #LUCIE: due to volume depletion and hypotension : improved with IVF. cont as above #Hep C cirrhosis: not on any diuretics, f/u with GI for further management #H/o PSA: cont methadone #Infrarenal Aortic aneurysm 4.4cm: as per Vascular surgeon; nothing to do. #Right moderate hydronephrosis: Urologist consulted; reconsulted again today. DVT px: start heparin sq
[2019-02-13] MEDS: SENNOSIDES 8.6MG TABLET (FP) PO SCH (21:19)
[2019-02-14] MEDS ORDERED: DEXTROSE 5%-WATER - 50 ML IVPB ONE ×3 (01:02→16:27)
[2019-02-14] MEDS ORDERED: PIPERACILLIN/TAZOBACTAM 3.375 GM VIAL IVPB ONE ×3 (01:02→16:26)
[2019-02-14] MEDS: PIPERACILLIN/TAZOB 3.375 GM 3.375 GM in DEXTROSE 5%-WATER - 50 ML IVPB SCH ×3 (01:15→17:00)
[2019-02-14] MEDS: methylPREDNISolone NA SUCC 40 MG/1 ML VIAL IVPB SCH ×3 (01:15→17:00)
[2019-02-14] MEDS ORDERED: METHADONE HCL 10 MG TABLET ONE (06:06)
[2019-02-14] MEDS ORDERED: METHADONE HCL 40 MG DISPERSABLE TABLET ONE (06:07)
[2019-02-14] MEDS: METHADONE 80 MG, METHADONE 20 MG PO SCH (06:14)
[2019-02-14] MEDS: HEPARIN NA (PORCINE) 5,000 UNITS/ML 1ML VIAL SQ SCH ×3 (06:14→21:43)
[2019-02-14] MEDS: ALBUTEROL SO4 2.5/IPRATROPIUM 0.5 INH SOL 3 ML VIAL.NEB. NEB SCH ×4 (08:05→21:13)
[2019-02-14 08:09] LABS: HEMATOCRIT 31.2 % (35.4-49); HEMOGLOBIN 10.3 GM/dL (11.7-16.9); MCH 28.2 pg (25.7-33.7); MCHC 32.9 g/dl (32.0-35.9); MEAN CELL VOLUME 85.7 fl (80-96); PLATELET COUNT 224 K/MM3 (134-434); RBC 3.65 M/mm3 (4.00-5.60); RDW 15.3 % (11.9-15.9); WHITE BLOOD COUNT 10.1 K/mm3 (4.0-10.0)
[2019-02-14 08:31] LABS: ALBUMIN 2.9 g/dl (3.4-5.0); BILIRUBIN,TOTAL 0.3 mg/dL (0.2-1); BLOOD UREA NITROGEN 29.5 mg/dL (7-18); CALCIUM 8.5 mg/dL (8.5-10.1); POTASSIUM 4.4 mmol/L (3.5-5.1); TOT PROT 6.2 g/dl (6.4-8.2)
[2019-02-14] MEDS: TAMSULOSIN HCL 0.4 MG CAP PO SCH (09:04)
[2019-02-14] MEDS: amLODIPine BESYLATE 10 MG TABLET (FP) PO SCH (09:04)
[2019-02-14] MEDS: POLYETHYLENE GLYCOL 3350 119 GM BTL PO SCH ×2 (09:06→21:43)
[2019-02-14] MEDS: MINERAL OIL ENEMA 133 ML ENEMA PR SCH (09:06)
[2019-02-14] MEDS: BUDESONIDE/FORMETEROL FUMARATE 80/4.5 mcg INHALER IH SCH ×2 (09:06→21:43)
--- NOTE | 2019-02-14 15:25 | PN ---
Progress Note (short form) - Note Progress Note: Radiation Oncology Pt was seen and evaluated on 02/13/19, chart/films reviewed, full consult to follow. He is a 78yo gentleman w/recently diagnosed locally advanced invasive bladder carcinoma associated with hematuria and right hydronephrosis. Hematuria has abated, Hgb and hemodynamically stable. He was offered and refuses radical cystectomy. Due to extent of disease, he would be a candidate for palliative RT with or without concurrent chemo. He will further consider treatment and may follow up with me outpatient to proceed with tx if he desires. Thank you for asking me to see him.
--- NOTE | 2019-02-14 15:51 | CONS ---
DATE OF CONSULTATION: 02/13/2019 REFERRING PHYSICIAN: Beryl Martin M.D. REASON FOR CONSULTATION: Locally advanced bladder cancer. HISTORY OF PRESENT ILLNESS: The patient is a 78-year-old gentleman who was admitted with dyspnea and cough and being managed for his COPD and possible pneumonia. He recently presented with hematuria for a few months prior to his last admission, during which evaluation showed a large bladder mass with obstruction of the right ureter. 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 He was subsequently discharged and has refused radical cystectomy, which was discussed by his urologist. Presently he reports no abdominal pain, difficulty urinating, hematuria, incontinence. He does have some rectal bleeding, which is being evaluated by the GI Service. He was seen by Medical Oncology and nonoperative management of his bladder cancer is being considered. He states that his shortness of breath is chronic. He denies fever, cough, chest pain or abdominal pain. He denies prior radiation therapy, history of connective tissue disorder. PAST MEDICAL HISTORY: Hypertension, COPD, chronic hypoxic respiratory failure, hepatitis C, cirrhosis, opioid dependence (on methadone), coronary artery disease, status post myocardial infarction in 1997. PAST SURGICAL HISTORY: Angioplasty in 1997, right inguinal hernia repair in 1994. ALLERGIES: No known drug allergies. CURRENT MEDICATIONS: Symbicort, Solu-Medrol, Flomax, piperacillin/tazobactam, heparin subcutaneous, Fleet enema, DuoNeb nebulizer, MiraLAX, Senokot, Norvasc, methadone. SOCIAL HISTORY: He is retired. He lives with his son-in-law. He is a past heroin user, currently attends methacholine clinic. He is a former smoker. FAMILY HISTORY: Denies malignancy. REVIEW OF SYSTEMS: As noted above. PHYSICAL EXAMINATION: General: An elderly frail-appearing male lying in the hospital bed in no acute distress. Vital Signs: Blood pressure 122/74, pulse 92, respiratory rate 20, temperature 98. HEENT: Moist mucous membranes, anicteric sclerae, clear oral cavity. Neck: No mass. Chest: Poor inspiratory effort, decreased in lower right, no rhonchi or wheezes. Abdomen: Soft, without suprapubic distention, mass or tenderness. No inguinal adenopathy. Extremities: No significant peripheral edema. PATHOLOGIC DATA: See HPI. RADIOLOGIC DATA: CT of the abdomen and pelvis: Right lower lobe consolidation and small pleural effusion. Pneumonia cannot be excluded. Hepatosplenomegaly with irregular hepatic contours, consistent with cirrhosis. No evidence of ascites. Marked right-sided hydronephrosis and hydroureter with a hyperdense mass within the distal 3rd of the ureter, suspicious for a neoplastic process. Additional hyperdense bladder mass also suspicion for a neoplastic process. LABORATORY DATA: WBC 9.2, hemoglobin 10.0, platelets 217,000. Electrolytes within normal limits. BUN 26.8, creatinine 1.0. Calcium, phosphorus and magnesium within normal limits. Liver function tests within normal limits. Albumin 2.8. Urinalysis: Trace leukocyte esterase. IMPRESSION: A 78-year-old gentleman with locally advanced high-grade invasive bladder cancer with ureteral obstruction associated with right hydronephrosis and acute renal insufficiency, as well as hematuria. He has declined radical cystectomy offered by Dr. Stinson. Due to the extent of tumor and presence of hydronephrosis, he would not be an ideal candidate for the bladder preservation protocol with chemoradiation therapy. However, he may be a candidate for palliative radiation therapy with or without chemotherapy. He informed me that he is not interested in any aggressive treatments, especially surgery. We discussed radiation therapy, its role, potential benefit of reducing the risk of hematuria, pain and obstruction , but not necessarily to extend his life. We discussed possible side effects, including proctocolitis, enteritis, cystitis, fatigue and myelosuppression. We discussed the benefit of concurrent therapy with cisplatin or gemcitabine, with added toxicity. He stated that he wishes to further consider his options and will let us know if he wishes to have any treatment. I provided him my contact information and he will let us know if he has additional questions. Thank you for the courtesy of this consultation. IZABELLA COREA M.D. [id number] MTDD
--- NOTE | 2019-02-14 17:28 | PN ---
Progress Note (short form) - Note Progress Note: Patient is feeling better with no acute distress. Vital Signs Temperature 98.4 F 02/14/19 13:46 Pulse Rate 107 H 02/14/19 13:46 Respiratory Rate 20 02/14/19 09:00 Blood Pressure 138/74 02/14/19 13:46 O2 Sat by Pulse Oximetry (%) 90 L 02/14/19 09:00 GENERAL: The patient is awake, alert, and fully oriented, in no acute distress. HEAD: Normal with no signs of trauma. EYES: PERRL, EOMI , sclera anicteric, conjunctiva clear. ENT: Ears normal, oropharynx clear without exudates, moist mucous membranes. NECK: Trachea midline, full range of motion, supple. LUNGS: Breath sounds equal, clear to auscultation bilaterally, no wheezes, no crackles, no accessory muscle use. HEART: Regular rate and rhythm, S1, S2 without murmur, rub or gallop. ABDOMEN: BS+, pulsating mass, reducible supra umbilical hernia. NT, NL BS . No splenomegaly EXTREMITIES: 2+ pulses, warm, well-perfused, no edema. NEUROLOGICAL: Cranial nerves II through XII grossly intact. Normal speech, gait not observed. PSYCH: Normal mood, normal affect. SKIN: Warm, dry, normal turgor, no rashes or lesions noted CBCD WBC 10.1 K/mm3 (4.0-10.0) H 02/14/19 06:55 RBC 3.65 M/mm3 (4.00-5.60) L 02/14/19 06:55 Hgb 10.3 GM/dL (11.7-16.9) L 02/14/19 06:55 Hct 31.2 % (35.4-49) L 02/14/19 06:55 MCV 85.7 fl (80-96) 02/14/19 06:55 MCHC 32.9 g/dl (32.0-35.9) 02/14/19 06:55 RDW 15.3 % (11.9-15.9) 02/14/19 06:55 Plt Count 224 K/MM3 (134-434) 02/14/19 06:55 MPV 8.0 fl (7.5-11.1) 02/14/19 06:55 CMP Sodium 138 mmol/L (136-145) 02/14/19 06:55 Potassium 4.4 mmol/L (3.5-5.1) 02/14/19 06:55 Chloride 100 mmol/L (98-107) 02/14/19 06:55 Carbon Dioxide 30 mmol/L (21-32) 02/14/19 06:55 Anion Gap 8 MMOL/L (8-16) 02/14/19 06:55 BUN 29.5 mg/dL (7-18) H 02/14/19 06:55 Creatinine 1.0 mg/dL (0.55-1.3) 02/14/19 06:55 Random Glucose 100 mg/dL (74-106) 02/14/19 06:55 Calcium 8.5 mg/dL (8.5-10.1) 02/14/19 06:55 Total Bilirubin 0.3 mg/dL (0.2-1) 02/14/19 06:55 AST 20 U/L (15-37) 02/14/19 06:55 ALT 21 U/L (13-61) 02/14/19 06:55 Alkaline Phosphatase 58 U/L (45-117) 02/14/19 06:55 Total Protein 6.2 g/dl (6.4-8.2) L 02/14/19 06:55 Albumin 2.9 g/dl (3.4-5.0) L 02/14/19 06:55 CARDIAC ENZYMES Troponin I 0.02 ng/ml (0.00-0.05) 02/10/19 19:35 Home Medications Medication Instructions Recorded Salmeterol/Fluticasone [Advair 1 inh IH BID #0 inh 03/09/12 250Mcg/50Mcg -] Methadone HCl 100 mg PO DAILY 01/03/19 Amlodipine Besylate [Norvasc -] 10 mg PO DAILY #90 tablet 01/06/19 Ferrous Sulfate [Feosol] 325 mg PO DAILY #90 ud 01/06/19 Tamsulosin HCl [Flomax] 0.4 mg PO DAILY #90 capsule 01/06/19 Current Medications Generic Name Dose Route Start Last Admin Trade Name Freq PRN Reason Stop Dose Admin Albuterol Sulfate 1 amp 02/09/19 16:24 Ventolin 0.083% Nebulizer Soln - NEB Q4H PRN SHORT OF BREATH/WHEEZING Albuterol/Ipratropium 1 amp 02/09/19 16:00 02/14/19 16:16 Duoneb - NEB 1 amp RQID GILBERTO Administration Amlodipine Besylate 10 mg 02/10/19 10:00 02/14/19 09:04 Norvasc - PO 10 mg DAILY GILBERTO Administration Budesonide/Formoterol Fumarate 2 puff 02/10/19 10:00 02/14/19 09:06 Symbicort 80/4.5mcg - IH 2 puff BID GILBERTO Administration Heparin Sodium (Porcine) 5,000 unit 02/10/19 14:00 02/14/19 13:57 Heparin - SQ 5,000 unit TID GILBERTO Administration Piperacillin Sod/Tazobactam 50 mls @ 100 mls/hr 02/10/19 14:45 02/14/19 17:00 Sod 3.375 gm/ Dextrose IVPB 100 mls/hr Q8H-IV GILBERTO Administration Protocol Methadone HCl 80 mg/ Methadone 100 mg 02/10/19 10:00 02/14/19 06:14 HCl 20 mg PO 100 mg DAILY@0600 GILBERTO Administration Methylprednisolone Sodium Succinate 40 mg 02/09/19 18:00 02/14/19 17:00 Solu-Medrol - IVPB 40 mg Q8H-IV GILBERTO Administration Mineral Oil 133 ml 02/12/19 17:45 02/14/19 09:06 Fleet Mineral Oil Rectal Enema - [place] 02/16/19 17:44 Not Given DAILY GILBERTO Polyethylene Glycol 17 gm 02/12/19 22:00 02/14/19 09:06 Miralax (For Daily Use) - PO Not Given BID GILBERTO Senna 2 tab 02/09/19 22:00 02/13/19 21:19 Senna - PO 2 tab HS GILBERTO Administration Tamsulosin HCl 0.4 mg 02/10/19 10:00 02/14/19 09:04 Flomax - PO 0.4 mg DAILY@0830 GILBERTO Administration Home Medications Medication Instructions Recorded Salmeterol/Fluticasone [Advair 1 inh IH BID #0 inh 03/09/12 250Mcg/50Mcg -] Methadone HCl 100 mg PO DAILY 01/03/19 Amlodipine Besylate [Norvasc -] 10 mg PO DAILY #90 tablet 11/26/19 Ferrous Sulfate [Feosol] 325 mg PO DAILY #90 ud 01/06/19 Tamsulosin HCl [Flomax] 0.4 mg PO DAILY #90 capsule 01/06/19 Microbiology 02/09/19 18:33 Throat Throat Culture - Final NO BETA HEMOLYTIC STREPTOCOCCI ISOLATED 02/09/19 13:25 Blood - Peripheral Venous Blood Culture - Preliminary NO GROWTH OBTAINED AFTER 24 HOURS, INCUBATION TO CONTINUE FOR 4 DAYS. 02/09/19 13:25 Blood - Peripheral Venous Blood Culture - Preliminary NO GROWTH OBTAINED AFTER 24 HOURS, INCUBATION TO CONTINUE FOR 4 DAYS. EKG, sinus rhythm, prolonged QTC 504, PAcs ASSESSMENT AND PLAN: Patient is a 78yo m, with Pmhx of Hep C cirrhosis, CAD, s/p [place], COPD, polysubstance abuse on methadone, recent diagnosis of bladder cancer, who presented with SOB and productive cough. He was diagnosed with acute COPD exacerbation #Right moderate hydronephrosis: Urologist consulted; reconsulted again today. will need to evaluate the patient and have a plan in place. #Infrarenal Aortic aneurysm 4.4cm: as per Vascular surgeon; nothing to do. #Acute COPD exacerbation: continue nebs, steroids, flu neg, continue Symbicort. #Persistant right basilar opacity on Zosyn continue, s/p doxy #Non calcified left upper lobe opacity 0.4x0.2cm follow up in 3 months #Hematuria: due to bladder cancer. #HTN: cont norvasc #LUCIE: due to volume depletion and hypotension : improved with IVF. cont as above #Hep C cirrhosis: not on any diuretics, f/u with GI for further management #H/o PSA: cont methadone DVT px: start heparin sq Visit type - Emergency Visit Emergency Visit: Yes ED Registration Date: 02/09/19 Care time: The patient presented to the Emergency Department on the above date and was hospitalized for further evaluation of their emergent condition. - New Patient This patient is new to me today: No - Critical Care Critical Care patient: No - Discharge Referral Referred to [facility] Med [facility] No
--- NOTE | 2019-02-14 17:59 | PN ---
Progress Note, Physician History of Present Illness: Pt is alert, without distress. c/o some nausea but no abd pain/vomiting/ diarrhea. Remains afebrile. States he is less SOB, remains afebrile. No distress noted. CT A/P results noted. - Current Medication List Current Medications: Active Medications Albuterol Sulfate (Ventolin 0.083% Nebulizer Soln -) 1 amp NEB Q4H PRN PRN Reason: SHORT OF BREATH/WHEEZING Albuterol/Ipratropium (Duoneb -) 1 amp NEB RQID [facility] Last Admin: 02/14/19 16:16 Dose: 1 amp Amlodipine Besylate (Norvasc -) 10 mg PO DAILY [facility] Last Admin: 02/14/19 09:04 Dose: 10 mg Budesonide/Formoterol Fumarate (Symbicort 80/4.5mcg -) 2 puff IH BID [facility] Last Admin: 02/14/19 09:06 Dose: 2 puff Heparin Sodium (Porcine) (Heparin -) 5,000 unit SQ TID [facility] Last Admin: 02/14/19 13:57 Dose: 5,000 unit Piperacillin Sod/Tazobactam (Sod 3.375 gm/ Dextrose) 50 mls @ 100 mls/hr IVPB Q8H-IV [facility]; Protocol Last Admin: 02/14/19 17:00 Dose: 100 mls/hr Methadone HCl 80 mg/ Methadone (HCl 20 mg) 100 mg PO DAILY@0600 [facility] Last Admin: 02/14/19 06:14 Dose: 100 mg Methylprednisolone Sodium Succinate (Solu-Medrol -) 40 mg IVPB Q8H-IV [facility] Last Admin: 02/14/19 17:00 Dose: 40 mg Mineral Oil (Fleet Mineral Oil Rectal Enema -) 133 ml MO DAILY [facility] Stop: 02/16/19 17:44 Last Admin: 02/14/19 09:06 Dose: Not Given Polyethylene Glycol (Miralax (For Daily Use) -) 17 gm PO BID [facility] Last Admin: 02/14/19 09:06 Dose: Not Given Senna (Senna -) 2 tab PO HS [facility] Last Admin: 02/13/19 21:19 Dose: 2 tab Tamsulosin HCl (Flomax -) 0.4 mg PO DAILY@0830 [facility] Last Admin: 02/14/19 09:04 Dose: 0.4 mg - Objective Vital Signs: Vital Signs Temperature 98.4 F 02/14/19 13:46 Pulse Rate 107 H 02/14/19 13:46 Respiratory Rate 20 02/14/19 09:00 Blood Pressure 138/74 02/14/19 13:46 O2 Sat by Pulse Oximetry (%) 90 L 02/14/19 09:00 Constitutional: Yes: No Distress, Calm Cardiovascular: Yes: Tachycardia Respiratory: Yes: CTA Bilaterally Gastrointestinal: Yes: Normal Bowel Sounds, Soft Integumentary: Yes: WNL Neurological: Yes: Alert Labs: CBC, BMP 02/14/19 06:55 02/14/19 06:55 INR, PTT INR 1.15 (0.83-1.09) H 02/09/19 13:25 Laboratory Results - last 24 hr 02/14/19 02/14/19 06:55 06:55 WBC 10.1 H RBC 3.65 L Hgb 10.3 L Hct 31.2 L MCV 85.7 MCH 28.2 MCHC 32.9 RDW 15.3 Plt Count 224 MPV 8.0 Sodium 138 Potassium 4.4 Chloride 100 Carbon Dioxide 30 Anion Gap 8 BUN 29.5 H Creatinine 1.0 Est GFR (CKD-EPI)AfAm 82.60 Est GFR (CKD-EPI)NonAf 71.27 Random Glucose 100 Calcium 8.5 Total Bilirubin 0.3 AST 20 ALT 21 Alkaline Phosphatase 58 Total Protein 6.2 L Albumin 2.9 L Microbiology 02/09/19 13:25 Blood - Peripheral Venous Blood Culture - Final NO GROWTH AFTER 5 DAYS INCUBATION 02/09/19 13:25 Blood - Peripheral Venous Blood Culture - Final NO GROWTH AFTER 5 DAYS INCUBATION 02/09/19 18:33 Throat Throat Culture - Final NO BETA HEMOLYTIC STREPTOCOCCI ISOLATED - ....Imaging Cat Scan: Report Reviewed Assessment/Plan 78 y/o male PMH HTN, COPD, chronic hypoxic resp failure, cirrhosis (Hep C), opioid dependence, [place] , and urothelial CA c/o SOB and cough. Sepsis PNA Invasive Bladder CA/hydronephrosis COPD Hematuria LUCIE Normocytic anemia Hx of hep c /Cirrhosis -- continue Zosyn -- GI following, possible MRCP for CBD dilatation -- Oncology follow up -- continue monitor vitals/wbc Pt without distress at this time
[2019-02-14] MEDS: SENNOSIDES 8.6MG TABLET (FP) PO SCH (21:43)
[2019-02-14 22:11] VITALS: BP 145/91; PULSE 113; TEMP 98
[2019-02-15] MEDS ORDERED: PIPERACILLIN/TAZOBACTAM 3.375 GM VIAL IVPB ONE ×2 (02:44→09:46)
[2019-02-15] MEDS ORDERED: DEXTROSE 5%-WATER - 50 ML IVPB ONE ×2 (02:44→09:46)
[2019-02-15] MEDS: PIPERACILLIN/TAZOB 3.375 GM 3.375 GM in DEXTROSE 5%-WATER - 50 ML IVPB SCH ×2 (02:48→10:01)
[2019-02-15] MEDS: methylPREDNISolone NA SUCC 40 MG/1 ML VIAL IVPB SCH ×2 (02:48→10:01)
[2019-02-15] MEDS ORDERED: METHADONE HCL 40 MG DISPERSABLE TABLET ONE (06:28)
[2019-02-15] MEDS ORDERED: METHADONE HCL 10 MG TABLET ONE (06:28)
[2019-02-15] MEDS: METHADONE 80 MG, METHADONE 20 MG PO SCH (06:41)
[2019-02-15] MEDS: HEPARIN NA (PORCINE) 5,000 UNITS/ML 1ML VIAL SQ SCH (06:41)
[2019-02-15] MEDS: ALBUTEROL SO4 2.5/IPRATROPIUM 0.5 INH SOL 3 ML VIAL.NEB. NEB SCH ×2 (07:57→11:34)
[2019-02-15] MEDS: TAMSULOSIN HCL 0.4 MG CAP PO SCH (10:01)
[2019-02-15] MEDS: amLODIPine BESYLATE 10 MG TABLET (FP) PO SCH (10:01)
[2019-02-15] MEDS: MINERAL OIL ENEMA 133 ML ENEMA PR SCH (10:14)
[2019-02-15] MEDS: BUDESONIDE/FORMETEROL FUMARATE 80/4.5 mcg INHALER IH SCH (10:14)
--- NOTE | 2019-02-15 16:58 | EKG ---
Test Reason : Blood Pressure : / mmHG Vent. Rate : 101 BPM Atrial Rate : 101 BPM P-R Int : 120 ms QRS Dur : 088 ms QT Int : 338 ms P-R-T Axes : 057 013 061 degrees QTc Int : 438 ms SINUS TACHYCARDIA WITH PREMATURE SUPRAVENTRICULAR COMPLEXES OTHERWISE NORMAL ECG WHEN COMPARED WITH ECG OF 09-FEB-2019 13:34, NO SIGNIFICANT CHANGE WAS FOUND Confirmed by SANTOSH BENSON MD ([id number]) on 02/15/2019 4:58:26 PM Referred By: Darlene CORREA Confirmed By:SANTOSH BENSON MD
--- NOTE | 2019-02-15 17:17 | PN ---
Teaching Attending Note Name of Resident: Valerio Peralta ATTENDING PHYSICIAN STATEMENT I saw and evaluated the patient. I reviewed the resident's note and discussed the case with the resident. I agree with the resident's findings and plan as documented. SUBJECTIVE: Patient is feeling better wants to go home. in home oxygen continue. Vital Signs Temperature 98.0 F 02/14/19 22:09 Pulse Rate 113 H 02/14/19 22:09 Respiratory Rate 20 02/14/19 22:09 Blood Pressure 145/91 02/14/19 22:09 O2 Sat by Pulse Oximetry (%) 91 L 02/15/19 09:00 GENERAL: The patient is awake, alert, and oriented, in no acute distress, on home oxygen HEAD: Normal with no signs of trauma. EYES: PERRL, EOMI , sclera anicteric, conjunctiva clear. ENT: Ears normal, oropharynx clear without exudates, moist mucous membranes. NECK: Trachea midline, full range of motion, supple. LUNGS: decreased BS BL , no wheezes, no crackles, no accessory muscle use. HEART: Regular rate and rhythm, S1, S2 without murmur, rub or gallop. ABDOMEN: BS+, pulsating mass, reducible supra umbilical hernia. NT, NL BS . EXTREMITIES: 2+ pulses, warm, well-perfused, no edema. NEUROLOGICAL: Cranial nerves II through XII grossly intact. Normal speech, gait is stable . PSYCH: Normal mood, normal affect. SKIN: Warm, dry, normal turgor, no rashes or lesions noted CBCD WBC 10.1 K/mm3 (4.0-10.0) H 02/14/19 06:55 RBC 3.65 M/mm3 (4.00-5.60) L 02/14/19 06:55 Hgb 10.3 GM/dL (11.7-16.9) L 02/14/19 06:55 Hct 31.2 % (35.4-49) L 02/14/19 06:55 MCV 85.7 fl (80-96) 02/14/19 06:55 MCHC 32.9 g/dl (32.0-35.9) 02/14/19 06:55 RDW 15.3 % (11.9-15.9) 02/14/19 06:55 Plt Count 224 K/MM3 (134-434) 02/14/19 06:55 MPV 8.0 fl (7.5-11.1) 02/14/19 06:55 CMP Sodium 138 mmol/L (136-145) 02/14/19 06:55 Potassium 4.4 mmol/L (3.5-5.1) 02/14/19 06:55 Chloride 100 mmol/L (98-107) 02/14/19 06:55 Carbon Dioxide 30 mmol/L (21-32) 02/14/19 06:55 Anion Gap 8 MMOL/L (8-16) 02/14/19 06:55 BUN 29.5 mg/dL (7-18) H 02/14/19 06:55 Creatinine 1.0 mg/dL (0.55-1.3) 02/14/19 06:55 Random Glucose 100 mg/dL (74-106) 02/14/19 06:55 Calcium 8.5 mg/dL (8.5-10.1) 02/14/19 06:55 Total Bilirubin 0.3 mg/dL (0.2-1) 02/14/19 06:55 AST 20 U/L (15-37) 02/14/19 06:55 ALT 21 U/L (13-61) 02/14/19 06:55 Alkaline Phosphatase 58 U/L (45-117) 02/14/19 06:55 Total Protein 6.2 g/dl (6.4-8.2) L 02/14/19 06:55 Albumin 2.9 g/dl (3.4-5.0) L 02/14/19 06:55 CARDIAC ENZYMES Troponin I 0.02 ng/ml (0.00-0.05) 02/10/19 19:35 Home Medications Medication Instructions Recorded Salmeterol/Fluticasone [Advair 1 inh IH BID #0 inh 03/09/12 250Mcg/50Mcg -] Methadone HCl 100 mg PO DAILY 01/03/19 Amlodipine Besylate [Norvasc -] 10 mg PO DAILY #90 tablet 01/06/19 Ferrous Sulfate [Feosol] 325 mg PO DAILY #90 ud 01/06/19 Tamsulosin HCl [Flomax] 0.4 mg PO DAILY #90 capsule 01/06/19 Current Medications Generic Name Dose Route Start Last Admin Trade Name Freq PRN Reason Stop Dose Admin Albuterol Sulfate 1 amp 02/09/19 16:24 Ventolin 0.083% Nebulizer Soln - NEB Q4H PRN SHORT OF BREATH/WHEEZING Albuterol/Ipratropium 1 amp 02/09/19 16:00 02/14/19 16:16 Duoneb - NEB 1 amp RQID GILBERTO Administration Amlodipine Besylate 10 mg 02/10/19 10:00 02/14/19 09:04 Norvasc - PO 10 mg DAILY GILBERTO Administration Budesonide/Formoterol Fumarate 2 puff 02/10/19 10:00 02/14/19 09:06 Symbicort 80/4.5mcg - IH 2 puff BID GILBERTO Administration Heparin Sodium (Porcine) 5,000 unit 02/10/19 14:00 02/14/19 13:57 Heparin - SQ 5,000 unit TID GILBERTO Administration Piperacillin Sod/Tazobactam 50 mls @ 100 mls/hr 02/10/19 14:45 02/14/19 17:00 Sod 3.375 gm/ Dextrose IVPB 100 mls/hr Q8H-IV GILBERTO Administration Protocol Methadone HCl 80 mg/ Methadone 100 mg 02/10/19 10:00 02/14/19 06:14 HCl 20 mg PO 100 mg DAILY@0600 GILBERTO Administration Methylprednisolone Sodium Succinate 40 mg 02/09/19 18:00 02/14/19 17:00 Solu-Medrol - IVPB 40 mg Q8H-IV GILBERTO Administration Mineral Oil 133 ml 02/12/19 17:45 02/14/19 09:06 Fleet Mineral Oil Rectal Enema - [place] 02/16/19 17:44 Not Given DAILY GILBERTO Polyethylene Glycol 17 gm 02/12/19 22:00 02/14/19 09:06 Miralax (For Daily Use) - PO Not Given BID GILBERTO Senna 2 tab 02/09/19 22:00 02/13/19 21:19 Senna - PO 2 tab HS GILBERTO Administration Tamsulosin HCl 0.4 mg 02/10/19 10:00 02/14/19 09:04 Flomax - PO 0.4 mg DAILY@0830 GILBERTO Administration Home Medications Medication Instructions Recorded Salmeterol/Fluticasone [Advair 1 inh IH BID #0 inh 03/09/12 250Mcg/50Mcg -] Methadone HCl 100 mg PO DAILY 01/03/19 Amlodipine Besylate [Norvasc -] 10 mg PO DAILY #90 tablet 01/06/19 Ferrous Sulfate [Feosol] 325 mg PO DAILY #90 ud 01/06/19 Tamsulosin HCl [Flomax] 0.4 mg PO DAILY #90 capsule 01/06/19 Home Medications Medication Instructions Recorded Salmeterol/Fluticasone [Advair 1 inh IH BID #0 inh 03/09/12 250Mcg/50Mcg -] Methadone HCl 100 mg PO DAILY 01/03/19 Amlodipine Besylate [Norvasc -] 10 mg PO DAILY #90 tablet 01/06/19 Ferrous Sulfate [Feosol] 325 mg PO DAILY #90 ud 01/06/19 Tamsulosin HCl [Flomax] 0.4 mg PO DAILY #90 capsule 01/06/19 Albuterol 0.083% Nebulizer Deja 1 amp NEB Q4H PRN amp 02/15/19 [Ventolin 0.083% Nebulizer Soln -] Amox-Tr/K Cl [Augmentin - 875Mg 1 tab PO BID #10 tablet 02/15/19 Tablet] Polyethylene Glycol 3350 [Miralax 17 gm PO BID bottle 02/15/19 119 gm Btl -] Prednisone See Taper PO DAILY #30 tab.ds.pk 02/15/19 Sennosides [Senna -] 2 tab PO HS tablet 02/15/19 Microbiology 02/09/19 18:33 Throat Throat Culture - Final NO BETA HEMOLYTIC STREPTOCOCCI ISOLATED 02/09/19 13:25 Blood - Peripheral Venous Blood Culture - Preliminary NO GROWTH OBTAINED AFTER 24 HOURS, INCUBATION TO CONTINUE FOR 4 DAYS. 02/09/19 13:25 Blood - Peripheral Venous Blood Culture - Preliminary NO GROWTH OBTAINED AFTER 24 HOURS, INCUBATION TO CONTINUE FOR 4 DAYS. EKG, sinus rhythm, prolonged QTC 504, PAcs ASSESSMENT AND PLAN: Patient is a 78yo m, with Pmhx of Hep C cirrhosis, CAD, s/p CT, COPD, polysubstance abuse on methadone, recent diagnosis of bladder cancer, who presented with SOB and productive cough. He was diagnosed with acute COPD exacerbation #Right moderate hydronephrosis: Urologist consulted; reconsulted again today. Patient refused treatment as per Dr.Bozco #Infrarenal Aortic aneurysm 4.4cm: as per Vascular surgeon; nothing to do. follow up in 6 months #Acute COPD exacerbation: continue nebs, steroids, flu neg, continue Symbicort. Augmentin for 5 more days #Persistant right basilar opacity s/p Zosyn and doxy , continue 5 more days of Augmentin #Non calcified left upper lobe opacity 0.4x0.2cm follow up in 3 months #s/p Hematuria: due to bladder cancer. as per RTx oncologist , patient needs to follow up with him for further care, information is given to the patient. #HTN: cont norvasc #LUCIE: due to volume depletion and hypotension : improved with IVF. cont as above #Hep C cirrhosis:treated as an outpatient. f/u with GI for further management , as per GI: Hep C Ab + PCR negative: cleared virus or prior treatment Looks like previously exposed top Hep B in past Cirrhosis on US: Needs Q 6 month hepatic US to screen for HCC Will need EGD to exclude varices when optimized from pulmonary standpoint but have refused endoscopic evaluations #H/o PSA: cont methadone Patient can be discharged home with follow up visits to [facility]tx oncologist/pulm/GI/ PMD.
--- NOTE | 2019-02-17 11:22 | DS ---
Physical Exam: SUBJECTIVE: Patient seen and examined at bedside. He feels much better. He denies any complaints today. OBJECTIVE: Last Vital Signs Temp Pulse Resp BP Pulse Ox 98.0 F 113 H 20 145/91 91 L 02/14/19 22:09 02/14/19 22:09 02/14/19 22:09 02/14/19 22:09 02/15/19 09:00 PHYSICAL EXAM GENERAL: AOx3, cachectic, in no acute distress, on 3L NC HEAD: NCAT EYES: ADAL, EOMI, conjunctiva clear. ENT: Ears normal, nares patent, oropharynx clear without exudates. Dry mucous membranes. NECK: +hepatojugular reflex, normal range of motion, supple without lymphadenopathy, JVD, or masses. LUNGS: CTAB with end expiratory wheeze at apex BL. Less crackles today. No accessory muscle use. HEART: RRR s1 s2 ABDOMEN: Soft, BS present in all 4 quadrants, non-distended. Dilated tortuous abdominal veins, +Hepatomegally. +shifting dullness MUSCULOSKELETAL: No bony deformities or tenderness. No CVA tenderness. UPPER EXTREMITIES: 2+ pulses, warm, well-perfused. No cyanosis. No clubbing. No peripheral edema. LOWER EXTREMITIES: 2+ pulses, warm, well-perfused. No calf tenderness. No peripheral edema. NEUROLOGICAL: No focal deficits. Cranial nerves II-XII intact. Normal speech. Normal gait. PSYCHIATRIC: Cooperative. Good eye contact. Appropriate mood and affect. SKIN: Warm, dry, normal turgor, no rashes or lesions noted, normal capillary refill. LABS CBC,CMP WBC 10.1 K/mm3 (4.0-10.0) H 02/14/19 06:55 RBC 3.65 M/mm3 (4.00-5.60) L 02/14/19 06:55 Hgb 10.3 GM/dL (11.7-16.9) L 02/14/19 06:55 Hct 31.2 % (35.4-49) L 02/14/19 06:55 MCV 85.7 fl (80-96) 02/14/19 06:55 MCH 28.2 pg (25.7-33.7) 02/14/19 06:55 MCHC 32.9 g/dl (32.0-35.9) 02/14/19 06:55 RDW 15.3 % (11.9-15.9) 02/14/19 06:55 Plt Count 224 K/MM3 (134-434) 02/14/19 06:55 MPV 8.0 fl (7.5-11.1) 02/14/19 06:55 Absolute Neuts (auto) 14.3 K/mm3 (1.5-8.0) H 02/09/19 13:25 Neutrophils % 90.0 % (42.8-82.8) H D 02/09/19 13:25 Lymphocytes % 4.2 % (8-40) L D 02/09/19 13:25 Monocytes % 5.2 % (3.8-10.2) 02/09/19 13:25 Eosinophils % 0.3 % (0-4.5) D 02/09/19 13:25 Basophils % 0.3 % (0-2.0) 02/09/19 13:25 Nucleated RBC % 0 % (0-0) 02/09/19 13:25 Sodium 138 mmol/L (136-145) 02/14/19 06:55 Potassium 4.4 mmol/L (3.5-5.1) 02/14/19 06:55 Chloride 100 mmol/L (98-107) 02/14/19 06:55 Carbon Dioxide 30 mmol/L (21-32) 02/14/19 06:55 Anion Gap 8 MMOL/L (8-16) 02/14/19 06:55 BUN 29.5 mg/dL (7-18) H 02/14/19 06:55 Creatinine 1.0 mg/dL (0.55-1.3) 02/14/19 06:55 Est GFR (CKD-EPI)AfAm 82.60 02/14/19 06:55 Est GFR (CKD-EPI)NonAf 71.27 02/14/19 06:55 Random Glucose 100 mg/dL (74-106) 02/14/19 06:55 Lactic Acid 1.1 mmol/L (0.4-2.0) 02/10/19 08:10 Calcium 8.5 mg/dL (8.5-10.1) 02/14/19 06:55 Phosphorus 2.8 mg/dL (2.5-4.9) 02/13/19 07:20 Magnesium 2.2 mg/dL (1.8-2.4) 02/12/19 06:05 Total Bilirubin 0.3 mg/dL (0.2-1) 02/14/19 06:55 AST 20 U/L (15-37) 02/14/19 06:55 ALT 21 U/L (13-61) 02/14/19 06:55 Alkaline Phosphatase 58 U/L (45-117) 02/14/19 06:55 Troponin I 0.02 ng/ml (0.00-0.05) 02/10/19 19:35 Total Protein 6.2 g/dl (6.4-8.2) L 02/14/19 06:55 Albumin 2.9 g/dl (3.4-5.0) L 02/14/19 06:55 HOSPITAL COURSE: IMAGING EKG demonstrates regular rate, sinus rhythm anterior septal infarct age indeterminate no ST elevations no T wave inversions IMAGING: >CXR - COPD. NO infiltrates, congestive changes, pneumothorax. > Chest CT -trace BL pleural effusions. RIGHT basilar opacity most likely atelectasis. 0.4x0.2 cm nodule LEFT upper lobe ant segment. No obvious lymphadenopathy. Liver with diffuse surface irregularities indicative of cirrhosis. RIGHT hydronephrosis. CBD dilation (no measurement included). Subacute L2 compression fracture. > Abd US to image ascites: Mildly enlarged spleen 13cm. Inspissated bile sludge , CBD 1.2 cm (same as prior exam) with no sonographic evidence of acute cholecystitis. Moderate to marked RIGHT hydronephrosis. Infrarenal aortic aneurysm 4.4 cm. Date of Admission:02/09/19 78 y/o male PMH HTN, COPD, chronic hypoxic resp failure, cirrhosis (Hep C), opioid dependence, NV in , and urothelial CA c/o SOB and cough. He was admitted for sepsis 2/2 CAP vs URI vs malignancy. Sepsis resolved during stay. He had green productive cough and was placed on Zosyn 3.375 gm IV q8h. Strep, flu, Blood cx, urine cx, and throat culture NEGATIVE. He described 30 lb/3 mo weight loss and was seen by heme/onc. CT chest: Trace BL pleural effusions. RIGHT basilar opacity most likely atelectasis. 0.4x0.2 cm nodule LEFT upper lobe ant segment. No obvious lymphadenopathy. Liver with diffuse surface irregularities indicative of cirrhosis. RIGHT hydronephrosis. CBD dilation (no measurement included). Subacute L2 compression fracture. During stay he was found to have infra-renal AAA 4.4cm and was seen by vascular surgery whom recommended repeat US in 6 months to see if the aneurysm is growing; f/u in vascular clinic for surveillance. He was found to have urothelial Ca 1 month ago but has been poorly compliant with care/follw-up. He was again seen by Dr. Matthews whom rec heme/onc assessment. Heme/onc referred to rad/onc whom suggests pt is a candidate for palliative RT with or without concurrent chemo. He will further consider treatment and may follow up with me outpatient to proceed with tx if he desires. Abd was US to assess ascites: Mildly enlarged spleen 13cm. Inspissated bile sludge, CBD 1.2 cm (same as prior exam) with no sonographic evidence of acute cholecystitis. Moderate to marked RIGHT hydronephrosis. Infrarenal aortic aneurysm 4.4 cm. Since unrevealing, obtaining CT scan of the abdomen and pelvis with and without contrast (triple phase) per GI rec. It was recommended he f/u w GI out-pt. His COPD exacerbation greatly improved during stay with Duonebs huey 1 amp rqid, Solu-medrol 40 mg IV q8h, Albuterol PRN. CXR: Possible opacity in RLL, above the diaphragm. He was educated on smoking cessation. He was seen by GI for h/o HCV. Quantitative PCR negative 12/30. Either cleared on its own or treated (patient recall being treated). Abd US: Mildly enlarged spleen 13cm. Inspissated bile sludge, CBD 1.2 cm (same as prior exam) with no sonographic evidence of acute cholecystitis. Moderate to marked RIGHT hydronephrosis. Infrarenal aortic aneurysm 4.4 cm. Since unrevealing, obtaining CT scan of the abdomen and pelvis with and without contrast (triple phase) per GI rec. LUCIE on admission resolved with small boluses. Normocytic anemia treated conservativel as H/H at baseline. Opioid dependence cared for with Methadone 100 mg QD, confirmed by out-pt clinic. HTN regmien held (home regimen: Amlodepine 10 mg PO QD, HOLD ) Lactate 1.1 now. It was also noted he demonstrated severe protein calorie malnutrition given 30 lb weight loss of 3 months, CA, difficulty chewing, Albumin 2.7, and so he was put on a low sodium diet. Soft, easy to chew, with pureed meat and thin Liquids. Supplement: Ensure (vanilla ensure enlive), Magic Cup. He required glycerin enemas but passed stool regularly. Date of Discharge: 02/15/19 Valerio Peralta MD Minutes to complete discharge: 40 Discharge Summary Problems reviewed: Yes Reason For Visit: ACUTE KIDNEY INJURY ACUTE EXACERBATION OF COPD Condition: Stable - Instructions Diet, Activity, Other Instructions: YOUR VISIT You came to the hospital because you were feeling short of breath and had a cough. You were admitted to the hospital for care of sepsis and COPD exacerbation. While here you were seen by a urologist, oncologist, and infectious disease specialist. You are now stable and may return home. MEDICATIONS Please continue to take your medications as prescribed. Continue your home oxygen on the same settings. ADDITIONAL CARE Please make an appointment to see your primary care provider, Dr. Moran 1 week from today. Please make an appointment to see a oncologist in 1 week. A referral has to Dr. Jones has been provided. Please make an appointment to see a urologist in 1 week. A referral has to Dr. Stinson has been provided Please follow up with issac Anders in a week period Please follow uo with gastroenterogist within 2 week period. Ultra Sound of liver : Needs Q 6 month hepatic US to screen for HCC It is important you get a repeat abdominal ultrasound in 6 months to see if your abdominal aneurysm is growing. Please follow in vascular clinic for surveillance. . A referral to Dr. Koch has been provided. PLEASE CONTINUE TO TRY TO QUIT SMOKING. WE RECOMMEND NO SMOKING. ADDITIONAL INFORMATION Please call 911 or come directly to the emergency department if you experience unusual headache, vision change, shortness of breath, chest pain, numbness, tingling, loss of alertness/awareness, loss of function, unusual bleeding or any alarming symptoms. Referrals: Cam Moran MD [Primary Care Provider] - 1 Week Haris Stinson MD [Staff Physician] - 1 Week Ashutosh Tena DO [Staff Physician] - 1 Week Francisco De Jesus MD [Staff Physician] - 1 Week Henry Koch DO [Staff Physician] - José Miguel Jones MD [Staff Physician] - 1 Week Disposition: HOME - Home Medications Comprehensive Discharge Medication List: Ambulatory Orders Salmeterol/Fluticasone [Advair 250Mcg/50Mcg -] 1 inh IH BID #0 inh 03/09/12 Methadone HCl 100 mg PO DAILY 01/03/19 Amlodipine Besylate [Norvasc -] 10 mg PO DAILY #90 tablet 01/06/19 Ferrous Sulfate [Feosol] 325 mg PO DAILY #90 ud 01/06/19 Tamsulosin HCl [Flomax] 0.4 mg PO DAILY #90 capsule 01/06/19 Albuterol 0.083% Nebulizer Deja [Ventolin 0.083% Nebulizer Soln -] 1 amp NEB Q4H PRN amp 02/15/19 Amox-Tr/K Cl [Augmentin - 875Mg Tablet] 1 tab PO BID #10 tablet 02/15/19 Polyethylene Glycol 3350 [Miralax 119 gm Btl -] 17 gm PO BID bottle 02/15/19 Prednisone See Taper PO DAILY #30 tab.ds.pk 02/15/19 Sennosides [Senna -] 2 tab PO HS tablet 02/15/19 This patient is new to me today: No Emergency Visit: No Critical Care patient: No - Discharge Referral Referred to [facility] No ATTENDING PHYSICIAN STATEMENT I saw and evaluated the patient. I reviewed the resident's note and discussed the case with the resident. I agree with the resident's findings and plan as documented. SUBJECTIVE: OBJECTIVE: ASSESSMENT AND PLAN:
== END 2019-02-15 15:19 | disposition home health service (06) | DRG 871 ==
LOC: SUPCPDRO 12:28 → JER 12:28 → JERBED 14:37 → J6S 18:03
PROVIDERS: ATTEND Internal Medicine
DX: A41.9 Sepsis, unspecified organism (principal); J18.9 Pneumonia, unspecified organism; E43 Unspecified severe protein-calorie malnutrition; J44.1 Chronic obstructive pulmonary disease with (acute) exacerbation; N17.9 Acute kidney failure, unspecified; J96.11 Chronic respiratory failure with hypoxia; F11.20 Opioid dependence, uncomplicated; Z68.1 Body mass index [BMI] 19.9 or less, adult; R64 Cachexia; N13.30 Unspecified hydronephrosis; I95.9 Hypotension, unspecified; C67.9 Malignant neoplasm of bladder, unspecified; I25.10 Atherosclerotic heart disease of native coronary artery without angina pectoris; R31.9 Hematuria, unspecified; D64.9 Anemia, unspecified; I10 Essential (primary) hypertension; D72.829 Elevated white blood cell count, unspecified; E78.5 Hyperlipidemia, unspecified; K59.00 Constipation, unspecified
CPT/HCPCS: 36415; 36600; 71046-TC-FY; 71250-TC; 74178-TC; 76700-TC; 80053; 81003; 82803; 83605; 83735; 84100; 84484; 85025; 85027; 85610; 85730; 87040; 87070; 87389; 87804; 87807; 87880; 93005; 93010; 94640; 97116-GP; 97162-GP; 99284-25; J1644; J7030; Q9967

== ENCOUNTER 2019-03-14 21:16 | Inpatient (IN) | payer BC, OTHER ==
--- NOTE | 2019-03-14 21:43 | PDOC ---
History of Present Illness - General Chief Complaint: Urinary Problem Stated Complaint: FEVER/URINARY PROBLEM Time Seen by Provider: 03/14/19 21:38 - History of Present Illness Initial Comments: 03/14/19 23:01 78 y/o M hx of COPD, HTN, invasive bladder carcinoma and urothelia Ca, CAD, substance abuse (heroin), on daily methadone, Hep C with cirrhosis, presents to the ER with 3-4 days of abdominal pain. He reports that pain is diffuse and he has been constipated for the last 6 days with his last bowel movement being 6 days ago. He also reports that he hasn't urinated in 6 days as well. He denies any fevers or chills at home. He was recently admitted for sepsis secondary to CAP as well as URI vs malignancy a CT from 02/12/2019 showed the following findings -cyst in spleen -infrarenal aortic aneurysm -atrophic and fatty pancreas -mass within ureter and bladder -right sided hydronephrosis Per oncology notes, pt was offered radical cystectomy but declined was d/c with the understanding that he would follow up with oncology on and outpatient basis Past History - Past Medical History Allergies/Adverse Reactions: Allergies Allergy/AdvReac Type Severity Reaction Status Date / Time No Known Drug Allergies Allergy Unknown Verified 02/09/19 12:34 Home Medications: Ambulatory Orders Methadone HCl 98 mg PO DAILY 01/03/19 Amlodipine Besylate [Norvasc -] 10 mg PO DAILY #90 tablet 01/06/19 Tamsulosin HCl [Flomax] 0.4 mg PO DAILY #90 capsule 01/06/19 Polyethylene Glycol 3350 [Miralax 119 gm Btl -] 17 gm PO BID bottle 02/15/19 Budesonide/Formeterol Fumarate [SYMBICORT 80/4.5mcg -] 2 puff PO BID 03/16/19 Anemia: No Asthma: No Cancer: Yes (bladder tumor s/p cystoscopy) Cardiac Disorders: Yes (angioplasty 1997) CVA: No COPD: Yes (diagnosed 2009) CHF: No Dementia: No Diabetes: No Dialysis: No GI Disorders: No Disorders: Yes (BPH) HTN: Yes Hypercholesterolemia: No Kidney Stones: No Liver Disease: No Seizures: No Thyroid Disease: No - Surgical History Abdominal Surgery: Yes (RIGHT INQUINAL HERNIA REPAIR 25 YRS AGO) Appendectomy: No Cardiac Surgery: Yes (ANGIOPLASTY 1997) Cholecystectomy: No Lung Surgery: No Neurologic Surgery: No Orthopedic Surgery: No - Immunization History Immunization Up to Date: Yes - Psycho Social/Smoking Cessation Hx Smoking Status: Yes Smoking History: Current every day smoker Years of Tobacco Use: 20 Have you smoked in the past 12 months: Yes Number of Cigarettes Smoked Daily: 15 Information on smoking cessation initiated: No 'Breaking Loose' booklet given: 03/01/12 Hx Alcohol Use: No Drug/Substance Use Hx: No Substance Use Type: Opiates Hx Substance Use Treatment: Yes *Physical Exam - Vital Signs Last Vital Signs Temp Pulse Resp BP Pulse Ox 97.8 F 73 19 113/73 95 03/14/19 21:30 03/14/19 21:30 03/14/19 21:30 03/14/19 21:30 03/14/19 21:30 - Physical Exam 03/14/19 23:02 GENERAL: thin appearing. drowsy but arousable. AO x 2 HEAD: No signs of trauma, normocephalic, atraumatic EYES: pinpoint pupils, reactive to light, EOMI, sclera anicteric, conjunctiva clear ENT: Auricles normal inspection, hearing grossly normal, nares patent, oropharynx clear without exudates. Moist mucosa NECK: Normal ROM, supple, no lymphadenopathy, JVD, or masses LUNGS: mild distress when moving on room air. no distress with nasal cannula @2L , speaks full sentences, rales at lung bases HEART: Regular rate and rhythm, normal S1 and S2, no murmurs, rubs or gallops, peripheral pulses normal and equal bilaterally. ABDOMEN: Soft, tender to palpation (RUQ, epigstric, suprapubic), hyperactive bowel sounds. EXTREMITIES : Normal inspection, Normal range of motion, no edema. No cyanosis NEUROLOGICAL: Cranial nerves II through XII grossly intact. Normal speech, no focal sensorimotor deficits SKIN: Warm, Dry, normal turgor, no rashes or lesions noted ED Treatment Course - LABORATORY CBC & Chemistry Diagram: 03/18/19 08:35 03/18/19 08:35 Medical Decision Making - Medical Decision Making 03/14/19 23:05 8 y/o M hx of COPD, HTN, invasive bladder carcinoma and urothelia Ca, CAD, substance abuse (heroin), on daily methadone, Hep C with cirrhosis, presents to the ER with 3-4 days of abdominal pain given patients extensive abdominal neoplastic hx, SBO is a concern drowsiness and overall sick appearance, concerning for Sepsis workup sepsis abdomen and pelvis ct with contrast Resuscitation as per sepsis protocol. 03/15/19 00:06 EKG sinus tachycardia with premature atrial complexes septal infarct age undetermined no significant change from ekg of 02/15/2019 03/15/19 00:08 leukocytosis to the 30's on cbc 03/15/19 01:42 CT abdomen and pelvis with contrast. IMPRESSION: Moderate right hydronephrosis, suspected to be somewhat chronic, may be secondary to a mass within the mid ureter as well as in the right base of the bladder, although mixing of urine in the bladder can cause a similar appearance in the bladder. Transitional cell carcinoma should be considered. Mild left renal scarring. Cirrhosis, but no ascites. 4.7 cm abdominal aortic aneurysm. Gallstones and mild biliary duct dilation without gallbladder inflammation. Mild prostate enlargement. Severe emphysema. Discharge - Discharge Information Problems reviewed: Yes Clinical Impression/Diagnosis: Hematuria Qualifiers: Hematuria type: unspecified type Qualified Code(s): R31.9 - Hematuria, unspecified Condition: Stable - Follow up/Referral - Patient Discharge Instructions - Post Discharge Activity
[2019-03-14] MEDS ORDERED: SODIUM CHLORIDE 2,000 ML IV ONE (22:46)
--- NOTE | 2019-03-14 22:51 | PDOC ---
Documentation entered by Roxana Marmolejo SCRIBE, acting as scribe for Parisa Levine MD. Parisa Levine MD: This documentation has been prepared by the Jaleel basilio Adrianna, SCRIBE, under my direction and personally reviewed by me in its entirety. I confirm that the documentation accurately reflects all work, treatment, procedures, and medical decision making performed by me. Attending Attestation - Resident Resident Name: Medhat Liu - ED Attending Attestation I have performed the following: I have examined & evaluated the patient, The case was reviewed & discussed with the resident, I agree w/resident's findings & plan, Exceptions are as noted - HPI HPI: The patient is a 78 year old male, with a significant PMH of CAD, SC, HLD, HTN, COPD, hep C with liver cirrhosis, invasive bladder carcinoma and urothelial Ca, opiate use disorder (on methadone), who presents to the ED for evaluation of abdominal pain for 3-4 days. Patient complains of diffuse abdominal pain, with associated constipation (last bowel movement was 6 days ago). Patient additionally has not been able to urinate at this time. He was recently admitted to [facility] for SEPSIS 2/2 to CAP as well as URI vs malignancy a CT. Allergies: NKA, NKDA Surgical History: Cystoscopy, angioplasty, right inguinal hernia repair Social History: Opiate use disorder. Current everyday smoker (3/4 ppd) - Physicial Exam PE: GENERAL: Somnolent, awakens to voice, in no acute distress. +Temporal wasting. HEAD: No signs of trauma EYES: PERRLA, EOMI, sclera anicteric, conjunctiva clear ENT: Auricles normal inspection, hearing grossly normal, nares patent, oropharynx clear without exudates. Dry mucosa NECK: Normal ROM, supple, no lymphadenopathy, JVD, or masses LUNGS: Breath sounds equal, clear to auscultation bilaterally. No wheezes, and no crackles HEART: Regular rate and rhythm, normal S1 and S2, no murmurs, rubs or gallops ABDOMEN: Soft, diffusely tender, +hyperactive bowel sounds. +Guarding, no rebound. No masses EXTREMITIES: Normal range of motion, no edema. No clubbing or cyanosis. No cords, erythema, or tenderness NEUROLOGICAL: Cranial nerves II through XII grossly intact. Normal speech. Motor and sensation intact SKIN: Warm, dry, normal turgor, no rashes or lesions noted. - Medical Decision Making Pt is cachectic, chronically ill-appearing, and with diffusely tender abdomen. Will check rectal temp, labs. Plan for CT a/p to further evaluate.
[2019-03-14] MEDS ORDERED: ONDANSETRON 4 MG/2 ML VIAL IVPUSH ONE (23:08)
[2019-03-14] MEDS ORDERED: ONDANSETRON 4 MG/2 ML VIAL ONE (23:29)
[2019-03-14 23:52] LABS: BASO % 0.2 % (0-2.0); EOS % 0.4 % (0-4.5); HEMOGLOBIN 13.1 GM/dL (11.7-16.9); LYMPH % 3.5 % (8-40); MEAN CELL VOLUME 84.3 fl (80-96); MEAN PLT VOLUME 7.7 fl (7.5-11.1); MONO % 5.6 % (3.8-10.2); NEUT % 90.3 % (42.8-82.8); PLATELET COUNT 225 K/MM3 (134-434); RBC 4.86 M/mm3 (4.00-5.60); RDW 16.4 % (11.9-15.9)
[2019-03-14 23:56] LABS: WHITE BLOOD COUNT 33.9 K/mm3 (4.0-10.0)
[2019-03-15 00:04] LABS: INR 1.04 (0.83-1.09); PROTHROMBIN TIME (PATIENT) 12.3 SEC (9.7-13.0)
[2019-03-15 00:07] LABS: ACTIVATED PTT 27.4 SECONDS (25.2-36.5)
[2019-03-15 00:39] LABS: ALBUMIN 3.5 g/dl (3.4-5.0); BILIRUBIN,TOTAL 0.7 mg/dL (0.2-1); BLOOD UREA NITROGEN 26.5 mg/dL (7-18); CALCIUM 9.1 mg/dL (8.5-10.1); CREATININE 1.3 mg/dL (0.55-1.3); POTASSIUM 3.6 mmol/L (3.5-5.1); TOT PROT 7.1 g/dl (6.4-8.2)
[2019-03-15 01:36] LABS: ANISOCYTOSIS 2+; MACROCYTOSIS 0; PLATELET ESTIMATE NORMAL
--- NOTE | 2019-03-15 02:53 | PN ---
Teaching Attending Note Name of Resident: Alli Obregon ATTENDING PHYSICIAN STATEMENT I saw and evaluated the patient. I reviewed the resident's note and discussed the case with the resident. I agree with the resident's findings and plan as documented. SUBJECTIVE: Patient is a 78 year old man with a PMH of CAD, [place], HLD, HTN, COPD, Tobacco use , Hepatitis C disease with liver cirrhosis, Invasive bladder carcinoma and Urothelial cancer and Opiate use disorder (on methadone), who presents to the ER for evaluation of abdominal pain for 3-4 days. Patient complains of diffuse abdominal pain, with associated constipation (last bowel movement was 6 days ago ). Patient additionally has not been able to urinate at this time. He was recently admitted to [facility] for sepsis due to pneumonia. CT scan of abdomen/ pelvis from 02/12/2019 showed "cyst in spleen, infrarenal aortic aneurysm, atrophic and fatty pancreas, mass within ureter and bladder and right sided hydronephrosis. Per oncology notes, patient was offered radical cystectomy but declined. He was discharged with the understanding that he would follow up with oncology on and outpatient basis. No sick contacts or recent travels. OBJECTIVE: Somnolent but readily arousable Vital Signs Period Temp Pulse Resp BP Sys/Flor Pulse Ox Last 24 Hr 97.8 F-100.2 F 73-87 18-19 109-113/72-73 2-95 HEENT: No Jaundice, eye redness or discharge, PERRLA, EOMI. Normocephalic, atraumatic. External ears are normal and hearing is grossly intact. No nasal discharge. Neck: Supple, nontender. No palpable adenopathy or thyromegaly. No JVD Chest: Good effort. Clear to auscultation and percussion. Heart: Regular. No S3, rub or murmur Abdomen: Not distended, soft, diffuse tenderness and no HSM. No rebound or guarding. Normal bowel sounds. Ext: Peripheral pulses intact. No leg edema. Skin: Warm and dry. No petechiae, rash or ecchymosis. Neuro: Somnolent but readily arousable. Oriented to person and place. CN 2-12 grossly intact. Sensation grossly intact in all four extremities and DTR are symmetric. Psych: Appropriate mood and affect. Good insight. Home Medications Medication Instructions Recorded Salmeterol/Fluticasone [Advair 1 inh IH BID #0 inh 03/09/12 250Mcg/50Mcg -] Methadone HCl 100 mg PO DAILY 01/03/19 Amlodipine Besylate [Norvasc -] 10 mg PO DAILY #90 tablet 01/06/19 Ferrous Sulfate [Feosol] 325 mg PO DAILY #90 ud 01/06/19 Tamsulosin HCl [Flomax] 0.4 mg PO DAILY #90 capsule 01/06/19 Albuterol 0.083% Nebulizer Deja 1 amp NEB Q4H PRN amp 02/15/19 [Ventolin 0.083% Nebulizer Soln -] Amox-Tr/K Cl [Augmentin - 875Mg 1 tab PO BID #10 tablet 02/15/19 Tablet] Polyethylene Glycol 3350 [Miralax 17 gm PO BID bottle 02/15/19 119 gm Btl -] Prednisone See Taper PO DAILY #30 tab.ds.pk 02/15/19 Sennosides [Senna -] 2 tab PO HS tablet 02/15/19 Abnormal Lab Results 03/14/19 03/14/19 23:27 23:27 WBC 33.9 H* RDW 16.4 H Absolute Neuts (auto) 30.6 H Neutrophils % 90.3 H Neutrophils % (Manual) 86.0 H Lymphocytes % 3.5 L Monocytes % (Manual) 0 L Sodium 135 L BUN 26.5 H ASSESSMENT AND PLAN: 1. Abdominal pain/?Sepsis - Etiology of abdominal pain unclear. Urinalysis pending. CT scan of abdomen/pelvis with IV contrast showed "Moderate right hydronephrosis, suspected to be somewhat chronic, may be secondary to a mass within the mid ureter as well as in the right base of the bladder, although mixing of urine in the bladder can cause a similar appearance in the bladder. Transitional cell carcinoma should be considered. Mild left renal scarring. Cirrhosis, but no ascites. 4.7 cm abdominal aortic aneurysm. Gallstones and mild biliary duct dilation without gallbladder inflammation. Mild prostate enlargement. Severe emphysema. Source of likely sepsis unclear. Sepsis workup done. Will treat with IV Vancomycin, Zosyn and IV NS pending culture report. Will consult ID, Urology and Oncology. Despite history of constipation, no significant stool collection on CT scan. Will continue Miralax bid and liberal oral fluids since patient is still on Methadone. CXR shows hyperaerated lungs and bibasilar atelectasis (R>L) . EKG shows sinus tachycardia with premature atrial complexes and septal infarct of undetermined age - no significant change from EKG of 02/15/2019. Will continue comprehensive care for all of patients comorbid conditions. 2. Tobacco Use Counseled on risks associated with tobacco use. We will provide patient all the necessary assistance to facilitate smoking cessation and prescribe Nicotine patch. 3. Illicit drug/Alcohol abuse - Implement [facility] alcohol withdrawal protocol and do neurochecks. Implement seizure, fall and aspiration precautions. Treat with thiamine and folic acid and monitor electrolytes (Ca,Mg, K,P). Counseled patient about abstaining from alcohol. Will consult agriculture extension specialist and refer to alcohol detox upon discharge. 4. Hypertension - Restart suitable outpatient antihypertensive drugs when clinically appropriate. Revise regimen to ensure [id number] excellent BP control and sexual assault counselor patient on the injurious effects of uncontrolled hypertension. Nonpharmacologic measures to control hypertension like weight loss , salt restriction and exercise discussed. Importance of adherence to treatment regimen and attainment of normotension emphasized. 5. DVT prophylaxis - Lovenox 40 mg SQ q 24 hours. 6. Advance directives - Full code
--- NOTE | 2019-03-15 03:13 | PDOC ---
*Physical Exam - Vital Signs Last Vital Signs Temp Pulse Resp BP Pulse Ox 100.2 F H 87 18 109/72 2 L 03/14/19 21:55 03/15/19 01:41 03/15/19 01:41 03/15/19 01:41 03/15/19 01:41 - Physical Exam General Appearance: Yes: Other (somnolent) ED Treatment Course - LABORATORY CBC & Chemistry Diagram: 03/14/19 23:27 03/14/19 23:27 - ADDITIONAL ORDERS Additional order review: Laboratory Results 03/14/19 03/14/19 03/14/19 23:27 23:27 23:27 PT with INR INR PTT (Actin FS) Sodium 135 L Potassium 3.6 Chloride 99 Carbon Dioxide 28 Anion Gap 8 BUN 26.5 H Creatinine 1.3 Est GFR (CKD-EPI)AfAm 60.15 Est GFR (CKD-EPI)NonAf 51.90 Random Glucose 82 Lactic Acid 1.9 Calcium 9.1 Total Bilirubin 0.7 AST 28 ALT 27 Alkaline Phosphatase 98 Troponin I < 0.02 Total Protein 7.1 Albumin 3.5 03/14/19 23:27 PT with INR 12.30 INR 1.04 PTT (Actin FS) 27.4 Sodium Potassium Chloride Carbon Dioxide Anion Gap BUN Creatinine Est GFR (CKD-EPI)AfAm Est GFR (CKD-EPI)NonAf Random Glucose Lactic Acid Calcium Total Bilirubin AST ALT Alkaline Phosphatase Troponin I Total Protein Albumin 03/14/19 23:27 RBC 4.86 MCV 84.3 MCHC 32.0 RDW 16.4 H MPV 7.7 Neutrophils % 90.3 H Lymphocytes % 3.5 L Monocytes % 5.6 Eosinophils % 0.4 Basophils % 0.2 - Medications Given in the ED: ED Medications Discontinued Medications Generic Name Dose Route Start Last Admin Trade Name Freq PRN Reason Stop Dose Admin Sodium Chloride 2,000 mls @ 1,000 mls/hr 03/14/19 22:46 03/14/19 23:51 Normal Saline - 30 ml/kg infuse over 2 hr (2000 ml) 03/15/19 00:45 1,000 mls/hr IV Administration ONCE ONE Ondansetron HCl 4 mg 03/14/19 23:08 03/14/19 23:51 Zofran Injection IVPUSH 03/14/19 23:09 4 mg NOW ONE Administration Medical Decision Making - Medical Decision Making 03/15/19 03:08 Pt is a 69y/o with bladder cancer, right hydronephrosis, cirrhosis who has persistent abdominal pain. Leukocytosis 33.9 and low grade temp 100.2. Pt is weak. Spoke to Dr. Obregon with hospitalist service who will accept patient. Discharge - Discharge Information Problems reviewed: Yes Clinical Impression/Diagnosis: Hematuria Qualifiers: Hematuria type: unspecified type Qualified Code(s): R31.9 - Hematuria, unspecified - Follow up/Referral - Patient Discharge Instructions - Post Discharge Activity
[2019-03-15 03:18] LABS: EPI CELLS 0.8 /HPF (0-5/HPF); HYALINE CASTS 5 /lpf (0-8); URINE APPEARANCE CLOUDY; URINE BACTERIA 21.5 /hpf (NEGATIVE); URINE BILIRUBIN NEGATIVE (NEGATIVE); URINE COLOR YELLOW; URINE GLUCOSE (UA) NEGATIVE (NEGATIVE); URINE KETONE NEGATIVE (NEGATIVE); URINE LEUK ESTERASE 2+ (NEGATIVE); URINE NITRITE NEGATIVE (NEGATIVE); URINE PROTEIN 2+ (NEGATIVE); URINE RBC 57 /hpf (0-4); URINE UROBILINOGEN 0.2 mg/dL (0.2-1.0); URINE WBC 102 /hpf (0-5)
[2019-03-15] MEDS ORDERED: VANCOMYCIN 1 GM in D5W (PRE-DOCKED) 1,000 MG/250 ML IVPB ONE (04:10)
[2019-03-15] MEDS ORDERED: PIPERACILLIN/TAZOB 2.25 GM 2.25 GM in DEXTROSE 5%-WATER - 50 ML IVPB ONE (04:10)
[2019-03-15] MEDS ORDERED: VANCOMYCIN 1 GRAM (PRE-DOCKED) 1,000 MG/250 ML BAG IVPB ONE ×2 (04:14→04:30)
[2019-03-15] MEDS ORDERED: PIPERACILLIN/TAZOB 2.25 GM 2.25 GM/50 ML BAG IVPB ONE (04:30)
[2019-03-15] MEDS ORDERED: ALBUTEROL SO4 0.083% IH SOL 2.5 MG/3 ML VIAL.NEB. NEB ONE ×2 (04:30→08:18)
--- NOTE | 2019-03-15 04:39 | HP ---
CHIEF COMPLAINT: abdominal pain PCP: Dr. Moran HISTORY OF PRESENT ILLNESS: Limited history. Pt was somewhat somnolent and confused. Pt is a 78 y/o M with PMH CAD, [place], HLD, HTN, COPD, hep C with liver cirrhosis, invasive bladder carcinoma and urothelial Ca, opiate use disorder (on methadone ) who presented to ED with complaint of abdominal pain. At the time of my interview, pt states his abdominal pain was moderate but that he had not had a bowel movement or urinated in 7 days. When asked why he came to the hospital he stated he was scared to on the toilet like someone he knew did. He was not able to identify a reason for presenting on this particular evening but stated that his belly pain was not terrible. Pt did recall his recent visit and stated that he did not follow up with any of his doctors because he lost track of time. I was unable to open [facility] to check outpatient records. Denies nausea, vomiting, fever, chills, cough. Admits to decreased appetite and weight loss. No night sweats. Stated he might want to be made DNR, but would think about it and discuss tomorrow. ER course was notable for: (1) WBC 30 (2) CTAP with R hydro, likely urothelial CA, cirrhosis, AAA. Pending official read (3) Recent Travel: denies PAST MEDICAL HISTORY: CAD, [place], HLD, HTN, COPD, hep C with liver cirrhosis, invasive bladder carcinoma and urothelial Ca, opiate use disorder (on methadone) PAST SURGICAL HISTORY: abdominal hernia Social History: Smoking: daily smoker Alcohol: denies Drugs: hx opiates. Now on methadone Allergies No Known Drug Allergies Allergy (Unknown, Verified 02/09/19 12:34) HOME MEDICATIONS: Home Medications Medication Instructions Recorded Salmeterol/Fluticasone [Advair 1 inh IH BID #0 inh 03/09/12 250Mcg/50Mcg -] Methadone HCl 100 mg PO DAILY 01/03/19 Amlodipine Besylate [Norvasc -] 10 mg PO DAILY #90 tablet 01/06/19 Ferrous Sulfate [Feosol] 325 mg PO DAILY #90 ud 01/06/19 Tamsulosin HCl [Flomax] 0.4 mg PO DAILY #90 capsule 01/06/19 Albuterol 0.083% Nebulizer Deja 1 amp NEB Q4H PRN amp 02/15/19 [Ventolin 0.083% Nebulizer Soln -] Amox-Tr/K Cl [Augmentin - 875Mg 1 tab PO BID #10 tablet 02/15/19 Tablet] Polyethylene Glycol 3350 [Miralax 17 gm PO BID bottle 02/15/19 119 gm Btl -] Prednisone See Taper PO DAILY #30 tab.ds.pk 02/15/19 Sennosides [Senna -] 2 tab PO HS tablet 02/15/19 REVIEW OF SYSTEMS CONSTITUTIONAL: weight loss 2/2 decreased appetite Absent: fever, chills, diaphoresis, generalized weakness, malaise, loss of appetite, HEENT: Absent: rhinorrhea, nasal congestion, throat pain, throat swelling, difficulty swallowing, mouth swelling, ear pain, eye pain, visual changes CARDIOVASCULAR: Absent: chest pain, syncope, palpitations, irregular heart rate, lightheadedness , peripheral edema RESPIRATORY: Absent: cough, shortness of breath, dyspnea with exertion, orthopnea, wheezing, stridor, hemoptysis GASTROINTESTINAL:abdominal pain, constipation x 1 week Absent: , abdominal distension, nausea, vomiting, diarrhea, , melena, hematochezia GENITOURINARY: anuria x 1 week Absent: dysuria, frequency, urgency, hesitancy, hematuria, flank pain, genital pain MUSCULOSKELETAL: Absent: myalgia, arthralgia, joint swelling, back pain, neck pain SKIN: Absent: rash, itching, pallor HEMATOLOGIC/IMMUNOLOGIC: Absent: easy bleeding, easy bruising, lymphadenopathy, frequent infections ENDOCRINE: Absent: unexplained weight gain, unexplained weight loss, heat intolerance, cold intolerance NEUROLOGIC: Absent: headache, focal weakness or paresthesias, dizziness, unsteady gait, seizure, mental status changes, bladder or bowel incontinence PSYCHIATRIC: Absent: anxiety, depression, suicidal or homicidal ideation, hallucinations. PHYSICAL EXAMINATION Vital Signs - 24 hr 03/14/19 03/14/19 03/15/19 21:30 21:55 01:41 Temperature 97.8 F 100.2 F H Pulse Rate 73 Pulse Rate [ 87 Left Apical] Respiratory 19 18 Rate Blood Pressure 113/73 Blood Pressure 109/72 [Right Arm] O2 Sat by Pulse 95 2 L Oximetry (%) Gen: frail, AAOx2 HEENT: NCAT, EOMI, PERRL, adentulous, moist membranes Neck: supple, no bruits Cardio: rrr, no mrg noted, s1s2 Pulm: cta b/l Abd: flat, nondistended, soft, nontender, 1-2 cm supraumbilical hernia reducible Rectal exam: attempted disimpaction unsuccessful as rectal vault was empty. no gross blood Genital exam unremarkable. Ext: no edema Skin: no ulcers/rashes noted Laboratory Results - last 24 hr 03/14/19 03/14/19 03/14/19 23:27 23:27 23:27 WBC 33.9 H* RBC 4.86 Hgb 13.1 Hct 41.0 D MCV 84.3 MCH 27.0 MCHC 32.0 RDW 16.4 H Plt Count 225 MPV 7.7 Absolute Neuts (auto) 30.6 H Neutrophils % 90.3 H Neutrophils % (Manual) 86.0 H Band Neutrophils % 0.0 Lymphocytes % 3.5 L Lymphocytes % (Manual) 13.0 Monocytes % 5.6 Monocytes % (Manual) 0 L Eosinophils % 0.4 Eosinophils % (Manual) 0.0 Basophils % 0.2 Basophils % (Manual) 0.0 Myelocytes % (Man) 0 Promyelocytes % (Man) 1 Blast Cells % (Manual) 0 Nucleated RBC % 0 Metamyelocytes 0 Hypochromia 1+ Platelet Estimate Normal Polychromasia 0 Poikilocytosis 1+ Anisocytosis 2+ Microcytosis 2+ Macrocytosis 0 PT with INR 12.30 INR 1.04 PTT (Actin FS) 27.4 Sodium Potassium Chloride Carbon Dioxide Anion Gap BUN Creatinine Est GFR (CKD-EPI)AfAm Est GFR (CKD-EPI)NonAf Random Glucose Lactic Acid Calcium Total Bilirubin AST ALT Alkaline Phosphatase Troponin I < 0.02 Total Protein Albumin Urine Color Urine Appearance Urine pH Ur Specific [place] Urine Protein Urine Glucose (UA) Urine Ketones Urine Blood Urine Nitrite Urine Bilirubin Urine Urobilinogen Ur Leukocyte Esterase Urine WBC (Auto) Urine RBC (Auto) Urine Casts (Auto) U Epithel Cells (Auto) Urine Bacteria (Auto) 03/14/19 03/14/19 03/15/19 23:27 23:27 02:21 WBC RBC Hgb Hct MCV MCH MCHC RDW Plt Count MPV Absolute Neuts (auto) Neutrophils % Neutrophils % (Manual) Band Neutrophils % Lymphocytes % Lymphocytes % (Manual) Monocytes % Monocytes % (Manual) Eosinophils % Eosinophils % (Manual) Basophils % Basophils % (Manual) Myelocytes % (Man) Promyelocytes % (Man) Blast Cells % (Manual) Nucleated RBC % Metamyelocytes Hypochromia Platelet Estimate Polychromasia Poikilocytosis Anisocytosis Microcytosis Macrocytosis PT with INR INR PTT (Actin FS) Sodium 135 L Potassium 3.6 Chloride 99 Carbon Dioxide 28 Anion Gap 8 BUN 26.5 H Creatinine 1.3 Est GFR (CKD-EPI)AfAm 60.15 Est GFR (CKD-EPI)NonAf 51.90 Random Glucose 82 Lactic Acid 1.9 Calcium 9.1 Total Bilirubin 0.7 AST 28 ALT 27 Alkaline Phosphatase 98 Troponin I Total Protein 7.1 Albumin 3.5 Urine Color Yellow Urine Appearance Cloudy Urine pH 5.0 D Ur Specific [place] 1.040 H Urine Protein 2+ H Urine Glucose (UA) Negative Urine Ketones Negative Urine Blood 3+ H Urine Nitrite Negative Urine Bilirubin Negative Urine Urobilinogen 0.2 Ur Leukocyte Esterase 2+ H Urine WBC (Auto) 102 Urine RBC (Auto) 57 Urine Casts (Auto) 5 U Epithel Cells (Auto) 0.8 Urine Bacteria (Auto) 21.5 ASSESSMENT/PLAN: Pt is a 78 y/o M with PMH CAD, [place], HLD, HTN, COPD, hep C with liver cirrhosis, invasive bladder carcinoma and urothelial Ca, opiate use disorder (on methadone ) who presented to ED with complaint of abdominal pain. Will admit for sepsis. Sepsis -leukocytosis with fever and possible AMS (baseline, and most recent methadone use unknown) -though noted to have been d/c'ed on Prednisone, questionable compliance -? 2/2 UTI. UA with LE, blood, bacteria (straight cath) -broad coverage considering recent hospital visit -NS -ID consulted Constipation/Urinary retention -questionable history. Pt states has neither defecated nor urinated in 7 days, however, straight cath yielded 50 cc and rectal vault was empty -no stool accumulation on CT HTN -holding amlodipine in setting of sepsis -if BP elevated tomorrow, would consider restarting Urothelial/Bladder CA -Pt was reported offered radical cystectomy and radiation therapy on last visit and refused -? candidate for palliative chemo or other therapy, though considering age and status, might not tolerate well -Heme/onc consulted note: Methadone continued based on previous discharge. Will need to confirm dose with clinic. DVT ppx: hep subQ Visit type - Emergency Visit Emergency Visit: Yes Care time: The patient presented to the Emergency Department on the above date and was hospitalized for further evaluation of their emergent condition. - New Patient This patient is new to me today: Yes Date on this admission: 03/15/19 - Critical Care Critical Care patient: No ATTENDING PHYSICIAN STATEMENT I saw and evaluated the patient. I reviewed the resident's note and discussed the case with the resident. I agree with the resident's findings and plan as documented. SUBJECTIVE: OBJECTIVE: ASSESSMENT AND PLAN:
[2019-03-15] MEDS: ALBUTEROL SO4 0.083% IH SOL 2.5 MG/3 ML VIAL.NEB. NEB SCH ×5 (04:40→20:12)
[2019-03-15] MEDS: SODIUM CHLORIDE 1,000 ML IV SCH ×2 (04:40→11:21)
[2019-03-15] MEDS ORDERED: HEPARIN NA (PORCINE) 5,000 UNITS/ML 1ML VIAL ONE (06:17)
[2019-03-15] MEDS: HEPARIN NA (PORCINE) 5,000 UNITS/ML 1ML VIAL SQ SCH ×3 (06:22→22:34)
[2019-03-15] MEDS ORDERED: TAMSULOSIN HCL 0.4 MG CAP ONE (08:18)
[2019-03-15] MEDS: TAMSULOSIN HCL 0.4 MG CAP PO SCH (08:34)
[2019-03-15 09:21] LABS: INR 1.08 (0.83-1.09); PROTHROMBIN TIME (PATIENT) 12.8 SEC (9.7-13.0)
[2019-03-15 09:24] LABS: ACTIVATED PTT 28.4 SECONDS (25.2-36.5)
[2019-03-15 09:50] LABS: ALBUMIN 2.7 g/dl (3.4-5.0); BILIRUBIN,TOTAL 0.5 mg/dL (0.2-1); BLOOD UREA NITROGEN 23.7 mg/dL (7-18); CREATININE 1.2 mg/dL (0.55-1.3); MAGNESIUM 2.1 mg/dL (1.8-2.4); PHOSPHOROUS 3.4 mg/dL (2.5-4.9); POTASSIUM 3.5 mmol/L (3.5-5.1); TOT PROT 5.7 g/dl (6.4-8.2)
[2019-03-15] MEDS ORDERED: METHADONE HCL 100 MG PO SCH (10:00)
[2019-03-15] MEDS ORDERED: PATIENT'S OWN MEDICATION (NON-FORMULARY) (Salmeterol/Fluticasone [Advair 250mcg/50mcg -] 1 IH SCH (10:00)
[2019-03-15 10:29] LABS: BASO % 0.1 % (0-2.0); EOS % 0.2 % (0-4.5); HEMATOCRIT 34.3 % (35.4-49); HEMOGLOBIN 10.9 GM/dL (11.7-16.9); MCHC 31.7 g/dl (32.0-35.9); MEAN CELL VOLUME 85.2 fl (80-96); MEAN PLT VOLUME 7.8 fl (7.5-11.1); NEUT % 92.7 % (42.8-82.8); PLATELET COUNT 184 K/MM3 (134-434); RBC 4.02 M/mm3 (4.00-5.60); RDW 17.1 % (11.9-15.9)
[2019-03-15 10:32] LABS: WHITE BLOOD COUNT 32.2 K/mm3 (4.0-10.0)
[2019-03-15] MEDS: POLYETHYLENE GLYCOL 3350 119 GM BTL PO SCH ×2 (10:38→22:34)
[2019-03-15] MEDS: BUDESONIDE/FORMETEROL FUMARATE 80/4.5 mcg INHALER IH SCH (11:55)
[2019-03-15 14:02] LABS: ANISOCYTOSIS 1+; MACROCYTOSIS 0; OVALOCYTE 1+; PLATELET ESTIMATE NORMAL
--- NOTE | 2019-03-15 14:06 | EKG ---
Test Reason : Blood Pressure : / mmHG Vent. Rate : 103 BPM Atrial Rate : 103 BPM P-R Int : 140 ms QRS Dur : 088 ms QT Int : 356 ms P-R-T Axes : 064 -24 081 degrees QTc Int : 466 ms SINUS TACHYCARDIA WITH PREMATURE ATRIAL COMPLEXES ANTEROSEPTAL INFARCT , AGE UNDETERMINED ABNORMAL ECG Confirmed by MD JATIN, ROXANNA ([id number]) on 03/15/2019 2:05:37 PM Referred By: Confirmed By:ROXANNA STEINER MD
--- NOTE | 2019-03-15 17:04 | PN ---
Progress Note (short form) - Note Progress Note: Patient known to Oncology from recent admission. Is readmitted with history as documented below: 78 y/o M hx of COPD, HTN, invasive bladder carcinoma and urothelia Ca, CAD, substance abuse (heroin), on daily methadone, Hep C with cirrhosis, presents to the ER with 3-4 days of abdominal pain. He reports that pain is diffuse and he has been constipated for the last 6 days with his last bowel movement being 6 days ago. He also reports that he hasn't urinated in 6 days as well. He denies any fevers or chills at home. 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 + invasion of muscularis propria Refusing surgery and ? candidacy given his pulmonary function Outpatient PET-CT will request rad-onc consult ? chemo- RT Now presenting with abdominal pain, albeit not worse than previous. At this time patient has no acute complaints. Leukocytosis noted. Current Medications Albuterol Sulfate (Ventolin 0.083% Nebulizer Soln -) 1 amp NEB RQ4H [facility] Last Admin: 03/15/19 13:00 Dose: Not Given Budesonide/Formoterol Fumarate (Symbicort 80/4.5mcg -) 2 puff IH BID [facility] Last Admin: 03/15/19 11:55 Dose: Not Given Heparin Sodium (Porcine) (Heparin -) 5,000 unit SQ TID [facility] Last Admin: 03/15/19 14:37 Dose: 5,000 unit Sodium Chloride (Normal Saline -) 1,000 mls @ 75 mls/hr IV ASDIR [facility] Last Admin: 03/15/19 11:21 Dose: 75 mls/hr Non-Formulary Medication (Methadone Hcl [Methadone Hcl]) 100 mg PO DAILY [facility] Polyethylene Glycol (Miralax (For Daily Use) -) 17 gm PO BID [facility] Last Admin: 03/15/19 10:38 Dose: 17 gm Senna (Senna -) 2 tab PO HS [facility] Tamsulosin HCl (Flomax -) 0.4 mg PO DAILY@0830 [facility] Last Admin: 03/15/19 08:34 Dose: 0.4 mg On Examination: Last Vital Signs Temp Pulse Resp BP Pulse Ox 98 F 73 20 119/54 L 93 L 03/15/19 14:00 03/15/19 14:00 03/15/19 14:00 03/15/19 14:00 03/15/19 12:12 General: In no acute distress, wasted, unkempt. Extremities: No pallor or icterus. CVS: S1, S2, no gallop or murmur. Chest: breathing comfortably, clear. Abdomen: non-distended, non-tender, colostomy Neuro: Somnolent but rousable, oriented, non-focal Labs: 03/15/19 06:29 03/15/19 06:49 Assessment. Locally advanced bladder cancer, with previous recommendation for cystectomy, declined. Following recent admission was discharged with plan in place for outpatient care, but patient did not follow up. Poor resources, and impaired insight. Currently with new leukocytosis, and boderline fever. Not on Abics, cultures in lab. Low threshold for empiric Abics. If active management is not to be pursued (cystectomy, RTX/chemo) then palliative care plan needs to be in place. Possibly a candidate for patient hospice. Dr Cordoba to follow up in am.
--- NOTE | 2019-03-15 18:13 | PN ---
Progress Note (short form) - Note Progress Note: SUBJECTIVE: Feels okay - no complaints. Passing urine. No dysuria/hematuria. No abdominal pain. No nausea/vomiting. OBJECTIVE: Febrile Tmax 100.7, hemodynamically Stable Last Vital Signs Temp Pulse Resp BP Pulse Ox 98.6 F 82 20 95/50 L 93 L 03/15/19 17:08 03/15/19 17:22 03/15/19 17:08 03/15/19 17:22 03/15/19 12:12 HEENT - Atraumatic, normocephalic. Heart - S1, S2, RRR Lungs - clear to auscultation Abdomen - soft, non-tender. Bowel Sounds normal. Extremities - No LE edema, no calf tenderness Neuro - AAO x 2. Moving all extremities. Laboratory Results - last 24 hr 03/14/19 03/14/19 03/14/19 23:27 23:27 23:27 WBC 33.9 H* RBC 4.86 Hgb 13.1 Hct 41.0 D MCV 84.3 MCH 27.0 MCHC 32.0 RDW 16.4 H Plt Count 225 MPV 7.7 Absolute Neuts (auto) 30.6 H Neutrophils % 90.3 H Neutrophils % (Manual) 86.0 H Band Neutrophils % 0.0 Lymphocytes % 3.5 L Lymphocytes % (Manual) 13.0 Monocytes % 5.6 Monocytes % (Manual) 0 L Eosinophils % 0.4 Eosinophils % (Manual) 0.0 Basophils % 0.2 Basophils % (Manual) 0.0 Myelocytes % (Man) 0 Promyelocytes % (Man) 1 Blast Cells % (Manual) 0 Nucleated RBC % 0 Metamyelocytes 0 Hypochromia 1+ Platelet Estimate Normal Platelet Comment Polychromasia 0 Poikilocytosis 1+ Anisocytosis 2+ Microcytosis 2+ Macrocytosis 0 Spherocytes Ovalocytes [place] Cells Schistocytes PT with INR 12.30 INR 1.04 PTT (Actin FS) 27.4 Sodium Potassium Chloride Carbon Dioxide Anion Gap BUN Creatinine Est GFR (CKD-EPI)AfAm Est GFR (CKD-EPI)NonAf Random Glucose Lactic Acid Calcium Phosphorus Magnesium Total Bilirubin AST ALT Alkaline Phosphatase Troponin I < 0.02 Total Protein Albumin TSH Thyroxine (T4) Urine Color Urine Appearance Urine pH Ur Specific [place] Urine Protein Urine Glucose (UA) Urine Ketones Urine Blood Urine Nitrite Urine Bilirubin Urine Urobilinogen Ur Leukocyte Esterase Urine WBC (Auto) Urine RBC (Auto) Urine Casts (Auto) U Epithel Cells (Auto) Urine Bacteria (Auto) 03/14/19 03/14/19 03/15/19 23:27 23:27 02:21 WBC RBC Hgb Hct MCV MCH MCHC RDW Plt Count MPV Absolute Neuts (auto) Neutrophils % Neutrophils % (Manual) Band Neutrophils % Lymphocytes % Lymphocytes % (Manual) Monocytes % Monocytes % (Manual) Eosinophils % Eosinophils % (Manual) Basophils % Basophils % (Manual) Myelocytes % (Man) Promyelocytes % (Man) Blast Cells % (Manual) Nucleated RBC % Metamyelocytes Hypochromia Platelet Estimate Platelet Comment Polychromasia Poikilocytosis Anisocytosis Microcytosis Macrocytosis Spherocytes Ovalocytes [place] Cells Schistocytes PT with INR INR PTT (Actin FS) Sodium 135 L Potassium 3.6 Chloride 99 Carbon Dioxide 28 Anion Gap 8 BUN 26.5 H Creatinine 1.3 Est GFR (CKD-EPI)AfAm 60.15 Est GFR (CKD-EPI)NonAf 51.90 Random Glucose 82 Lactic Acid 1.9 Calcium 9.1 Phosphorus Magnesium Total Bilirubin 0.7 AST 28 ALT 27 Alkaline Phosphatase 98 Troponin I Total Protein 7.1 Albumin 3.5 TSH Thyroxine (T4) Urine Color Yellow Urine Appearance Cloudy Urine pH 5.0 D Ur Specific [place] 1.040 H Urine Protein 2+ H Urine Glucose (UA) Negative Urine Ketones Negative Urine Blood 3+ H Urine Nitrite Negative Urine Bilirubin Negative Urine Urobilinogen 0.2 Ur Leukocyte Esterase 2+ H Urine WBC (Auto) 102 Urine RBC (Auto) 57 Urine Casts (Auto) 5 U Epithel Cells (Auto) 0.8 Urine Bacteria (Auto) 21.5 03/15/19 03/15/19 03/15/19 06:29 06:49 06:49 WBC 32.2 H* RBC 4.02 Hgb 10.9 L Hct 34.3 L D MCV 85.2 MCH 27.0 MCHC 31.7 L RDW 17.1 H Plt Count 184 MPV 7.8 Absolute Neuts (auto) 29.9 H Neutrophils % 92.7 H Neutrophils % (Manual) 90.0 H Band Neutrophils % 0.0 Lymphocytes % 3.0 L Lymphocytes % (Manual) 3.0 L D Monocytes % 4.0 Monocytes % (Manual) 3 L D Eosinophils % 0.2 Eosinophils % (Manual) 0.0 Basophils % 0.1 Basophils % (Manual) 0.0 Myelocytes % (Man) 0 Promyelocytes % (Man) 0 D Blast Cells % (Manual) 0 Nucleated RBC % 0 Metamyelocytes 0 Hypochromia 0 Platelet Estimate Normal Platelet Comment Present Polychromasia 1+ Poikilocytosis 1+ Anisocytosis 1+ Microcytosis 1+ Macrocytosis 0 Spherocytes 1+ Ovalocytes 1+ [place] Cells 1+ Schistocytes 1+ PT with INR 12.80 INR 1.08 PTT (Actin FS) 28.4 Sodium 139 Potassium 3.5 Chloride 105 Carbon Dioxide 26 Anion Gap 8 BUN 23.7 H Creatinine 1.2 Est GFR (CKD-EPI)AfAm 66.26 Est GFR (CKD-EPI)NonAf 57.17 Random Glucose 81 Lactic Acid Calcium 8.0 L Phosphorus 3.4 Magnesium 2.1 Total Bilirubin 0.5 AST 18 ALT 18 Alkaline Phosphatase 72 Troponin I Total Protein 5.7 L Albumin 2.7 L TSH 2.28 Thyroxine (T4) 11.8 Urine Color Urine Appearance Urine pH Ur Specific [place] Urine Protein Urine Glucose (UA) Urine Ketones Urine Blood Urine Nitrite Urine Bilirubin Urine Urobilinogen Ur Leukocyte Esterase Urine WBC (Auto) Urine RBC (Auto) Urine Casts (Auto) U Epithel Cells (Auto) Urine Bacteria (Auto) Current Medications Generic Name Dose Route Start Last Admin Trade Name Freq PRN Reason Stop Dose Admin Albuterol Sulfate 1 amp 03/15/19 04:07 03/15/19 17:26 Ventolin 0.083% Nebulizer Soln - NEB 1 amp RQ4H [facility] Administration Budesonide/Formoterol Fumarate 2 puff 03/15/19 10:00 03/15/19 11:55 Symbicort 80/4.5mcg - IH Not Given BID [facility] Heparin Sodium (Porcine) 5,000 unit 03/15/19 06:00 03/15/19 14:37 Heparin - SQ 5,000 unit TID [facility] Administration Sodium Chloride 1,000 mls @ 75 mls/hr 03/15/19 04:00 03/15/19 11:21 Normal Saline - IV 75 mls/hr ASDIR [facility] Administration Non-Formulary Medication 100 mg 03/15/19 10:00 Methadone Hcl [Methadone Hcl] PO DAILY [facility] Polyethylene Glycol 17 gm 03/15/19 10:00 03/15/19 10:38 Miralax (For Daily Use) - PO 17 gm BID [facility] Administration Senna 2 tab 03/15/19 22:00 Senna - PO HS [facility] Tamsulosin HCl 0.4 mg 03/15/19 08:30 03/15/19 08:34 Flomax - PO 0.4 mg DAILY@0830 [facility] Administration Home Medications Medication Instructions Recorded Salmeterol/Fluticasone [Advair 1 inh IH BID #0 inh 03/09/12 250Mcg/50Mcg -] Methadone HCl 100 mg PO DAILY 01/03/19 Amlodipine Besylate [Norvasc -] 10 mg PO DAILY #90 tablet 01/06/19 Ferrous Sulfate [Feosol] 325 mg PO DAILY #90 ud 01/06/19 Tamsulosin HCl [Flomax] 0.4 mg PO DAILY #90 capsule 01/06/19 Albuterol 0.083% Nebulizer Deja 1 amp NEB Q4H PRN amp 02/15/19 [Ventolin 0.083% Nebulizer Soln -] Amox-Tr/K Cl [Augmentin - 875Mg 1 tab PO BID #10 tablet 02/15/19 Tablet] Polyethylene Glycol 3350 [Miralax 17 gm PO BID bottle 02/15/19 119 gm Btl -] Prednisone See Taper PO DAILY #30 tab.ds.pk 02/15/19 Sennosides [Senna -] 2 tab PO HS tablet 02/15/19 ASSESSMENT/PLAN: 78 year old male with history of CAD s/p [place], HTN, HLD, COPD, Hepatitis C, Liver Cirrhosis, Bladder - Urothelial Ca (declined resection), Opiate Use Disorder ( on Methadone), presents with abdominal pain, constipation and urinary retention. 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 Acute Metabolic Encephalopathy and Sepsis secondary to UTI Fever, Leukocytosis. Urine Cx pending. Zosyn started. IV fluids. ID consulted. 2. HTN - Norvasc held. 3. Urothelial/Bladder CA s/p radical cystectomy s/p RTx. 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 + invasion of muscularis propria possible mass R ureter. Oncology/Urology consulted - re: plan for Rx. Continue Flomax 4. Opiate Use Disorder - on Methadone 100mg - dose needs to be confirmed. DVT Px - Heparin SQ Visit type - Emergency Visit Emergency Visit: Yes ED Registration Date: 03/15/19 Care time: The patient presented to the Emergency Department on the above date and was hospitalized for further evaluation of their emergent condition. - New Patient This patient is new to me today: Yes Date on this admission: 03/16/19 - Critical Care Critical Care patient: No - Discharge Referral Referred to [facility] Med [facility] No
--- NOTE | 2019-03-15 18:27 | CON.ID ---
Consult - History of Present Illness History of Present Illness: Patient is a 78 year old man with a PMH of CAD, [place], HLD, HTN, COPD, Tobacco use , Hepatitis C disease with liver cirrhosis, Invasive bladder carcinoma and Urothelial cancer and heroin abuse (on methadone), came to the ER with c/o of diffuse abdominal pain for 3-4 days and has not had a BM for 6 days. Pt also states he has been having difficulty urinating. He denies SOB but states he's had a cough. Denies fever/chills, H/A, rhinorrhea, sore throat, n/v, or CP. In the ER, he was noted to have elevated wbc (33K) and temp of 100.7. CT abd/ pelvis findings include gallstones with CBD dilatation, Rt hydronephrosis/ hydroureter and findinsh consistent with Bladder CA. CXR with questionable atelectasis vs. infiltrate. Currently he states he has no abd pain and is afebrile and urinated earlier but no BMs as of yet. No distress noted. - History Source History Provided By: Patient - Past Medical History Cardio/Vascular: Yes: HTN Pulmonary: Yes: COPD (on home O2) Hepatobiliary: Yes: Other (Question of cirrhosis) Renal/: Yes: BPH, Hematuria, UTI, Other (Bladder CA) Heme/Onc: Yes: Cancer (Invasive bladder CA) - Past Surgical History Past Surgical History: Yes: Hernia Repair (RIH repair 25 yrs ago), TURP - Alcohol/Substance Use Hx Alcohol Use: Yes History of Substance Use: reports: Heroin - Smoking History Smoking history: Current every day smoker Have you smoked in the past 12 months: Yes Aproximately how many cigarettes per day: 15 - Social History ADL: Independent History of Recent Travel: No Home Medications - Allergies Allergies/Adverse Reactions: Allergies Allergy/AdvReac Type Severity Reaction Status Date / Time No Known Drug Allergies Allergy Unknown Verified 02/09/19 12:34 - Home Medications Home Medications: Ambulatory Orders Salmeterol/Fluticasone [Advair 250Mcg/50Mcg -] 1 inh IH BID #0 inh 03/09/12 Methadone HCl 100 mg PO DAILY 01/03/19 Amlodipine Besylate [Norvasc -] 10 mg PO DAILY #90 tablet 01/06/19 Ferrous Sulfate [Feosol] 325 mg PO DAILY #90 ud 01/06/19 Tamsulosin HCl [Flomax] 0.4 mg PO DAILY #90 capsule 01/06/19 Albuterol 0.083% Nebulizer Deja [Ventolin 0.083% Nebulizer Soln -] 1 amp NEB Q4H PRN amp 02/15/19 Amox-Tr/K Cl [Augmentin - 875Mg Tablet] 1 tab PO BID #10 tablet 02/15/19 Polyethylene Glycol 3350 [Miralax 119 gm Btl -] 17 gm PO BID bottle 02/15/19 Prednisone See Taper PO DAILY #30 tab.ds.pk 02/15/19 Sennosides [Senna -] 2 tab PO HS tablet 02/15/19 Review of Systems - Review of Systems Constitutional: reports: No Symptoms. denies: Chills, Diaphoresis, Fever, Lethargy, Loss of Appetite, Malaise, Night Sweats, Unintentional Wgt. Loss, Weakness, Other Eyes: reports: No Symptoms. denies: Blind Spots, Blurred Vision, Double Vision , Eye Pain, Floaters, Photophobia, Recent Change in Vision, Other HENT: reports: No Symptoms. denies: Difficult Swallowing, Ear Discharge, Ear Pain, Epistaxis, Gingival Bleeding, Hearing Loss, Mouth Swelling, Nasal Congestion, Ocular Prosthesis, Throat Pain, Toothache, Ringing in Ears, Other Neck: reports: No Symptoms. denies: Decreased ROM, Lumps, Pain on Movement, Stiffness, Swollen Glands, Tenderness, Other Cardiovascular: reports: No Symptoms. denies: Chest Pain, Edema, Palpitations, Shortness of Breath, Other Respiratory: reports: Cough. denies: No Symptoms, Exercise Intolerance, Hemoptysis, Orthopnea, PND, Snoring, SOB, SOB on Exertion, Wheezing, Other Gastrointestinal: reports: No Symptoms. denies: Abdominal Pain, Bloating, Constipation, Diarrhea, Dysphagia, Indigestion, Melena, Nausea, Rectal Bleeding , Vomiting, Vomiting Blood, Other Genitourinary: reports: No Symptoms. denies: Burning, Discharge, Dysuria, Flank Pain, Frequency, Hematuria, Incontinence, Lesions, Menses, Pain, Testicular Mass, Testicular Pain, Testicular Swelling, Urgency, Vaginal Bleeding , Other Musculoskeletal: reports: No Symptoms. denies: Back Pain, Crepitus, Decreased ROM, Extremity Pain, Joint Pain, Joint Swelling, Muscle Pain, Muscle Cramps, Muscle Weakness, Other Integumentary: reports: No Symptoms. denies: Blister, Bruising, Change in Color , Eczema, Erythema, Incision, Lesions, Lump, Pallor, Pruritis, Rash, Wound, Other Neurological: reports: No Symptoms. denies: Change in LOC, Change in Speech, Confusion, Dizziness, Headache, Incoordination, Numbness, Parasthesia, Pre- Existing Deficit, Seizure, Syncope, Tremors, Unsteady Gait, Weakness, Other Endocrine: reports: No Symptoms. denies: Excessive Sweating, Flushing, Increased Hunger, Increased Thirst, Intolerance to Cold, Intolerance to Heat, Unexplained Weight Gain, Unexplained Weight Loss, Other Hematology/Lymphatic: reports: No Symptoms. denies: Easily Bruised, Excessive Bleeding, Swollen Glands, Other Physical Exam Vital Signs: Vital Signs Temperature 98.6 F 03/15/19 17:08 Pulse Rate 82 03/15/19 17:22 Respiratory Rate 20 03/15/19 17:08 Blood Pressure 95/50 L 03/15/19 17:22 O2 Sat by Pulse Oximetry (%) 93 L 03/15/19 12:12 Constitutional: Yes: No Distress, Calm Eyes: Yes: Conjunctiva Clear, EOM Intact Neck: Yes: Supple Cardiovascular: Yes: Regular Rate and Rhythm Respiratory: Yes: CTA Bilaterally Gastrointestinal: Yes: Normal Bowel Sounds, Soft Renal/: Yes: WNL Integumentary: Yes: WNL. No: Body Piercing, Bruising, Erythema, Incision, Jaundice, Laceration, Petechiae, Pressure Ulcer, Rash, Skin Tear, Tattoos, Tenting, Onychomycosis, Venous Stasis Changes, Other Neurological: Yes: Alert, Oriented Labs: CBC, BMP 03/15/19 06:29 03/15/19 06:49 Laboratory Tests 03/14/19 03/14/19 03/14/19 23:27 23:27 23:27 WBC 33.9 H* RBC 4.86 Hgb 13.1 Hct 41.0 D MCV 84.3 MCH 27.0 MCHC 32.0 RDW 16.4 H Plt Count 225 MPV 7.7 Absolute Neuts (auto) 30.6 H Neutrophils % 90.3 H Neutrophils % (Manual) 86.0 H Band Neutrophils % 0.0 Lymphocytes % 3.5 L Lymphocytes % (Manual) 13.0 Monocytes % 5.6 Monocytes % (Manual) 0 L Eosinophils % 0.4 Eosinophils % (Manual) 0.0 Basophils % 0.2 Basophils % (Manual) 0.0 Myelocytes % (Man) 0 Promyelocytes % (Man) 1 Blast Cells % (Manual) 0 Nucleated RBC % 0 Metamyelocytes 0 Hypochromia 1+ Platelet Estimate Normal Platelet Comment Polychromasia 0 Poikilocytosis 1+ Anisocytosis 2+ Microcytosis 2+ Macrocytosis 0 Spherocytes Ovalocytes Crane Cells Schistocytes PT with INR 12.30 INR 1.04 PTT (Actin FS) 27.4 Sodium Potassium Chloride Carbon Dioxide Anion Gap BUN Creatinine Est GFR (CKD-EPI)AfAm Est GFR (CKD-EPI)NonAf Random Glucose Lactic Acid Calcium Phosphorus Magnesium Total Bilirubin AST ALT Alkaline Phosphatase Troponin I < 0.02 Total Protein Albumin TSH Thyroxine (T4) Urine Color Urine Appearance Urine pH Ur Specific [place] Urine Protein Urine Glucose (UA) Urine Ketones Urine Blood Urine Nitrite Urine Bilirubin Urine Urobilinogen Ur Leukocyte Esterase Urine WBC (Auto) Urine RBC (Auto) Urine Casts (Auto) U Epithel Cells (Auto) Urine Bacteria (Auto) 03/14/19 03/14/19 03/15/19 23:27 23:27 02:21 WBC RBC Hgb Hct MCV MCH MCHC RDW Plt Count MPV Absolute Neuts (auto) Neutrophils % Neutrophils % (Manual) Band Neutrophils % Lymphocytes % Lymphocytes % (Manual) Monocytes % Monocytes % (Manual) Eosinophils % Eosinophils % (Manual) Basophils % Basophils % (Manual) Myelocytes % (Man) Promyelocytes % (Man) Blast Cells % (Manual) Nucleated RBC % Metamyelocytes Hypochromia Platelet Estimate Platelet Comment Polychromasia Poikilocytosis Anisocytosis Microcytosis Macrocytosis Spherocytes Ovalocytes [place]ulu Cells Schistocytes PT with INR INR PTT (Actin FS) Sodium 135 L Potassium 3.6 Chloride 99 Carbon Dioxide 28 Anion Gap 8 BUN 26.5 H Creatinine 1.3 Est GFR (CKD-EPI)AfAm 60.15 Est GFR (CKD-EPI)NonAf 51.90 Random Glucose 82 Lactic Acid 1.9 Calcium 9.1 Phosphorus Magnesium Total Bilirubin 0.7 AST 28 ALT 27 Alkaline Phosphatase 98 Troponin I Total Protein 7.1 Albumin 3.5 TSH Thyroxine (T4) Urine Color Yellow Urine Appearance Cloudy Urine pH 5.0 D Ur Specific [place] 1.040 H Urine Protein 2+ H Urine Glucose (UA) Negative Urine Ketones Negative Urine Blood 3+ H Urine Nitrite Negative Urine Bilirubin Negative Urine Urobilinogen 0.2 Ur Leukocyte Esterase 2+ H Urine WBC (Auto) 102 Urine RBC (Auto) 57 Urine Casts (Auto) 5 U Epithel Cells (Auto) 0.8 Urine Bacteria (Auto) 21.5 03/15/19 03/15/19 03/15/19 06:29 06:49 06:49 WBC 32.2 H* RBC 4.02 Hgb 10.9 L Hct 34.3 L D MCV 85.2 MCH 27.0 MCHC 31.7 L RDW 17.1 H Plt Count 184 MPV 7.8 Absolute Neuts (auto) 29.9 H Neutrophils % 92.7 H Neutrophils % (Manual) 90.0 H Band Neutrophils % 0.0 Lymphocytes % 3.0 L Lymphocytes % (Manual) 3.0 L D Monocytes % 4.0 Monocytes % (Manual) 3 L D Eosinophils % 0.2 Eosinophils % (Manual) 0.0 Basophils % 0.1 Basophils % (Manual) 0.0 Myelocytes % (Man) 0 Promyelocytes % (Man) 0 D Blast Cells % (Manual) 0 Nucleated RBC % 0 Metamyelocytes 0 Hypochromia 0 Platelet Estimate Normal Platelet Comment Present Polychromasia 1+ Poikilocytosis 1+ Anisocytosis 1+ Microcytosis 1+ Macrocytosis 0 Spherocytes 1+ Ovalocytes 1+ Lulu Cells 1+ Schistocytes 1+ PT with INR 12.80 INR 1.08 PTT (Actin FS) 28.4 Sodium 139 Potassium 3.5 Chloride 105 Carbon Dioxide 26 Anion Gap 8 BUN 23.7 H Creatinine 1.2 Est GFR (CKD-EPI)AfAm 66.26 Est GFR (CKD-EPI)NonAf 57.17 Random Glucose 81 Lactic Acid Calcium 8.0 L Phosphorus 3.4 Magnesium 2.1 Total Bilirubin 0.5 AST 18 ALT 18 Alkaline Phosphatase 72 Troponin I Total Protein 5.7 L Albumin 2.7 L TSH 2.28 Thyroxine (T4) 11.8 Urine Color Urine Appearance Urine pH Ur Specific [place] Urine Protein Urine Glucose (UA) Urine Ketones Urine Blood Urine Nitrite Urine Bilirubin Urine Urobilinogen Ur Leukocyte Esterase Urine WBC (Auto) Urine RBC (Auto) Urine Casts (Auto) U Epithel Cells (Auto) Urine Bacteria (Auto) Cultures pending Imaging - Results Chest X-ray: Report Reviewed Cat Scan: Report Reviewed Assessment/Plan Patient is a 78 year old man with a PMH of CAD, [place], HLD, HTN, COPD, Tobacco use , Hepatitis C disease with liver cirrhosis, Invasive bladder carcinoma and Urothelial cancer and heroin abuse (on methadone), came to the ER with c/o of diffuse abdominal pain for 3-4 days. Febrile to 100.7 and wbc 33K Fever Leukocytosis Abd pain ? UTI Invasive Bladder CA/urothelial CA CAD s/p [place] HTN HLD COPD Hep C with cirrhosis -- Continue Zosyn for now, f/u Urine and Blood culture results -- CTAP / CXR results noted -- Oncology followup -- monitor wbc trend, temps -- Pt currently without abd pain/without distress, no SOB/cough noted -- continue monitor vitals Will follow Thank you
[2019-03-15] MEDS ORDERED: SODIUM CHLORIDE 250 ML IV STA (18:43)
[2019-03-15] MEDS ORDERED: PIPERACILLIN/TAZOBACTAM 3.375 GM VIAL IVPB ONE (18:46)
[2019-03-15] MEDS ORDERED: DEXTROSE 5%-WATER - 50 ML IVPB ONE (18:46)
[2019-03-15] MEDS: PIPERACILLIN/TAZOB 3.375 GM 3.375 GM in DEXTROSE 5%-WATER - 50 ML IVPB SCH (18:48)
[2019-03-15] MEDS: SENNOSIDES 8.6MG TABLET (FP) PO SCH (22:35)
[2019-03-16] MEDS: BUDESONIDE/FORMETEROL FUMARATE 80/4.5 mcg INHALER IH SCH ×3 (00:07→21:15)
[2019-03-16] MEDS ORDERED: PIPERACILLIN/TAZOBACTAM 3.375 GM VIAL IVPB ONE ×3 (01:08→17:13)
[2019-03-16] MEDS ORDERED: DEXTROSE 5%-WATER - 50 ML IVPB ONE ×3 (01:09→17:13)
[2019-03-16] MEDS: PIPERACILLIN/TAZOB 3.375 GM 3.375 GM in DEXTROSE 5%-WATER - 50 ML IVPB SCH ×3 (01:17→17:48)
[2019-03-16] MEDS: ALBUTEROL SO4 0.083% IH SOL 2.5 MG/3 ML VIAL.NEB. NEB SCH ×6 (03:05→20:40)
[2019-03-16] MEDS: HEPARIN NA (PORCINE) 5,000 UNITS/ML 1ML VIAL SQ SCH ×3 (06:18→21:15)
[2019-03-16] MEDS: SODIUM CHLORIDE 1,000 ML IV SCH ×2 (08:02→15:26)
[2019-03-16] MEDS: TAMSULOSIN HCL 0.4 MG CAP PO SCH (10:37)
[2019-03-16] MEDS ORDERED: METHADONE HCL 10 MG TABLET ONE (11:33)
[2019-03-16] MEDS ORDERED: METHADONE HCL 40 MG DISPERSABLE TABLET ONE (11:34)
[2019-03-16] MEDS: METHADONE 80 MG, METHADONE 20 MG PO SCH (11:38)
[2019-03-16] MEDS: POLYETHYLENE GLYCOL 3350 119 GM BTL PO SCH ×2 (11:38→21:15)
[2019-03-16 12:23] LABS: BASO % 0.2 % (0-2.0); EOS % 0.3 % (0-4.5); HEMATOCRIT 30.3 % (35.4-49); HEMOGLOBIN 9.8 GM/dL (11.7-16.9); LYMPH % 4.1 % (8-40); MCH 27.4 pg (25.7-33.7); MCHC 32.4 g/dl (32.0-35.9); MEAN CELL VOLUME 84.8 fl (80-96); MEAN PLT VOLUME 7.7 fl (7.5-11.1); MONO % 3.9 % (3.8-10.2); NEUT % 91.5 % (42.8-82.8); PLATELET COUNT 133 K/MM3 (134-434); RBC 3.57 M/mm3 (4.00-5.60); WHITE BLOOD COUNT 23.1 K/mm3 (4.0-10.0)
[2019-03-16 12:52] LABS: BLOOD UREA NITROGEN 17.8 mg/dL (7-18); CALCIUM 7.9 mg/dL (8.5-10.1); POTASSIUM 4.1 mmol/L (3.5-5.1)
--- NOTE | 2019-03-16 13:26 | PN ---
Progress Note, Physician History of Present Illness: looking stable wbc still high comfortable calm - Current Medication List Current Medications: Active Medications Albuterol Sulfate (Ventolin 0.083% Nebulizer Soln -) 1 amp NEB RQ4H [facility] Last Admin: 03/16/19 11:01 Dose: 1 amp Budesonide/Formoterol Fumarate (Symbicort 80/4.5mcg -) 2 puff IH BID [facility] Last Admin: 03/16/19 10:39 Dose: 2 puff Heparin Sodium (Porcine) (Heparin -) 5,000 unit SQ TID [facility] Last Admin: 03/16/19 06:18 Dose: 5,000 unit Sodium Chloride (Normal Saline -) 1,000 mls @ 75 mls/hr IV ASDIR [facility] Last Admin: 03/16/19 08:02 Dose: Not Given Piperacillin Sod/Tazobactam (Sod 3.375 gm/ Dextrose) 50 mls @ 100 mls/hr IVPB Q8H-IV [facility]; Protocol Last Admin: 03/16/19 10:37 Dose: 100 mls/hr Methadone HCl 80 mg/ Methadone (HCl 20 mg) 100 mg PO DAILY@0600 [facility] Last Admin: 03/16/19 11:38 Dose: 100 mg Polyethylene Glycol (Miralax (For Daily Use) -) 17 gm PO BID [facility] Last Admin: 03/16/19 11:38 Dose: 17 gm Senna (Senna -) 2 tab PO HS [facility] Last Admin: 03/15/19 22:35 Dose: 2 tab Tamsulosin HCl (Flomax -) 0.4 mg PO DAILY@0830 [facility] Last Admin: 03/16/19 10:37 Dose: 0.4 mg - Objective Vital Signs: Vital Signs Temperature 98.4 F 03/16/19 09:00 Pulse Rate 84 03/16/19 09:00 Respiratory Rate 18 03/16/19 09:00 Blood Pressure 128/65 03/16/19 09:00 O2 Sat by Pulse Oximetry (%) 94 L 03/15/19 21:00 Constitutional: Yes: No Distress, Calm Cardiovascular: Yes: S1, S2 Respiratory: Yes: Regular, CTA Bilaterally Gastrointestinal: Yes: Normal Bowel Sounds, Soft Musculoskeletal: Yes: WNL Extremities: Yes: WNL Neurological: Yes: Alert, Oriented Psychiatric: Yes: Alert, Oriented Labs: CBC, BMP 03/16/19 12:00 02/03/20 12:00 INR, PTT INR 1.08 (0.83-1.09) 03/15/19 06:49 Assessment/Plan Patient is a 78 year old man with a PMH of CAD, [place], HLD, HTN, COPD, Tobacco use , Hepatitis C disease with liver cirrhosis, Invasive bladder carcinoma and Urothelial cancer and heroin abuse (on methadone), came to the ER with c/o of diffuse abdominal pain for 3-4 days. Febrile to 100.7 and wbc 33K Fever Leukocytosis Abd pain ? UTI Invasive Bladder CA/urothelial CA CAD s/p [place] HTN HLD COPD Hep C with cirrhosis plan continue abx monitor wbc
[2019-03-16 15:36] LABS: ANISOCYTOSIS 0; MACROCYTOSIS 0; PLATELET ESTIMATE DECREASED; TARGET CELLS 1+
--- NOTE | 2019-03-16 15:55 | PN ---
Physical Exam: SUBJECTIVE: Patient seen and examined. Pt is afebrile today. Reports urination but no BM yet. Symptoms have improved. Report no overnight events. c/o of right thigh pain and right Lower quadrant pain. Denies f/c/n/v/d/sob, cp. OBJECTIVE: Vital Signs Period Temp Pulse Resp BP Sys/Flor Pulse Ox Last 24 Hr 98.3 F-99.2 F 73-84 18-20 95-128/47-66 94 GENERAL: The patient is awake, alert, and moderately oriented, in no acute distress. Report amnesia. Cachetic EYES: PERRL, extraocular movements intact, sclera anicteric, No ptosis. ENT: oropharynx clear without exudates, moist mucous membranes. NECK: Trachea midline, full range of motion, supple. LUNGS: Breath sounds equal, clear to auscultation bilaterally, no wheezes, no crackles, HEART: Regular rate and rhythm, S1, S2 without murmur, rub or gallop. ABDOMEN: Soft, right lower quadrant and flank tenderness, nondistended, normoactive bowel sounds, no guarding, EXTREMITIES: 2+ pulses, warm, well-perfused, no edema. NEUROLOGICAL: Cranial nerves II through XII grossly intact. SKIN: Warm, dry, normal turgor, no rashes or lesions noted Laboratory Results - last 24 hr 03/16/19 03/16/19 12:00 12:00 WBC 23.1 H RBC 3.57 L Hgb 9.8 L Hct 30.3 L MCV 84.8 MCH 27.4 MCHC 32.4 RDW 17.0 H Plt Count 133 L D MPV 7.7 Absolute Neuts (auto) 21.2 H Neutrophils % 91.5 H Lymphocytes % 4.1 L D Monocytes % 3.9 Eosinophils % 0.3 Basophils % 0.2 Nucleated RBC % 0 Sodium 139 Potassium 4.1 Chloride 107 Carbon Dioxide 25 Anion Gap 8 BUN 17.8 Creatinine 1.0 Est GFR (CKD-EPI)AfAm 82.60 Est GFR (CKD-EPI)NonAf 71.27 Random Glucose 148 H Calcium 7.9 L Active Medications Current Medications Albuterol Sulfate (Ventolin 0.083% Nebulizer Soln -) 1 amp NEB RQ4H [facility] Last Admin: 03/16/19 11:01 Dose: 1 amp Budesonide/Formoterol Fumarate (Symbicort 80/4.5mcg -) 2 puff IH BID [facility] Last Admin: 03/16/19 10:39 Dose: 2 puff Heparin Sodium (Porcine) (Heparin -) 5,000 unit SQ TID [facility] Last Admin: 03/16/19 15:25 Dose: 5,000 unit Sodium Chloride (Normal Saline -) 1,000 mls @ 75 mls/hr IV ASDIR [facility] Last Admin: 03/16/19 15:26 Dose: 75 mls/hr Piperacillin Sod/Tazobactam (Sod 3.375 gm/ Dextrose) 50 mls @ 100 mls/hr IVPB Q8H-IV [facility]; Protocol Last Admin: 03/16/19 10:37 Dose: 100 mls/hr Methadone HCl 80 mg/ Methadone (HCl 20 mg) 100 mg PO DAILY@0600 [facility] Last Admin: 03/16/19 11:38 Dose: 100 mg Polyethylene Glycol (Miralax (For Daily Use) -) 17 gm PO BID [facility] Last Admin: 03/16/19 11:38 Dose: 17 gm Senna (Senna -) 2 tab PO HS [facility] Last Admin: 03/15/19 22:35 Dose: 2 tab Tamsulosin HCl (Flomax -) 0.4 mg PO DAILY@0830 [facility] Last Admin: 03/16/19 10:37 Dose: 0.4 mg Home Medications Medication Instructions Recorded Salmeterol/Fluticasone [Advair 1 inh IH BID #0 inh 03/09/12 250Mcg/50Mcg -] Methadone HCl 98 mg PO DAILY 01/03/19 Amlodipine Besylate [Norvasc -] 10 mg PO DAILY #90 tablet 01/06/19 Ferrous Sulfate [Feosol] 325 mg PO DAILY #90 ud 01/06/19 Tamsulosin HCl [Flomax] 0.4 mg PO DAILY #90 capsule 01/06/19 Albuterol 0.083% Nebulizer Deja 1 amp NEB Q4H PRN amp 02/15/19 [Ventolin 0.083% Nebulizer Soln -] Amox-Tr/K Cl [Augmentin - 875Mg 1 tab PO BID #10 tablet 02/15/19 Tablet] Polyethylene Glycol 3350 [Miralax 17 gm PO BID bottle 02/15/19 119 gm Btl -] Prednisone See Taper PO DAILY #30 tab.ds.pk 02/15/19 Sennosides [Senna -] 2 tab PO HS tablet 02/15/19 Budesonide/Formeterol Fumarate 2 puff PO BID 03/16/19 [SYMBICORT 80/4.5mcg -] Microbiology 03/15/19 02:22 Urine - Urine Clean Catch Urine Culture - Final NO GROWTH OBTAINED 03/14/19 23:27 Blood - Peripheral Venous Blood Culture - Preliminary NO GROWTH OBTAINED AFTER 24 HOURS, INCUBATION TO CONTINUE FOR 4 DAYS. 03/14/19 23:27 Blood - Peripheral Venous Blood Culture - Preliminary NO GROWTH OBTAINED AFTER 24 HOURS, INCUBATION TO CONTINUE FOR 4 DAYS. ASSESSMENT/PLAN: 78 y/o M, pmh of CAD s/p [place], HTN, HLD, COPD, Hepatitis C, Liver Cirrhosis, Urothelial bladder Cancer (refused resection), Opiate Use Disorder (on Methadone ) presented with abdominal pain, altered mental status and urinary retention admitted for acute metabolic enceph from sepsis 2/2 to UTI #Acute metabolic Encephalopathy+ Sepsis 2/2 to UTI Initially febrile and leukocytosis- now resolved UCx- now growth, UA postive Continue Zosyn IVF at 75 ID- Dr. Coley consulted CT a/p-Gallstones with dilated CBD, R posterior wall bladder mass, R hydronephrosis with hydroureter, Hyper dense lumen of the distal right ureter suspicious for mass, Liver Cirrhosis, AAA 4.7cm Pt is refusing invasive procedures and painful treatments including chemo I discussed with pt and he is willing to try radiation therapy or chemotherapy with pain medications- will f/u with heme/onc Pt will need outpt GI f/u for dilated CBD/Gall stones and vascular f/u for AAA 4.7cm White count trending down #Normocytic anemia likely 2/2 to malignancy monitor for now #Opiate use disorder Started on Methadone 100 mg daily- confirmed/verified with methadone clinic no signs of withdrawal #HTN Held norvasc-?? #Urothelial Bladder CA s/p radical cystectomy s/p RTx. 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 + invasion of muscularis propria Likely mass of the R ureter causing obstruction and right hydro Urology consulted- Dr. Do, Nayel- f/u plan Cont Flomax #Constipation Senna + Miralax #DVT ppx Heparin SQ FEN: monitor lytes regular diet IVF at 74 Wean off Oxygen, pt uses oxygen at home Dispo: f/u with Uro, heme/onc, f/u sensitives to tailer Abx Visit type - Emergency Visit Emergency Visit: Yes ED Registration Date: 03/15/19 Care time: The patient presented to the Emergency Department on the above date and was hospitalized for further evaluation of their emergent condition. - New Patient This patient is new to me today: Yes Date on this admission: 03/16/19 - Critical Care Critical Care patient: No - Discharge Referral Referred to [facility] No ATTENDING PHYSICIAN STATEMENT I saw and evaluated the patient. I reviewed the resident's note and discussed the case with the resident. I agree with the resident's findings and plan as documented. SUBJECTIVE: OBJECTIVE: ASSESSMENT AND PLAN:
--- NOTE | 2019-03-16 17:00 | PN ---
Teaching Attending Note Name of Resident: Arnie Montoya ATTENDING PHYSICIAN STATEMENT I saw and evaluated the patient. I reviewed the resident's note and discussed the case with the resident. I agree with the resident's findings and plan as documented. SUBJECTIVE: Feels well - no complaints. No dysuria/hematuria. No abdominal pain. No nausea/vomiting. OBJECTIVE: Fever resolved, Hemodynamically Stable Last Vital Signs Temp Pulse Resp BP Pulse Ox 98.8 F 89 20 125/89 94 L 03/16/19 15:45 03/16/19 15:45 03/16/19 15:45 03/16/19 15:45 03/15/19 21:00 Heart - S1, S2, RRR Lungs - clear to auscultation Abdomen - soft, mild tenderness RLQ. No RUQ tenderness. Bowel Sounds normal. Extremities - No LE edema, no calf tenderness Neuro - AAO x 2. Moving all extremities. Laboratory Results - last 24 hr 03/16/19 03/16/19 12:00 12:00 WBC 23.1 H RBC 3.57 L Hgb 9.8 L Hct 30.3 L MCV 84.8 MCH 27.4 MCHC 32.4 RDW 17.0 H Plt Count 133 L D MPV 7.7 Absolute Neuts (auto) 21.2 H Neutrophils % 91.5 H Neutrophils % (Manual) 97.0 H Band Neutrophils % 1.0 Lymphocytes % 4.1 L D Lymphocytes % (Manual) 2.0 L D Monocytes % 3.9 Monocytes % (Manual) 0 L D Eosinophils % 0.3 Eosinophils % (Manual) 0.0 Basophils % 0.2 Basophils % (Manual) 0.0 Myelocytes % (Man) 0 Promyelocytes % (Man) 0 Blast Cells % (Manual) 0 Nucleated RBC % 0 Metamyelocytes 0 Hypochromia 1+ Platelet Estimate Decreased Polychromasia 0 Poikilocytosis 1+ Anisocytosis 0 Microcytosis 0 Macrocytosis 0 Target Cells 1+ Sodium 139 Potassium 4.1 Chloride 107 Carbon Dioxide 25 Anion Gap 8 BUN 17.8 Creatinine 1.0 Est GFR (CKD-EPI)AfAm 82.60 Est GFR (CKD-EPI)NonAf 71.27 Random Glucose 148 H Calcium 7.9 L Current Medications Generic Name Dose Route Start Last Admin Trade Name Freq PRN Reason Stop Dose Admin Albuterol Sulfate 1 amp 03/15/19 04:07 03/16/19 16:12 Ventolin 0.083% Nebulizer Soln - NEB 1 amp RQ4H [facility] Administration Budesonide/Formoterol Fumarate 2 puff 03/15/19 10:00 03/16/19 10:39 Symbicort 80/4.5mcg - IH 2 puff BID [facility] Administration Heparin Sodium (Porcine) 5,000 unit 03/15/19 06:00 03/16/19 15:25 Heparin - SQ 5,000 unit TID [facility] Administration Sodium Chloride 1,000 mls @ 75 mls/hr 03/15/19 04:00 03/16/19 15:26 Normal Saline - IV 75 mls/hr ASDIR [facility] Administration Piperacillin Sod/Tazobactam 50 mls @ 100 mls/hr 03/15/19 18:30 03/16/19 10:37 Sod 3.375 gm/ Dextrose IVPB 100 mls/hr Q8H-IV [facility] Administration Protocol Methadone HCl 80 mg/ Methadone 100 mg 03/16/19 11:00 03/16/19 11:38 HCl 20 mg PO 100 mg DAILY@0600 [facility] Administration Polyethylene Glycol 17 gm 03/15/19 10:00 03/16/19 11:38 Miralax (For Daily Use) - PO 17 gm BID [facility] Administration Senna 2 tab 03/15/19 22:00 03/15/19 22:35 Senna - PO 2 tab HS [facility] Administration Tamsulosin HCl 0.4 mg 03/15/19 08:30 03/16/19 10:37 Flomax - PO 0.4 mg DAILY@0830 [facility] Administration Home Medications Medication Instructions Recorded Methadone HCl 98 mg PO DAILY 01/03/19 Amlodipine Besylate [Norvasc -] 10 mg PO DAILY #90 tablet 01/06/19 Tamsulosin HCl [Flomax] 0.4 mg PO DAILY #90 capsule 01/06/19 Polyethylene Glycol 3350 [Miralax 17 gm PO BID bottle 02/15/19 119 gm Btl -] Prednisone See Taper PO DAILY #30 tab.ds.pk 02/15/19 Budesonide/Formeterol Fumarate 2 puff PO BID 03/16/19 [SYMBICORT 80/4.5mcg -] ASSESSMENT/PLAN: 78 year old male with history of CAD s/p [place], HTN, HLD, COPD, Hepatitis C, Liver Cirrhosis, Bladder - Urothelial Ca (declined resection), Opiate Use Disorder ( on Methadone), presents with reported abdominal pain, constipation and difficulty urinating. 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 Acute Metabolic Encephalopathy and Sepsis, etiology unclear Fever, Leukocytosis resolving. Urine Cx negative, CXR - no consolidation. Gallstones and CBD dilatation on CT - no elevation in LFTs. RLQ tenderness, no RUQ tenderness. GI to evaluate dilated CBD and to help exclude possible cholecystitis. RUQ US requested. Continue Zosyn - ID following. 2. HTN - Norvasc held. 3. Urothelial/Bladder CA s/p radical cystectomy s/p RTx. 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 + invasion of muscularis propria possible mass R ureter. Oncology/Urology consulted - re: plan for Rx. Dr. Stinson declined the consult. Dr. Hsu's group requested to consult instead. Continue Flomax. 4. Opiate Use Disorder - on Methadone 100mg. 5. Hx Hep C/Liver Cirrhosis - dilated CBD on imaging. No RUQ pain/tenderness. LFTs normal. GI to please evaluate. DVT Px - Heparin SQ. Platelets dropping - monitor.
--- NOTE | 2019-03-16 18:53 | PN ---
Progress Note (short form) - Note Progress Note: Patient seen and examined Still with some shortness of breath _+ wt. loss Last Vital Signs Temp Pulse Resp BP Pulse Ox 99.3 F 88 18 124/56 L 94 L 03/16/19 16:25 03/16/19 16:25 03/16/19 16:25 03/16/19 16:25 03/15/19 21:00 Cor: RSR, No murmurs, No gallops Lungs: decreased at bases Abd: Soft, Normal bowel sounds, No organomegaly Ext:No significant edema Labs/Meds reviewed A/P 78 y/o male PMH HTN, COPD, chronic hypoxic resp failure, cirrhosis (Hep C), splenomegaly, opioid dependence, DC in , and bladder cancer c/o SOB and cough. 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 + invasion of muscularis propria Refusing surgery and ? candidacy given his pulmonary function Lost to f/u CT a/p w/contrast --03/15/19 -- gall stones, dilatationof CBD, marked rt. renal hydronephrosis and moderate hydroureter with a hyperdense lumen of the distal right ureter suspicious for a mass. A mass like density in posterior lateral wall of urinary bladder. Cirrhosis/splenomegalyModerately severe COPD.Mild atelectasis vs infiltrate Rt. lung base Outpatient PET-CT PDL1 testing Needs follow up outpatient regarding chemo/RT vs RT vs atezolizumab Performnce wandaus -2-3 Rediscussed his situation in detail and contact nos. given for follow up
[2019-03-16] MEDS ORDERED: PT OWN MED DRAWER 7, Y5N ONE ×2 (20:58→22:02)
[2019-03-16] MEDS: SENNOSIDES 8.6MG TABLET (FP) PO SCH (21:16)
[2019-03-16] MEDS: ACETAMINOPHEN 325 MG TABLET (FP) PO PRN (23:54)
[2019-03-17] MEDS ORDERED: PIPERACILLIN/TAZOBACTAM 3.375 GM VIAL IVPB ONE ×4 (01:03→19:57)
[2019-03-17] MEDS ORDERED: DEXTROSE 5%-WATER - 50 ML IVPB ONE ×4 (01:04→19:58)
[2019-03-17] MEDS: PIPERACILLIN/TAZOB 3.375 GM 3.375 GM in DEXTROSE 5%-WATER - 50 ML IVPB SCH ×3 (01:13→17:19)
[2019-03-17] MEDS: ALBUTEROL SO4 0.083% IH SOL 2.5 MG/3 ML VIAL.NEB. NEB SCH ×6 (04:00→20:30)
[2019-03-17] MEDS ORDERED: METHADONE HCL 40 MG DISPERSABLE TABLET ONE (05:38)
[2019-03-17] MEDS ORDERED: METHADONE HCL 10 MG TABLET ONE (05:38)
[2019-03-17] MEDS: SODIUM CHLORIDE 1,000 ML IV SCH ×2 (05:59→21:26)
[2019-03-17 07:29] LABS: HEMATOCRIT 28.9 % (35.4-49); HEMOGLOBIN 9.4 GM/dL (11.7-16.9); MCH 27.2 pg (25.7-33.7); MCHC 32.4 g/dl (32.0-35.9); MEAN CELL VOLUME 83.8 fl (80-96); MEAN PLT VOLUME 7.8 fl (7.5-11.1); PLATELET COUNT 134 K/MM3 (134-434); RBC 3.45 M/mm3 (4.00-5.60); RDW 16.7 % (11.9-15.9); WHITE BLOOD COUNT 15.6 K/mm3 (4.0-10.0)
[2019-03-17] MEDS: HEPARIN NA (PORCINE) 5,000 UNITS/ML 1ML VIAL SQ SCH ×3 (07:33→21:30)
[2019-03-17] MEDS: METHADONE 80 MG, METHADONE 20 MG PO SCH (07:33)
--- NOTE | 2019-03-17 07:51 | PN ---
Teaching Attending Note Name of Resident: Arnie Montoya ATTENDING PHYSICIAN STATEMENT I saw and evaluated the patient. I reviewed the resident's note and discussed the case with the resident. I agree with the resident's findings and plan as documented. Seen and examined; please see resident note for further historical information. I personally verified all camarena historical information and exam findings. Personally interpreted all imaging and diagnostics and reviewed appropriate consults. I reviewed all labs and vital signs as per resident note and EMR as documented. I agree with the above assessment and plan unless supplemented by myself in the following. GI has seen the patient and ordered for MRCP alongside twice daily MiraLAX. Urology consult for malignancy was recommended. Is pending. We are reaching out to their service. Discussed the case with the team. I discussed the case with Dr. Greenfield who recommends that the patient be continued on antibiotics and we trend the CBC. Oncology continues to follow and recommends PD-L1 testing with outpatient follow-up regarding chemotherapy versus radiotherapy versus biologic. Preformance status listed by Heme Onc as 2-3. 10 item review of systems completed and is negative aside from as discussed in the subjective data in my own/the resident documentation. VS, labs, imaging reviewed NAD, AAO, resting comfortably in bed. RRR s1/2 no mgr Normal muscle tone, moves all 5 extremities with normal apparent strength Neck is supple, trachea midline, no francis LN Lungs CTAB with sym expansion NT ND +BS no francis organomegaly CN2-12 wnl; no FND NC AT EOMI PERRLA Normal mood, appropriate behavior, euthymic affect No skin breakdown or rashes noted Assessment and plan: Patient presents to the emergency room with: Problems include: -Acute metabolic encephalopathy -History of hypertension -Urothelial/bladder cancer status post radical cystectomy/radiation treatment. 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 Possible mass is seen on the right ureter. Due to patient's inability to follow-up the initial urologist refused to see the patient and so an additional urology consult was placed. We will get assessment from them prior to discharging the patient -Opioid abuse, on methadone, continue -History of hepatitis C/cirrhosis, dilated CBD on imaging. Pending MRCP and GI work-up per their service. LFTs are normal.
[2019-03-17 08:18] LABS: ALBUMIN 2.1 g/dl (3.4-5.0); BILIRUBIN,TOTAL 0.8 mg/dL (0.2-1); BLOOD UREA NITROGEN 15.9 mg/dL (7-18); CALCIUM 7.8 mg/dL (8.5-10.1); CREATININE 0.8 mg/dL (0.55-1.3); POTASSIUM 3.7 mmol/L (3.5-5.1); TOT PROT 4.9 g/dl (6.4-8.2)
[2019-03-17] MEDS: TAMSULOSIN HCL 0.4 MG CAP PO SCH (09:28)
[2019-03-17] MEDS: POLYETHYLENE GLYCOL 3350 119 GM BTL PO SCH ×2 (09:29→21:31)
[2019-03-17] MEDS: BUDESONIDE/FORMETEROL FUMARATE 80/4.5 mcg INHALER IH SCH ×2 (09:30→21:31)
--- NOTE | 2019-03-17 13:11 | PN ---
Progress Note, Physician History of Present Illness: stable no new issues - Current Medication List Current Medications: Active Medications Acetaminophen (Tylenol -) 650 mg PO Q6H PRN PRN Reason: Fever Or Pain Last Admin: 03/16/19 23:54 Dose: 650 mg Albuterol Sulfate (Ventolin 0.083% Nebulizer Soln -) 1 amp NEB RQ4H [facility] Last Admin: 03/17/19 04:00 Dose: 1 amp Budesonide/Formoterol Fumarate (Symbicort 80/4.5mcg -) 2 puff IH BID [facility] Last Admin: 03/17/19 09:30 Dose: 2 puff Heparin Sodium (Porcine) (Heparin -) 5,000 unit SQ TID [facility] Last Admin: 03/17/19 07:33 Dose: 5,000 unit Sodium Chloride (Normal Saline -) 1,000 mls @ 75 mls/hr IV ASDIR [facility] Last Admin: 03/17/19 05:59 Dose: 75 mls/hr Piperacillin Sod/Tazobactam (Sod 3.375 gm/ Dextrose) 50 mls @ 100 mls/hr IVPB Q8H-IV [facility]; Protocol Last Admin: 03/17/19 09:28 Dose: 100 mls/hr Methadone HCl 80 mg/ Methadone (HCl 20 mg) 100 mg PO DAILY@0600 [facility] Last Admin: 03/17/19 07:33 Dose: 100 mg Polyethylene Glycol (Miralax (For Daily Use) -) 17 gm PO BID [facility] Last Admin: 03/17/19 09:29 Dose: 17 gm Senna (Senna -) 2 tab PO HS [facility] Last Admin: 03/16/19 21:16 Dose: 2 tab Tamsulosin HCl (Flomax -) 0.4 mg PO DAILY@0830 [facility] Last Admin: 03/17/19 09:28 Dose: 0.4 mg - Objective Vital Signs: Vital Signs Temperature 97.9 F 03/17/19 10:00 Pulse Rate 76 03/17/19 10:00 Respiratory Rate 18 03/17/19 10:00 Blood Pressure 123/75 03/17/19 10:00 O2 Sat by Pulse Oximetry (%) 94 L 03/17/19 09:00 Constitutional: Yes: No Distress, Calm Cardiovascular: Yes: S1, S2 Respiratory: Yes: Regular, CTA Bilaterally Gastrointestinal: Yes: Normal Bowel Sounds, Soft Musculoskeletal: Yes: WNL Extremities: Yes: WNL Neurological: Yes: Alert, Oriented Psychiatric: Yes: Alert, Oriented Labs: CBC, BMP 03/17/19 07:05 03/17/19 07:05 INR, PTT INR 1.08 (0.83-1.09) 03/15/19 06:49 Assessment/Plan Patient is a 78 year old man with a PMH of CAD, [place], HLD, HTN, COPD, Tobacco use , Hepatitis C disease with liver cirrhosis, Invasive bladder carcinoma and Urothelial cancer and heroin abuse (on methadone), came to the ER with c/o of diffuse abdominal pain for 3-4 days. Febrile to 100.7 and wbc 33K Fever Leukocytosis Abd pain ? UTI Invasive Bladder CA/urothelial CA CAD s/p ME HTN HLD COPD Hep C with cirrhosis conitnue abx wbc trending down will see what wbc shows rest as per the team
--- NOTE | 2019-03-17 13:47 | PN ---
Progress Note (short form) - Note Progress Note: GI CONSULT DICTATED - MRCP ORDERED - MIRALAX BID FOR CONSTIPATION - UROLOGY PROCESS FOR MALIGNANCY - SEE FULL CONSULT DICTATED
[2019-03-17 14:42] VITALS: BMI 20.8
--- NOTE | 2019-03-17 16:56 | PN ---
Physical Exam: SUBJECTIVE: Patient seen and examined. Pt is afebrile today. Reports urination but no BM yet. Symptoms have improved. Report no overnight events. c/o of right thigh pain and right Lower quadrant pain but much improved. Denies f/c/n/v/d/sob , cp. OBJECTIVE: Vital Signs Period Temp Pulse Resp BP Sys/Flor Pulse Ox Last 24 Hr 97.9 F-98.9 F 69-90 18-20 123-152/65-77 94 GENERAL: The patient is awake, alert, and moderately oriented, in no acute distress. Report amnesia. Cachetic EYES: PERRL, extraocular movements intact, sclera anicteric, No ptosis. ENT: oropharynx clear without exudates, moist mucous membranes. NECK: Trachea midline, full range of motion, supple. LUNGS: Breath sounds equal, clear to auscultation bilaterally, no wheezes, no crackles, HEART: Regular rate and rhythm, S1, S2 without murmur, rub or gallop. ABDOMEN: Soft, right lower quadrant and flank tenderness, nondistended, normoactive bowel sounds, no guarding, EXTREMITIES: 2+ pulses, warm, well-perfused, no edema. NEUROLOGICAL: Cranial nerves II through XII grossly intact. SKIN: Warm, dry, normal turgor, no rashes or lesions noted Laboratory Results - last 24 hr 03/17/19 03/17/19 07:05 07:05 WBC 15.6 H RBC 3.45 L Hgb 9.4 L Hct 28.9 L MCV 83.8 MCH 27.2 MCHC 32.4 RDW 16.7 H Plt Count 134 MPV 7.8 Sodium 139 Potassium 3.7 Chloride 107 Carbon Dioxide 26 Anion Gap 5 L BUN 15.9 Creatinine 0.8 Est GFR (CKD-EPI)AfAm 98.47 Est GFR (CKD-EPI)NonAf 84.96 Random Glucose 87 Calcium 7.8 L Total Bilirubin 0.8 AST 20 ALT 15 Alkaline Phosphatase 66 Total Protein 4.9 L Albumin 2.1 L Active Medications Current Medications Acetaminophen (Tylenol -) 650 mg PO Q6H PRN PRN Reason: Fever Or Pain Last Admin: 03/16/19 23:54 Dose: 650 mg Albuterol Sulfate (Ventolin 0.083% Nebulizer Soln -) 1 amp NEB RQ4H [facility] Last Admin: 03/17/19 15:57 Dose: Not Given Budesonide/Formoterol Fumarate (Symbicort 80/4.5mcg -) 2 puff IH BID [facility] Last Admin: 03/17/19 09:30 Dose: 2 puff Heparin Sodium (Porcine) (Heparin -) 5,000 unit SQ TID [facility] Last Admin: 03/17/19 14:44 Dose: 5,000 unit Sodium Chloride (Normal Saline -) 1,000 mls @ 75 mls/hr IV ASDIR [facility] Last Admin: 03/17/19 05:59 Dose: 75 mls/hr Piperacillin Sod/Tazobactam (Sod 3.375 gm/ Dextrose) 50 mls @ 100 mls/hr IVPB Q8H-IV [facility]; Protocol Methadone HCl 80 mg/ Methadone (HCl 20 mg) 100 mg PO DAILY@0600 [facility] Last Admin: 03/17/19 07:33 Dose: 100 mg Polyethylene Glycol (Miralax (For Daily Use) -) 17 gm PO BID [facility] Last Admin: 03/17/19 09:29 Dose: 17 gm Senna (Senna -) 2 tab PO HS [facility] Last Admin: 03/16/19 21:16 Dose: 2 tab Tamsulosin HCl (Flomax -) 0.4 mg PO DAILY@0830 [facility] Last Admin: 03/17/19 09:28 Dose: 0.4 mg Home Medications Medication Instructions Recorded Methadone HCl 98 mg PO DAILY 01/03/19 Amlodipine Besylate [Norvasc -] 10 mg PO DAILY #90 tablet 01/06/19 Tamsulosin HCl [Flomax] 0.4 mg PO DAILY #90 capsule 01/06/19 Polyethylene Glycol 3350 [Miralax 17 gm PO BID bottle 02/15/19 119 gm Btl -] Budesonide/Formeterol Fumarate 2 puff PO BID 03/16/19 [SYMBICORT 80/4.5mcg -] Microbiology 03/14/19 23:27 Blood - Peripheral Venous Blood Culture - Preliminary NO GROWTH OBTAINED AFTER 48 HOURS, INCUBATION TO CONTINUE FOR 3 DAYS. 03/14/19 23:27 Blood - Peripheral Venous Blood Culture - Preliminary NO GROWTH OBTAINED AFTER 48 HOURS, INCUBATION TO CONTINUE FOR 3 DAYS. 03/15/19 02:22 Urine - Urine Clean Catch Urine Culture - Final NO GROWTH OBTAINED ASSESSMENT/PLAN: 78 y/o M, pmh of CAD s/p [place], HTN, HLD, COPD, Hepatitis C, Liver Cirrhosis, Urothelial bladder Cancer (refused resection), Opiate Use Disorder (on Methadone ) presented with abdominal pain, altered mental status and urinary retention admitted for acute metabolic enceph from sepsis 2/2 to UTI #Acute metabolic Encephalopathy+ Sepsis 2/2 to UTI Continue Zosyn IVF at 75 ID- Dr. Coley recom continue abx Pt is refusing invasive procedures and painful treatments including chemo Pt would consider RT and Chemo- Heme/onc recom outpt PET scan, PDL1 testing and chemo/RT vs RT vs atezolizumab Pt will need outpt GI f/u for dilated CBD/Gall stones and vascular f/u for AAA 4.7cm White count trending down #Dilated CBD CT a/p-Gallstones with dilated CBD, R posterior wall bladder mass, R hydronephrosis with hydroureter, Hyper dense lumen of the distal right ureter suspicious for mass, Liver Cirrhosis, AAA 4.7cm GI consulted appreciated MRCP cont miralax BID for constipation #Normocytic anemia likely 2/2 to malignancy #Opiate use disorder Started on Methadone 100 mg daily- confirmed/verified with methadone clinic no signs of withdrawal #HTN Held norvasc-?? #Urothelial Bladder CA s/p radical cystectomy s/p RTx. Urology consulted- Discussed w/ Dr. Romero's partner- at this juncture, consider outpt f/u and management as pt does not wish to have any surgical or interventional procedures done. Cont Flomax #DVT ppx Heparin SQ FEN: monitor lytes regular diet IVF at 74 Wean off Oxygen, pt uses oxygen at home Dispo: heme/onc, f/u sensitives to tailer Abx, f/u with pt for consent for MRCP Visit type - Emergency Visit Emergency Visit: Yes ED Registration Date: 03/15/19 Care time: The patient presented to the Emergency Department on the above date and was hospitalized for further evaluation of their emergent condition. - New Patient This patient is new to me today: Yes Date on this admission: 03/18/19 - Critical Care Critical Care patient: No - Discharge Referral Referred to [facility] Med P.C.: No ATTENDING PHYSICIAN STATEMENT I saw and evaluated the patient. I reviewed the resident's note and discussed the case with the resident. I agree with the resident's findings and plan as documented. SUBJECTIVE: OBJECTIVE: ASSESSMENT AND PLAN:
[2019-03-17] MEDS: SENNOSIDES 8.6MG TABLET (FP) PO SCH (21:30)
[2019-03-18] MEDS: ALBUTEROL SO4 0.083% IH SOL 2.5 MG/3 ML VIAL.NEB. NEB SCH ×6 (00:28→20:53)
[2019-03-18] MEDS: PIPERACILLIN/TAZOB 3.375 GM 3.375 GM in DEXTROSE 5%-WATER - 50 ML IVPB SCH ×3 (01:49→18:01)
[2019-03-18] MEDS: ACETAMINOPHEN 325 MG TABLET (FP) PO PRN (02:42)
[2019-03-18] MEDS ORDERED: METHADONE HCL 40 MG DISPERSABLE TABLET ONE (06:21)
[2019-03-18] MEDS ORDERED: METHADONE HCL 10 MG TABLET ONE (06:21)
[2019-03-18] MEDS: METHADONE 80 MG, METHADONE 20 MG PO SCH (06:22)
[2019-03-18] MEDS: HEPARIN NA (PORCINE) 5,000 UNITS/ML 1ML VIAL SQ SCH ×3 (06:23→21:18)
[2019-03-18] MEDS: SODIUM CHLORIDE 1,000 ML IV SCH (07:43)
[2019-03-18 09:21] LABS: HEMATOCRIT 30.4 % (35.4-49); HEMOGLOBIN 9.8 GM/dL (11.7-16.9); MCH 27.2 pg (25.7-33.7); MCHC 32.2 g/dl (32.0-35.9); MEAN CELL VOLUME 84.7 fl (80-96); MEAN PLT VOLUME 8.5 fl (7.5-11.1); PLATELET COUNT 165 K/MM3 (134-434); RBC 3.59 M/mm3 (4.00-5.60); RDW 16.9 % (11.9-15.9); WHITE BLOOD COUNT 17.3 K/mm3 (4.0-10.0)
[2019-03-18] MEDS ORDERED: DEXTROSE 5%-WATER - 50 ML IVPB ONE ×2 (09:26→17:51)
[2019-03-18] MEDS ORDERED: PIPERACILLIN/TAZOBACTAM 3.375 GM VIAL IVPB ONE ×2 (09:26→17:51)
[2019-03-18 10:04] LABS: ALBUMIN 2.3 g/dl (3.4-5.0); BLOOD UREA NITROGEN 13.7 mg/dL (7-18); CALCIUM 8.2 mg/dL (8.5-10.1); CREATININE 0.9 mg/dL (0.55-1.3); MAGNESIUM 2.1 mg/dL (1.8-2.4); PHOSPHOROUS 3.5 mg/dL (2.5-4.9); POTASSIUM 4.2 mmol/L (3.5-5.1); TOT PROT 5.4 g/dl (6.4-8.2)
[2019-03-18] MEDS: BUDESONIDE/FORMETEROL FUMARATE 80/4.5 mcg INHALER IH SCH ×2 (10:48→21:18)
[2019-03-18] MEDS: TAMSULOSIN HCL 0.4 MG CAP PO SCH (10:49)
[2019-03-18] MEDS: POLYETHYLENE GLYCOL 3350 119 GM BTL PO SCH ×2 (10:58→21:18)
--- NOTE | 2019-03-18 11:15 | PN.GI ---
GI Progress Note Subjective: Pt seen/examined at bedside, alert, provides limited history, denies abdominal pain currently though notes some distension, denies n/v, fever/chills though low grade fever noted. Ate breakfast. No bm yet today per nursing staff. - Objective Vital Signs: Vital Signs Temperature 98.2 F 03/18/19 06:12 Pulse Rate 62 03/18/19 06:12 Respiratory Rate 03/18/19 06:12 Blood Pressure 136/77 03/18/19 06:12 O2 Sat by Pulse Oximetry (%) 94 L 03/17/19 09:00 Constitutional: No Distress, Calm Cardiovascular: Yes: WNL, Regular Rate and Rhythm Respiratory: Yes: WNL, Regular, CTA Bilaterally ...Palpate: Yes: Other (Abd softly distended, nontender) Edema: No Labs: CBC, BMP 03/18/19 08:35 03/18/19 08:35 INR, PTT INR 1.08 (0.83-1.09) 03/15/19 06:49 Problem List - Problems (1) Common bile duct dilatation Assessment/Plan: 78yo male presenting with abdominal pain and fever with CT revealing gallstones and dilated CBD. Seen by GI in 02/2019 also advised MRCP at that time however not pursued. LFTs normal. Biliary dilation possibly in setting of narcotics, do not suspect obstructive process. -Continue to monitor LFTs -MRCP pending today -Follow up cultures -Miralax bid for constipation, if no response may consider lactulose Code(s): K83.8 - OTHER SPECIFIED DISEASES OF BILIARY TRACT (2) Cirrhosis Assessment/Plan: H/o HCV with undetectable RNA in 12/2018 also with serologies suggestive of prior HBV exposure. Pt poor historian, unclear of prior treatment, denies recent liver follow up and had refused endoscopies previously. US results reviewed from 02/2019. LFTs normal. MELD 7. -Await MRCP as noted above -Pending results consider repeat US to re-evaluate for ascites and possible paracentesis if no other infectious source identified -Follow up remainder of cultures and ID recommendations -Would require EGD for variceal screening if amenable Code(s): K74.60 - UNSPECIFIED CIRRHOSIS OF LIVER
--- NOTE | 2019-03-18 11:21 | PN ---
Progress Note, Physician History of Present Illness: stable spiked a low grade fever blood cx send - Current Medication List Current Medications: Active Medications Acetaminophen (Tylenol -) 650 mg PO Q6H PRN PRN Reason: Fever Or Pain Last Admin: 03/18/19 02:42 Dose: 650 mg Albuterol Sulfate (Ventolin 0.083% Nebulizer Soln -) 1 amp NEB RQ4H [facility] Last Admin: 03/18/19 08:20 Dose: 1 amp Amlodipine Besylate (Norvasc -) 10 mg PO [facility] Budesonide/Formoterol Fumarate (Symbicort 80/4.5mcg -) 2 puff IH BID [facility] Last Admin: 03/18/19 10:48 Dose: 2 puff Heparin Sodium (Porcine) (Heparin -) 5,000 unit SQ TID [facility] Last Admin: 03/18/19 06:23 Dose: 5,000 unit Sodium Chloride (Normal Saline -) 1,000 mls @ 75 mls/hr IV ASDIR [facility] Last Admin: 03/18/19 07:43 Dose: Not Given Piperacillin Sod/Tazobactam (Sod 3.375 gm/ Dextrose) 50 mls @ 100 mls/hr IVPB Q8H-IV [facility]; Protocol Last Admin: 03/18/19 10:49 Dose: 100 mls/hr Methadone HCl 80 mg/ Methadone (HCl 20 mg) 100 mg PO DAILY@0600 [facility] Last Admin: 03/18/19 06:22 Dose: 100 mg Polyethylene Glycol (Miralax (For Daily Use) -) 17 gm PO BID [facility] Last Admin: 03/18/19 10:58 Dose: 17 gm Senna (Senna -) 2 tab PO [facility] Last Admin: 03/17/19 21:30 Dose: 2 tab Tamsulosin HCl (Flomax -) 0.4 mg PO DAILY@0830 [facility] Last Admin: 03/18/19 10:49 Dose: 0.4 mg - Objective Vital Signs: Vital Signs Temperature 98.2 F 03/18/19 06:12 Pulse Rate 62 03/18/19 06:12 Respiratory Rate 03/18/19 06:12 Blood Pressure 136/77 03/18/19 06:12 O2 Sat by Pulse Oximetry (%) 94 L 03/17/19 09:00 Constitutional: Yes: No Distress, Calm Cardiovascular: Yes: Regular Rate and Rhythm Respiratory: Yes: Regular, CTA Bilaterally Gastrointestinal: Yes: Normal Bowel Sounds, Soft Musculoskeletal: Yes: WNL Extremities: Yes: WNL Neurological: Yes: Alert, Oriented Psychiatric: Yes: Alert, Oriented Labs: CBC, BMP 03/18/19 08:35 03/18/19 08:35 INR, PTT INR 1.08 (0.83-1.09) 03/15/19 06:49 Assessment/Plan Patient is a 78 year old man with a PMH of CAD, [place], HLD, HTN, COPD, Tobacco use , Hepatitis C disease with liver cirrhosis, Invasive bladder carcinoma and Urothelial cancer and heroin abuse (on methadone), came to the ER with c/o of diffuse abdominal pain for 3-4 days. Febrile to 100.7 and wbc 33K Fever Leukocytosis Abd pain ? UTI Invasive Bladder CA/urothelial CA CAD s/p SD HTN HLD COPD Hep C with cirrhosis conitnue abx wbc trended up i have low suspicion that this is infectious await for cx reports will d/w the team
--- NOTE | 2019-03-18 11:46 | PN ---
Physical Exam: SUBJECTIVE: Patient seen and examined. Pt is afebrile today. Reports urination and had BM. Symptoms have improved. Report no overnight events. No further c/o. Denies f/c/n/v/d/sob, cp. OBJECTIVE: Vital Signs Period Temp Pulse Resp BP Sys/Flor Pulse Ox Last 24 Hr 98.2 F-100.9 F 62-88 15-20 136-154/73-90 GENERAL: The patient is awake, alert, and moderately oriented, in no acute distress. Report amnesia. Cachetic EYES: PERRL, extraocular movements intact, sclera anicteric, No ptosis. ENT: oropharynx clear without exudates, moist mucous membranes. NECK: Trachea midline, full range of motion, supple. LUNGS: Breath sounds equal, clear to auscultation bilaterally, no wheezes, no crackles, HEART: Regular rate and rhythm, S1, S2 without murmur, rub or gallop. ABDOMEN: Soft, right lower quadrant and flank-improved, nondistended, normoactive bowel sounds, no guarding, EXTREMITIES: 2+ pulses, warm, well-perfused, no edema. NEUROLOGICAL: Cranial nerves II through XII grossly intact. SKIN: Warm, dry, normal turgor, no rashes or lesions noted Laboratory Results - last 24 hr 03/18/19 03/18/19 08:35 08:35 WBC 17.3 H RBC 3.59 L Hgb 9.8 L Hct 30.4 L MCV 84.7 MCH 27.2 MCHC 32.2 RDW 16.9 H Plt Count 165 D MPV 8.5 Sodium 136 Potassium 4.2 Chloride 103 Carbon Dioxide 27 Anion Gap 6 L BUN 13.7 Creatinine 0.9 Est GFR (CKD-EPI)AfAm 93.82 Est GFR (CKD-EPI)NonAf 80.95 Random Glucose 64 L Calcium 8.2 L Phosphorus 3.5 Magnesium 2.1 Total Bilirubin 1.0 AST 20 ALT 15 Alkaline Phosphatase 62 Total Protein 5.4 L Albumin 2.3 L Active Medications Generic Name Dose Route Start Last Admin Trade Name Freq PRN Reason Stop Dose Admin Acetaminophen 650 mg 03/16/19 23:21 03/18/19 02:42 Tylenol - PO 650 mg Q6H PRN Administration Fever Or Pain Albuterol Sulfate 1 amp 03/15/19 04:07 03/18/19 08:20 Ventolin 0.083% Nebulizer Soln - NEB 1 amp RQ4H [facility] Administration Amlodipine Besylate 10 mg 03/18/19 22:00 Norvasc - PO HS [facility] Budesonide/Formoterol Fumarate 2 puff 03/15/19 10:00 03/18/19 10:48 Symbicort 80/4.5mcg - IH 2 puff BID [facility] Administration Heparin Sodium (Porcine) 5,000 unit 03/15/19 06:00 03/18/19 06:23 Heparin - SQ 5,000 unit TID [facility] Administration Sodium Chloride 1,000 mls @ 75 mls/hr 03/15/19 04:00 03/18/19 07:43 Normal Saline - IV Not Given ASDIR [facility] Piperacillin Sod/Tazobactam 50 mls @ 100 mls/hr 03/17/19 18:00 03/18/19 10:49 Sod 3.375 gm/ Dextrose IVPB 100 mls/hr Q8H-IV [facility] Administration Protocol Methadone HCl 80 mg/ Methadone 100 mg 03/16/19 11:00 03/18/19 06:22 HCl 20 mg PO 100 mg DAILY@0600 [facility] Administration Polyethylene Glycol 17 gm 03/15/19 10:00 03/18/19 10:58 Miralax (For Daily Use) - PO 17 gm BID [facility] Administration Senna 2 tab 03/15/19 22:00 03/17/19 21:30 Senna - PO 2 tab HS [facility] Administration Tamsulosin HCl 0.4 mg 03/15/19 08:30 03/18/19 10:49 Flomax - PO 0.4 mg DAILY@0830 [facility] Administration ASSESSMENT/PLAN: 78 y/o M, pmh of CAD s/p [place], HTN, HLD, COPD, Hepatitis C, Liver Cirrhosis, Urothelial bladder Cancer (refused resection), Opiate Use Disorder (on Methadone ) presented with abdominal pain, altered mental status and urinary retention admitted for acute metabolic enceph from sepsis 2/2 to UTI #Febrile overnight Now resolved Tylenol PO BCx pending x2 #Acute metabolic Encephalopathy+ Sepsis 2/2 to UTI Continue Zosyn IVF at 74 WBC trending up, doubt this is of infectious origin- ID following Pt would consider RT and Chemo- Heme/onc recom outpt PET scan, PDL1 testing and chemo/RT vs RT vs atezolizumab #Dilated CBD Pt will need outpt GI f/u for dilated CBD/Gall stones and vascular f/u for AAA 4.7cm pt consented to MRCP today- will f/u cont miralax BID- if no response can consider lactulose GI recom appreciated- r/p US to check for ascites and may consider paracentesis of infectious source is unknown May consider EGD for variceal bleeding if pt agrees- as of now pt declines #Opiate use disorder Started on Methadone 100 mg daily- confirmed/verified with methadone clinic no signs of withdrawal #HTN cont norvasc #Urothelial Bladder CA Cont Flomax #Hx of HCV Undetectable RNA on 12/30 Serologies suggestive of prior HBV exposure U/S 03/02- MELD7 #DVT ppx Heparin SQ FEN: monitor lytes regular diet IVF at 74 Wean off Oxygen, pt uses oxygen at home Dispo: f/u Bcx x2, MRCP today, Visit type - Emergency Visit Emergency Visit: Yes ED Registration Date: 03/15/19 Care time: The patient presented to the Emergency Department on the above date and was hospitalized for further evaluation of their emergent condition. - New Patient This patient is new to me today: Yes Date on this admission: 03/18/19 - Critical Care Critical Care patient: No - Discharge Referral Referred to [facility] Med P.C.: No ATTENDING PHYSICIAN STATEMENT I saw and evaluated the patient. I reviewed the resident's note and discussed the case with the resident. I agree with the resident's findings and plan as documented. SUBJECTIVE: OBJECTIVE: ASSESSMENT AND PLAN:
--- NOTE | 2019-03-18 15:09 | PN ---
Teaching Attending Note Name of Resident: Arnie Montoya ATTENDING PHYSICIAN STATEMENT I saw and evaluated the patient. I reviewed the resident's note and discussed the case with the resident. I agree with the resident's findings and plan as documented. Seen and examined; please see resident note for further historical information. I personally verified all camarena historical information and exam findings. Personally interpreted all imaging and diagnostics and reviewed appropriate consults. I reviewed all labs and vital signs as per resident note and EMR as documented. I agree with the above assessment and plan unless supplemented by myself in the following. Urology declines inpatient evaluation of patient due to non-compliance from alternative consultation as well and states he can followup with them as an outpatient. Pending 10 item review of systems completed and is negative aside from as discussed in the subjective data in my own/the resident documentation. VS, labs, imaging reviewed NAD, AAO, resting comfortably in bed. RRR s1/2 no mgr Normal muscle tone, moves all 5 extremities with normal apparent strength Neck is supple, trachea midline, no francis LN Lungs CTAB with sym expansion NT ND +BS no francis organomegaly CN2-12 wnl; no FND NC AT EOMI PERRLA Normal mood, appropriate behavior, euthymic affect No skin breakdown or rashes noted Assessment and plan: Patient presents to the emergency room with: Problems include: -Acute metabolic encephalopathy -History of hypertension -Urothelial/bladder cancer status post radical cystectomy/radiation treatment. 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 Possible mass is seen on the right ureter. Due to patient's inability to follow-up the initial urologist refused to see the patient and so an additional urology consult was placed. We will get assessment from them prior to discharging the patient -Opioid abuse, on methadone, continue
[2019-03-18] MEDS: SENNOSIDES 8.6MG TABLET (FP) PO SCH (21:18)
[2019-03-18] MEDS: amLODIPine BESYLATE 10 MG TABLET (FP) PO SCH (21:18)
[2019-03-19] MEDS: ALBUTEROL SO4 0.083% IH SOL 2.5 MG/3 ML VIAL.NEB. NEB SCH ×7 (00:05→23:07)
[2019-03-19] MEDS ORDERED: PIPERACILLIN/TAZOBACTAM 3.375 GM VIAL IVPB ONE ×2 (01:15→09:03)
[2019-03-19] MEDS ORDERED: DEXTROSE 5%-WATER - 50 ML IVPB ONE ×2 (01:15→09:03)
[2019-03-19] MEDS: SODIUM CHLORIDE 1,000 ML IV SCH ×2 (01:35→06:43)
[2019-03-19] MEDS: PIPERACILLIN/TAZOB 3.375 GM 3.375 GM in DEXTROSE 5%-WATER - 50 ML IVPB SCH ×2 (01:35→10:03)
[2019-03-19] MEDS ORDERED: METHADONE HCL 10 MG TABLET ONE (06:09)
[2019-03-19] MEDS ORDERED: METHADONE HCL 40 MG DISPERSABLE TABLET ONE (06:09)
[2019-03-19] MEDS: METHADONE 80 MG, METHADONE 20 MG PO SCH (06:59)
[2019-03-19] MEDS: HEPARIN NA (PORCINE) 5,000 UNITS/ML 1ML VIAL SQ SCH ×3 (07:00→22:34)
[2019-03-19 07:50] LABS: HEMATOCRIT 32.9 % (35.4-49); HEMOGLOBIN 10.8 GM/dL (11.7-16.9); MCH 27.3 pg (25.7-33.7); MCHC 32.8 g/dl (32.0-35.9); MEAN CELL VOLUME 83.3 fl (80-96); MEAN PLT VOLUME 7.9 fl (7.5-11.1); PLATELET COUNT 183 K/MM3 (134-434); RBC 3.95 M/mm3 (4.00-5.60); RDW 17.3 % (11.9-15.9); WHITE BLOOD COUNT 17.3 K/mm3 (4.0-10.0)
[2019-03-19 08:10] LABS: ALBUMIN 2.6 g/dl (3.4-5.0); BILIRUBIN,TOTAL 0.6 mg/dL (0.2-1); BLOOD UREA NITROGEN 16.6 mg/dL (7-18); CALCIUM 8.6 mg/dL (8.5-10.1); MAGNESIUM 2.1 mg/dL (1.8-2.4); PHOSPHOROUS 3.6 mg/dL (2.5-4.9); POTASSIUM 4.2 mmol/L (3.5-5.1)
[2019-03-19] MEDS: POLYETHYLENE GLYCOL 3350 119 GM BTL PO SCH ×3 (10:01→22:34)
[2019-03-19] MEDS: BUDESONIDE/FORMETEROL FUMARATE 80/4.5 mcg INHALER IH SCH ×2 (10:02→22:34)
[2019-03-19] MEDS: TAMSULOSIN HCL 0.4 MG CAP PO SCH (10:03)
--- NOTE | 2019-03-19 11:35 | PN ---
Progress Note, Physician History of Present Illness: stable no new issues - Current Medication List Current Medications: Active Medications Acetaminophen (Tylenol -) 650 mg PO Q6H PRN PRN Reason: Fever Or Pain Last Admin: 03/18/19 02:42 Dose: 650 mg Albuterol Sulfate (Ventolin 0.083% Nebulizer Soln -) 1 amp NEB RQ4H [facility] Last Admin: 03/19/19 04:01 Dose: Not Given Amlodipine Besylate (Norvasc -) 10 mg PO [facility] Last Admin: 03/18/19 21:18 Dose: 10 mg Budesonide/Formoterol Fumarate (Symbicort 80/4.5mcg -) 2 puff IH BID [facility] Last Admin: 03/19/19 10:02 Dose: 2 puff Heparin Sodium (Porcine) (Heparin -) 5,000 unit SQ TID [facility] Last Admin: 03/19/19 07:00 Dose: Not Given Sodium Chloride (Normal Saline -) 1,000 mls @ 75 mls/hr IV ASDIR [facility] Last Admin: 03/19/19 06:43 Dose: Not Given Methadone HCl 80 mg/ Methadone (HCl 20 mg) 100 mg PO DAILY@0600 [facility] Last Admin: 03/19/19 06:59 Dose: 100 mg Polyethylene Glycol (Miralax (For Daily Use) -) 17 gm PO BID [facility] Last Admin: 03/19/19 10:22 Dose: Not Given Senna (Senna -) 2 tab PO [facility] Last Admin: 03/18/19 21:18 Dose: 2 tab Tamsulosin HCl (Flomax -) 0.4 mg PO DAILY@0830 [facility] Last Admin: 03/19/19 10:03 Dose: Not Given - Objective Vital Signs: Vital Signs Temperature 98.8 F 03/19/19 10:00 Pulse Rate 75 03/19/19 10:00 Respiratory Rate 18 03/19/19 10:00 Blood Pressure 136/72 03/19/19 10:00 O2 Sat by Pulse Oximetry (%) 95 03/18/19 21:00 Constitutional: Yes: No Distress, Calm Cardiovascular: Yes: S1, S2 Respiratory: Yes: Regular, CTA Bilaterally Gastrointestinal: Yes: Normal Bowel Sounds, Soft Musculoskeletal: Yes: WNL Extremities: Yes: WNL Neurological: Yes: Alert, Oriented Psychiatric: Yes: Alert, Oriented Labs: CBC, BMP 03/19/19 07:10 03/19/19 07:10 INR, PTT INR 1.08 (0.83-1.09) 03/15/19 06:49 Assessment/Plan Patient is a 78 year old man with a PMH of CAD, [place], HLD, HTN, COPD, Tobacco use , Hepatitis C disease with liver cirrhosis, Invasive bladder carcinoma and Urothelial cancer and heroin abuse (on methadone), came to the ER with c/o of diffuse abdominal pain for 3-4 days. Febrile to 100.7 and wbc 33K Fever Leukocytosis Abd pain ? UTI Invasive Bladder CA/urothelial CA CAD s/p [place] HTN HLD COPD Hep C with cirrhosis plan will stop abx and monitor patient stable
--- NOTE | 2019-03-19 16:50 | CONS ---
GASTROINTESTINAL CONSULTATION DATE OF CONSULTATION: DATE OF DICTATION: 03/17/2019 HISTORY OF PRESENT ILLNESS: Patient is a 78-year-old, man with past medical history of CAD, HI, hypertension, hyperlipidemia, COPD, hepatitis C with liver cirrhosis never treated in the past, also with recent diagnosis of invasive bladder carcinoma, urothelial carcinoma, opiate use disorder, on methadone, who was admitted to the hospital with abdominal pain. Apparently, he has been constipated and has not urinated in 7 days. At this time, he states, his abdominal pain is resolved. He denies any nausea, vomiting, hematemesis, melena, hematochezia. He has not had a recent endoscopic evaluation. Of note, he does not believe he has had an EGD or colonoscopy in the past. PAST MEDICAL AND SURGICAL HISTORY: As listed in the HPI with the addition of abdominal hernia repair. ALLERGIES: No known drug allergy. SOCIAL HISTORY: Smokes daily. Does not drink. He is on methadone; previously-used opiates. HOME MEDICATIONS: Include Advair, methadone, Norvasc, iron, Flomax, albuterol, Augmentin, MiraLAX, prednisone, and senna. REVIEW OF SYSTEMS: As per the HPI. PHYSICAL EXAMINATION: Vital Signs: Temperature 97, pulse 76, respiratory rate 12, saturation of oxygen 94% on 2 L, blood pressure 123/75. General: In no acute distress. Pleasant man. HEENT: Anicteric sclera. Cardiovascular: S1, S2. Regular rate and rhythm. Lungs: Bilaterally clear to auscultation. Abdomen: Soft and nontender. Extremities: Without edema. LABORATORIES: White blood cell count on admission 32, currently 15, hemoglobin and hematocrit 9.4 over 28, MCV 83, platelet count 134. INR 1. Sodium 139, potassium 3.7, BUN over creatinine 5 over 0.8, glucose 87, AST 20, ALT 15, alkaline phosphatase 66, total bilirubin 0.8. Troponin is negative. Urine: Protein 2+ and 2+ leukocyte esterase. Cultures are negative. IMAGING: CT scan of the abdomen and pelvis was done on March 15 and revealed gallstones and dilation of the common bile duct, for which further evaluation is needed; marked right renal hydronephrosis and moderate hydroureter with hyperdense lumen of the distal right ureter suspicious for a mass; a mass-like density is again seen in the right posterolateral wall of the urinary bladder, suggestive of transitional cell carcinoma, correlate with cystoscopy findings; also with liver cirrhosis; splenomegaly; a small, fat-containing umbilical hernia; aneurysmal dilation of the distal abdominal aorta of 4.7 cm; COPD versus infiltrate at the right lung base. IMPRESSION: Cholelithiasis. Dilated common bile duct with normal liver tests. These findings are most likely consistent with a non-obstructive process. Dilated CBD may be secondary to previously passed stones. His abdominal pain is most likely multi-factorial. I doubt his cholelithiasis is causing him any issues, at this time, but instead his invasive carcinoma, as well as occasional constipation, and urinary retention are more likely the etiology of his current pain syndrome. RECOMMENDATION: MRCP to further evaluate the biliary tree. Trend liver tests daily while hospitalized. Any treatment or further evaluation of his hepatitis C can be done as an outpatient. Urology evaluation should be obtained. Would place him on MiraLAX b.i.d. to prevent further episodes of constipation. Further recommendations pending imaging results. DO HUGO CHANEL/[id number]
--- NOTE | 2019-03-19 16:53 | PN ---
Physical Exam: SUBJECTIVE: Patient seen and examined. Pt is afebrile today. Reports urination and had BM. Symptoms have improved. Report no overnight events. No further c/o. Denies f/c/n/v/d/sob, cp. OBJECTIVE: Vital Signs Period Temp Pulse Resp BP Sys/Flor Pulse Ox Last 24 Hr 97.8 F-98.8 F 69-77 18-20 133-156/65-89 95 GENERAL: The patient is awake, alert, and moderately oriented, in no acute distress. Report amnesia. Cachetic EYES: PERRL, extraocular movements intact, sclera anicteric, No ptosis. ENT: oropharynx clear without exudates, moist mucous membranes. NECK: Trachea midline, full range of motion, supple. LUNGS: Breath sounds equal, clear to auscultation bilaterally, no wheezes, no crackles, HEART: Regular rate and rhythm, S1, S2 without murmur, rub or gallop. ABDOMEN: Soft, right lower quadrant and flank-improved, nondistended, normoactive bowel sounds, no guarding, EXTREMITIES: 2+ pulses, warm, well-perfused, no edema. NEUROLOGICAL: Cranial nerves II through XII grossly intact. SKIN: Warm, dry, normal turgor, no rashes or lesions noted Laboratory Results - last 24 hr 03/19/19 03/19/19 07:10 07:10 WBC 17.3 H RBC 3.95 L Hgb 10.8 L Hct 32.9 L MCV 83.3 MCH 27.3 MCHC 32.8 RDW 17.3 H Plt Count 183 MPV 7.9 Sodium 135 L Potassium 4.2 Chloride 101 Carbon Dioxide 28 Anion Gap 6 L BUN 16.6 Creatinine 1.0 Est GFR (CKD-EPI)AfAm 82.60 Est GFR (CKD-EPI)NonAf 71.27 Random Glucose 84 Calcium 8.6 Phosphorus 3.6 Magnesium 2.1 Total Bilirubin 0.6 AST 20 ALT 17 Alkaline Phosphatase 76 Total Protein 6.0 L Albumin 2.6 L Active Medications Current Medications Acetaminophen (Tylenol -) 650 mg PO Q6H PRN PRN Reason: Fever Or Pain Last Admin: 03/18/19 02:42 Dose: 650 mg Albuterol Sulfate (Ventolin 0.083% Nebulizer Soln -) 1 amp NEB RQ4H [facility] Last Admin: 03/19/19 16:05 Dose: 1 amp Amlodipine Besylate (Norvasc -) 10 mg PO [facility] Last Admin: 03/18/19 21:18 Dose: 10 mg Budesonide/Formoterol Fumarate (Symbicort 80/4.5mcg -) 2 puff IH BID [facility] Last Admin: 03/19/19 10:02 Dose: 2 puff Heparin Sodium (Porcine) (Heparin -) 5,000 unit SQ TID [facility] Last Admin: 03/19/19 14:15 Dose: 5,000 unit Sodium Chloride (Normal Saline -) 1,000 mls @ 75 mls/hr IV ASDIR [facility] Last Admin: 03/19/19 06:43 Dose: Not Given Methadone HCl 80 mg/ Methadone (HCl 20 mg) 100 mg PO DAILY@0600 [facility] Last Admin: 03/19/19 06:59 Dose: 100 mg Polyethylene Glycol (Miralax (For Daily Use) -) 17 gm PO BID [facility] Last Admin: 03/19/19 10:22 Dose: Not Given Senna (Senna -) 2 tab PO [facility] Last Admin: 03/18/19 21:18 Dose: 2 tab Tamsulosin HCl (Flomax -) 0.4 mg PO DAILY@0830 [facility] Last Admin: 03/19/19 10:03 Dose: Not Given Microbiology 03/18/19 03:07 Blood - Peripheral Venous Blood Culture - Preliminary NO GROWTH OBTAINED AFTER 24 HOURS, INCUBATION TO CONTINUE FOR 4 DAYS. 03/18/19 03:07 Blood - Peripheral Venous Blood Culture - Preliminary NO GROWTH OBTAINED AFTER 24 HOURS, INCUBATION TO CONTINUE FOR 4 DAYS. 03/14/19 23:27 Blood - Peripheral Venous Blood Culture - Preliminary NO GROWTH OBTAINED AFTER 96 HOURS, INCUBATION TO CONTINUE FOR 1 DAYS. 03/14/19 23:27 Blood - Peripheral Venous Blood Culture - Preliminary NO GROWTH OBTAINED AFTER 96 HOURS, INCUBATION TO CONTINUE FOR 1 DAYS. 03/15/19 02:22 Urine - Urine Clean Catch Urine Culture - Final NO GROWTH OBTAINED Home Medications Medication Instructions Recorded Methadone HCl 98 mg PO DAILY 01/03/19 Amlodipine Besylate [Norvasc -] 10 mg PO DAILY #90 tablet 01/06/19 Tamsulosin HCl [Flomax] 0.4 mg PO DAILY #90 capsule 01/06/19 Polyethylene Glycol 3350 [Miralax 17 gm PO BID bottle 02/15/19 119 gm Btl -] Budesonide/Formeterol Fumarate 2 puff PO BID 03/16/19 [SYMBICORT 80/4.5mcg -] ASSESSMENT/PLAN: 78 y/o M, pmh of CAD s/p ID, HTN, HLD, COPD, Hepatitis C, Liver Cirrhosis, Urothelial bladder Cancer (refused resection), Opiate Use Disorder (on Methadone ) presented with abdominal pain, altered mental status and urinary retention admitted for acute metabolic enceph from sepsis 2/2 to UTI #Febrile overnight Now resolved Tylenol PO BCx neg #Acute metabolic Encephalopathy+ Sepsis 2/2 to UTI Zosyn d/bea IVF at 74 WBC trending up, doubt this is of infectious origin- ID following #Dilated CBD Pt will need outpt GI f/u for dilated CBD/Gall stones and vascular f/u for AAA 4.7cm MRCP done- pedning read cont miralax BID- if no response can consider lactulose GI recom appreciated- r/p US to check for ascites and may consider paracentesis of infectious source is unknown- Dr Mckeon advised no need for US because CT was recently done #Opiate use disorder no signs of withdrawal #HTN cont norvasc #Urothelial Bladder CA Cont Flomax #Hx of HCV Undetectable RNA on 12/30 Serologies suggestive of prior HBV exposure U/S 03/02- MELD7 #DVT ppx Heparin SQ FEN: monitor lytes regular diet IVF at 74 Dispo: MRCP pending read, d/c planning Visit type - Emergency Visit Emergency Visit: Yes ED Registration Date: 03/15/19 Care time: The patient presented to the Emergency Department on the above date and was hospitalized for further evaluation of their emergent condition. - New Patient This patient is new to me today: Yes Date on this admission: 03/20/19 - Critical Care Critical Care patient: No - Discharge Referral Referred to [facility] Med P.C.: No ATTENDING PHYSICIAN STATEMENT I saw and evaluated the patient. I reviewed the resident's note and discussed the case with the resident. I agree with the resident's findings and plan as documented. SUBJECTIVE: OBJECTIVE: ASSESSMENT AND PLAN:
--- NOTE | 2019-03-19 19:31 | PN.GI ---
GI Progress Note Subjective: urosepsis and chronic opiod use, bladder cancer - Objective Vital Signs: Vital Signs Temperature 98.5 F 03/19/19 17:51 Pulse Rate 74 03/19/19 17:51 Respiratory Rate 20 03/19/19 17:51 Blood Pressure 135/66 03/19/19 17:51 O2 Sat by Pulse Oximetry (%) 95 03/18/19 21:00 Constitutional: Well Nourished Eyes: Yes: Conjunctiva Clear HENT: Yes: Atraumatic Neck: Yes: Supple Cardiovascular: Yes: Regular Rate and Rhythm Respiratory: Yes: CTA Bilaterally ...Palpate: Yes: Soft. No: Firm/Rigid, Guarding, Hepatomegaly, Mass, Pulsatile Mass, Splenomegaly, Tenderness Labs: CBC, BMP 03/19/19 07:10 03/19/19 07:10 INR, PTT INR 1.08 (0.83-1.09) 03/15/19 06:49 Problem List - Problems (1) Common bile duct dilatation Assessment/Plan: MRCP dilated CBD to 1.2cm no CBD stone, mostlikely secondary to chronic opiod use R> no further GI intervention at this time, LFTS normal, no RUQ pain Dr Cramer will assume care in AM Code(s): K83.8 - OTHER SPECIFIED DISEASES OF BILIARY TRACT
[2019-03-19] MEDS: amLODIPine BESYLATE 10 MG TABLET (FP) PO SCH (22:34)
[2019-03-19] MEDS: SENNOSIDES 8.6MG TABLET (FP) PO SCH (22:34)
[2019-03-20] MEDS: ALBUTEROL SO4 0.083% IH SOL 2.5 MG/3 ML VIAL.NEB. NEB SCH ×7 (04:04→23:44)
[2019-03-20] MEDS ORDERED: METHADONE HCL 10 MG TABLET ONE (05:59)
[2019-03-20] MEDS ORDERED: METHADONE HCL 40 MG DISPERSABLE TABLET ONE (06:00)
[2019-03-20] MEDS: HEPARIN NA (PORCINE) 5,000 UNITS/ML 1ML VIAL SQ SCH ×3 (06:13→22:14)
[2019-03-20] MEDS: METHADONE 80 MG, METHADONE 20 MG PO SCH (06:55)
--- NOTE | 2019-03-20 07:35 | PN ---
Physical Exam: SUBJECTIVE: Patient seen and examined. Pt is afebrile today. Reports urination and had BM. Symptoms have improved. Report no overnight events. No further c/o. Denies f/c/n/v/d/sob, cp. OBJECTIVE: Vital Signs Period Temp Pulse Resp BP Sys/Flor Pulse Ox Last 24 Hr 98 F-100.1 F 74-79 18-20 116-144/62-92 90 GENERAL: The patient is awake, alert, and moderately oriented, in no acute distress. Report amnesia. Cachetic EYES: PERRL, extraocular movements intact, sclera anicteric, No ptosis. ENT: oropharynx clear without exudates, moist mucous membranes. NECK: Trachea midline, full range of motion, supple. LUNGS: Breath sounds equal, clear to auscultation bilaterally, no wheezes, no crackles, HEART: Regular rate and rhythm, S1, S2 without murmur, rub or gallop. ABDOMEN: Soft, right lower quadrant and flank-improved, nondistended, normoactive bowel sounds, no guarding, EXTREMITIES: 2+ pulses, warm, well-perfused, no edema. NEUROLOGICAL: Cranial nerves II through XII grossly intact. SKIN: Warm, dry, normal turgor, no rashes or lesions noted Laboratory Results - last 24 hr 03/19/19 03/19/19 07:10 07:10 WBC 17.3 H RBC 3.95 L Hgb 10.8 L Hct 32.9 L MCV 83.3 MCH 27.3 MCHC 32.8 RDW 17.3 H Plt Count 183 MPV 7.9 Sodium 135 L Potassium 4.2 Chloride 101 Carbon Dioxide 28 Anion Gap 6 L BUN 16.6 Creatinine 1.0 Est GFR (CKD-EPI)AfAm 82.60 Est GFR (CKD-EPI)NonAf 71.27 Random Glucose 84 Calcium 8.6 Phosphorus 3.6 Magnesium 2.1 Total Bilirubin 0.6 AST 20 ALT 17 Alkaline Phosphatase 76 Total Protein 6.0 L Albumin 2.6 L Active Medications Generic Name Dose Route Start Last Admin Trade Name Freq PRN Reason Stop Dose Admin Acetaminophen 650 mg 03/16/19 23:21 03/18/19 02:42 Tylenol - PO 650 mg Q6H PRN Administration Fever Or Pain Albuterol Sulfate 1 amp 03/15/19 04:07 03/20/19 04:04 Ventolin 0.083% Nebulizer Soln - NEB Not Given RQ4H [facility] Amlodipine Besylate 10 mg 03/18/19 22:00 03/19/19 22:34 Norvasc - PO 10 mg HS [facility] Administration Budesonide/Formoterol Fumarate 2 puff 03/15/19 10:00 03/19/19 22:34 Symbicort 80/4.5mcg - IH 2 puff BID [facility] Administration Heparin Sodium (Porcine) 5,000 unit 03/15/19 06:00 03/20/19 06:13 Heparin - SQ Not Given TID [facility] Sodium Chloride 1,000 mls @ 75 mls/hr 03/15/19 04:00 03/19/19 06:43 Normal Saline - IV Not Given ASDIR [facility] Methadone HCl 80 mg/ Methadone 100 mg 03/16/19 11:00 03/20/19 06:55 HCl 20 mg PO 100 mg DAILY@0600 [facility] Administration Polyethylene Glycol 17 gm 03/15/19 10:00 03/19/19 22:34 Miralax (For Daily Use) - PO 17 gm BID [facility] Administration Senna 2 tab 03/15/19 22:00 03/19/19 22:34 Senna - PO 2 tab HS [facility] Administration Tamsulosin HCl 0.4 mg 03/15/19 08:30 03/19/19 10:03 Flomax - PO Not Given DAILY@0830 [facility] ASSESSMENT/PLAN: 78 y/o M, pmh of CAD s/p [place], HTN, HLD, COPD, Hepatitis C, Liver Cirrhosis, Urothelial bladder Cancer (refused resection), Opiate Use Disorder (on Methadone ) presented with abdominal pain, altered mental status and urinary retention admitted for acute metabolic enceph from sepsis 2/2 to UTI #Febrile overnight Now resolved Tylenol PO #Acute metabolic Encephalopathy+ Sepsis 2/2 to UTI IVF at 74 WBC trending up, doubt this is of infectious origin- ID following Can discuss with heme/onc PT walked 85 ft #Dilated CBD Pt will need outpt GI f/u for dilated CBD/Gall stones and vascular f/u for AAA 4.7cm cont miralax BID- if no response can consider lactulose MRCP done- Liver cirrhosis, Dilated Common hepatic duct dilated at 1.2cm, CBD at 8mm mildly dilated, 4mm pancreatic uncinate process cyst- can be parenchymal cyst, pseudocyst or early neoplasm- f/u MRCP in 1-2 yrs, 1.4 hyperintensity in the spleen could be a cyst, small renal cysts, severe right sided hydro w/ cortical thickening likely due to distal UVJ obstruction, hernia, Infrarenal AAA at 4.8cm, small right sided pleural effusion w/ severe overlying atelectasis vs infiltrates, trace left sided pleural effusion GI recom- no further GI intervention at this time #Opiate use disorder no signs of withdrawal #HTN cont norvasc #Urothelial Bladder CA Cont Flomax #Hx of HCV Undetectable RNA on 12/30 Serologies suggestive of prior HBV exposure U/S 03/02- MELD7 #DVT ppx Heparin SQ FEN: monitor lytes regular diet IVF at 74 Dispo: f/u with Dr. Cramer- ERICK, then d/c planning can be considered Visit type - Emergency Visit Emergency Visit: Yes ED Registration Date: 03/15/19 Care time: The patient presented to the Emergency Department on the above date and was hospitalized for further evaluation of their emergent condition. - New Patient This patient is new to me today: Yes Date on this admission: 03/22/19 - Critical Care Critical Care patient: No - Discharge Referral Referred to [facility] Med P.C.: No ATTENDING PHYSICIAN STATEMENT I saw and evaluated the patient. I reviewed the resident's note and discussed the case with the resident. I agree with the resident's findings and plan as documented. SUBJECTIVE: OBJECTIVE: ASSESSMENT AND PLAN:
[2019-03-20 08:06] LABS: BASO % 0.6 % (0-2.0); EOS % 1.5 % (0-4.5); HEMATOCRIT 30.3 % (35.4-49); HEMOGLOBIN 9.8 GM/dL (11.7-16.9); LYMPH % 8.7 % (8-40); MCH 27.1 pg (25.7-33.7); MCHC 32.4 g/dl (32.0-35.9); MEAN CELL VOLUME 83.6 fl (80-96); MONO % 7.7 % (3.8-10.2); NEUT % 81.5 % (42.8-82.8); PLATELET COUNT 184 K/MM3 (134-434); RBC 3.62 M/mm3 (4.00-5.60); RDW 17.2 % (11.9-15.9); WHITE BLOOD COUNT 14.1 K/mm3 (4.0-10.0)
[2019-03-20] MEDS: TAMSULOSIN HCL 0.4 MG CAP PO SCH (08:15)
[2019-03-20 08:35] LABS: ALBUMIN 2.4 g/dl (3.4-5.0); BILIRUBIN,TOTAL 0.5 mg/dL (0.2-1); BLOOD UREA NITROGEN 18.4 mg/dL (7-18); CALCIUM 8.5 mg/dL (8.5-10.1); CREATININE 0.9 mg/dL (0.55-1.3); POTASSIUM 4.1 mmol/L (3.5-5.1); TOT PROT 5.5 g/dl (6.4-8.2)
[2019-03-20] MEDS: POLYETHYLENE GLYCOL 3350 119 GM BTL PO SCH ×3 (09:07→22:18)
[2019-03-20] MEDS: BUDESONIDE/FORMETEROL FUMARATE 80/4.5 mcg INHALER IH SCH ×2 (09:08→22:15)
--- NOTE | 2019-03-20 09:20 | PN ---
Teaching Attending Note Name of Resident: Arnie Montoya ATTENDING PHYSICIAN STATEMENT I saw and evaluated the patient. I reviewed the resident's note and discussed the case with the resident. I agree with the resident's findings and plan as documented. ATTENDING PHYSICIAN STATEMENT I saw and evaluated the patient. I reviewed the resident's note and discussed the case with the resident. I agree with the resident's findings and plan as documented. Seen and examined; please see resident note for further historical information. I personally verified all camarena historical information and exam findings. Personally interpreted all imaging and diagnostics and reviewed appropriate consults. I reviewed all labs and vital signs as per resident note and EMR as documented. I agree with the above assessment and plan unless supplemented by myself in the following. 10 item review of systems completed and is negative aside from as discussed in the subjective data in my own/the resident documentation. VS, labs, imaging reviewed NAD, AAO, resting comfortably in bed. RRR s1/2 no mgr Normal muscle tone, moves all 5 extremities with normal apparent strength Neck is supple, trachea midline, no francis LN Lungs CTAB with sym expansion NT ND +BS no francis organomegaly CN2-12 wnl; no FND NC AT EOMI PERRLA Normal mood, appropriate behavior, euthymic affect No skin breakdown or rashes noted Assessment and plan: Patient is being monitored off of antibiotics per ID, MRCP pending. Fever Leukocytosis Questionable UTI with ID following Invasive bladder cancer/urothelial carcinoma. Per oncology: "CT a/p w/contrast --03/15/19 -- gall stones, dilatationof CBD, marked rt. renal hydronephrosis and moderate hydroureter with a hyperdense lumen of the distal right ureter suspicious for a mass. A mass like density in posterior lateral wall of urinary bladder. Cirrhosis/splenomegalyModerately severe COPD.Mild atelectasis vs infiltrate Rt. 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
--- NOTE | 2019-03-20 10:39 | PN.GI ---
GI Progress Note Subjective: No acute events No abdominal pain MRCP revealed dilated CHD 1.2cm, mildly dilated CBD 8mm. Distal duct ampulla not visualized, however. - Objective Vital Signs: Vital Signs Temperature 98.6 F 03/20/19 06:59 Pulse Rate 77 03/20/19 06:59 Respiratory Rate 20 03/20/19 06:59 Blood Pressure 116/62 03/20/19 06:59 O2 Sat by Pulse Oximetry (%) 90 L 03/19/19 21:00 Constitutional: Calm Eyes: No: Sclera Icterus Cardiovascular: Yes: Regular Rate and Rhythm Respiratory: Yes: Wheezes Gastrointestinal Inspection: No: Distention ...Auscultate: Yes: Normoactive Bowel Sounds ...Palpate: No: Hepatomegaly, Splenomegaly, Tenderness ...Percussion: No: Tympanitic Edema: No (No LE edema) Neurological: Yes: Alert Labs: CBC, BMP 03/20/19 07:46 03/20/19 07:46 INR, PTT INR 1.08 (0.83-1.09) 03/15/19 06:49 Problem List - Problems (1) Common bile duct dilatation Assessment/Plan: LFTs remain normal, not suggestive of obstructive process. Discused MRI findings. Explained that referral for EUS could be considered to evaluate periampullary region and duct to exclude for stricture or ampullary mass. This could be arranged as an outpatint and if optimized to do so from a respiratory standpoint. He is not interested in pursuing this at this time. Can arrange outpatient follow-up to discuss with me further. He will need medical / pulmonary follow-up arranged as well upon discharge. Code(s): K83.8 - OTHER SPECIFIED DISEASES OF BILIARY TRACT (2) Cirrhosis Assessment/Plan: Will need Q6 month US to screen for HCC He has declined EGD to screen for varices Code(s): K74.60 - UNSPECIFIED CIRRHOSIS OF LIVER
--- NOTE | 2019-03-20 11:25 | PN ---
Progress Note, Physician History of Present Illness: stable had a low grade fever - Current Medication List Current Medications: Active Medications Acetaminophen (Tylenol -) 650 mg PO Q6H PRN PRN Reason: Fever Or Pain Last Admin: 03/18/19 02:42 Dose: 650 mg Albuterol Sulfate (Ventolin 0.083% Nebulizer Soln -) 1 amp NEB RQ4H [facility] Last Admin: 03/20/19 08:10 Dose: 1 amp Amlodipine Besylate (Norvasc -) 10 mg PO [facility] Last Admin: 03/19/19 22:34 Dose: 10 mg Budesonide/Formoterol Fumarate (Symbicort 80/4.5mcg -) 2 puff IH BID [facility] Last Admin: 03/20/19 09:08 Dose: 2 puff Heparin Sodium (Porcine) (Heparin -) 5,000 unit SQ TID [facility] Last Admin: 03/20/19 06:13 Dose: Not Given Sodium Chloride (Normal Saline -) 1,000 mls @ 75 mls/hr IV ASDIR [facility] Last Admin: 03/19/19 06:43 Dose: Not Given Methadone HCl 80 mg/ Methadone (HCl 20 mg) 100 mg PO DAILY@0600 [facility] Last Admin: 03/20/19 06:55 Dose: 100 mg Polyethylene Glycol (Miralax (For Daily Use) -) 17 gm PO BID [facility] Last Admin: 03/20/19 09:07 Dose: 17 gm Senna (Senna -) 2 tab PO [facility] Last Admin: 03/19/19 22:34 Dose: 2 tab Tamsulosin HCl (Flomax -) 0.4 mg PO DAILY@0830 [facility] Last Admin: 03/20/19 08:15 Dose: Not Given - Objective Vital Signs: Vital Signs Temperature 98.6 F 03/20/19 06:59 Pulse Rate 77 03/20/19 06:59 Respiratory Rate 20 03/20/19 06:59 Blood Pressure 116/62 03/20/19 06:59 O2 Sat by Pulse Oximetry (%) 90 L 03/19/19 21:00 Constitutional: Yes: No Distress, Calm Cardiovascular: Yes: S1, S2 Respiratory: Yes: Regular, CTA Bilaterally Gastrointestinal: Yes: Normal Bowel Sounds, Soft Musculoskeletal: Yes: WNL Extremities: Yes: WNL Neurological: Yes: Alert, Oriented Psychiatric: Yes: Alert, Oriented Labs: CBC, BMP 03/20/19 07:46 03/20/19 07:46 INR, PTT INR 1.08 (0.83-1.09) 03/15/19 06:49 Assessment/Plan Patient is a 78 year old man with a PMH of CAD, GA, HLD, HTN, COPD, Tobacco use , Hepatitis C disease with liver cirrhosis, Invasive bladder carcinoma and Urothelial cancer and heroin abuse (on methadone), came to the ER with c/o of diffuse abdominal pain for 3-4 days. Febrile to 100.7 and wbc 33K Fever Leukocytosis Abd pain ? UTI Invasive Bladder CA/urothelial CA CAD s/p GA HTN HLD COPD Hep C with cirrhosis plan continue to monitor off of abx rest as per the team
--- NOTE | 2019-03-20 22:00 | PN ---
Progress Note (short form) - Note Progress Note: Patient seen and examined Still with some shortness of breath _+ wt. loss AFVSS Cor: RSR, No murmurs, No gallops Lungs: decreased at bases Abd: Soft, Normal bowel sounds, No organomegaly Ext:No significant edema Labs/Meds reviewed A/P 78 y/o male PMH HTN, COPD, chronic hypoxic resp failure, cirrhosis (Hep C), splenomegaly, opioid dependence, [place] in , and bladder cancer c/o SOB and cough. 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 + invasion of muscularis propria Refusing surgery and ? candidacy given his pulmonary function Lost to f/u CT a/p w/contrast --03/15/19 -- gall stones, dilatationof CBD, marked rt. renal hydronephrosis and moderate hydroureter with a hyperdense lumen of the distal right ureter suspicious for a mass. A mass like density in posterior lateral wall of urinary bladder. Cirrhosis/splenomegalyModerately severe COPD.Mild atelectasis vs infiltrate Rt. lung base Outpatient PET-CT PDL1 testing Needs follow up outpatient regarding chemo/RT vs RT vs atezolizumab Performnce wandaus -2-3 Rediscussed his situation in detail and contact nos. given for follow up
[2019-03-20] MEDS: amLODIPine BESYLATE 10 MG TABLET (FP) PO SCH (22:15)
[2019-03-20] MEDS: SENNOSIDES 8.6MG TABLET (FP) PO SCH (22:15)
[2019-03-21] MEDS: ALBUTEROL SO4 0.083% IH SOL 2.5 MG/3 ML VIAL.NEB. NEB SCH ×5 (04:00→20:10)
[2019-03-21] MEDS ORDERED: METHADONE HCL 40 MG DISPERSABLE TABLET ONE (06:01)
[2019-03-21] MEDS ORDERED: METHADONE HCL 10 MG TABLET ONE (06:01)
[2019-03-21] MEDS: SODIUM CHLORIDE 1,000 ML IV SCH (06:50)
[2019-03-21] MEDS: METHADONE 80 MG, METHADONE 20 MG PO SCH (06:50)
[2019-03-21] MEDS: HEPARIN NA (PORCINE) 5,000 UNITS/ML 1ML VIAL SQ SCH ×3 (06:51→22:29)
--- NOTE | 2019-03-21 09:10 | PN ---
Physical Exam: SUBJECTIVE: Patient seen and examined; Seen and examined, pain is controlled, discussed importance of oncologic follow-up with the patient verbalized understanding. I question if he will follow-up. Discussed case with gastroenterology. Patient is noted to have dilated CHD to 1.2 cm with mildly dilated CBD to 8 mm. Distal duct ampulla was not visualized well on the study. Given the LFTs remaining normal this is not suggesting of an obstructive process. Per GI assessment the patient may be referred for endoscopic ultrasound to evaluate periampullary region and duct to exclude for stricture or ampullary mass which could be clear range as an outpatient if optimized. He is not interested in pursuing aggressive work-up at this time. Edit: spoke to patient at length. He has competence and capacity and <6 months to live. He tells me that he is not suicidal or homicidal and is within normal limits of mentation. He reasonably has <6 months to live and wishes to pursue hospice care. He is interested in the [facility] and we will consult social work to get him there. MOLST form completed; he is DNR/DNI. No feeding tube, IVF may be used, he may go back to the hospital or use antibiotics PRN as well. Changing code status in chart. 10 item review of systems completed and is negative aside from as discussed in the subjective data in my own/the resident documentation. OBJECTIVE: Vital Signs Period Temp Pulse Resp BP Sys/Flor Pulse Ox Last 24 Hr 97.6 F-98.6 F 70-85 20-20 114-141/52-74 95 GENERAL: The patient is awake, alert, and fully oriented, in no acute distress. HEAD: Normal with no signs of trauma. EYES: PERRL, extraocular movements intact, sclera anicteric, conjunctiva clear. No ptosis. ENT: Ears normal, nares patent, oropharynx clear without exudates, moist mucous membranes. NECK: Trachea midline, full range of motion, supple. LUNGS: Breath sounds equal, clear to auscultation bilaterally, no wheezes, no crackles, no accessory muscle use. HEART: Regular rate and rhythm, S1, S2 without murmur, rub or gallop. ABDOMEN: Soft, nontender, nondistended, normoactive bowel sounds, no guarding, no rebound, no hepatosplenomegaly, no masses. EXTREMITIES: 2+ pulses, warm, well-perfused, no edema. NEUROLOGICAL: Cranial nerves II through XII grossly intact. Normal speech, gait not observed. PSYCH: Normal mood, normal affect. SKIN: Warm, dry, normal turgor, no rashes or lesions noted Active Medications Generic Name Dose Route Start Last Admin Trade Name Freq PRN Reason Stop Dose Admin Acetaminophen 650 mg 03/16/19 23:21 03/18/19 02:42 Tylenol - PO 650 mg Q6H PRN Administration Fever Or Pain Albuterol Sulfate 1 amp 03/15/19 04:07 03/21/19 07:46 Ventolin 0.083% Nebulizer Soln - NEB Not Given RQ4H [facility] Amlodipine Besylate 10 mg 03/18/19 22:00 03/20/19 22:15 Norvasc - PO 10 mg HS [facility] Administration Budesonide/Formoterol Fumarate 2 puff 03/15/19 10:00 03/20/19 22:15 Symbicort 80/4.5mcg - IH 2 puff BID [facility] Administration Heparin Sodium (Porcine) 5,000 unit 03/15/19 06:00 03/21/19 06:51 Heparin - SQ Not Given TID [facility] Sodium Chloride 1,000 mls @ 75 mls/hr 03/15/19 04:00 03/21/19 06:50 Normal Saline - IV 75 mls/hr ASDIR [facility] Administration Methadone HCl 80 mg/ Methadone 100 mg 03/16/19 11:00 03/21/19 06:50 HCl 20 mg PO 100 mg DAILY@0600 [facility] Administration Polyethylene Glycol 17 gm 03/15/19 10:00 03/20/19 22:18 Miralax (For Daily Use) - PO Not Given BID [facility] Senna 2 tab 03/15/19 22:00 03/20/19 22:15 Senna - PO 2 tab HS [facility] Administration Tamsulosin HCl 0.4 mg 03/15/19 08:30 03/20/19 08:15 Flomax - PO Not Given DAILY@0830 [facility] ASSESSMENT/PLAN: Patient is a 78 year old male; he has elected not to pursue further treatment or workup for his cancer and wishes to be made hospice care which is reasonable. Focus on pain control will be paramount. Problem List: Fever Leukocytosis Questionable UTI with ID following Invasive bladder cancer/urothelial carcinoma. Per oncology: "CT a/p w/contrast --03/15/19 -- gall stones, dilatationof CBD, marked rt. renal hydronephrosis and moderate hydroureter with a hyperdense lumen of the distal right ureter suspicious for a mass. A mass like density in posterior lateral wall of urinary bladder. Cirrhosis/splenomegalyModerately severe COPD.Mild atelectasis vs infiltrate Rt. lung base Outpatient PET-CT recommended." Coronary artery disease status post NE Cirrhosis with splenomegaly likely 2/2 hepatitis C Hypertension Hyperlipidemia Noncompliance COPD Hepatitis C HX Full code Visit type - Emergency Visit Emergency Visit: No - New Patient This patient is new to me today: No - Critical Care Critical Care patient: No
--- NOTE | 2019-03-21 09:16 | DS ---
Physical Exam: SUBJECTIVE: Patient seen and examined OBJECTIVE: Vital Signs Period Temp Pulse Resp BP Sys/Flor Pulse Ox Last 24 Hr 97.6 F-98.6 F 70-85 20-20 114-141/52-74 95 PHYSICAL EXAM GENERAL: The patient is awake, alert, and fully oriented, in no acute distress. HEAD: Normal with no signs of trauma. EYES: PERRL, extraocular movements intact, sclera anicteric, conjunctiva clear. ENT: Ears normal, nares patent, oropharynx clear without exudates, moist mucous membranes. NECK: Trachea midline, full range of motion, supple. LUNGS: Breath sounds equal, clear to auscultation bilaterally, no wheezes, no crackles, no accessory muscle use. HEART: Regular rate and rhythm, S1, S2 without murmur, rub or gallop. ABDOMEN: Soft, nontender, nondistended, normoactive bowel sounds, no guarding, no rebound, no hepatosplenomegaly, no masses. EXTREMITIES: 2+ pulses, warm, well-perfused, no edema. NEUROLOGICAL: Cranial nerves II through XII grossly intact. Normal speech, gait not observed. PSYCH: Normal mood, normal affect. SKIN: Warm, dry, normal turgor, no rashes or lesions noted. LABS HOSPITAL COURSE: Date of Admission:03/15/19 Date of Discharge: 03/21/19 Discharge Summary Problems reviewed: Yes Reason For Visit: HEMATURIA, MALIGNANT NEOPLASM OF URINARY BLADDER Current Active Problems Cirrhosis (Acute) Common bile duct dilatation (Acute) Hematuria (Acute) Condition: Stable - Instructions Diet, Activity, Other Instructions: You were admitted to the hospital for pain. This is likely related to the mass in your bladder. While you were here we did further imaging of your abdomen. You do not need to be in the hospital an longer, but you do need to follow up as an outpatient to treat the abdnormalities in your abdomen. To continue treatment of the mass in your liver and your bladder, you need to make an appointment with the Urologist and Oncologist. To continue to treat your gallbladder that is enlarged, stones in your gallbladder, and umbilical hernia you need to make an appoint with the [facility] doctor. You will need an Ultrasound of your abdomen done every 6 months to scan for any cancer of your liver. To monitor a large artery in your abdomen you need to follow up with the Vascular doctor. You may need future imaging to monitor this For your continued pain you need to make an appointment and follow up with the pain management doctor. Continue your home medications as prescribed. Follow up with your primary care physician within one week, we have provided you with a referral if you do not have one. Return to the Emergency Department if you have any nausea, vomiting, diarrhea, chest pain, dizziness, or shortness of breath. Referrals: [facility] [place] [facility] [place] [Provider Group] Ashutosh Tena DO [Staff Physician] - Teja Roberto DO [Staff Physician] - Beryl Martin MD [Staff Physician] - Henry Koch DO [Staff Physician] - Helder Faria MD [Staff Physician] - Contreras Hsu MD [Staff Physician] - Disposition: VNS/HOME HEALTH CARE - Home Medications Comprehensive Discharge Medication List: Ambulatory Orders Methadone HCl 98 mg PO DAILY 01/03/19 Amlodipine Besylate [Norvasc -] 10 mg PO DAILY #90 tablet 01/06/19 Tamsulosin HCl [Flomax] 0.4 mg PO DAILY #90 capsule 01/06/19 Polyethylene Glycol 3350 [Miralax 119 gm Btl -] 17 gm PO BID bottle 02/15/19 Budesonide/Formeterol Fumarate [SYMBICORT 80/4.5mcg -] 2 puff PO BID 03/16/19 - Discharge Referral Referred to [facility] No
--- NOTE | 2019-03-21 09:45 | PN ---
Progress Note, Physician History of Present Illness: stable no new issues - Current Medication List Current Medications: Active Medications Acetaminophen (Tylenol -) 650 mg PO Q6H PRN PRN Reason: Fever Or Pain Last Admin: 03/18/19 02:42 Dose: 650 mg Albuterol Sulfate (Ventolin 0.083% Nebulizer Soln -) 1 amp NEB RQ4H [facility] Last Admin: 03/21/19 07:46 Dose: Not Given Amlodipine Besylate (Norvasc -) 10 mg PO [facility] Last Admin: 03/20/19 22:15 Dose: 10 mg Budesonide/Formoterol Fumarate (Symbicort 80/4.5mcg -) 2 puff IH BID [facility] Last Admin: 03/20/19 22:15 Dose: 2 puff Heparin Sodium (Porcine) (Heparin -) 5,000 unit SQ TID [facility] Last Admin: 03/21/19 06:51 Dose: Not Given Methadone HCl 80 mg/ Methadone (HCl 20 mg) 100 mg PO DAILY@0600 [facility] Last Admin: 03/21/19 06:50 Dose: 100 mg Polyethylene Glycol (Miralax (For Daily Use) -) 17 gm PO BID [facility] Last Admin: 03/20/19 22:18 Dose: Not Given Prednisone (Deltasone -) 60 mg PO DAILY [facility] Senna (Senna -) 2 tab PO [facility] Last Admin: 03/20/19 22:15 Dose: 2 tab Tamsulosin HCl (Flomax -) 0.4 mg PO DAILY@0830 [facility] Last Admin: 03/20/19 08:15 Dose: Not Given - Objective Vital Signs: Vital Signs Temperature 98.6 F 03/21/19 06:00 Pulse Rate 75 03/21/19 06:00 Respiratory Rate 20 03/21/19 06:00 Blood Pressure 114/52 L 03/21/19 06:00 O2 Sat by Pulse Oximetry (%) 95 03/20/19 19:52 Constitutional: Yes: No Distress, Calm Cardiovascular: Yes: S1, S2 Respiratory: Yes: Regular, CTA Bilaterally Gastrointestinal: Yes: Normal Bowel Sounds, Soft Musculoskeletal: Yes: WNL Extremities: Yes: WNL Neurological: Yes: Alert, Oriented Psychiatric: Yes: Alert, Oriented Labs: CBC, BMP 03/20/19 07:46 03/20/19 07:46 INR, PTT INR 1.08 (0.83-1.09) 03/15/19 06:49 Assessment/Plan Patient is a 78 year old man with a PMH of CAD, MS, HLD, HTN, COPD, Tobacco use , Hepatitis C disease with liver cirrhosis, Invasive bladder carcinoma and Urothelial cancer and heroin abuse (on methadone), came to the ER with c/o of diffuse abdominal pain for 3-4 days. Febrile to 100.7 and wbc 33K Fever Leukocytosis Abd pain ? UTI Invasive Bladder CA/urothelial CA CAD s/p MS HTN HLD COPD Hep C with cirrhosis plan continue to monitor off of abx rest as per the team
[2019-03-21] MEDS: POLYETHYLENE GLYCOL 3350 119 GM BTL PO SCH ×2 (10:00→22:29)
[2019-03-21] MEDS: TAMSULOSIN HCL 0.4 MG CAP PO SCH (10:11)
[2019-03-21] MEDS: predniSONE 20 MG TABLET (UD) PO SCH (10:11)
[2019-03-21] MEDS: BUDESONIDE/FORMETEROL FUMARATE 80/4.5 mcg INHALER IH SCH ×2 (10:14→22:38)
[2019-03-21] MEDS: SENNOSIDES 8.6MG TABLET (FP) PO SCH (22:30)
[2019-03-21] MEDS: amLODIPine BESYLATE 10 MG TABLET (FP) PO SCH (22:30)
[2019-03-22] MEDS: ALBUTEROL SO4 0.083% IH SOL 2.5 MG/3 ML VIAL.NEB. NEB SCH ×6 (00:23→20:00)
[2019-03-22] MEDS ORDERED: METHADONE HCL 40 MG DISPERSABLE TABLET ONE (06:21)
[2019-03-22] MEDS ORDERED: METHADONE HCL 10 MG TABLET ONE (06:21)
[2019-03-22] MEDS: METHADONE 80 MG, METHADONE 20 MG PO SCH (07:02)
[2019-03-22] MEDS: predniSONE 20 MG TABLET (UD) PO SCH (10:10)
[2019-03-22] MEDS: TAMSULOSIN HCL 0.4 MG CAP PO SCH (10:11)
[2019-03-22] MEDS: POLYETHYLENE GLYCOL 3350 119 GM BTL PO SCH ×2 (10:11→22:58)
[2019-03-22] MEDS: BUDESONIDE/FORMETEROL FUMARATE 80/4.5 mcg INHALER IH SCH ×2 (10:14→22:58)
--- NOTE | 2019-03-22 17:49 | PN ---
Physical Exam: SUBJECTIVE: Patient seen and examined. Pt is afebrile today. Reports urination and had BM. Symptoms have improved. Report no overnight events. No further c/o. Denies f/c/n/v/d/sob, cp. OBJECTIVE: Vital Signs Period Temp Pulse Resp BP Sys/Flor Pulse Ox Last 24 Hr 97.9 F-98.4 F 80-87 18-20 118-150/56-80 95-95 GENERAL: The patient is awake, alert, and moderately oriented, in no acute distress. Reports amnesia. Cachetic EYES: PERRL, extraocular movements intact, sclera anicteric, No ptosis. ENT: oropharynx clear without exudates, moist mucous membranes. NECK: Trachea midline, full range of motion, supple. LUNGS: Breath sounds equal, clear to auscultation bilaterally, no wheezes, no crackles, HEART: Regular rate and rhythm, S1, S2 without murmur, rub or gallop. ABDOMEN: Soft, right lower quadrant and flank-improved, nondistended, normoactive bowel sounds, no guarding, NEUROLOGICAL: Cranial nerves II through XII grossly intact. SKIN: Warm, dry, normal turgor, no rashes or lesions noted Active Medications Generic Name Dose Route Start Last Admin Trade Name Freq PRN Reason Stop Dose Admin Acetaminophen 650 mg 03/16/19 23:21 03/18/19 02:42 Tylenol - PO 650 mg Q6H PRN Administration Fever Or Pain Albuterol Sulfate 1 amp 03/15/19 04:07 03/22/19 15:49 Ventolin 0.083% Nebulizer Soln - NEB Not Given RQ4H [facility] Amlodipine Besylate 10 mg 03/18/19 22:00 03/21/19 22:30 Norvasc - PO 10 mg HS [facility] Administration Budesonide/Formoterol Fumarate 2 puff 03/15/19 10:00 03/22/19 10:14 Symbicort 80/4.5mcg - IH 2 puff BID [facility] Administration Methadone HCl 80 mg/ Methadone 100 mg 03/16/19 11:00 03/22/19 07:02 HCl 20 mg PO 100 mg DAILY@0600 [facility] Administration Polyethylene Glycol 17 gm 03/15/19 10:00 03/22/19 10:11 Miralax (For Daily Use) - PO 17 gm BID [facility] Administration Prednisone 60 mg 03/21/19 10:00 03/22/19 10:10 Deltasone - PO 60 mg DAILY [facility] Administration Senna 2 tab 03/15/19 22:00 03/21/19 22:30 Senna - PO 2 tab HS [facility] Administration Tamsulosin HCl 0.4 mg 03/15/19 08:30 03/22/19 10:11 Flomax - PO 0.4 mg DAILY@0830 [facility] Administration ASSESSMENT/PLAN: 78 y/o M, pmh of CAD s/p DE, HTN, HLD, COPD, Hepatitis C, Liver Cirrhosis, Urothelial bladder Cancer (refused resection), Opiate Use Disorder (on Methadone ) presented with abdominal pain, altered mental status and urinary retention admitted for acute metabolic enceph from sepsis 2/2 to UTI #Acute metabolic Encephalopathy+ Sepsis 2/2 to UTI IVF at 74 Can discuss with heme/onc PT walked 85 ft #Dilated CBD Pt will need outpt GI f/u for dilated CBD/Gall stones and vascular f/u for AAA 4.7cm cont miralax BID- if no response can consider lactulose GI recom- no further GI intervention at this time #Opiate use disorder no signs of withdrawal #HTN cont norvasc #COPD Prednisone 60 #Urothelial Bladder CA Cont Flomax #Hx of HCV Undetectable RNA on 12/30 Serologies suggestive of prior HBV exposure U/S 03/02- MELD7 #DVT ppx Heparin SQ FEN: monitor lytes regular diet IVF at 74 Dispo: f/u with Dr. Cramer- ERICK, then d/c planning can be considered, waiting for placement Visit type - Emergency Visit Emergency Visit: Yes ED Registration Date: 03/15/19 Care time: The patient presented to the Emergency Department on the above date and was hospitalized for further evaluation of their emergent condition. - New Patient This patient is new to me today: Yes Date on this admission: 03/22/19 - Critical Care Critical Care patient: No - Discharge Referral Referred to [facility] No ATTENDING PHYSICIAN STATEMENT I saw and evaluated the patient. I reviewed the resident's note and discussed the case with the resident. I agree with the resident's findings and plan as documented. SUBJECTIVE: OBJECTIVE: ASSESSMENT AND PLAN:
[2019-03-22] MEDS: amLODIPine BESYLATE 10 MG TABLET (FP) PO SCH (22:56)
[2019-03-22] MEDS: SENNOSIDES 8.6MG TABLET (FP) PO SCH (22:58)
[2019-03-23] MEDS: ALBUTEROL SO4 0.083% IH SOL 2.5 MG/3 ML VIAL.NEB. NEB SCH ×5 (00:40→15:40)
[2019-03-23] MEDS ORDERED: METHADONE HCL 10 MG TABLET ONE ×2 (06:28→06:35)
[2019-03-23] MEDS ORDERED: METHADONE HCL 40 MG DISPERSABLE TABLET ONE (06:35)
[2019-03-23] MEDS: METHADONE 80 MG, METHADONE 20 MG PO SCH (06:41)
--- NOTE | 2019-03-23 08:52 | PN ---
Teaching Attending Note Name of Resident: Arnie Montoya ATTENDING PHYSICIAN STATEMENT I saw and evaluated the patient. I reviewed the resident's note and discussed the case with the resident. I agree with the resident's findings and plan as documented. Seen and examined; please see resident note for further historical information. I personally verified all camarena historical information and exam findings. Personally interpreted all imaging and diagnostics and reviewed appropriate consults. I reviewed all labs and vital signs as per resident note and EMR as documented. I agree with the above assessment and plan unless supplemented by myself in the following. Spoke with patient. Several episodes occurred over a social standpoint. Firstly, the patient is indicated as now refusing home hospice consultation, stating that he just wants to go home DO NOT RESUSCITATE and DO NOT INTUBATE and if he feels sick enough he will get home hospice. He went home with his family friends. There is concerned that the patient was homeless, but review of this with his friend, who considers herself to be his niece, reveals that the patient can stay with them indefinitely. She states that this is a safe situation the patient does agree. The patient is interested in going home on therapy for COPD. He will continue get pain medication with the methadone clinic. 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 He has no longer using heroin, but remains on large dose of methadone. Per social work, they have spoken with many facilities in the area and they have refused the patient due to his behavioral issues as well as a large dose of methadone and the potential for drug abuse and other issues, even with respect to the hospice care. We offered to resubmit with further clarification given his chronic neuropathic malignant pain, but the patient refused insisting that he was good to go home. He is found to be in possession of capacity and legal competency and is cleared to go home. I fear that he is great risk for readmission due to the lack of insight for his ongoing illness. 10 item review of systems completed and is negative aside from as discussed in the subjective data in my own/the resident documentation. VS, labs, imaging reviewed NAD, AAO, resting comfortably in bed. Fragile appearing RRR s1/2 no mgr Normal muscle tone, moves all 5 extremities with normal apparent strength Neck is supple, trachea midline, no francis LN Lungs CTAB with sym expansion NT ND +BS no francis organomegaly CN2-12 wnl; no FND NC AT EOMI PERRLA Normal mood, appropriate behavior, euthymic affect No skin breakdown or rashes noted Follow-up was given for pain management, hematology oncology, urology, and primary care.
--- NOTE | 2019-03-23 08:52 | PN ---
Teaching Attending Note Name of Resident: Arnie Montoya ATTENDING PHYSICIAN STATEMENT I saw and evaluated the patient. I reviewed the resident's note and discussed the case with the resident. I agree with the resident's findings and plan as documented. SUBJECTIVE: opted to be made DNR/DNI today after prolonged discussion. He has poor insight into his overall illness due to poor health literacy. He is amiable to DC to inpatient hospice facility vs. home with family 10 sys ROS done and negative aside from HPI VS labs imaging reviewed NAD AAO resting in bed RRR s1/2 no new mgr NT ND +BS CN2-12 wnl Normal mood, restricted insight but normal judgment. ASSESSMENT AND PLAN: Making DNR-I with comfort care approach. He wants to go home with hospice vs. inpatient hospice. He is on methadone but was using heroin to medicate for likely malignant pain. With methadone maintance for his cancer pain he has little addictive characteristics btu has difficulty expressign himself due to poor coping mechanisms. DNR/I
[2019-03-23 09:37] LABS: HEMATOCRIT 33.2 % (35.4-49); HEMOGLOBIN 10.7 GM/dL (11.7-16.9); MCH 27.1 pg (25.7-33.7); MCHC 32.1 g/dl (32.0-35.9); MEAN CELL VOLUME 84.4 fl (80-96); PLATELET COUNT 267 K/MM3 (134-434); RBC 3.93 M/mm3 (4.00-5.60); RDW 17.5 % (11.9-15.9); WHITE BLOOD COUNT 24.4 K/mm3 (4.0-10.0)
[2019-03-23] MEDS: TAMSULOSIN HCL 0.4 MG CAP PO SCH (09:44)
[2019-03-23] MEDS: predniSONE 20 MG TABLET (UD) PO SCH (09:44)
[2019-03-23] MEDS: POLYETHYLENE GLYCOL 3350 119 GM BTL PO SCH (09:45)
[2019-03-23] MEDS: BUDESONIDE/FORMETEROL FUMARATE 80/4.5 mcg INHALER IH SCH (09:46)
[2019-03-23 10:09] LABS: ALBUMIN 3.2 g/dl (3.4-5.0); BILIRUBIN,TOTAL 0.3 mg/dL (0.2-1); BLOOD UREA NITROGEN 47.1 mg/dL (7-18); CALCIUM 9.4 mg/dL (8.5-10.1); MAGNESIUM 2.3 mg/dL (1.8-2.4); POTASSIUM 4.7 mmol/L (3.5-5.1)
--- NOTE | 2019-03-23 10:23 | PN ---
Progress Note, Physician History of Present Illness: stable no new issues - Current Medication List Current Medications: Active Medications Acetaminophen (Tylenol -) 650 mg PO Q6H PRN PRN Reason: Fever Or Pain Last Admin: 03/18/19 02:42 Dose: 650 mg Albuterol Sulfate (Ventolin 0.083% Nebulizer Soln -) 1 amp NEB RQ4H [facility] Last Admin: 03/23/19 07:25 Dose: 1 amp Amlodipine Besylate (Norvasc -) 10 mg PO [facility] Last Admin: 03/22/19 22:56 Dose: 10 mg Budesonide/Formoterol Fumarate (Symbicort 80/4.5mcg -) 2 puff IH BID [facility] Last Admin: 03/23/19 09:46 Dose: 2 puff Methadone HCl 80 mg/ Methadone (HCl 20 mg) 100 mg PO DAILY@0600 [facility] Last Admin: 03/23/19 06:41 Dose: 100 mg Polyethylene Glycol (Miralax (For Daily Use) -) 17 gm PO BID [facility] Last Admin: 03/23/19 09:45 Dose: Not Given Prednisone (Deltasone -) 60 mg PO DAILY [facility] Last Admin: 03/23/19 09:44 Dose: 60 mg Senna (Senna -) 2 tab PO [facility] Last Admin: 03/22/19 22:58 Dose: Not Given Tamsulosin HCl (Flomax -) 0.4 mg PO DAILY@0830 [facility] Last Admin: 03/23/19 09:44 Dose: Not Given - Objective Vital Signs: Vital Signs Temperature 97.5 F L 03/23/19 06:45 Pulse Rate 82 03/23/19 06:45 Respiratory Rate 20 03/23/19 06:45 Blood Pressure 142/75 03/23/19 06:45 O2 Sat by Pulse Oximetry (%) 95 03/22/19 09:00 Constitutional: Yes: No Distress, Calm Cardiovascular: Yes: S1, S2 Respiratory: Yes: Regular, CTA Bilaterally Gastrointestinal: Yes: Normal Bowel Sounds, Soft Musculoskeletal: Yes: WNL Extremities: Yes: WNL Neurological: Yes: Alert, Oriented Psychiatric: Yes: Alert, Oriented Labs: CBC, BMP 03/23/19 09:10 03/23/19 09:10 INR, PTT INR 1.08 (0.83-1.09) 02/02/20 06:49 Assessment/Plan Patient is a 78 year old man with a PMH of CAD, [place], HLD, HTN, COPD, Tobacco use , Hepatitis C disease with liver cirrhosis, Invasive bladder carcinoma and Urothelial cancer and heroin abuse (on methadone), came to the ER with c/o of diffuse abdominal pain for 3-4 days. Febrile to 100.7 and wbc 33K Fever Leukocytosis Abd pain ? UTI Invasive Bladder CA/urothelial CA CAD s/p [place] HTN HLD COPD Hep C with cirrhosis plan continue current mgmt rest as per the team
--- NOTE | 2019-03-23 10:24 | PN ---
Progress Note, Physician History of Present Illness: stable no new issues - Current Medication List Current Medications: Active Medications Acetaminophen (Tylenol -) 650 mg PO Q6H PRN PRN Reason: Fever Or Pain Last Admin: 03/18/19 02:42 Dose: 650 mg Albuterol Sulfate (Ventolin 0.083% Nebulizer Soln -) 1 amp NEB RQ4H [facility] Last Admin: 03/23/19 07:25 Dose: 1 amp Amlodipine Besylate (Norvasc -) 10 mg PO [facility] Last Admin: 03/22/19 22:56 Dose: 10 mg Budesonide/Formoterol Fumarate (Symbicort 80/4.5mcg -) 2 puff IH BID [facility] Last Admin: 03/23/19 09:46 Dose: 2 puff Methadone HCl 80 mg/ Methadone (HCl 20 mg) 100 mg PO DAILY@0600 [facility] Last Admin: 03/23/19 06:41 Dose: 100 mg Polyethylene Glycol (Miralax (For Daily Use) -) 17 gm PO BID [facility] Last Admin: 03/23/19 09:45 Dose: Not Given Prednisone (Deltasone -) 60 mg PO DAILY [facility] Last Admin: 03/23/19 09:44 Dose: 60 mg Senna (Senna -) 2 tab PO [facility] Last Admin: 03/22/19 22:58 Dose: Not Given Tamsulosin HCl (Flomax -) 0.4 mg PO DAILY@0830 [facility] Last Admin: 03/23/19 09:44 Dose: Not Given - Objective Vital Signs: Vital Signs Temperature 97.5 F L 03/23/19 06:45 Pulse Rate 82 03/23/19 06:45 Respiratory Rate 20 03/23/19 06:45 Blood Pressure 142/75 03/23/19 06:45 O2 Sat by Pulse Oximetry (%) 95 03/22/19 09:00 Constitutional: Yes: No Distress, Calm Cardiovascular: Yes: S1, S2 Respiratory: Yes: Regular, CTA Bilaterally Gastrointestinal: Yes: Normal Bowel Sounds, Soft Musculoskeletal: Yes: WNL Extremities: Yes: WNL Neurological: Yes: Alert Psychiatric: Yes: Alert Labs: CBC, BMP 03/23/19 09:10 03/23/19 09:10 INR, PTT INR 1.08 (0.83-1.09) 03/15/19 06:49 Assessment/Plan Patient is a 78 year old man with a PMH of CAD, [place], HLD, HTN, COPD, Tobacco use , Hepatitis C disease with liver cirrhosis, Invasive bladder carcinoma and Urothelial cancer and heroin abuse (on methadone), came to the ER with c/o of diffuse abdominal pain for 3-4 days. Febrile to 100.7 and wbc 33K Fever Leukocytosis Abd pain ? UTI Invasive Bladder CA/urothelial CA CAD s/p [place] HTN HLD COPD Hep C with cirrhosis plan continue current mgmt rest as per the team
[2019-03-23 14:29] VITALS: BP 142/65; PULSE 89; TEMP 98.2
--- NOTE | 2019-03-23 18:08 | DS ---
Physical Exam: SUBJECTIVE: Patient seen and examined. Pt is afebrile today. Reports urination and had BM. Symptoms have improved. Report no overnight events. No further c/o. Denies f/c/n/v/d/sob, cp. OBJECTIVE: Vital Signs Period Temp Pulse Resp BP Sys/Flor Pulse Ox Last 24 Hr 97.5 F-98.3 F 77-92 15-20 115-156/65-86 95 PHYSICAL EXAM GENERAL: The patient is awake, alert, and moderately oriented, in no acute distress. Reports amnesia. Cachetic EYES: PERRL, extraocular movements intact, sclera anicteric, No ptosis. ENT: oropharynx clear without exudates, moist mucous membranes. NECK: Trachea midline, full range of motion, supple. LUNGS: Breath sounds equal, clear to auscultation bilaterally, no wheezes, no crackles, HEART: Regular rate and rhythm, S1, S2 without murmur, rub or gallop. ABDOMEN: Soft, right lower quadrant and flank-improved, nondistended, normoactive bowel sounds, no guarding, NEUROLOGICAL: Cranial nerves II through XII grossly intact. SKIN: Warm, dry, normal turgor, no rashes or lesions noted LABS Laboratory Results - last 24 hr 03/23/19 03/23/19 09:10 09:10 WBC 24.4 H RBC 3.93 L Hgb 10.7 L Hct 33.2 L MCV 84.4 MCH 27.1 MCHC 32.1 RDW 17.5 H Plt Count 267 D MPV 8.0 Sodium 135 L Potassium 4.7 Chloride 97 L Carbon Dioxide 29 Anion Gap 8 BUN 47.1 H Creatinine 1.0 Est GFR (CKD-EPI)AfAm 82.60 Est GFR (CKD-EPI)NonAf 71.27 Random Glucose 118 H Calcium 9.4 Magnesium 2.3 Total Bilirubin 0.3 AST 25 ALT 25 Alkaline Phosphatase 108 Total Protein 7.0 Albumin 3.2 L HOSPITAL COURSE: Date of Admission:03/15/19 78 y/o M, pmh of CAD s/p [place], HTN, HLD, COPD, Hepatitis C, Liver Cirrhosis, Urothelial bladder Cancer (refused resection), Opiate Use Disorder (on Methadone ) presented with abdominal pain, altered mental status and urinary retention admitted for acute metabolic enceph from sepsis 2/[address] a/p showed Moderate right hydronephrosis, suspected to be somewhat chronic, may be secondary to a mass within the mid ureter as well as in the right base of the bladder, although mixing of urine in the bladder can cause a similar appearance in the bladder. Transitional cell carcinoma should be considered. Mild left renal scarring. Cirrhosis, but no ascites. 4.7 cm abdominal aortic aneurysm. Gallstones and mild biliary duct dilation without gallbladder inflammation. Mild prostate enlargement. Severe emphysema. Pt was started on IV Vancomycin, Zosyn and IV NS . Consulted ID, Urology and Oncology. Despite history of constipation, no significant stool collection on CT scan. Continued Miralax bid and liberal oral fluids since patient is still on Methadone. CXR shows hyperaerated lungs and bibasilar atelectasis (R>L). EKG shows sinus tachycardia with premature atrial complexes and septal infarct of undetermined age - no significant change from EKG of 02/15/2019. Will continue comprehensive care for all of patients comorbid conditions. Pt was approached by multiple consultants but he refused all interventions, procedures and treatments. I discussed with pt and he is willing to try radiation therapy or chemotherapy with pain medications when he gets home, but at the hospital he refuses. Heme/onc recom outpt PET scan, PDL1 testing and chemo/RT vs RT vs atezolizuma. bOnce pt was stable, Zosyn was continued and completed. MRCP was done which showed Liver cirrhosis, Dilated Common hepatic duct dilated at 1.2cm, CBD at 8mm mildly dilated, 4mm pancreatic uncinate process cyst- can be parenchymal cyst, pseudocyst or early neoplasm- f/u MRCP in 1-2 yrs, 1.4 hyperintensity in the spleen could be a cyst, small renal cysts, severe right sided hydro w/ cortical thickening likely due to distal UVJ obstruction, hernia, Infrarenal AAA at 4.8cm , small right sided pleural effusion w/ severe overlying atelectasis vs infiltrates, trace left sided pleural effusion. GI recom- no further GI intervention at this time due to pt's refusal. Pt was discharged home w/ referrals to GI, heme/onc and primary care at [facility] coco fine. Pt was also explained the risks and benefits of his decision. We spoke in length with Pt's horacio son (HCP) about hospice and they agreed to it. Pt however wanted hospice at home and discharged. Due to hx of COPD, pt was d/bea home on 2 more doses of prednisone and ventolin inhaler. MRCP was done which showed Liver cirrhosis, Dilated Common hepatic duct dilated at 1.2cm, CBD at 8mm mildly dilated, 4mm pancreatic uncinate process cyst- can be parenchymal cyst, pseudocyst or early neoplasm- f/u MRCP in 1-2 yrs, 1.4 hyperintensity in the spleen could be a cyst, small renal cysts, severe right sided hydro w/ cortical thickening likely due to distal UVJ obstruction, hernia , Infrarenal AAA at 4.8cm, small right sided pleural effusion w/ severe overlying atelectasis vs infiltrates, trace left sided pleural effusion. CT a/p-Gallstones with dilated CBD, R posterior wall bladder mass, R hydronephrosis with hydroureter, Hyper dense lumen of the distal right ureter suspicious for mass, Liver Cirrhosis, AAA 4.7cm CXR shows hyperaerated lungs and bibasilar atelectasis (R>L). EKG shows sinus tachycardia with premature atrial complexes and septal infarct of undetermined age - no significant change from EKG of 02/15/2019. Date of Discharge: 03/23/19 Minutes to complete discharge: 40 Discharge Summary Problems reviewed: Yes Reason For Visit: HEMATURIA, MALIGNANT NEOPLASM OF URINARY BLADDER Condition: Stable - Instructions Diet, Activity, Other Instructions: You were admitted to the hospital for pain. This is likely related to the mass in your bladder. While you were here we did further imaging of your abdomen. You do not need to be in the hospital an longer, but you do need to follow up as an outpatient to treat the abnormalities in your abdomen. To continue treatment of the mass in your liver and your bladder, you need to make an appointment with the Urologist and Oncologist. To continue to treat your gallbladder that is enlarged, stones in your gallbladder, and umbilical hernia you need to make an appoint with the [facility] doctor. You will need an Ultrasound of your abdomen done every 6 months to scan for any cancer of your liver. To monitor a large artery in your abdomen you need to follow up with the Vascular doctor. You may need future imaging to monitor this. Please ensure you follow up with the vascular physician. For your continued pain you need to make an appointment and follow up with the pain management doctor. Continue your home medications as prescribed. Follow up with your primary care physician within one week, we have provided you with a referral if you do not have one. Return to the Emergency Department if you have any nausea, vomiting, diarrhea, chest pain, dizziness, or shortness of breath. Referrals: [facility] [Provider Group] Ashutosh Tena DO [Staff Physician] - Teja Roberto DO [Staff Physician] - Beryl Martin MD [Staff Physician] - Henry Koch DO [Staff Physician] - Helder Faria MD [Staff Physician] - Contreras Hsu MD [Staff Physician] - Israel Ragland MD [Staff Physician] - Disposition: VNS/HOME HEALTH CARE - Home Medications Comprehensive Discharge Medication List: Ambulatory Orders Methadone HCl 98 mg PO DAILY 01/03/19 Amlodipine Besylate [Norvasc -] 10 mg PO DAILY #90 tablet 01/06/19 Tamsulosin HCl [Flomax] 0.4 mg PO DAILY #90 capsule 01/06/19 Polyethylene Glycol 3350 [Miralax 119 gm Btl -] 17 gm PO BID bottle 02/15/19 Budesonide/Formeterol Fumarate [SYMBICORT 80/4.5mcg -] 2 puff PO BID 03/16/19 Albuterol Sulfate Inhaler - [Ventolin Hfa Inhaler -] 1 - 2 inh PO Q4H PRN #2 inhaler 03/23/19 predniSONE [Deltasone -] 60 mg PO UTDICT #6 tablet 03/23/19 This patient is new to me today: Yes Date on this admission: 03/23/19 Emergency Visit: Yes ED Registration Date: 03/15/19 Care time: The patient presented to the Emergency Department on the above date and was hospitalized for further evaluation of their emergent condition. Critical Care patient: No - Discharge Referral Referred to [facility] No ATTENDING PHYSICIAN STATEMENT I saw and evaluated the patient. I reviewed the resident's note and discussed the case with the resident. I agree with the resident's findings and plan as documented. SUBJECTIVE: OBJECTIVE: ASSESSMENT AND PLAN:
--- NOTE | 2019-03-27 12:15 | PN ---
Progress Note (short form) - Note Progress Note: urology note. pt. with poss. tcc of bladder and rt. kidney will call to see in office claudette.
== END 2019-03-23 16:39 | disposition home health service (06) | DRG 871 ==
LOC: JER 21:16 → JERBED 03-15 07:37 → J8W 03-15 09:19
PROVIDERS: ADMIT Internal Medicine; ATTEND Internal Medicine
DX: A41.9 Sepsis, unspecified organism (principal); G93.41 Metabolic encephalopathy; F11.20 Opioid dependence, uncomplicated; N13.30 Unspecified hydronephrosis; R64 Cachexia; N39.0 Urinary tract infection, site not specified; J98.11 Atelectasis; I10 Essential (primary) hypertension; I25.10 Atherosclerotic heart disease of native coronary artery without angina pectoris; K74.60 Unspecified cirrhosis of liver; B19.20 Unspecified viral hepatitis C without hepatic coma; F17.210 Nicotine dependence, cigarettes, uncomplicated; I71.4 Abdominal aortic aneurysm, without rupture; J43.9 Emphysema, unspecified; R31.9 Hematuria, unspecified; I25.2 Old myocardial infarction; E78.5 Hyperlipidemia, unspecified; F10.10 Alcohol abuse, uncomplicated; K59.00 Constipation, unspecified; R33.9 Retention of urine, unspecified; D64.9 Anemia, unspecified; R16.1 Splenomegaly, not elsewhere classified; K80.20 Calculus of gallbladder without cholecystitis without obstruction; K83.8 Other specified diseases of biliary tract; Z91.14 Patient's other noncompliance with medication regimen; C67.9 Malignant neoplasm of bladder, unspecified
CPT/HCPCS: 36415; 71045-TC-FY; 74177-TC; 74181-TC; 80048; 80053; 81003; 83605; 83735; 84100; 84436; 84443; 84484; 85025; 85027; 85610; 85730; 87040; 87086; 93005; 93010; 94640; 97116-GP; 97161-GP; 99285-25; J1644; J7030; Q9967

== ENCOUNTER 2019-04-13 10:03 | Emergency (ER) | payer BC, OTHER ==
[2019-04-13 10:28] VITALS: BP 87/56; PULSE 60; TEMP 97.9; BMI 18.8
--- NOTE | 2019-04-13 10:32 | PDOC ---
History of Present Illness - General Chief Complaint: Hematuria Stated Complaint: URINE BLOOD Time Seen by Provider: 04/13/19 10:31 History Source: Patient - History of Present Illness Initial Comments: 04/13/19 10:54 Mr. 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 He reports noticing it for the first time yesterday. He denies any pain, weakness, fevers, chills, nausea, vomiting, dysuria, or increased urinary frequency. He reports that he has not been taking any medications, and is not on any blood thinners. He has several scheduled follow up appointments, with his PCP, oncology, urology. His family requests to speak with social work regarding support for home health care. Past History - Past Medical History Allergies/Adverse Reactions: Allergies Allergy/AdvReac Type Severity Reaction Status Date / Time No Known Drug Allergies Allergy Unknown Verified 02/09/19 12:34 Home Medications: Ambulatory Orders Methadone HCl 100 mg PO DAILY 01/03/19 Amlodipine Besylate [Norvasc -] 10 mg PO DAILY #90 tablet 01/06/19 Tamsulosin HCl [Flomax] 0.4 mg PO DAILY #90 capsule 01/06/19 Polyethylene Glycol 3350 [Miralax 119 gm Btl -] 17 gm PO BID bottle 02/15/19 Budesonide/Formeterol Fumarate [SYMBICORT 80/4.5mcg -] 2 puff PO BID 03/16/19 Albuterol Sulfate Inhaler - [Ventolin Hfa Inhaler -] 1 - 2 inh PO Q4H PRN #2 inhaler 03/23/19 Nitrofurantoin Monohyd/M-Cryst [Macrobid -] 100 mg PO BID #14 capsule 04/13/19 Anemia: No Asthma: No Cancer: Yes (bladder tumor s/p cystoscopy) Cardiac Disorders: Yes (angioplasty 1997) CVA: No COPD: Yes (diagnosed 2009) CHF: No Dementia: No Diabetes: No Dialysis: No GI Disorders: No Disorders: Yes (BPH) HTN: Yes Hypercholesterolemia: No Kidney Stones: No Liver Disease: No Seizures: No Thyroid Disease: No - Surgical History Abdominal Surgery: Yes (RIGHT INQUINAL HERNIA REPAIR 25 YRS AGO) Appendectomy: No Cardiac Surgery: Yes (ANGIOPLASTY 1997) Cholecystectomy: No Lung Surgery: No Neurologic Surgery: No Orthopedic Surgery: No - Immunization History Immunization Up to Date: Yes - Psycho Social/Smoking Cessation Hx Smoking Status: Yes Smoking History: Never smoked Years of Tobacco Use: 20 Have you smoked in the past 12 months: Yes Number of Cigarettes Smoked Daily: 15 Information on smoking cessation initiated: No 'Breaking Loose' booklet given: 03/01/12 Hx Alcohol Use: No Drug/Substance Use Hx: No Substance Use Type: Opiates Hx Substance Use Treatment: Yes Review of Systems - Review of Systems Able to Perform ROS?: Yes Comments:: 04/13/19 12:20 ROS: GENERAL/CONSTITUTIONAL: No fever or chills. No weakness. HEAD, EYES, EARS, NOSE AND THROAT: No change in vision. No ear pain or discharge. No sore throat. CARDIOVASCULAR: No chest pain or shortness of breath RESPIRATORY: No cough, wheezing, or hemoptysis. GASTROINTESTINAL: No nausea, vomiting, diarrhea or constipation. GENITOURINARY: Hematuria. No dysuria, frequency, or other change in urination. MUSCULOSKELETAL: No joint or muscle swelling or pain. No neck or back pain. SKIN: No rash NEUROLOGIC: No headache, vertigo, loss of consciousness, or change in strength/ sensation. ENDOCRINE: No increased thirst. No abnormal weight change HEMATOLOGIC/LYMPHATIC: No anemia, easy bleeding, or history of blood clots. ALLERGIC/IMMUNOLOGIC: No hives or skin allergy. *Physical Exam - Vital Signs Last Vital Signs Temp Pulse Resp BP Pulse Ox 97.9 F 60 17 87/56 L 91 L 04/13/19 10:22 04/13/19 10:22 04/13/19 10:22 04/13/19 10:22 04/13/19 10:22 - Physical Exam 04/13/19 12:20 PE: GENERAL: Awake, alert, and fully oriented, in no acute distress HEAD: No signs of trauma, normocephalic, atraumatic EYES: PERRLA, EOMI, sclera anicteric, conjunctiva clear ENT: Auricles normal inspection, hearing grossly normal, nares patent, oropharynx clear without exudates. Moist mucosa NECK: Normal ROM, supple, no lymphadenopathy, JVD, or masses LUNGS: No distress, speaks full sentences, clear to auscultation bilaterally HEART: Regular rate and rhythm, normal S1 and S2, no murmurs, rubs or gallops, peripheral pulses normal and equal bilaterally. ABDOMEN: Soft, nontender, normoactive bowel sounds. No guarding, no rebound. No masses EXTREMITIES : Normal inspection, Normal range of motion, no edema. No clubbing or cyanosis NEUROLOGICAL: Cranial nerves II through XII grossly intact. Normal speech, normal gait, no focal sensorimotor deficits SKIN: Warm, Dry, normal turgor, no rashes or lesions noted ED Treatment Course - LABORATORY CBC & Chemistry Diagram: 04/13/19 11:10 04/13/19 11:10 Medical Decision Making - Medical Decision Making 04/13/19 12:20 78M w/hx metastatic gastric cancer, COPD p/w one day of painless hematuria likely representing metastasis to bladder. UTI, nephrolithiasis also possible, although he denies any dysuria or flank pain at this time. Plan: CBC CMP EKG CXR UA Urine culture Social work consult Dispo: Pending --- CBC - WBC 20.2 CMP - wnl UA - pending Social work at bedside 04/13/19 12:46 UA - positive nitrites, leuk esterase. Plan for discharge with macrobid for UTI. Counseled regarding importance of close follow up with nephrology, PCP, oncology. Discharge - Discharge Information Problems reviewed: Yes Clinical Impression/Diagnosis: UTI (urinary tract infection) Qualifiers: Urinary tract infection type: acute cystitis Hematuria presence: with hematuria Qualified Code(s): N30.01 - Acute cystitis with hematuria Condition: Stable Disposition: HOME - Admission No - Additional Discharge Information Prescriptions: Nitrofurantoin Monohyd/M-Cryst [Macrobid -] 100 mg PO BID #14 capsule - Follow up/Referral - Patient Discharge Instructions Patient Printed Discharge Instructions: DI for Urinary Tract Infection (UTI), DI for Bladder Cancer Additional Instructions: You were seen in the ER for blood in your urine. Your urine shows a urinary tract infection - please take the antibiotic as directed, twice daily for seven days. Be sure to complete the full course of antibiotics even if your symptoms improve. It is very important to follow up with nephrology (kidney and bladder doctors) as soon as possible - please keep your follow up appointment. Please return to the ER if you develop weakness, chest pain, difficulty breathing, or are unable to urinate. - Post Discharge Activity
--- NOTE | 2019-04-13 10:37 | PDOC ---
Attending Attestation - Resident Resident Name: Ulysses Miner (co) - HPI HPI: 04/13/19 11:50 Pt presents to the ED complaining of dysuria and worsening of his chronic hematuria. Extensive past medical history as described in resident note. Denies other new symptoms. - Physicial Exam PE: 04/13/19 12:00 Agree with resident exam. PAtient is alert and oriented and in no acute distress. Lungs are clear. Heart regular rate and rythm without murmurs. - Medical Decision Making 04/13/19 12:01 Pt presents to the ED complaining of hematuria and dysuria. Extensive past medical history as described in resident note. Differential includes UTI, bladder spasm. will check labs and UA, treat with antibiotics if UA is positive. 04/13/19 16:04 UA shows evidence of infection. PAtient will be discharged home with home care.
--- NOTE | 2019-04-13 10:59 | PDOC ---
*Physical Exam - Vital Signs Last Vital Signs Temp Pulse Resp BP Pulse Ox 97.9 F 60 17 87/56 L 91 L 04/13/19 10:22 04/13/19 10:22 04/13/19 10:22 04/13/19 10:22 04/13/19 10:22 ED Treatment Course - LABORATORY CBC & Chemistry Diagram: 04/13/19 11:10 04/13/19 11:10 Medical Decision Making - Medical Decision Making 04/13/19 10:46 Patient seen as pre-attending with Dr. Merida (PGY-1) and Dr. England ( Attending) 78 y/o male with PMHx of COPD, HTN, Nephrolithais, Stomach CA w/Bladder Mets here w/1 day h/o hematuria + dysuria No fevers/chills. 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 dirty sample, however patient has h/o UTI and is symptomatic, will treat with Macrobid. Patient requires outpatient urology follow-up as advised previous. Return precautions including urinary retention Discharge - Discharge Information Problems reviewed: Yes Clinical Impression/Diagnosis: UTI (urinary tract infection) Qualifiers: Urinary tract infection type: acute cystitis Hematuria presence: with hematuria Qualified Code(s): N30.01 - Acute cystitis with hematuria Condition: Stable Disposition: HOME - Additional Discharge Information Prescriptions: Nitrofurantoin Monohyd/M-Cryst [Macrobid -] 100 mg PO BID #14 capsule - Follow up/Referral - Patient Discharge Instructions Patient Printed Discharge Instructions: DI for Urinary Tract Infection (UTI), DI for Bladder Cancer Additional Instructions: You were seen in the ER for blood in your urine. Your urine shows a urinary tract infection - please take the antibiotic as directed, twice daily for seven days. Be sure to complete the full course of antibiotics even if your symptoms improve. It is very important to follow up with nephrology (kidney and bladder doctors) as soon as possible - please keep your follow up appointment. Please return to the ER if you develop weakness, chest pain, difficulty breathing, or are unable to urinate. - Post Discharge Activity
[2019-04-13 11:21] LABS: BASO % 0.9 % (0-2.0); EOS % 1.4 % (0-4.5); HEMATOCRIT 34.9 % (35.4-49); LYMPH % 11.5 % (8-40); MCH 26.3 pg (25.7-33.7); MCHC 31.4 g/dl (32.0-35.9); MEAN CELL VOLUME 83.7 fl (80-96); MEAN PLT VOLUME 7.3 fl (7.5-11.1); MONO % 5.8 % (3.8-10.2); NEUT % 80.4 % (42.8-82.8); PLATELET COUNT 319 K/MM3 (134-434); RBC 4.17 M/mm3 (4.00-5.60); WHITE BLOOD COUNT 20.2 K/mm3 (4.0-10.0)
[2019-04-13 11:49] LABS: ALBUMIN 3.2 g/dl (3.4-5.0); ALK PHOS 81 U/L (45-117); ANION GAP 8 MMOL/L (8-16); BILIRUBIN,TOTAL 0.6 mg/dL (0.2-1); BLOOD UREA NITROGEN 12.7 mg/dL (7-18); CALCIUM 9.1 mg/dL (8.5-10.1); CHLORIDE 102 mmol/L (98-107); CO2 28 mmol/L (21-32); CREATININE 1.3 mg/dL (0.55-1.3); GLUCOSE,RANDOM 112 mg/dL (74-106); POTASSIUM 4.5 mmol/L (3.5-5.1); SGOT/AST 18 U/L (15-37); SGPT/ALT 10 U/L (13-61); SODIUM 137 mmol/L (136-145); TOT PROT 6.7 g/dl (6.4-8.2)
[2019-04-13 12:26] LABS: ANISOCYTOSIS 1+; MACROCYTOSIS 1+; PLATELET ESTIMATE NORMAL
[2019-04-13 12:33] LABS: EPI CELLS 25.7 /HPF (0-5/HPF); HYALINE CASTS 81 /lpf (0-8); URINE APPEARANCE TURBID; URINE BACTERIA 8.2 /hpf (NEGATIVE); URINE BILIRUBIN 2+ (NEGATIVE); URINE COLOR ORANGE; URINE GLUCOSE (UA) NEGATIVE (NEGATIVE); URINE KETONE NEGATIVE (NEGATIVE); URINE LEUK ESTERASE 2+ (NEGATIVE); URINE NITRITE POSITIVE (NEGATIVE); URINE PROTEIN 4+ (NEGATIVE); URINE RBC 2704 /hpf (0-4); URINE WBC 54 /hpf (0-5)
--- NOTE | 2019-04-13 15:01 | EKG ---
Test Reason : Blood Pressure : / mmHG Vent. Rate : 097 BPM Atrial Rate : 097 BPM P-R Int : 136 ms QRS Dur : 090 ms QT Int : 360 ms P-R-T Axes : 075 023 087 degrees QTc Int : 457 ms SINUS RHYTHM with PREMATURE ATRIAL COMPLEXES NONSPECIFIC ST AND T WAVE ABNORMALITY ABNORMAL ECG WHEN COMPARED WITH ECG OF 14-MAR-2019 22:57, CRITERIA FOR SEPTAL INFARCT ARE NO LONGER PRESENT Confirmed by Lena Hare ([id number]) on 04/13/2019 3:00:46 PM Referred By: Confirmed By:Lena Hare
== END 2019-04-13 12:55 | disposition home or self-care (01) ==
LOC: JER 10:03
DX: N39.0 Urinary tract infection, site not specified (principal); J44.9 Chronic obstructive pulmonary disease, unspecified; N40.0 Benign prostatic hyperplasia without lower urinary tract symptoms; I25.10 Atherosclerotic heart disease of native coronary artery without angina pectoris; I10 Essential (primary) hypertension; Z98.61 Coronary angioplasty status; C16.9 Malignant neoplasm of stomach, unspecified; C79.89 Secondary malignant neoplasm of other specified sites; F11.20 Opioid dependence, uncomplicated
CPT/HCPCS: 36415; 71045-TC-FY; 80053; 81003; 82550; 84484; 85025; 87086; 93005; 93010; 99285-25